=== PATIENT | male | born 1945 | race Caucasian/White ===

== ENCOUNTER → 2016-03-02 | Outpatient (CLI) | payer MEDICARE, OTHER ==
[2016-03-02 13:06] LABS: Blood Urea Nitrogen 13 mg/dL (9-20); Non-African American GFR(MDRD) >60 (>60 ml/min/1.73 sqM)
--- NOTE | 2016-03-02 15:27 | CT ---
EXAMINATION TYPE: CT abdomen pelvis w con DATE OF EXAM: 03/02/2016 2:27 PM COMPARISON: 09/08/2011 HISTORY: 71-year-old male with abnormal weight loss TECHNIQUE: Contiguous axial scanning of the abdomen and pelvis following administration of 100 ml Omn ipaque 300 IV contrast. Delayed images through the kidneys and coronal/sagittal reconstructions perf ormed. CT DLP: 295.1 mGycm Automated exposure control for dose reduction was used. FINDINGS: Heart is normal size without pericardial effusion. Strandy atelectasis dependently within the lungs w ithout pleural effusion. No focal liver lesion. Mild prominence to the biliary system likely relates to postcholecystectomy st atus. Portal venous system is patent. Adrenal glands, right kidney, spleen, and pancreas show no gross abnormality. Slight interval enlarge ment of a 2.6 cm medial left renal cyst. Symmetric uptake and excretion of contrast by both kidneys. Stable subcentimeter hypodensity lateral left kidney too small for accurate CT characterization, like ly a cyst. Paucity of intra-abdominal fat limits assessment for lymphadenopathy. There are enlarged right lower quadrant mesenteric lymph nodes measuring up to 1.2 cm. There is moderate stool burden and there appears to be short multiple segments of annular narrowing a nd mucosal hyperemia particularly near the hepatic flexure, for example, axial image 47 and some kevin tional circumferential wall thickening with mucosal hyperemia involving distal ileum, axial image 55 and 60. No dilated small bowel, free fluid, or free air. Mild apical scarring calcifications within the abdominal aorta and iliac arteries. Bladder is urine distended. Prostate gland mildly enlarged at 4.4 cm wide. No abnormal fluid collecti on in the pelvis. Bones: Mild degenerative changes at the hips and additional degenerative changes lower lumbar spine. No osseous destructive process. IMPRESSION: 1. MULTI SEGMENTAL ANNULAR NARROWING WITH MUCOSAL HYPEREMIA INVOLVING THE COLON NEAR THE HEPATIC FLEX URE AND ALSO INVOLVING THE TERMINAL ILEUM IS SUSPECTED TO BE ON AN INFECTIOUS/INFLAMMATORY BASIS RATH ER THAN A NEOPLASTIC ETIOLOGY. CORRELATE FOR POSSIBLE ENTEROCOLITIS OR CROHN'S DISEASE. 2. GIVEN THE PRESENCE OF ABNORMAL RIGHT LOWER QUADRANT MESENTERIC LYMPHADENOPATHY MEASURING UP TO 1.2 CM, DIRECT VISUALIZATION TO ASSESS THE COLON SHOULD BE CONSIDERED.
== END | disposition home or self-care (01) ==
LOC: RADCTMAIN 12:18
PROVIDERS: ATTEND Internal Medicine Gastroenterology
DX: R59.0 Localized enlarged lymph nodes (principal)
CPT/HCPCS: 82565; 84520; 74177; 36415; Q9967

== ENCOUNTER → 2016-03-07 | Outpatient (CLI) | payer MEDICARE, OTHER ==
--- NOTE | 2016-03-07 09:08 | XR ---
EXAMINATION TYPE: XR chest 2V DATE OF EXAM: 03/07/2016 8:51 AM COMPARISON: 05/20/2015 INDICATION: Weight loss TECHNIQUE: Frontal and lateral views of the chest are obtained. FINDINGS: The heart size is normal. The pulmonary vasculature is normal. The lungs are clear. There is hyperinflation flattened diaphragms and increased retrosternal airspac e. Findings are compatible COPD. A 6 mm nodular densities at the left base. Corresponding areas prese nt on the right. This may be nipple shadow. IMPRESSION: 1. No acute pulmonary process. 2. Probable nipple shadow, recommend repeat imaging with nipple markers.
== END | disposition home or self-care (01) ==
LOC: RADXRMAIN 08:31
PROVIDERS: ATTEND Nurse Practitioner Primary Care
DX: R63.4 Abnormal weight loss (principal)
CPT/HCPCS: 71020

== ENCOUNTER → 2016-03-07 | Outpatient (CLI) | payer MEDICARE, OTHER | END | disposition home or self-care (01) | LOC: LABWHC1 08:57 | PROVIDERS: ATTEND Psychiatry & Neurology Neurology | DX: G40.209 Localization-related (focal) (partial) symptomatic epilepsy and epileptic syndromes with complex partial seizures, not intractable, without status epilepticus (principal) | CPT/HCPCS: 36415; 80185 ==

== ENCOUNTER → 2016-03-23 | Outpatient (CLI) | payer MEDICARE, OTHER ==
--- NOTE | 2016-03-23 09:44 | XR ---
EXAMINATION TYPE: XR chest 2V DATE OF EXAM: 03/23/2016 8:44 AM COMPARISON: Chest x-ray March 07, 2016 HISTORY: Weight loss per order. Prior abnormal chest x-ray. TECHNIQUE: Frontal and lateral views of the chest are obtained. FINDINGS: Repeat x-ray with nipple markers shows symmetric round densities do correlate with patient' s nipples. Chronic emphysematous changes redemonstrated. There is no focal air space opacity, pleural effusion, or pneumothorax seen. The cardiac silhouette size is within normal limits. The osseous structures are intact. Cholecystectomy clips are again seen. IMPRESSION: Chronic emphysematous change without acute pulmonary process. Rounded densities correlat e with patient's nipples on repeat study.
== END | disposition home or self-care (01) ==
LOC: RADXRMAIN 08:20
PROVIDERS: ATTEND Nurse Practitioner Primary Care
DX: R91.8 Other nonspecific abnormal finding of lung field (principal); R63.4 Abnormal weight loss
CPT/HCPCS: 71020

== ENCOUNTER 2016-03-31 09:37 | Day surgery (SDC) | payer MEDICARE, OTHER ==
[2016-03-29 09:52] VITALS: BMI 16.7
[~2016-03-31 09:37] MED LIST: LACTATED RINGERS 1,000 ML IV SCH
[2016-03-31] MEDS ORDERED: LIDOCAINE 1% 20 ML VIAL (10MG/ML) FOR IV START SQ ONE (09:54)
[2016-03-31 10:06] VITALS: TEMP 97
[2016-03-31] MEDS ORDERED: MIDAZOLAM 2 MG/2 ML VIAL IV PRN (10:23)
[2016-03-31] MEDS ORDERED: LACTATED RINGERS 1,000 ML IV SCH (10:30)
[2016-03-31] MEDS ORDERED: PROPOFOL 10 MG/ML 20 ML VIAL IV ONE (10:42)
--- NOTE | 2016-03-31 11:00 | P.PCN ---
Date of Procedure: 03/31/16 Procedure(s) Performed: Brief history: Patient is a pleasant 71-year-old white male, scheduled for an elective upper endoscopy as well as colonoscopy as a part of evaluation of abdominal pain, progressive weight loss and abnormal CAT scan of the abdomen that showed questionable lesion in the hepatic flexure. The patient has been having these symptoms for the last 6 months duration had lost about 30 pounds. He is hence scheduled for an upper endoscopy as well as colonoscopy to evaluate further. Procedure performed: Esophagogastroduodenoscopy with biopsy Flexible sigmoidoscopy Preoperative diagnosis: Abdominal pain, progressive weight loss Abnormal CAT scan showing questionable lesion in the hepatic flexure. Anesthesia: MAC Procedure: After informed consent was obtained from the patient was brought into the endoscopy unit and IV conscious sedation was administered by anesthesia under continuous monitoring. Initially upper endoscopy was done. The Olympus GF 160 video endoscope was inserted inserted into the mouth and esophagus intubated without any difficulty and was gradually advanced into the stomach and duodenum and carefully examined. The bulb and second part of the duodenum appeared normal. The scope was then withdrawn into the stomach adequately insufflated with air and upon careful examination the antrum and body, had diffuse gastritis and biopsies were done from this area. The cardia and fundus appeared normal. The scope was then withdrawn into the esophagus. The GE junction was located at 40 cm to the incisors. It appeared regular with circumferential erythema consistent with LA grade A reflux esophagitis.. Rest of the esophagus appeared normal. Patient tolerated the procedure well. At this time the patient continued to remain sedation. Initial digital rectal examination was normal. Olympus CF 160 video colonoscope was then inserted into the rectum and gradually advanced to the sigmoid colon and further advancement was not possible because of extremely poor prep that was encountered in this area..There was solid stool noted and advance the scope part in the descending colon and because of family visualized because of extremely poor prep and hence the procedure was terminated and the patient tolerated the procedure well. The visualized portions of the sigmoid colon and rectum appeared normal. Impression: 1. Upper endoscopy revealed diffuse gastritis and LA grade A reflux esophagitis. 2. Flexible sigmoidoscope revealed extended poor prep in the sigmoid colon and descending colon and hence procedure had to be terminated. Recommendations: Findings of this examination were discussed with the patient as well as his family. He was advised to follow with the biopsy results. Colonoscopy will be rescheduled at this time.
[2016-03-31 11:39] VITALS: BP 111/75; PULSE 60; RESP 16
== END 2016-03-31 11:56 | disposition home or self-care (01) ==
LOC: ORWHC2ENDO 09:37
PROVIDERS: ATTEND Internal Medicine Gastroenterology
DX: K29.50 Unspecified chronic gastritis without bleeding (principal); K21.0 Gastro-esophageal reflux disease with esophagitis; R10.9 Unspecified abdominal pain; R93.2 Abnormal findings on diagnostic imaging of liver and biliary tract; R56.9 Unspecified convulsions; R63.4 Abnormal weight loss; F17.200 Nicotine dependence, unspecified, uncomplicated; Z79.899 Other long term (current) drug therapy; Z79.891 Long term (current) use of opiate analgesic; Z53.8 Procedure and treatment not carried out for other reasons
CPT/HCPCS: 88305; 88342; 43239; 45330; J2250; J2704

== ENCOUNTER 2016-04-29 07:55 | Day surgery (SDC) | payer MEDICARE, OTHER ==
[2016-04-27 09:42] VITALS: BMI 15.3
[2016-04-29 08:53] VITALS: TEMP 98
[2016-04-29] MEDS ORDERED: PROPOFOL 10 MG/ML 20 ML VIAL IV ONE (09:03)
--- NOTE | 2016-04-29 09:18 | P.PCN ---
Date of Procedure: 04/29/16 Procedure(s) Performed: BRIEF HISTORY: Patient is a 71-year-old pleasant white male, scheduled for an elective colonoscopy as a part of evaluation of abdominal pain and abnormal CAT scan of the abdomen that showed a lesion in the hepatic flexure/right colon. PROCEDURE PERFORMED: Colonoscopy. PREOPERATIVE DIAGNOSIS: Abnormal CAT scan of the abdomen. IV sedation per Anesthesia. PROCEDURE: After informed consent was obtained, the patient, was brought into the endoscopy unit. IV conscious sedation was administered by Anesthesia under continuous monitoring. Initially the Olympus CF-160 flexible video colonoscope was then inserted in the rectum, gradually advanced into the cecum without any difficulty. Careful examination was performed as the scope was gradually being withdrawn. Ileocecal valve and the appendiceal orifice were visualized and appeared normal. Prep was excellent. Mucosa of the cecum, ascending colon, transverse colon, descending colon, sigmoid colon, and rectum appeared normal. Retroflexion was performed in the rectum and no lesions were seen. Scattered sigmoid diverticulosis seen. The patient tolerated the procedure well. IMPRESSION: Normal-appearing colon from rectum to cecum with no evidence of colorectal neoplasia. Scattered sigmoid diverticulosis. RECOMMENDATIONS: Findings of this examination were discussed with the patient as well as his family. He was advised to have a repeat screening colonoscopy in 10 years.
[2016-04-29 09:29] VITALS: RESP 16
[2016-04-29 09:41] VITALS: BP 117/77; PULSE 79
== END 2016-04-29 10:06 | disposition home or self-care (01) ==
LOC: ORWHC2ENDO 07:55
PROVIDERS: ATTEND Internal Medicine Gastroenterology
DX: K57.30 Diverticulosis of large intestine without perforation or abscess without bleeding (principal); R56.9 Unspecified convulsions; F17.200 Nicotine dependence, unspecified, uncomplicated; Z79.891 Long term (current) use of opiate analgesic; Z79.899 Other long term (current) drug therapy
CPT/HCPCS: 45378; J2704

== ENCOUNTER → 2016-09-30 | Outpatient (CLI) | payer MEDICARE, OTHER | END | disposition home or self-care (01) | LOC: LABWHC1 07:45 | PROVIDERS: ATTEND Psychiatry & Neurology Neurology | DX: G40.209 Localization-related (focal) (partial) symptomatic epilepsy and epileptic syndromes with complex partial seizures, not intractable, without status epilepticus (principal) | CPT/HCPCS: 36415; 80177 ==

== ENCOUNTER → 2017-09-25 | Outpatient (CLI) | payer MEDICARE, OTHER | END | disposition home or self-care (01) | LOC: LABWHC1 08:32 | PROVIDERS: ATTEND Psychiatry & Neurology Neurology | DX: G40.209 Localization-related (focal) (partial) symptomatic epilepsy and epileptic syndromes with complex partial seizures, not intractable, without status epilepticus (principal) | CPT/HCPCS: 36415; 80177 ==

== ENCOUNTER → 2017-12-01 | Outpatient (CLI) | payer MEDICARE, OTHER ==
[2017-12-01 08:14] LABS: ALT 30 U/L (21-72); AST 29 U/L (17-59); Albumin 3.3 g/dL (3.5-5.0); Alkaline Phosphatase 170 U/L (38-126); Anion Gap 7 mmol/L; Blood Urea Nitrogen 14 mg/dL (9-20); Calcium 8.9 mg/dL (8.4-10.2); Carbon Dioxide 29 mmol/L (22-30); Chloride 103 mmol/L (98-107); Cholesterol 85 mg/dL (<200); Glucose 98 mg/dL (74-99); HDL Cholesterol 39 mg/dL (40-60); LDL Cholesterol,Calculated 29 mg/dL (0-99); Potassium 4.9 mmol/L (3.5-5.1); Sodium 139 mmol/L (137-145); Total Bilirubin 0.6 mg/dL (0.2-1.3); Total Protein 6.2 g/dL (6.3-8.2); Triglycerides 86 mg/dL (<150)
== END | disposition home or self-care (01) ==
LOC: LABWHC1 06:56
DX: E78.5 Hyperlipidemia, unspecified (principal)
CPT/HCPCS: 36415; 80053; 80061

== ENCOUNTER → 2018-10-03 | Outpatient (CLI) | payer MEDICARE, OTHER | END | disposition home or self-care (01) | LOC: LABWHC1 08:43 | PROVIDERS: ATTEND Psychiatry & Neurology Neurology | DX: G40.209 Localization-related (focal) (partial) symptomatic epilepsy and epileptic syndromes with complex partial seizures, not intractable, without status epilepticus (principal) | CPT/HCPCS: 36415; 80177 ==

== ENCOUNTER 2019-04-23 16:48 | Inpatient (IN) | payer MEDICARE, OTHER ==
[2019-04-23] MEDS ORDERED: PANTOPRAZOLE 40 MG/10 ML VIAL IVP STA (18:13)
[2019-04-23] MEDS ORDERED: SODIUM CHLORIDE 0.9% 1,000 ML IV STA ×2 (18:13)
[2019-04-23 18:40] LABS: ALT 20 U/L (4-49); AST 30 U/L (17-59); African American GFR (CKD) >90 (>60 ml/min/1.73 sqM); Albumin 3.7 g/dL (3.5-5.0); Alkaline Phosphatase 180 U/L (38-126); Amylase 40 U/L (30-110); Anion Gap 4 mmol/L; Blood Urea Nitrogen 19 mg/dL (9-20); Calcium 9.2 mg/dL (8.4-10.2); Carbon Dioxide 36 mmol/L (22-30); Chloride 94 mmol/L (98-107); Glucose 114 mg/dL (74-99); Non-African American GFR(CKD) 88 (>60 ml/min/1.73 sqM); Potassium 3.8 mmol/L (3.5-5.1); Sodium 134 mmol/L (137-145); Total Bilirubin 0.6 mg/dL (0.2-1.3); Total Protein 6.5 g/dL (6.3-8.2)
[2019-04-23 18:44] LABS: Basophils # (A) 0.1 k/uL (0-0.2); Basophils % (A) 0 %; Eosinophils # (A) 0.1 k/uL (0-0.7); Eosinophils % (A) 1 %; HCT 46.8 % (39.0-53.0); HGB 15.8 gm/dL (13.0-17.5); Lymphocytes # (A) 2.6 k/uL (1.0-4.8); Lymphocytes % (A) 21 %; MCH 31.2 pg (25.0-35.0); MCHC 33.8 g/dL (31.0-37.0); MCV 92.4 fL (80.0-100.0); Mean Platelet Volume 7.2; Monocytes # (A) 0.8 k/uL (0-1.0); Monocytes % (A) 6 %; Neutrophils # (A) 8.6 k/uL (1.3-7.7); Neutrophils % (A) 70 %; Platelet Count 466 k/uL (150-450); RBC 5.06 m/uL (4.30-5.90); RDW 12.4 % (11.5-15.5); WBC 12.3 k/uL (3.8-10.6)
--- NOTE | 2019-04-23 18:48 | ED ---
Abdominal Pain HPI - General Source: patient, RN notes reviewed, old records reviewed Mode of arrival: ambulatory Limitations: no limitations - History of Present Illness MD Complaint: abdominal pain <Dana Johansen - Last Filed: 04/23/19 20:33> <LarryDeidre Arturo - Last Filed: 04/28/19 02:32> - General Chief Complaint: Abdominal Pain Stated Complaint: bleeding ulcer Time Seen by Provider: 04/23/19 17:55 - History of Present Illness Initial Comments: Patient's 24-year-old male who presents today for evaluation with concern for watery diarrhea for the past month as well as nausea and vomiting. Patient reports he lost 10 pounds within the past month. Patient reports he is a smoker as well. He denies any specific fever. He reports he has abdominal pain is in the mid center of his abdomen. Patient states he had 14 episodes of diarrhea yesterday. Patient states that he's had such frequent diarrhea that a few weeks ago he was running to the bathroom and fell causing significant abrasions and scabs over his rate arm after falling into a glass coffee table. Patient reports that he has had a history of colonoscopies and scopes in the past. He states that his stool has not been bloody or black. (Dana Johansen) - Related Data Home Medications Medication Instructions Recorded Confirmed Bimatoprost [Lumigan .01% Ophth 1 drop BOTH EYES HS 03/29/16 04/23/19 Soln] Cyclobenzaprine [Flexeril] 10 mg PO BID 03/29/16 04/23/19 Morphine Sulfate [Ms Contin] 30 mg PO QID 03/29/16 04/23/19 Multivit-Min/FA/Lycopen/Lutein 1 tab PO DAILY 03/29/16 04/23/19 [Centrum Silver Tablet] levETIRAcetam [Keppra] 1,000 mg PO Q12HR 03/29/16 04/23/19 Fluocinonide 0.05% [Lidex 0.05% 1 applic TOPICAL BID 04/23/19 04/23/19 cream] Magnesium(Unknown Dose) 1 tab PO DAILY 04/23/19 04/23/19 Zolpidem [Ambien] 10 mg PO HS PRN 04/23/19 04/23/19 levETIRAcetam [Keppra] 250 mg PO Q12HR 04/23/19 04/23/19 Allergies Allergy/AdvReac Type Severity Reaction Status Date / Time No Known Allergies Allergy Verified 04/23/19 21:59 Review of Systems ROS Other: All systems not noted in ROS Statement are negative. <Dana Johansen - Last Filed: 04/23/19 20:33> ROS Other: All systems not noted in ROS Statement are negative. <Deidre Juarez - Last Filed: 04/28/19 02:32> ROS Statement: Those systems with pertinent positive or pertinent negative responses have been documented in the HPI. Past Medical History Past Medical History: Eye Disorder, GERD/Reflux, Osteoarthritis (OA), Seizure Disorder Additional Past Medical History / Comment(s): LAST SEIZURE 2006, GLAUCOMA, History of Any Multi-Drug Resistant Organisms: None Reported Past Surgical History: Cholecystectomy Additional Past Surgical History / Comment(s): CATARACT RIGHT EYE REMOVED Past Anesthesia/Blood Transfusion Reactions: No Reported Reaction Past Psychological History: No Psychological Hx Reported Smoking Status: Current every day smoker Past Alcohol Use History: None Reported Past Drug Use History: None Reported - Past Family History Mother Family Medical History: Cancer <Dana Johansen - Last Filed: 04/23/19 20:33> General Exam Limitations: no limitations General appearance: alert, in no apparent distress Head exam: Present: atraumatic, normocephalic, normal inspection, other (temporal wasting) Eye exam: Present: normal appearance, PERRL, EOMI. Absent: scleral icterus, conjunctival injection, periorbital swelling ENT exam: Present: normal exam, mucous membranes moist Neck exam: Present: normal inspection Respiratory exam: Present: normal lung sounds bilaterally. Absent: respiratory distress, wheezes, rales, rhonchi, stridor Cardiovascular Exam: Present: regular rate, normal rhythm, normal heart sounds. Absent: systolic murmur, diastolic murmur, rubs, gallop, clicks GI/Abdominal exam: Present: soft, tenderness (epigastric tenderness), normal bowel sounds. Absent: distended, guarding, rebound, rigid Extremities exam: Present: normal inspection, full ROM, normal capillary refill. Absent: tenderness, pedal edema, joint swelling, calf tenderness Back exam: Present: normal inspection Neurological exam: Present: alert, oriented X3, CN II-XII intact <Dana Johansen - Last Filed: 04/23/19 20:33> - General Exam Comments Initial Comments: 74-year-old male. Alert and oriented. Patient is very thin and frail. Cachexic. (Dana Johansen) Course Vital Signs 04/23/19 04/23/19 17:09 20:54 Temperature 98.1 F Pulse Rate 100 90 Respiratory 20 18 Rate Blood Pressure 110/77 115/71 O2 Sat by Pulse 100 99 Oximetry Medical Decision Making - Lab Data Result diagrams: 04/23/19 18:17 04/23/19 18:17 - Radiology Data Radiology results: report reviewed <Dana Johansen - Last Filed: 04/23/19 20:33> - Lab Data Result diagrams: 04/27/19 06:59 04/27/19 06:59 <Deidre Juarez - Last Filed: 04/28/19 02:32> - Medical Decision Making Patient is a 74-year-old male who presents the emergency department today for evaluation for 1 month of diarrhea and vomiting. 10 pound weight loss. Patient is cachectic, temporal wasting noted. Has appears very dehydrated, dry oropharynx. His of epigastric tenderness. Blood work was reviewed relatively unremarkable. Patient had CT abdomen and pelvis. There is evidence of COPD. Mild scarring at the segmental atelectasis right lung base which is improved. There is also diverticulosis in [place] wall thickening related to colitis. This is a change. Distended small bowel loops with fluid. Mildly dilated stomach with fluid. He reports that he just had a Ensure drink today. These findings are suggested of small bowel ileus or gastroparesis. No obstructing lesion is seen. Due to dehydration, CT findings and concern for cachexia, and failure to thrive, patient will be admitted at this time. (Dana Johansen) I was available for consultation in the emergency department. The history and physical exam were done by the midlevel provider. I was consulted for this patients care. I reviewed the case with the midlevel provider and based on their presentation of the patient, I agree with the assessment, medical decision making and plan of care as documented. I evaluated the patient myself and agreed to the plan of hospital admission. Case was discussed with Dr. Dailey who accepted the admission. Chart was dictated using Dragon dictation software. Attempts were made to correct any dictation errors however some typographical errors may persist. (Deidre Juarez) - Lab Data Lab Results 04/23/19 04/23/19 04/23/19 Range/Units 15:45 18:17 18:17 WBC 12.3 H (3.8-10.6) k/uL RBC 5.06 (4.30-5.90) m/uL Hgb 15.8 (13.0-17.5) gm/dL Hct 46.8 (39.0-53.0) % MCV 92.4 (80.0-100.0) fL MCH 31.2 (25.0-35.0) pg MCHC 33.8 (31.0-37.0) g/dL RDW 12.4 (11.5-15.5) % Plt Count 466 H (150-450) k/uL Neutrophils % 70 % Lymphocytes % 21 % Monocytes % 6 % Eosinophils % 1 % Basophils % 0 % Neutrophils # 8.6 H (1.3-7.7) k/uL Lymphocytes # 2.6 (1.0-4.8) k/uL Monocytes # 0.8 (0-1.0) k/uL Eosinophils # 0.1 (0-0.7) k/uL Basophils # 0.1 (0-0.2) k/uL ESR (0-15) mm/hr PT 10.0 (9.0-12.0) sec INR 1.0 (<1.2) APTT 26.4 (22.0-30.0) sec Sodium (137-145) mmol/L Potassium (3.5-5.1) mmol/L Chloride (98-107) mmol/L Carbon Dioxide (22-30) mmol/L Anion Gap mmol/L BUN (9-20) mg/dL Creatinine (0.66-1.25) mg/dL Est GFR (CKD-EPI)AfAm (>60 ml/min/1.73 sqM) Est GFR (CKD-EPI)NonAf (>60 ml/min/1.73 sqM) Glucose (74-99) mg/dL Plasma Lactic Acid Khurram (0.7-2.0) mmol/L Calcium (8.4-10.2) mg/dL Total Bilirubin (0.2-1.3) mg/dL AST (17-59) U/L ALT (4-49) U/L Alkaline Phosphatase (38-126) U/L Troponin I (0.000-0.034) ng/mL C-Reactive Protein (<10.0) mg/L Total Protein (6.3-8.2) g/dL Albumin (3.5-5.0) g/dL Amylase (30-110) U/L Lipase (23-300) U/L Urine Color Urine Appearance (Clear) Urine pH (5.0-8.0) Ur Specific Williamson (1.001-1.035) Urine Protein (Negative) Urine Glucose (UA) (Negative) Urine Ketones (Negative) Urine Blood (Negative) Urine Nitrite (Negative) Urine Bilirubin (Negative) Urine Urobilinogen (<2.0) mg/dL Ur Leukocyte Esterase (Negative) Stool Occult Blood Positive (Negative) 04/23/19 04/23/19 04/23/19 Range/Units 18:17 18:17 18:17 WBC (3.8-10.6) k/uL RBC (4.30-5.90) m/uL Hgb (13.0-17.5) gm/dL Hct (39.0-53.0) % MCV (80.0-100.0) fL MCH (25.0-35.0) pg MCHC (31.0-37.0) g/dL RDW (11.5-15.5) % Plt Count (150-450) k/uL Neutrophils % % Lymphocytes % % Monocytes % % Eosinophils % % Basophils % % Neutrophils # (1.3-7.7) k/uL Lymphocytes # (1.0-4.8) k/uL Monocytes # (0-1.0) k/uL Eosinophils # (0-0.7) k/uL Basophils # (0-0.2) k/uL ESR (0-15) mm/hr PT (9.0-12.0) sec INR (<1.2) APTT (22.0-30.0) sec Sodium 134 L (137-145) mmol/L Potassium 3.8 (3.5-5.1) mmol/L Chloride 94 L (98-107) mmol/L Carbon Dioxide 36 H (22-30) mmol/L Anion Gap 4 mmol/L BUN 19 (9-20) mg/dL Creatinine 0.81 (0.66-1.25) mg/dL Est GFR (CKD-EPI)AfAm >90 (>60 ml/min/1.73 sqM) Est GFR (CKD-EPI)NonAf 88 (>60 ml/min/1.73 sqM) Glucose 114 H (74-99) mg/dL Plasma Lactic Acid Khurram 1.0 (0.7-2.0) mmol/L Calcium 9.2 (8.4-10.2) mg/dL Total Bilirubin 0.6 (0.2-1.3) mg/dL AST 30 (17-59) U/L ALT 20 (4-49) U/L Alkaline Phosphatase 180 H (38-126) U/L Troponin I <0.012 (0.000-0.034) ng/mL C-Reactive Protein (<10.0) mg/L Total Protein 6.5 (6.3-8.2) g/dL Albumin 3.7 (3.5-5.0) g/dL Amylase 40 (30-110) U/L Lipase 37 (23-300) U/L Urine Color Urine Appearance (Clear) Urine pH (5.0-8.0) Ur Specific Williamson (1.001-1.035) Urine Protein (Negative) Urine Glucose (UA) (Negative) Urine Ketones (Negative) Urine Blood (Negative) Urine Nitrite (Negative) Urine Bilirubin (Negative) Urine Urobilinogen (<2.0) mg/dL Ur Leukocyte Esterase (Negative) Stool Occult Blood (Negative) 04/23/19 04/24/19 04/24/19 Range/Units 19:31 18:03 18:03 WBC (3.8-10.6) k/uL RBC (4.30-5.90) m/uL Hgb (13.0-17.5) gm/dL Hct (39.0-53.0) % MCV (80.0-100.0) fL MCH (25.0-35.0) pg MCHC (31.0-37.0) g/dL RDW (11.5-15.5) % Plt Count (150-450) k/uL Neutrophils % % Lymphocytes % % Monocytes % % Eosinophils % % Basophils % % Neutrophils # (1.3-7.7) k/uL Lymphocytes # (1.0-4.8) k/uL Monocytes # (0-1.0) k/uL Eosinophils # (0-0.7) k/uL Basophils # (0-0.2) k/uL ESR 8 (0-15) mm/hr PT (9.0-12.0) sec INR (<1.2) APTT (22.0-30.0) sec Sodium (137-145) mmol/L Potassium (3.5-5.1) mmol/L Chloride (98-107) mmol/L Carbon Dioxide (22-30) mmol/L Anion Gap mmol/L BUN (9-20) mg/dL Creatinine (0.66-1.25) mg/dL Est GFR (CKD-EPI)AfAm (>60 ml/min/1.73 sqM) Est GFR (CKD-EPI)NonAf (>60 ml/min/1.73 sqM) Glucose (74-99) mg/dL Plasma Lactic Acid Khurram (0.7-2.0) mmol/L Calcium (8.4-10.2) mg/dL Total Bilirubin (0.2-1.3) mg/dL AST (17-59) U/L ALT (4-49) U/L Alkaline Phosphatase (38-126) U/L Troponin I (0.000-0.034) ng/mL C-Reactive Protein 33.2 H (<10.0) mg/L Total Protein (6.3-8.2) g/dL Albumin (3.5-5.0) g/dL Amylase (30-110) U/L Lipase (23-300) U/L Urine Color Yellow Urine Appearance Clear (Clear) Urine pH 6.5 (5.0-8.0) Ur Specific Williamson 1.031 (1.001-1.035) Urine Protein Negative (Negative) Urine Glucose (UA) Negative (Negative) Urine Ketones Negative (Negative) Urine Blood Negative (Negative) Urine Nitrite Negative (Negative) Urine Bilirubin Negative (Negative) Urine Urobilinogen <2.0 (<2.0) mg/dL Ur Leukocyte Esterase Negative (Negative) Stool Occult Blood (Negative) - Radiology Data CT shows evidence of COPD mild scarring and sex segmental atelectasis in the right lung base. Minimal sigmoid diverticulosis. Sigmoid wall thickening could relate to colitis. This is a change from old exam. Distended small bowel loops with fluid. Mildly dilated stomach with fluid. Suggestive of gastroparesis and small bowel ileus. No obstructing lesion seen. Chest x-ray shows COPD. No active cardiopulmonary disease. There is mild T12 compression fracture and Increased to old exam. (Dana Johansen) Disposition Is patient prescribed a controlled substance at d/c from ED?: No Time of Disposition: 20:37 <Dana Johansen - Last Filed: 04/23/19 20:33> <Deidre Juarez - Last Filed: 04/28/19 02:32> Clinical Impression: Cachexia, Dehydration, Colitis, Vomiting Disposition: ADMITTED IP TO THIS HOSP Condition: Stable
[2019-04-23 19:03] LABS: Partial Thromboplastin Time 26.4 sec (22.0-30.0)
--- NOTE | 2019-04-23 19:19 | XR ---
EXAMINATION TYPE: XR chest 2V DATE OF EXAM: 04/23/2019 COMPARISON: 03/23/2016 HISTORY: Weight loss TECHNIQUE: FINDINGS: Heart is normal. Lungs are clear of infiltrate. There is no heart failure. There are no hil ar masses. There is flattening of the diaphragm. There is 15% wedging of T12 vertebra. IMPRESSION: COPD. No active cardiopulmonary disease. There is mild T12 compression fracture increased compared to old exam.
--- NOTE | 2019-04-23 19:38 | CT ---
EXAMINATION TYPE: CT abdomen pelvis w con DATE OF EXAM: 04/23/2019 COMPARISON: 03/02/2016 HISTORY: Weight loss, diarrhea, vomiting, abdomen pain, cachexia x3 weeks. CT DLP: 538.3 mGycm Automated exposure control for dose reduction was used. CONTRAST: Performed with IV Contrast, patient injected with 100 mL of Isovue 300. There is some pulmonary emphysema. There is minimal scarring and subsegmental atelectasis right lung base. There is no pleural effusion. Heart size is normal. There is no pericardial effusion. There are clips from cholecystectomy. Liver and spleen appear intact. There is no evidence of pancrea tic mass. The stomach is dilated with fluid. There is no adrenal mass. Kidneys show satisfactory cont rast opacification. There is no hydronephrosis. There is 3.3 cm cortical cyst medial left kidney. The re is no retroperitoneal adenopathy. Ureters are not dilated. Bladder distends smoothly. There is no inguinal hernia. There is no free fluid in the pelvis. There are a few sigmoid diverticula. There is no sign of diverticulitis. Fecal pattern is fairly normal. There is suggestion of mild wall thickenin g of the sigmoid colon. There are mildly distended loops of small bowel up to 3 cm. There is no evidence of free air. There i s no ascites. There is no mesenteric edema. IMPRESSION: There is evidence of COPD. Mild scarring and subsegmental atelectasis right lung base slightly increa sed compared to old exam. Minimal sigmoid diverticulosis. Minimal sigmoid wall thickening could relate to mild colitis. This is a change compared to old exam. Distended small bowel loops with fluid. Mildly dilated stomach with f luid. This is suggestive of gastroparesis and small bowel ileus. No obstructing lesion seen. This shakeel ears similar to old exam.
[2019-04-23 19:46] LABS: Appearance,Urine Clear (Clear); Bilirubin,Urine Negative (Negative); Blood,Urine Negative (Negative); Color,Urine Yellow; Glucose,Urine (UA) Negative (Negative); Ketones,Urine Negative (Negative); Leukocyte Esterase,Urine Negative (Negative); Nitrite,Urine Negative (Negative); PH, Urine 6.5 (5.0-8.0); Protein,Urine Negative (Negative); Specific Gravity,Urine 1.031 (1.001-1.035); Urobilinogen,Urine <2.0 mg/dL (<2.0)
[2019-04-23] MEDS ORDERED: IBUPROFEN 400 MG TAB PO PRN (20:38)
[2019-04-23] MEDS ORDERED: ACETAMINOPHEN TAB 325 MG TAB PO PRN (20:38)
[2019-04-23] MEDS ORDERED: HYDROmorphone 0.5 MG/0.5 ML SYRINGE IVP PRN (20:38)
[2019-04-23] MEDS ORDERED: NALOXONE 0.4 MG/ML 1 ML VIAL IV PRN (20:38)
[2019-04-23] MEDS ORDERED: MORPHINE SULFATE 4 MG/ML SYRINGE IV PRN (20:38)
[2019-04-23] MEDS: levETIRAcetam 500 MG TAB PO SCH (21:22)
[2019-04-23] MEDS: SODIUM CHLORIDE 0.9% 1,000 ML IV SCH (21:22)
[2019-04-23] MEDS: CYCLOBENZAPRINE 10 MG TAB PO SCH (21:28)
[2019-04-23] MEDS: MORPHINE SULFATE ER 30 MG TABLET PO SCH (21:28)
[2019-04-23] MEDS ORDERED: PHENYTOIN SODIUM EXTENDED 100 MG CAP PO SCH (22:00)
[2019-04-23] MEDS ORDERED: ZOLPIDEM 10 MG TAB PO PRN (22:21)
[2019-04-24] MEDS: LATANOPROST 0.005% OPHTH DROPS 2.5 ML BTL BOTH EYES SCH ×3 (00:21→22:04)
[2019-04-24] MEDS: BETAMETHASONE DIPROPIONATE 0.05% CREAM 15 GM TUBE TOPICAL SCH ×3 (08:58→22:04)
[2019-04-24] MEDS: MORPHINE SULFATE ER 30 MG TABLET PO SCH ×4 (09:06→22:06)
[2019-04-24] MEDS: PANTOPRAZOLE 40 MG/10 ML VIAL IV SCH (09:07)
[2019-04-24] MEDS: levETIRAcetam 250 MG TAB PO SCH ×2 (09:07→21:13)
[2019-04-24] MEDS: MULTIVITAMINS, THERA 1 EACH TAB PO SCH (09:07)
[2019-04-24] MEDS: CYCLOBENZAPRINE 10 MG TAB PO SCH ×2 (09:07→21:12)
[2019-04-24] MEDS: levETIRAcetam 500 MG TAB PO SCH ×2 (09:07→21:12)
[2019-04-24 14:21] VITALS: BMI 15.3
--- NOTE | 2019-04-24 17:07 | HP ---
HISTORY AND PHYSICAL DATE OF SERVICE: 04/24/2019 CHIEF COMPLAINT: Abdominal pain as well as diarrhea. HISTORY OF PRESENT ILLNESS: This 74-year-old gentleman with a past medical history of multiple medical problems, including history of GERD, DJD, seizure disorder, history of glaucoma, being followed by Dr. Oliveros in the outpatient setting, was complaining of diarrhea and abdominal discomfort for the last 2 months. The patient had multiple episodes of diarrhea, watery, every day. Patient lost about 8 pounds. The patient apparently had 14 episodes yesterday. The patient was running to the bathroom and the patient apparently fell and developed abrasions and some injury of the right forearm also. There is no history of any fever, rigor or chills. No history of headache, loss of consciousness, seizures. CT scan of the abdomen and pelvis was done in the ER and showed some COPD and diverticulosis, gastroparesis and small bowel ileus also PAST MEDICAL HISTORY: GERD, DJD, history of seizure disorder, history of glaucoma. MEDICATIONS: 1. Keppra 250 mg p.o. b.i.d. 2. 1000 mg p.o. b.i.d. 3. Ambien 10 mg at bedtime p.r.n. 4. Centrum multivitamins 1 p.o. daily. 5. MS Contin 30 mg p.o. q.i.d. 6. Magnesium 1 tablet p.o. daily. 7. Lidex cream 1 application b.i.d. 8. Flexeril 10 mg p.o. daily. 9. Lumigan 1 drop both eyes at bedtime. ALLERGIES: NONE. FAMILY HISTORY: History of cancer in the family. SOCIAL HISTORY: History of smoking, continued ongoing. History of alcohol. REVIEW OF SYSTEMS: ENT: Diminished hearing. Diminished vision. CARDIOVASCULAR SYSTEM: No angina, palpitations. RESPIRATORY SYSTEM: As mentioned earlier. GI: As mentioned earlier. : No dysuria or retention. NERVOUS SYSTEM: Generalized weakness. ALLERGY/IMMUNOLOGY: No asthma, hayfever. MUSCULOSKELETAL: As mentioned earlier. HEMATOLOGY/ONCOLOGY: No history of anemia. ENDOCRINE: No history of diabetes, hypothyroidism. CONSTITUTIONAL: As mentioned earlier. DERMATOLOGY: Negative. RHEUMATOLOGY: Negative. PSYCHIATRY: As mentioned earlier. PHYSICAL EXAMINATION: Patient alert and oriented x3. Pulse is 82, blood pressure 100/56, respiration 15, temperature 98 degrees, pulse ox 97% on room air. HEENT: Conjunctivae normal. NECK: No jugular venous distention. CARDIOVASCULAR SYSTEM: S1, S2 muffled. RESPIRATORY SYSTEM: Breath sounds diminished at the bases. A few scattered rhonchi and crackles. Expiratory wheezing also present. ABDOMEN: Soft, scaphoid. Mild diffuse discomfort on palpation. No guarding. No rigidity. No mass palpable. LEGS: No edema. No swelling. NERVOUS SYSTEM: Higher functions as mentioned earlier. Moves all 4 limbs. No focal motor or sensory deficit. LYMPHATICS: No lymph node palpable in neck, axillae or groin. SKIN: No ulcer, rash, bleeding. JOINTS: No active deforming arthropathy. LABS: WBC 12.3, hemoglobin 15.2, sodium 134. ASSESSMENT: 1. Subacute chronic diarrhea for evaluation; rule out infective diarrhea. 2. Increased white count. 3. Weight loss of 8 pounds for evaluation. 4. Severe protein-calorie malnutrition; body mass index of 15. 5. Hyponatremia. 6. History of gastroesophageal reflux disease. 7. History of degenerative joint disease. 8. History of seizure disorder. 9. History of glaucoma. 10.History of cataracts. 11.History of nicotine dependence, continued ongoing. 12.FULL CODE. RECOMMENDATIONS AND DISCUSSION: In this 74-year-old gentleman who presented with multiple complex medical issues, we will monitor the patient closely, continue the current medications, continue with symptomatic treatment. Will check Keppra levels. Otherwise, CT scan noted. I would also recommend a CT scan of the chest to complete the workup and stool ova, parasites and C difficile cultures and OB. Gastroenterology consultation. Guarded prognosis because of multiple complex medical issues. Further recommendations to follow. A copy of this dictation is being forwarded to Dr. Oliveros, who is the primary physician. MMODL / IJN: [id number] / MTDD
--- NOTE | 2019-04-24 20:11 | CT ---
EXAMINATION TYPE: CT chest wo con DATE OF EXAM: 04/24/2019 COMPARISON: Chest x-ray 04/23/[address] 04/23/2019 HISTORY: abnormal weight loss CT DLP: 199.6 mGycm. Automated Exposure Control for Dose Reduction was Utilized. TECHNIQUE: CT scan of the thorax is performed without IV contrast. FINDINGS: Lack of intravenous contrast could compromise sensitivity. Patient is cachectic. LUNGS: The lungs are remarkable for emphysematous changes. Possible retained secretions present withi n the trachea. Some probable dependent atelectatic changes or scarring noted. There is no pleural e ffusion or pneumothorax seen. The tracheobronchial tree is patent. MEDIASTINUM: Lack of IV contrast is noted to limit evaluation for mediastinal and especially hilar ad enopathy. There are no definitive greater than 1 cm hilar or mediastinal lymph nodes. No cardiomega ly or pericardial effusion is seen. The heart is small. OTHER: Mild superior endplate fracture present centrally at T12. Vacuum phenomenon present at T11-12. Posterior displaced right rib fracture present at the 11th rib on the right as on prior CT. Some enl arged nodes are suspected within the mesentery on prior CT abdomen, axial image 54 not as well seen o n today's noncontrast exam. Cortical cyst is associated with the left kidney. Patient is post cholecy stectomy. Distended stomach shows probable food contents. IMPRESSION: There is adenopathy within the abdomen. Postop changes and emphysema. Additional nonspeci fic findings described above. Posterior right 11th rib fracture of indeterminate age
[2019-04-24] MEDS: ONDANSETRON 4 MG/2 ML VIAL IVP PRN (21:12)
[2019-04-24] MEDS: SODIUM CHLORIDE 0.9% 1,000 ML IV SCH (21:13)
[2019-04-25] MEDS: PANTOPRAZOLE 40 MG/10 ML VIAL IV SCH (07:20)
[2019-04-25] MEDS: MORPHINE SULFATE ER 30 MG TABLET PO SCH ×4 (07:20→21:08)
[2019-04-25] MEDS: CYCLOBENZAPRINE 10 MG TAB PO SCH ×2 (07:20→20:01)
[2019-04-25] MEDS: levETIRAcetam 500 MG TAB PO SCH ×2 (07:21→20:01)
[2019-04-25] MEDS: MULTIVITAMINS, THERA 1 EACH TAB PO SCH (07:21)
[2019-04-25] MEDS: levETIRAcetam 250 MG TAB PO SCH ×2 (07:21→20:01)
[2019-04-25] MEDS: BETAMETHASONE DIPROPIONATE 0.05% CREAM 15 GM TUBE TOPICAL SCH ×2 (07:21→20:01)
[2019-04-25] MEDS: ONDANSETRON 4 MG/2 ML VIAL IVP PRN (09:28)
[2019-04-25 09:51] LABS: Basophils % (A) 0 %; Eosinophils # (A) 0.1 k/uL (0-0.7); Eosinophils % (A) 1 %; HCT 45.2 % (39.0-53.0); HGB 14.6 gm/dL (13.0-17.5); Lymphocytes # (A) 1.5 k/uL (1.0-4.8); Lymphocytes % (A) 14 %; MCH 30.2 pg (25.0-35.0); MCHC 32.4 g/dL (31.0-37.0); MCV 93.2 fL (80.0-100.0); Mean Platelet Volume 7.3; Monocytes # (A) 0.6 k/uL (0-1.0); Monocytes % (A) 6 %; Neutrophils # (A) 8.1 k/uL (1.3-7.7); Neutrophils % (A) 78 %; Platelet Count 393 k/uL (150-450); RBC 4.85 m/uL (4.30-5.90); RDW 12.4 % (11.5-15.5); WBC 10.5 k/uL (3.8-10.6)
[2019-04-25 10:02] LABS: African American GFR (CKD) >90 (>60 ml/min/1.73 sqM); Anion Gap 4 mmol/L; Blood Urea Nitrogen 14 mg/dL (9-20); Calcium 8.2 mg/dL (8.4-10.2); Carbon Dioxide 29 mmol/L (22-30); Chloride 100 mmol/L (98-107); Glucose 87 mg/dL (74-99); Non-African American GFR(CKD) >90 (>60 ml/min/1.73 sqM); Potassium 5.2 mmol/L (3.5-5.1); Sodium 133 mmol/L (137-145)
[2019-04-25] MEDS: SODIUM CHLORIDE 0.9% 1,000 ML IV SCH ×2 (13:58→21:09)
[2019-04-25] MEDS: LATANOPROST 0.005% OPHTH DROPS 2.5 ML BTL BOTH EYES SCH (20:00)
--- NOTE | 2019-04-25 22:27 | PN ---
PROGRESS NOTE DATE OF SERVICE: 04/25/2019 This 74-year-old gentleman who was admitted with subacute chronic diarrhea is being closely monitored. The patient has significant cachexia, also. A gastroenterology evaluation also has been sought. The patient had extensive evaluation, including a CT scan of the abdomen and pelvis and CT scan of the chest, which showed probably some mild colitis, gastroparesis, ileus and adenopathy. The patient is being closely monitored at this time. The patient also had significant infection and cellulitis of the right forearm. The patient apparently fell on a glass. PAST MEDICAL HISTORY: Reviewed. REVIEW OF SYSTEMS: CARDIOVASCULAR SYSTEM: No angina, palpitations. RESPIRATORY SYSTEM: As mentioned earlier. GI: As mentioned earlier. : No dysuria or retention. NERVOUS SYSTEM: No numbness. Generalized weakness. CURRENT MEDICATIONS: Current medications are reviewed and include: 1. Tylenol p.r.n. 2. Betamethasone. 3. Flexeril. 4. Dilaudid p.r.n. 5. Motrin. 6. Xalatan. 7. Keppra. 8. Morphine sulfate. 9. MS Contin. 10.Narcan. 11.Protonix. PHYSICAL EXAMINATION: On examination, patient is alert and oriented x3. Pulse is 86, blood pressure 131/52, respirations 17, temperature 98.4, pulse ox 96% on room air. HEENT: Conjunctivae normal. NECK: No jugular venous distention. CARDIOVASCULAR SYSTEM: S1, S2 muffled. RESPIRATORY SYSTEM: Breath sounds diminished at the bases. Scattered rhonchi and crackles. ABDOMEN: Soft, nontender. LEGS: No edema. No swelling. NERVOUS SYSTEM: No focal deficit. Otherwise, diffusely weak and emaciated. Right forearm excoriation present. LABS: WBC 10.5, hemoglobin 14.6, sodium 133, potassium 5.2. C-reactive protein is 33.2. ESR is 8. ASSESSMENT: 1. Subacute chronic diarrhea for evaluation; rule out infective diarrhea. 2. Increased white blood cell count. 3. Weight loss of 8 pounds for evaluation. 4. Severe protein-calorie malnutrition; body mass index of 15. 5. Hyponatremia. 6. History of gastroesophageal reflux disease. 7. History of degenerative joint disease. 8. History of seizure disorder. 9. History of glaucoma. 10.History of cataracts. 11.History of nicotine dependence, continued ongoing. 12.FULL CODE. 13.Multiple findings on the CT scan of chest and abdomen. RECOMMENDATIONS AND DISCUSSION: I recommend to continue with the current medications. Await GI evaluation. Patient might need endoscopy, either as an inpatient or outpatient. Otherwise, we will continue to monitor. Repeat labs will be ordered. CT scan noted. We will continue to monitor. Some of the stool findings are awaited because they are apparently sent out. Repeat labs are ordered. Encourage fluids and food and increase ambulation. Further recommendations to follow. MMODL / IJN: [id number] /
[2019-04-26] MEDS: ONDANSETRON 4 MG/2 ML VIAL IVP PRN ×2 (04:54→21:07)
--- NOTE | 2019-04-26 07:38 | CONS ---
CONSULTATION DATE OF SERVICE: 04/25/2019. REASON FOR CONSULTATION: Abdominal pain and diarrhea. HISTORY OF PRESENT ILLNESS: The patient is a 74-year-old white male who was admitted to the hospital complaining of diarrhea and lower abdominal discomfort for the last 2 weeks' duration. He says that he has been having bowel movements anywhere from 10 to 12 a day which are loose to watery in consistency with no blood or mucus in the stool. Yesterday, he had almost 15 episodes, almost on an hourly basis. He lost about 8 pounds since the onset of these symptoms. His girlfriend was also suffering from diarrhea but lasted only for 3 days and resolved. He denies any recent antibiotic use. Denies any recent travel history. He came into the emergency room and had a CT of the abdomen and pelvis done that shows some diverticulosis but no evidence of colitis. Since being in the hospital, he did not have any further episodes of diarrhea. PAST MEDICAL HISTORY: He did have a colonoscopy in 2017 that showed diverticulosis. Significant for seizure disorder, degenerative joint disease, gastroesophageal reflux disease, glaucoma. MEDICATIONS: At home include Keppra, Ambien, Centrum Silver, MS Contin, magnesium, Lidex cream, Flexeril and Lumigan. ALLERGIES: None. SOCIAL HISTORY: History of smoking and occasional alcohol use. FAMILY HISTORY: Father had some kind of cancer. REVIEW OF SYSTEMS: CARDIOPULMONARY: No chest pain, shortness of breath. GENITOURINARY: No dysuria or hematuria. MUSCULOSKELETAL: Unremarkable. SKIN: Unremarkable. ENDOCRINE: Unremarkable. PSYCHIATRIC: Anxiety. NEUROLOGY: Unremarkable. ENT: Vision unremarkable. CONSTITUTIONAL: No weight loss. No fever, chills, night sweats. PHYSICAL EXAMINATION: He appears comfortable, in no apparent distress. Vital signs are stable. Blood pressure is 145/86, pulse rate is 85, temperature 98.7. HEENT: Examination unremarkable. Conjunctivae are pink, sclerae nonicteric, oral cavity no lesions. NECK: No JVD or lymph node enlargement. CHEST: Clear to auscultation. HEART: Regular rate and rhythm. ABDOMEN: Soft, bowel sounds are positive. No organomegaly. EXTREMITIES: No pedal edema. SKIN: No rashes. NEUROLOGIC: Alert and oriented x3. No focal deficits. LABS: Done yesterday, WBC 12.8, hemoglobin 15.8, platelets normal. Basic metabolic panel is within normal limits. BUN is 14, creatinine 0.63, sodium 133, potassium 5.2, CRP is 33.2. Stool studies were requested but was not done as patient did not have any diarrhea since being in the hospital. Occult blood was positive. IMPRESSION: This patient presents to the hospital with diarrhea of 2 weeks' duration. She has been having problems but no blood or mucus in the stool. Most likely dealing with infectious etiology. Doubt inflammatory bowel disease. Since being in the hospital, no further episodes of diarrhea. His girlfriend also had diarrhea that lasted for 3 days and resolved. He denies any recent antibiotic use or travel history. Stool was Hemoccult positive. CAT scan did not show any evidence of colitis. RECOMMENDATIONS: 1. Obtain stool studies if he has recurrent diarrhea. 2. Acute symptomatic and supportive care. 3. Advance diet as tolerated. 4. If he has persistent diarrhea, will consider endoscopic intervention. Thank you for this consultation. Will follow with you closely during his hospital stay. MARIANNEL / HERNANN: [id number] /
[2019-04-26] MEDS: MORPHINE SULFATE ER 30 MG TABLET PO SCH ×4 (08:30→20:54)
[2019-04-26] MEDS: CYCLOBENZAPRINE 10 MG TAB PO SCH ×2 (08:31→20:55)
[2019-04-26] MEDS: PANTOPRAZOLE 40 MG/10 ML VIAL IV SCH (08:31)
[2019-04-26] MEDS: levETIRAcetam 250 MG TAB PO SCH ×2 (08:31→20:55)
[2019-04-26] MEDS: MULTIVITAMINS, THERA 1 EACH TAB PO SCH (08:31)
[2019-04-26] MEDS: levETIRAcetam 500 MG TAB PO SCH ×2 (08:31→20:55)
[2019-04-26] MEDS: BETAMETHASONE DIPROPIONATE 0.05% CREAM 15 GM TUBE TOPICAL SCH ×2 (08:33→20:56)
[2019-04-26 09:29] LABS: Basophils % (A) 0 %; Eosinophils # (A) 0.1 k/uL (0-0.7); Eosinophils % (A) 0 %; HCT 45.5 % (39.0-53.0); Lymphocytes # (A) 1.5 k/uL (1.0-4.8); Lymphocytes % (A) 13 %; MCH 30.5 pg (25.0-35.0); MCHC 32.9 g/dL (31.0-37.0); MCV 92.7 fL (80.0-100.0); Mean Platelet Volume 7.6; Monocytes # (A) 0.7 k/uL (0-1.0); Monocytes % (A) 7 %; Neutrophils # (A) 8.7 k/uL (1.3-7.7); Neutrophils % (A) 78 %; Platelet Count 376 k/uL (150-450); RBC 4.91 m/uL (4.30-5.90); RDW 12.3 % (11.5-15.5); WBC 11.1 k/uL (3.8-10.6)
[2019-04-26 09:31] LABS: African American GFR (CKD) >90 (>60 ml/min/1.73 sqM); Anion Gap 7 mmol/L; Blood Urea Nitrogen 17 mg/dL (9-20); Calcium 8.1 mg/dL (8.4-10.2); Carbon Dioxide 27 mmol/L (22-30); Chloride 99 mmol/L (98-107); Glucose 85 mg/dL (74-99); Non-African American GFR(CKD) >90 (>60 ml/min/1.73 sqM); Potassium 4.3 mmol/L (3.5-5.1); Sodium 133 mmol/L (137-145)
[2019-04-26] MEDS: SODIUM CHLORIDE 0.9% 1,000 ML IV SCH (11:05)
--- NOTE | 2019-04-26 15:05 | P.PN ---
Subjective Progress Note Date: 04/26/19 Principal diagnosis: This is a 74-year-old male who was recently admitted with subacute chronic diarrhea and is being closely monitored. GI is following. Patient continues to have liquid stools and has been unable to make it to the bathroom and has been soiling himself all day today. Nursing staff and patient attempting to collect samples to send for C. diff and further studies although patient is not making it to the bathroom in time. Patient continues to have some abdominal pain and states he has had weight loss over the last few weeks. Patient also has significant cachexia as well. Currently no reports of chest pain, shortness of breath, or palpitations. Patient is afebrile. No reports of nausea or vomiting and patient is tolerating diet. Possible colonoscopy. Will continue to monitor closely. Objective - Vital Signs Vital signs: Vital Signs Temp 98.1 F 04/26/19 07:00 Pulse 94 04/26/19 07:00 Resp 16 04/26/19 07:00 BP 108/75 04/26/19 07:00 Pulse Ox 94 L 04/26/19 07:00 Intake & Output 04/25/19 04/26/19 04/26/19 18:59 06:59 18:59 Intake Total 825 Balance 825 Intake: Intake, IV Titration 825 Amount Sodium Chloride 0.9% 1, 825 000 ml @ 75 mls/hr IV . [id number] [facility] Rx#:[id number] Other: Voiding Method Toilet Urinal # Voids 3 3 - Exam Gen: This is a 74-year-old male sitting up, awake, alert and oriented 3, cachectic, emaciated in appearance. Temp is 98.1F, pulse is 94, respirations are 16, blood pressure is 108/75, oxygen is 94% on room air. HEENT: Head is atraumatic, normocephalic. Pupils equal, round. Sclerae is anicteric. NECK: Supple. No JVD. No lymphadenopathy. No thyromegaly. LUNGS: Breath sounds diminished at the bases with a few scattered rhonchi noted. No wheezes or rhonchi. No intercostal retractions. HEART: S1, S2 are muffled ABDOMEN: Soft. Bowel sounds are present. No masses. No tenderness. EXTREMITIES: No pedal edema. No calf tenderness. Right forearm excoriation present. NEUROLOGICAL: Patient is awake, alert and oriented x3. diffusely weak noted and gait dysfunction. - Labs CBC & Chem 7: 04/26/19 08:35 04/26/19 08:35 Labs: Abnormal Lab Results - Last 24 Hours (Table) 04/26/19 04/26/19 Range/Units 08:35 08:35 WBC 11.1 H (3.8-10.6) k/uL Neutrophils # 8.7 H (1.3-7.7) k/uL Sodium 133 L (137-145) mmol/L Creatinine 0.62 L (0.66-1.25) mg/dL Calcium 8.1 L (8.4-10.2) mg/dL Microbiology - Last 24 Hours (Table) 04/23/19 18:17 Blood Culture - Preliminary Blood No Growth after 48 hours Assessment and Plan Assessment: Subacute chronic diarrhea for evaluation: Rule out infective diarrhea Increased white blood count Weight loss of 8 pounds recently Severe protein calorie malnutrition, body mass index of 15 Hyponatremia history of gastroesophageal reflux disease History of degenerative joint disease history of seizure disorder History of glaucoma history of cataracts history of nicotine dependence, continued ongoing Full code Multiple findings on the computed tomography scan of the chest and abdomen Recommend to continue current medications, management, and symptomatic treatment. GI following. Possible colonoscopy. Patient continues to have diarrhea and unsuccessful attempts at obtaining enough sample for C. diff and further studies. Nursing staff continuing to attempt collection. Will repeat a.m. labs. Will continue to monitor closely. Due to multiple complex medical issues, prognosis is guarded. Further recommendations to follow.
--- NOTE | 2019-04-26 18:33 | PN ---
PROGRESS NOTE DATE OF DICTATION: 04/26/2019 The patient is a 74-year-old pleasant white male admitted to the hospital with chronic diarrhea of two to three weeks' duration. He was having 10 to 15 bowel movements daily, and while in the hospital he is having severe fecal incontinence. He was not able to collect any stool studies because of the fecal incontinence. He continues to have diarrhea. He had about three loose bowel movements today. He lost about eight pounds. He denies any rectal bleeding. He reports no abdominal pain. PHYSICAL EXAMINATION: He appears comfortable, in no apparent distress. Vital signs are stable. Blood pressure is 112/86, pulse rate 94, temperature 98.1. HEENT: Examination unremarkable. Conjunctivae are pink, sclerae anicteric. Oral cavity has no lesions. NECK: No JVD or lymph node enlargement. CHEST: Clear to auscultation. HEART: Regular rate and rhythm. ABDOMEN: Soft. Bowel sounds are positive. No organomegaly. EXTREMITIES: No pedal edema. NEUROLOGIC: He is alert and oriented x3. No focal deficits. LABS: Labs done today show WBC 11.1, hemoglobin 15, platelets normal. Basic metabolic panel is within normal limits. CRP is 33.2. IMPRESSION: 1. Diarrhea for a few weeks' duration. Stool studies could not be done so far, as the patient is unable to collect a specimen because of fecal incontinence. He had about three to four loose bowel movements today. 2. Mild leukocytosis. 3. Elevated C-reactive protein. RECOMMENDATIONS: Will proceed with a colonoscopy on Monday. In the meantime, continue with a clear liquid diet. Try to obtain stool studies if possible. Will follow with you closely. Thank you for this consultation. MMODL / IJN: [id number] /
[2019-04-26] MEDS: LATANOPROST 0.005% OPHTH DROPS 2.5 ML BTL BOTH EYES SCH (20:56)
[2019-04-27] MEDS: SODIUM CHLORIDE 0.9% 1,000 ML IV SCH ×2 (01:25→15:10)
[2019-04-27 08:05] LABS: African American GFR (CKD) >90 (>60 ml/min/1.73 sqM); Anion Gap 5 mmol/L; Blood Urea Nitrogen 18 mg/dL (9-20); Calcium 7.7 mg/dL (8.4-10.2); Carbon Dioxide 26 mmol/L (22-30); Chloride 101 mmol/L (98-107); Glucose 75 mg/dL (74-99); Non-African American GFR(CKD) >90 (>60 ml/min/1.73 sqM); Potassium 4.1 mmol/L (3.5-5.1); Sodium 132 mmol/L (137-145)
[2019-04-27 08:25] LABS: HCT 40.7 % (39.0-53.0); HGB 13.6 gm/dL (13.0-17.5); MCH 30.5 pg (25.0-35.0); MCHC 33.5 g/dL (31.0-37.0); MCV 91.1 fL (80.0-100.0); Mean Platelet Volume 7.6; Platelet Count 378 k/uL (150-450); RBC 4.47 m/uL (4.30-5.90); RDW 12.2 % (11.5-15.5); WBC 9.8 k/uL (3.8-10.6)
[2019-04-27] MEDS: BETAMETHASONE DIPROPIONATE 0.05% CREAM 15 GM TUBE TOPICAL SCH ×2 (09:39→21:39)
[2019-04-27] MEDS: PANTOPRAZOLE 40 MG/10 ML VIAL IV SCH (09:40)
[2019-04-27] MEDS: levETIRAcetam 250 MG TAB PO SCH ×2 (09:42→21:35)
[2019-04-27] MEDS: CYCLOBENZAPRINE 10 MG TAB PO SCH ×2 (09:42→21:35)
[2019-04-27] MEDS: MORPHINE SULFATE ER 30 MG TABLET PO SCH ×4 (09:42→21:43)
[2019-04-27] MEDS: levETIRAcetam 500 MG TAB PO SCH ×2 (09:42→21:35)
[2019-04-27] MEDS: MULTIVITAMINS, THERA 1 EACH TAB PO SCH (09:42)
--- NOTE | 2019-04-27 11:06 | PN ---
PROGRESS NOTE DATE OF DICTATION: 04/27/2019 Patient is a 74-year-old white male admitted to the hospital with diarrhea for the last 2-3 weeks' duration. Since being in the hospital he has been having fecal incontinence, but no further episodes of diarrhea. He has lost weight since the onset of these symptoms and hence he is scheduled for a colonoscopy tomorrow. He denies any symptoms today. He has been on a clear liquid diet since this morning. PHYSICAL EXAMINATION: Appears comfortable. No apparent distress. Vital signs are stable. Blood pressure 170/78, pulse rate 95, temperature 97.9. HEENT examination unremarkable. Conjunctivae pink. Sclerae anicteric. Oral cavity no lesions. NECK: No JVD or lymph node enlargement. ABDOMEN: Soft. It was non-tender, non-distended. Bowel sounds are positive. EXTREMITIES: No pedal edema. NEUROLOGIC: Alert and oriented x3. No focal deficits. LABS: Labs from today are within normal limits. IMPRESSION: 1. Diarrhea for the last 2-3 weeks' duration with progressive weight loss. Stool studies could not be done, as the patient is having fecal incontinence. 2. Elevated CRP. 3. Weight loss of 10 pounds since the onset of these symptoms. RECOMMENDATIONS: He is scheduled for EGD and colonoscopy tomorrow. Patient understands risks, benefits and complications of the procedure. Thank you for this consultation. MMÓSCARL / HERNANN: [id number] /
[2019-04-27 11:52] LABS: Lymphocytes # (M) 1.57 k/uL (1.0-4.8); Monocytes # (M) 0.78 k/uL (0-1.0); Neutrophils # (M) 7.45 k/uL (1.3-7.7); Neutrophils % (M) 76 %; Nucleated Red Blood Cells 0 /100 WBC (0-0); Total Cells Counted 100
[2019-04-27] MEDS ORDERED: PEG 3350-NA SULF,BICARB,CL/KCL 4,000 ML BOTTLE PO ONE (16:00)
--- NOTE | 2019-04-27 20:03 | PN ---
PROGRESS NOTE DATE OF SERVICE: 04/27/2019 This 74-year-old gentleman who was admitted with subacute chronic diarrhea is being closely monitored at this time. Gastroenterology is planning scopes tomorrow. No chest pain. No palpitations. No fever. PHYSICAL EXAMINATION: Alert and oriented x3. Pulse 80, blood pressure 126/70, respiration 16, temperature 97.8, pulse ox 98% on room. HEENT: Conjunctivae normal. Oral mucosa moist. NECK: No jugular venous distention. No lymph node enlargement. CARDIOVASCULAR: S1, S2. RESPIRATORY: Diminished breath sounds at the bases. A few rhonchi, no crackles. ABDOMEN: Soft, nontender. LEGS: No edema, no swelling. NERVOUS SYSTEM: No focal deficits. LABS: Sodium 133. ASSESSMENT: 1. Subacute diarrhea for evaluation, rule out infective diarrhea as well as colitis. 2. Increased WBC. 3. Weight loss 8 pounds, for evaluation. 4. Severe protein calorie malnutrition, body mass index of 15. 5. Hyponatremia. 6. History of gastroesophageal reflux disease. 7. History of degenerative joint disease. 8. Seizure disorder. 9. History of glaucoma. 10.History of cataracts. 11.History of nicotine dependence, continued, ongoing. 12.Multiple findings on the CT scan of the chest and abdomen. 13.FULL CODE. RECOMMENDATIONS AND DISCUSSION: Recommend to continue current management and symptomatic treatment. Patient is keen on going home at this time, however, I would recommend Gastroenterology evaluation, endoscopes and follow up with primary physician, Dr. Houser, later. The prognosis guarded. Further recommendations to follow. MMODL / IJN: [id number] /
[2019-04-27] MEDS: LATANOPROST 0.005% OPHTH DROPS 2.5 ML BTL BOTH EYES SCH (21:36)
[2019-04-28] MEDS: SODIUM CHLORIDE 0.9% 1,000 ML IV SCH ×2 (04:48→17:19)
[2019-04-28] MEDS: MULTIVITAMINS, THERA 1 EACH TAB PO SCH (09:21)
[2019-04-28] MEDS: CYCLOBENZAPRINE 10 MG TAB PO SCH ×2 (09:21→20:41)
[2019-04-28] MEDS: levETIRAcetam 250 MG TAB PO SCH ×2 (09:21→20:42)
[2019-04-28] MEDS: PANTOPRAZOLE 40 MG/10 ML VIAL IV SCH (09:21)
[2019-04-28] MEDS: MORPHINE SULFATE ER 30 MG TABLET PO SCH ×4 (09:21→20:41)
[2019-04-28] MEDS: levETIRAcetam 500 MG TAB PO SCH ×2 (09:22→20:42)
[2019-04-28] MEDS: BETAMETHASONE DIPROPIONATE 0.05% CREAM 15 GM TUBE TOPICAL SCH ×2 (09:22→20:42)
--- NOTE | 2019-04-28 10:46 | PN ---
PROGRESS NOTE DATE OF SERVICE: 04/28/2019 The patient is a 74 -year-old pleasant white male admitted to hospital with severe diarrhea, progressive weight loss of several weeks duration. He is scheduled for an EGD and colonoscopy today. However, patient did not complete his prep and hence the procedure has been canceled. The patient denies any symptoms. Apparently, he refused to drink the prep yesterday evening. PHYSICAL EXAMINATION: He appears comfortable in no apparent distress. Vital signs stable. Blood pressure is 132/71. Pulse 88. Temperature 97.9. HEENT: Unremarkable. Conjunctivae pink. Sclerae anicteric. Oral cavity no lesions. NECK: No JVD or lymph node enlargement. CHEST: Clear to auscultation. HEART: Regular rate and rhythm. ABDOMEN: Soft, bowel sounds are positive. No organomegaly. Slightly distended. EXTREMITIES: No pedal edema. NEUROLOGICAL: He is alert and oriented times three. No focal deficits. LAB DATA: WBC 9.8, hemoglobin 13.6, platelets normal. Basic metabolic panel is within normal limits. IMPRESSION: 1. Chronic diarrhea, progressive weight loss of a few weeks duration. The patient was scheduled for an EGD and colonoscopy today but could not complete the prep and procedure has been canceled. 2. Weight loss. RECOMMENDATIONS: I had a lengthy discussion with the patient regarding importance of completing the colonoscopy prep. We will move the procedure to tomorrow. I encouraged him to continue his prep all day today and we will keep him on a clear liquid diet and we will follow with you. Thank you for this consultation. SHABNAM / HERNANN: [id number] /
--- NOTE | 2019-04-28 17:33 | PN ---
PROGRESS NOTE DATE OF SERVICE: 04/28/2019 This 74-year-old gentleman was admitted with significant diarrhea, is having persistent diarrhea still. Gastroenterology is following the patient closely. Preparation was incomplete, colonoscopy could not be done today. CRP is slightly elevated. No chest pain. No palpitations. No fever. EXAM: Alert and oriented x3. Pulse 88, blood pressure 120/70, respiration 14, temperature 97.8, pulse ox 97% on room air. HEENT: Conjunctivae normal. Oral mucosa moist. NECK: No jugular venous distention. No lymph node enlargement. CARDIOVASCULAR: S1, S2. RESPIRATORY: Diminished breath sounds at the bases. No rhonchi, no crackles. ABDOMEN: Soft, nontender. LEGS: No edema, no swelling. NERVOUS SYSTEM: No focal deficits. LABS: CBC within normal limits. Sodium 132. ASSESSMENT: 1. Subacute diarrhea for evaluation, rule out infective diarrhea as well as colitis. 2. Increased WBC. 3. Weight loss of 8 pounds, for evaluations. 4. Severe protein calorie malnutrition body, mass index of 15. 5. Hyponatremia. 6. History of gastroesophageal reflux disease. 7. History of degenerative joint disease. 8. History of seizure disorder. 9. History of glaucoma. 10.History of cataracts. 11.History of nicotine dependence, continued, ongoing. 12.Multiple findings in the CT scan of the chest and abdomen. 13.FULL CODE. RECOMMENDATIONS AND DISCUSSION: Recommend to continue current management and symptomatic treatment. Otherwise, continue with the preparation and colonoscopy by Gastroenterology and followup of the abnormal findings on the CT scan in the outpatient setting with Dr. Oliveros. Further recommendations to follow. MMODL / IJN: [id number] /
[2019-04-28] MEDS: LATANOPROST 0.005% OPHTH DROPS 2.5 ML BTL BOTH EYES SCH (20:42)
[2019-04-29] MEDS: SODIUM CHLORIDE 0.9% 1,000 ML IV SCH (08:44)
[2019-04-29] MEDS: CYCLOBENZAPRINE 10 MG TAB PO SCH (08:47)
[2019-04-29] MEDS: MORPHINE SULFATE ER 30 MG TABLET PO SCH ×2 (08:47→14:14)
[2019-04-29] MEDS: MULTIVITAMINS, THERA 1 EACH TAB PO SCH (08:47)
[2019-04-29] MEDS: PANTOPRAZOLE 40 MG/10 ML VIAL IV SCH (08:47)
[2019-04-29] MEDS: levETIRAcetam 500 MG TAB PO SCH (08:47)
[2019-04-29] MEDS: BETAMETHASONE DIPROPIONATE 0.05% CREAM 15 GM TUBE TOPICAL SCH (08:48)
[2019-04-29] MEDS: levETIRAcetam 250 MG TAB PO SCH (08:48)
[2019-04-29 10:27] LABS: Basophils % (A) 0 %; Eosinophils # (A) 0.1 k/uL (0-0.7); Eosinophils % (A) 1 %; HCT 44.4 % (39.0-53.0); HGB 14.6 gm/dL (13.0-17.5); Lymphocytes # (A) 1.3 k/uL (1.0-4.8); Lymphocytes % (A) 16 %; MCH 30.5 pg (25.0-35.0); MCHC 32.8 g/dL (31.0-37.0); MCV 92.9 fL (80.0-100.0); Mean Platelet Volume 7.8; Monocytes # (A) 0.7 k/uL (0-1.0); Monocytes % (A) 9 %; Neutrophils # (A) 6.1 k/uL (1.3-7.7); Neutrophils % (A) 73 %; Platelet Count 363 k/uL (150-450); RBC 4.77 m/uL (4.30-5.90); RDW 12.3 % (11.5-15.5); WBC 8.4 k/uL (3.8-10.6)
[2019-04-29 10:35] LABS: African American GFR (CKD) >90 (>60 ml/min/1.73 sqM); Anion Gap 3 mmol/L; Blood Urea Nitrogen 14 mg/dL (9-20); Calcium 7.8 mg/dL (8.4-10.2); Carbon Dioxide 27 mmol/L (22-30); Chloride 100 mmol/L (98-107); Glucose 89 mg/dL (74-99); Non-African American GFR(CKD) >90 (>60 ml/min/1.73 sqM); Potassium 3.6 mmol/L (3.5-5.1); Sodium 130 mmol/L (137-145)
[2019-04-29] MEDS ORDERED: PROPOFOL 10 MG/ML 20 ML VIAL IV ONE (12:25)
[2019-04-29] MEDS ORDERED: IV FLUID CONTINUATION 1,000 ML IV ONE (12:25)
[2019-04-29] MEDS ORDERED: LIDOCAINE 1% INJ 10MG/ML (20 ML MDV) ONE (12:25)
--- NOTE | 2019-04-29 13:25 | P.PCN ---
Date of Procedure: 04/29/19 Description of Procedure: Brief history: Patient is a pleasant scheduled for an elective upper endoscopy as well as colonoscopy as a part of evaluation of unintentional weight loss and chronic diarrhea of unknown etiology. Procedure performed: Esophagogastroduodenoscopy with biopsy Colonoscopy with biopsy Estimated blood loss: Minimal. Preoperative diagnosis: Chronic diarrhea, unintentional weight loss, last colonoscopy approximately 3-4 years ago per his recollection Anesthesia: MAC Procedure: After informed consent was obtained from the patient was brought into the endoscopy unit and IV sedation was administered by anesthesia under continuous monitoring. Initially upper endoscopy was done. The Olympus GF 190 video endoscope was inserted into the mouth and esophagus intubated without any difficulty and was gradually advanced into the stomach and duodenum and caref ully examined. The bulb and second part of the duodenum appeared normal, with biopsies taken to rule out celiac sprue. The scope was then withdrawn into the stomach adequately insufflated with air and upon careful examination the antrum and body, cardia and fundus appeared normal, except for some mild scattered erythema in the antrum and body suggestive of mild gastritis with biopsies taken. The scope was then withdrawn into the esophagus. The GE junction was located at 40 cm to the incisors. It appeared regular with no erythema erosions or ulcerations, except for a tiny nodule measuring a few millimeters in size which was biopsied. Rest of the esophagus appeared normal. Patient tolerated the procedure well. At this time the patient continued to remain sedation. Initial digital rectal examination was normal. Olympus CF 190 video colonoscope was then inserted into the rectum and gradually advanced to the cecum without any difficulty. Careful examination was performed as the scope was gradually being withdrawn. The prep was excellent. The cecum, ascending colon, transverse colon, descending colon, sigmoid colon and rectum appeared normal, with biopsies taken given the chronic diarrhea. Terminal ileum was also intubated and appeared normal with biopsies taken. A few scattered diverticula noted in the left colon. Retroflexion was not performed in the rectum due to a short rectal vault with slow withdrawal negative for any lesions noted. Patient tolerated the procedure well. Impression: 1. Mild gastritis antrum and body, biopsied. Diminutive 2 mm nodule at the GE junction which was removed with biopsy forceps. Duodenal biopsies to rule out celiac sprue. 2. Mild left colonic diverticulosis. Otherwise normal-appearing colon from rectum to cecum with normal-appearing terminal ileum. Biopsies taken of the right colon, left colon and terminal ileum given chronic diarrhea. Recommendations: Findings of this examination were discussed with the patient as well as the nursing staff. Okay to resume diet. Okay to resume medications. Await pathology from biopsies.
[2019-04-29 15:08] VITALS: BP 129/85; PULSE 80; RESP 17; TEMP 97.7
--- NOTE | 2019-04-30 08:36 | P.DS ---
Providers Date of admission: 04/25/19 08:38 Expected date of discharge: 04/30/19 Attending physician: Angie Dailey Consults: 04/24/19 16:28 Consult Physician Routine Consulting Provider: Nilson Elise Consult Reason/Comments: diarrhea Do you want consulting provider notified?: Yes Primary care physician: Sascha Oliveros Hospital Course: Final diagnosis Subacute chronic diarrhea for evaluation: Ruled out infective diarrhea Increased white blood count Weight loss of 8 pounds recently Severe protein calorie malnutrition, body mass index of 15 Hyponatremia history of gastroesophageal reflux disease History of degenerative joint disease history of seizure disorder History of glaucoma history of cataracts history of nicotine dependence, continued ongoing Full code Multiple findings on the computed tomography scan of the chest and abdomen Discharge disposition Patient is being discharged in a stable condition with guarded prognosis to . Patient will follow-up with Dr. Oliveros upon discharge. Patient will also be following up with Dr. Elise in the outpatient setting for test results. Total time taken is 35 minutes. History of present illness This is an 74-year-old male who was recently admitted with subacute chronic diarrhea and was being closely monitored. GI was following. Patient continued to have diarrhea and C. diff testing was negative. Patient underwent EGD and colonoscopy showing mild gastritis antrum and body with mild left colonic diverticulosis. Also a diminutive 2 mm nodule at the GE junction that was removed with biopsy forceps along with duodenal biopsies and multiple other biopsies were taken for analysis and sent. Patient will follow-up with GI in 1- 2 weeks for results. Patient was resumed on a low fiber diet and instructed to increase slowly as tolerated. Patient will be given some Imodium as needed if diarrhea continues and also Protonix daily. Patient instructed to avoid tobacco and alcohol intake. Currently no reports of chest pain, shortness of breath, or palpitations. Patient is afebrile. No reports of nausea or vomiting and patient is tolerating diet. Guarded prognosis. On exam vital signs are stable. Temp is 97.7 F, pulse is 80, respirations are 17, blood pressure is 129/85, oxygen saturation is 94 % on room air. Cardio S1, S2 are muffled. Respiratory shows diminished breath sounds at the bases with some mild expiratory wheezing noted. Abdomen is soft and nontender. Nervous system shows no focal deficits. Please refer to medication reconciliation sheet for a list of medications. Patient Condition at Discharge: Stable Plan - Discharge Summary Discharge Rx Participant: Yes New Discharge Prescriptions: New Loperamide [Imodium] 2 mg PO TID PRN #20 capsule PRN Reason: Diarrhea Pantoprazole Sodium [Protonix] 40 mg PO DAILY #30 tablet.dr [place] Multivit-Min/FA/Lycopen/Lutein [Centrum Silver Tablet] 1 tab PO DAILY Morphine Sulfate [Ms Contin] 30 mg PO QID Cyclobenzaprine [Flexeril] 10 mg PO BID levETIRAcetam [Keppra] 1,000 mg PO Q12HR Bimatoprost [Lumigan .01% Ophth Soln] 1 drop BOTH EYES HS Zolpidem [Ambien] 10 mg PO HS PRN PRN Reason: Insomnia levETIRAcetam [Keppra] 250 mg PO Q12HR Magnesium(Unknown Dose) 1 tab PO DAILY Fluocinonide 0.05% [Lidex 0.05% cream] 1 applic TOPICAL BID Discharge Medication List Bimatoprost [Lumigan .01% Ophth Soln] 1 drop BOTH EYES HS 03/29/16 [History] Cyclobenzaprine [Flexeril] 10 mg PO BID 03/29/16 [History] Morphine Sulfate [Ms Contin] 30 mg PO QID 03/29/16 [History] Multivit-Min/FA/Lycopen/Lutein [Centrum Silver Tablet] 1 tab PO DAILY 03/29/16 [History] levETIRAcetam [Keppra] 1,000 mg PO Q12HR 03/29/16 [History] Fluocinonide 0.05% [Lidex 0.05% cream] 1 applic TOPICAL BID 04/23/19 [History] Magnesium(Unknown Dose) 1 tab PO DAILY 04/23/19 [History] Zolpidem [Ambien] 10 mg PO HS PRN 04/23/19 [History] levETIRAcetam [Keppra] 250 mg PO Q12HR 04/23/19 [History] Loperamide [Imodium] 2 mg PO TID PRN #20 capsule 04/29/19 [Rx] Pantoprazole Sodium [Protonix] 40 mg PO DAILY #30 tablet. 04/29/19 [Rx] Follow up Appointment(s)/Referral(s): Sascha Oliveros MD [Primary Care Provider] - 04/30/19 9:45 am Nilson Elise MD [STAFF PHYSICIAN] - 05/14/19 3:00 pm (please bring picture ID and both insurance cards to appointment.) Ambulatory/Diagnostic Orders: Basic Metabolic Panel [LAB.AMB] Time Frame: 2 Days, Location: None Selected Patient Instructions/Handouts: Gastritis (DC), Dehydration (DC) Activity/Diet/Wound Care/Special Instructions: Activity Limited until follow-up May use Imodium if continuing to have diarrhea Start with low fiber diet for a day advance slowly as tolerated Follow-up with primary care provider upon discharge Follow-up with GI in 1-2 weeks for biopsy results Repeat labs in 2-3 days Discharge Disposition: HOME SELF-CARE
== END 2019-04-29 16:03 | disposition home or self-care (01) | DRG 391 ==
LOC: EC 16:48 → 4SSUR 19:50 → OBSVTOIN 04-25 08:38
PROVIDERS: ADMIT Hospitalist; ATTEND Hospitalist
PROC: 0DB38ZX Excision of Lower Esophagus, Via Natural or Artificial Opening Endoscopic, Diagnostic (ICD-10-PCS; 2019-04-29)
PROC: 0DBB8ZX Excision of Ileum, Via Natural or Artificial Opening Endoscopic, Diagnostic (ICD-10-PCS; 2019-04-29)
PROC: 0DBF8ZX Excision of Right Large Intestine, Via Natural or Artificial Opening Endoscopic, Diagnostic (ICD-10-PCS; 2019-04-29)
PROC: 0DBG8ZX Excision of Left Large Intestine, Via Natural or Artificial Opening Endoscopic, Diagnostic (ICD-10-PCS; 2019-04-29)
PROC: 0DB98ZX Excision of Duodenum, Via Natural or Artificial Opening Endoscopic, Diagnostic (ICD-10-PCS; principal; 2019-04-29 08:45)
PROC: 0DB78ZX Excision of Stomach, Pylorus, Via Natural or Artificial Opening Endoscopic, Diagnostic (ICD-10-PCS; 2019-04-29 08:45)
DX: K52.9 Noninfective gastroenteritis and colitis, unspecified (principal); E43 Unspecified severe protein-calorie malnutrition; R64 Cachexia; M48.54XA Collapsed vertebra, not elsewhere classified, thoracic region, initial encounter for fracture; E87.1 Hypo-osmolality and hyponatremia; J98.11 Atelectasis; Z68.1 Body mass index [BMI] 19.9 or less, adult; L03.113 Cellulitis of right upper limb; R62.7 Adult failure to thrive; F17.210 Nicotine dependence, cigarettes, uncomplicated; G40.909 Epilepsy, unspecified, not intractable, without status epilepticus; M19.90 Unspecified osteoarthritis, unspecified site; K21.9 Gastro-esophageal reflux disease without esophagitis; H40.9 Unspecified glaucoma; E86.0 Dehydration; J44.9 Chronic obstructive pulmonary disease, unspecified; K57.30 Diverticulosis of large intestine without perforation or abscess without bleeding; K31.84 Gastroparesis; R15.9 Full incontinence of feces; R79.82 Elevated C-reactive protein (CRP); G47.00 Insomnia, unspecified; K29.70 Gastritis, unspecified, without bleeding; K22.8 Other specified diseases of esophagus; S50.811A Abrasion of right forearm, initial encounter; W18.30XA Fall on same level, unspecified, initial encounter; Z79.899 Other long term (current) drug therapy; Z90.49 Acquired absence of other specified parts of digestive tract; Z98.41 Cataract extraction status, right eye; Z80.9 Family history of malignant neoplasm, unspecified
CPT/HCPCS: 36415; 43239; 45380; 71046; 71250; 74177; 80048; 80053; 81003; 82150; 82272; 83605; 83690; 83735; 84484; 85025; 85610; 85652; 85730; 86140; 87040; 87045; 87046; 87324; 88305; 93005; 96361; 96374; 99285

== ENCOUNTER 2019-06-17 22:42 | Inpatient (IN) | payer MEDICARE, OTHER ==
[2019-06-17] MEDS ORDERED: SODIUM CHLORIDE 0.9% 1,000 ML IV STA (23:16)
[2019-06-17 23:45] LABS: ALT 19 U/L (4-49); AST 42 U/L (17-59); African American GFR (CKD) >90 (>60 ml/min/1.73 sqM); Albumin 2.2 g/dL (3.5-5.0); Alkaline Phosphatase 95 U/L (38-126); Anion Gap 6 mmol/L; Blood Urea Nitrogen 34 mg/dL (9-20); Calcium 7.5 mg/dL (8.4-10.2); Carbon Dioxide 26 mmol/L (22-30); Chloride 100 mmol/L (98-107); Creatine Kinase 67 U/L (55-170); Glucose 66 mg/dL (74-99); Non-African American GFR(CKD) 87 (>60 ml/min/1.73 sqM); Phosphorus 3.6 mg/dL (2.5-4.5); Sodium 132 mmol/L (137-145); Total Bilirubin 1.1 mg/dL (0.2-1.3); Total Protein 4.6 g/dL (6.3-8.2)
[2019-06-17 23:46] LABS: HCT 46.3 % (39.0-53.0); HGB 15.1 gm/dL (13.0-17.5); MCHC 32.7 g/dL (31.0-37.0); MCV 94.8 fL (80.0-100.0); Magnesium 1.8 mg/dL (1.6-2.3); Mean Platelet Volume 7.8; Platelet Count 308 k/uL (150-450); Potassium 4.1 mmol/L (3.5-5.1); RBC 4.88 m/uL (4.30-5.90); RDW 13.5 % (11.5-15.5); WBC 2.2 k/uL (3.8-10.6)
--- NOTE | 2019-06-17 23:47 | ED ---
Fall HPI - General Chief Complaint: Fall Stated Complaint: Fall Time Seen by Provider: 06/17/19 23:15 Source: patient, EMS, RN notes reviewed, old records reviewed Mode of arrival: EMS Limitations: altered mental status - History of Present Illness Initial Comments: This is a 74-year-old male DF for evaluation of the poor strain with no distress coming in after fall patient was in the bathroom sit up passed out or fell on the ground. Does not remember the events from that time, patient's brought in by EMS EMS denying any injury patient was initially complaining of some shortness of breath that is improved here on arrival to the emergency department with oxygen therapy. Patient states she was admitted to the hospital recently for similar feelings the reasons, he continues to have severe diarrhea and weakness MD Complaint: fall -: hour(s) Fall From: standing When Fall Occurred: unsure Fall Witnessed: yes, by living facility staff Place Fall Occurred: [facility] Loss of Consciousness: yes Prolonged Down Time?: unclear Symptoms Prior to Fall: none Location: head Severity: moderate Severity scale (1-10): 3 Context: tripped/slipped Associated Symptoms: headache, chest paint - Related Data Home Medications Medication Instructions Recorded Confirmed Bimatoprost [Lumigan .01% Ophth 1 drop BOTH EYES HS 03/29/16 04/23/19 Soln] Cyclobenzaprine [Flexeril] 10 mg PO BID 03/29/16 04/23/19 Morphine Sulfate [Ms Contin] 30 mg PO QID 03/29/16 04/23/19 Multivit-Min/FA/Lycopen/Lutein 1 tab PO DAILY 03/29/16 04/23/19 [Centrum Silver Tablet] levETIRAcetam [Keppra] 1,000 mg PO Q12HR 03/29/16 04/23/19 Fluocinonide 0.05% [Lidex 0.05% 1 applic TOPICAL BID 04/23/19 04/23/19 cream] Magnesium(Unknown Dose) 1 tab PO DAILY 04/23/19 04/23/19 Zolpidem [Ambien] 10 mg PO HS PRN 04/23/19 04/23/19 levETIRAcetam [Keppra] 250 mg PO Q12HR 04/23/19 04/23/19 Previous Rx's Medication Instructions Recorded Loperamide [Imodium] 2 mg PO TID PRN #20 capsule 04/29/19 Pantoprazole Sodium [Protonix] 40 mg PO DAILY #30 tablet. 04/29/19 Allergies Allergy/AdvReac Type Severity Reaction Status Date / Time No Known Allergies Allergy Verified 04/23/19 21:59 Review of Systems ROS Statement: Those systems with pertinent positive or pertinent negative responses have been documented in the HPI. ROS Other: All systems not noted in ROS Statement are negative. Past Medical History Past Medical History: Eye Disorder, GERD/Reflux, Osteoarthritis (OA), Seizure Disorder Additional Past Medical History / Comment(s): LAST SEIZURE 2006, GLAUCOMA, History of Any Multi-Drug Resistant Organisms: None Reported Past Surgical History: Cholecystectomy Additional Past Surgical History / Comment(s): CATARACT RIGHT EYE REMOVED Past Anesthesia/Blood Transfusion Reactions: No Reported Reaction Past Psychological History: No Psychological Hx Reported Smoking Status: Current every day smoker Past Alcohol Use History: None Reported Past Drug Use History: None Reported - Past Family History Mother Family Medical History: Cancer General Exam Limitations: no limitations General appearance: alert, in no apparent distress, cachectic Head exam: Present: atraumatic, normocephalic, normal inspection Eye exam: Present: normal appearance, PERRL, EOMI. Absent: scleral icterus, conjunctival injection, periorbital swelling ENT exam: Present: normal exam, mucous membranes moist Neck exam: Present: normal inspection. Absent: tenderness, meningismus, lymphadenopathy Respiratory exam: Present: normal lung sounds bilaterally. Absent: respiratory distress, wheezes, rales, rhonchi, stridor Cardiovascular Exam: Present: regular rate, normal rhythm, normal heart sounds. Absent: systolic murmur, diastolic murmur, rubs, gallop, clicks GI/Abdominal exam: Present: soft, normal bowel sounds. Absent: distended, tenderness, guarding, rebound, rigid Extremities exam: Present: normal inspection, full ROM, normal capillary refill. Absent: tenderness, pedal edema, joint swelling, calf tenderness Back exam: Present: normal inspection Neurological exam: Present: alert, oriented X3, CN II-XII intact Psychiatric exam: Present: normal affect, normal mood Skin exam: Present: warm, dry, intact, normal color. Absent: rash Course Vital Signs 06/17/19 06/17/19 06/18/19 22:48 23:03 00:00 Temperature 96.4 F L Pulse Rate 108 H 102 H Respiratory 20 16 Rate Blood Pressure 101/73 101/66 O2 Sat by Pulse 91 L 99 Oximetry 06/18/19 06/18/19 06/18/19 00:40 01:00 01:20 Temperature 96.4 F L Pulse Rate 102 H 101 H 101 H Respiratory 16 16 16 Rate Blood Pressure 82/64 76/53 82/54 O2 Sat by Pulse 99 97 100 Oximetry 06/18/19 06/18/19 06/18/19 01:30 01:45 02:00 Temperature 96.8 F L Pulse Rate 101 H 100 98 Respiratory 16 16 16 Rate Blood Pressure 93/64 94/60 71/56 O2 Sat by Pulse 96 95 95 Oximetry 06/18/19 06/18/19 06/18/19 02:05 02:20 02:45 Temperature Pulse Rate 100 Respiratory 16 Rate Blood Pressure 81/59 89/62 O2 Sat by Pulse 100 100 Oximetry 06/18/19 06/18/19 06/18/19 03:00 03:30 04:00 Temperature 97.2 F L 97.3 F L Pulse Rate 100 105 H 100 Respiratory 16 16 16 Rate Blood Pressure 83/58 100/68 94/66 O2 Sat by Pulse 98 96 96 Oximetry 06/18/19 05:00 Temperature 97.5 F L Pulse Rate 97 Respiratory 16 Rate Blood Pressure 85/61 O2 Sat by Pulse 97 Oximetry - Reevaluation(s) Reevaluation #1: 06/18/19 05:17 Medical records reviewed Reevaluation #2: 06/18/19 05:18 Patient's temperature as well as blood pressure is improving Will hold any pressure support at this time is acute disease is a dilated from increased temperature, patient very cachectic with blood pressure normally runs low - Consultations Consultation #1: Spoke with Dr. Forbes will take medicine admit is pneumothorax is likely incidental finding Consultation #2: Spoke with Dr. Dailey who is agreeable for admission Medical Decision Making - Medical Decision Making 74 male to the ED who presented ER status post fall fall with positive loss of consciousness believes hemay have been syncopal before fall. No head injury noted here in the hospital, no PEREZ, no NV, patient denies chest pain but complains of weakness and foor pain. Patient temp is improved. Will admit for PNA, CHF treatment and hemodynamic monitoring and support - Lab Data Result diagrams: 06/17/19 23:22 06/17/19 23:22 Lab Results 06/17/19 06/17/19 06/17/19 Range/Units 23:22 23:22 23:22 WBC 2.2 L (3.8-10.6) k/uL RBC 4.88 (4.30-5.90) m/uL Hgb 15.1 (13.0-17.5) gm/dL Hct 46.3 (39.0-53.0) % MCV 94.8 (80.0-100.0) fL MCH 31.0 (25.0-35.0) pg MCHC 32.7 (31.0-37.0) g/dL RDW 13.5 (11.5-15.5) % Plt Count 308 (150-450) k/uL Neutrophils % (Manual) 24 % Band Neutrophils % 23 % Lymphocytes % (Manual) 49 % Monocytes % (Manual) 3 % Eosinophils % (Manual) 1 % Neutrophils # (Manual) 1.00 L (1.3-7.7) k/uL Lymphocytes # (Manual) 1.08 (1.0-4.8) k/uL Monocytes # (Manual) 0.07 (0-1.0) k/uL Eosinophils # (Manual) 0.02 (0-0.7) k/uL Nucleated RBCs 0 (0-0) /100 WBC Manual Slide Review Performed Reactive Lymphocytes Present Large Platelets Present PT 11.5 (9.0-12.0) sec INR 1.1 (<1.2) APTT 26.9 (22.0-30.0) sec D-Dimer 4.97 H (<0.60) mg/L FEU Sodium 132 L (137-145) mmol/L Potassium 4.1 (3.5-5.1) mmol/L Chloride 100 (98-107) mmol/L Carbon Dioxide 26 (22-30) mmol/L Anion Gap 6 mmol/L BUN 34 H (9-20) mg/dL Creatinine 0.85 (0.66-1.25) mg/dL Est GFR (CKD-EPI)AfAm >90 (>60 ml/min/1.73 sqM) Est GFR (CKD-EPI)NonAf 87 (>60 ml/min/1.73 sqM) Glucose 66 L (74-99) mg/dL Lactic Ac Sepsis Rflx Plasma Lactic Acid Khurram (0.7-2.0) mmol/L Calcium 7.5 L (8.4-10.2) mg/dL Phosphorus 3.6 (2.5-4.5) mg/dL Magnesium 1.8 (1.6-2.3) mg/dL Total Bilirubin 1.1 (0.2-1.3) mg/dL AST 42 (17-59) U/L ALT 19 (4-49) U/L Alkaline Phosphatase 95 (38-126) U/L Lactate Dehydrogenase (313-618) U/L Creatine Kinase 67 (55-170) U/L CK-MB (CK-2) (0.0-2.4) ng/mL Troponin I (0.000-0.034) ng/mL C-Reactive Protein (<10.0) mg/L NT-Pro-B Natriuret Pep pg/mL Total Protein 4.6 L (6.3-8.2) g/dL Albumin 2.2 L (3.5-5.0) g/dL Urine Color Urine Appearance (Clear) Urine pH (5.0-8.0) Ur Specific Reyno (1.001-1.035) Urine Protein (Negative) Urine Glucose (UA) (Negative) Urine Ketones (Negative) Urine Blood (Negative) Urine Nitrite (Negative) Urine Bilirubin (Negative) Urine Urobilinogen (<2.0) mg/dL Ur Leukocyte Esterase (Negative) Coronavirus (PCR) (Not Detectd) 06/17/19 06/17/19 06/17/19 Range/Units 23:22 23:22 23:22 WBC (3.8-10.6) k/uL RBC (4.30-5.90) m/uL Hgb (13.0-17.5) gm/dL Hct (39.0-53.0) % MCV (80.0-100.0) fL MCH (25.0-35.0) pg MCHC (31.0-37.0) g/dL RDW (11.5-15.5) % Plt Count (150-450) k/uL Neutrophils % (Manual) % Band Neutrophils % % Lymphocytes % (Manual) % Monocytes % (Manual) % Eosinophils % (Manual) % Neutrophils # (Manual) (1.3-7.7) k/uL Lymphocytes # (Manual) (1.0-4.8) k/uL Monocytes # (Manual) (0-1.0) k/uL Eosinophils # (Manual) (0-0.7) k/uL Nucleated RBCs (0-0) /100 WBC Manual Slide Review Reactive Lymphocytes Large Platelets PT (9.0-12.0) sec INR (<1.2) APTT (22.0-30.0) sec D-Dimer (<0.60) mg/L FEU Sodium (137-145) mmol/L Potassium (3.5-5.1) mmol/L Chloride (98-107) mmol/L Carbon Dioxide (22-30) mmol/L Anion Gap mmol/L BUN (9-20) mg/dL Creatinine (0.66-1.25) mg/dL Est GFR (CKD-EPI)AfAm (>60 ml/min/1.73 sqM) Est GFR (CKD-EPI)NonAf (>60 ml/min/1.73 sqM) Glucose (74-99) mg/dL Lactic Ac Sepsis Rflx Plasma Lactic Acid Khurram 3.7 H* (0.7-2.0) mmol/L Calcium (8.4-10.2) mg/dL Phosphorus (2.5-4.5) mg/dL Magnesium (1.6-2.3) mg/dL Total Bilirubin (0.2-1.3) mg/dL AST (17-59) U/L ALT (4-49) U/L Alkaline Phosphatase (38-126) U/L Lactate Dehydrogenase (313-618) U/L Creatine Kinase (55-170) U/L CK-MB (CK-2) 2.8 H (0.0-2.4) ng/mL Troponin I 0.026 (0.000-0.034) ng/mL C-Reactive Protein (<10.0) mg/L NT-Pro-B Natriuret Pep 917 pg/mL Total Protein (6.3-8.2) g/dL Albumin (3.5-5.0) g/dL Urine Color Urine Appearance (Clear) Urine pH (5.0-8.0) Ur Specific Reyno (1.001-1.035) Urine Protein (Negative) Urine Glucose (UA) (Negative) Urine Ketones (Negative) Urine Blood (Negative) Urine Nitrite (Negative) Urine Bilirubin (Negative) Urine Urobilinogen (<2.0) mg/dL Ur Leukocyte Esterase (Negative) Coronavirus (PCR) (Not Detectd) 06/17/19 06/18/19 06/18/19 Range/Units 23:46 00:20 00:20 WBC (3.8-10.6) k/uL RBC (4.30-5.90) m/uL Hgb (13.0-17.5) gm/dL Hct (39.0-53.0) % MCV (80.0-100.0) fL MCH (25.0-35.0) pg MCHC (31.0-37.0) g/dL RDW (11.5-15.5) % Plt Count (150-450) k/uL Neutrophils % (Manual) % Band Neutrophils % % Lymphocytes % (Manual) % Monocytes % (Manual) % Eosinophils % (Manual) % Neutrophils # (Manual) (1.3-7.7) k/uL Lymphocytes # (Manual) (1.0-4.8) k/uL Monocytes # (Manual) (0-1.0) k/uL Eosinophils # (Manual) (0-0.7) k/uL Nucleated RBCs (0-0) /100 WBC Manual Slide Review Reactive Lymphocytes Large Platelets PT (9.0-12.0) sec INR (<1.2) APTT (22.0-30.0) sec D-Dimer (<0.60) mg/L FEU Sodium (137-145) mmol/L Potassium (3.5-5.1) mmol/L Chloride (98-107) mmol/L Carbon Dioxide (22-30) mmol/L Anion Gap mmol/L BUN (9-20) mg/dL Creatinine (0.66-1.25) mg/dL Est GFR (CKD-EPI)AfAm (>60 ml/min/1.73 sqM) Est GFR (CKD-EPI)NonAf (>60 ml/min/1.73 sqM) Glucose (74-99) mg/dL Lactic Ac Sepsis Rflx Y Plasma Lactic Acid Khurram (0.7-2.0) mmol/L Calcium (8.4-10.2) mg/dL Phosphorus (2.5-4.5) mg/dL Magnesium 1.7 (1.6-2.3) mg/dL Total Bilirubin (0.2-1.3) mg/dL AST (17-59) U/L ALT (4-49) U/L Alkaline Phosphatase (38-126) U/L Lactate Dehydrogenase 755 H (313-618) U/L Creatine Kinase (55-170) U/L CK-MB (CK-2) (0.0-2.4) ng/mL Troponin I (0.000-0.034) ng/mL C-Reactive Protein 10.8 H (<10.0) mg/L NT-Pro-B Natriuret Pep pg/mL Total Protein (6.3-8.2) g/dL Albumin (3.5-5.0) g/dL Urine Color Urine Appearance (Clear) Urine pH (5.0-8.0) Ur Specific Reyno (1.001-1.035) Urine Protein (Negative) Urine Glucose (UA) (Negative) Urine Ketones (Negative) Urine Blood (Negative) Urine Nitrite (Negative) Urine Bilirubin (Negative) Urine Urobilinogen (<2.0) mg/dL Ur Leukocyte Esterase (Negative) Coronavirus (PCR) Not Detected (Not Detectd) 06/18/19 06/18/19 Range/Units 03:08 03:08 WBC (3.8-10.6) k/uL RBC (4.30-5.90) m/uL Hgb (13.0-17.5) gm/dL Hct (39.0-53.0) % MCV (80.0-100.0) fL MCH (25.0-35.0) pg MCHC (31.0-37.0) g/dL RDW (11.5-15.5) % Plt Count (150-450) k/uL Neutrophils % (Manual) % Band Neutrophils % % Lymphocytes % (Manual) % Monocytes % (Manual) % Eosinophils % (Manual) % Neutrophils # (Manual) (1.3-7.7) k/uL Lymphocytes # (Manual) (1.0-4.8) k/uL Monocytes # (Manual) (0-1.0) k/uL Eosinophils # (Manual) (0-0.7) k/uL Nucleated RBCs (0-0) /100 WBC Manual Slide Review Reactive Lymphocytes Large Platelets PT (9.0-12.0) sec INR (<1.2) APTT (22.0-30.0) sec D-Dimer (<0.60) mg/L FEU Sodium (137-145) mmol/L Potassium (3.5-5.1) mmol/L Chloride (98-107) mmol/L Carbon Dioxide (22-30) mmol/L Anion Gap mmol/L BUN (9-20) mg/dL Creatinine (0.66-1.25) mg/dL Est GFR (CKD-EPI)AfAm (>60 ml/min/1.73 sqM) Est GFR (CKD-EPI)NonAf (>60 ml/min/1.73 sqM) Glucose (74-99) mg/dL Lactic Ac Sepsis Rflx Plasma Lactic Acid Khurram 1.0 (0.7-2.0) mmol/L Calcium (8.4-10.2) mg/dL Phosphorus (2.5-4.5) mg/dL Magnesium (1.6-2.3) mg/dL Total Bilirubin (0.2-1.3) mg/dL AST (17-59) U/L ALT (4-49) U/L Alkaline Phosphatase (38-126) U/L Lactate Dehydrogenase (313-618) U/L Creatine Kinase (55-170) U/L CK-MB (CK-2) (0.0-2.4) ng/mL Troponin I (0.000-0.034) ng/mL C-Reactive Protein (<10.0) mg/L NT-Pro-B Natriuret Pep pg/mL Total Protein (6.3-8.2) g/dL Albumin (3.5-5.0) g/dL Urine Color Light Yellow Urine Appearance Clear (Clear) Urine pH 6.0 (5.0-8.0) Ur Specific Reyno 1.019 (1.001-1.035) Urine Protein Negative (Negative) Urine Glucose (UA) Negative (Negative) Urine Ketones Negative (Negative) Urine Blood Negative (Negative) Urine Nitrite Negative (Negative) Urine Bilirubin Negative (Negative) Urine Urobilinogen <2.0 (<2.0) mg/dL Ur Leukocyte Esterase Negative (Negative) Coronavirus (PCR) (Not Detectd) - EKG Data -: EKG Interpreted by Me (EKG shows sinus tachycardia 109, MA 92, QRS 70, QTc 649) - Radiology Data Radiology results: report reviewed (CT brain C-spine negative CTA chest shows small left-sided pneumothorax less than 10%), image reviewed Critical Care Time Critical Care Time: Yes Total Critical Care Time: 31 Disposition Clinical Impression: Fall, Dehydration, Colitis, CHF (congestive heart failure), Pneumothorax, left, Hypothermia, Pneumonia, Pre-syncope Narrative: r/o COVID as pt is high risk Disposition: ADMITTED IP TO THIS HOSP Condition: Serious Is patient prescribed a controlled substance at d/c from ED?: No Referrals: Sascha Oliveros MD [Primary Care Provider] - 1-2 days
--- NOTE | 2019-06-17 23:52 | XR ---
EXAMINATION TYPE: XR chest 1V DATE OF EXAM: 06/17/2019 COMPARISON: Chest CT April 24, 2019. Chest x-ray April 23, 2019. HISTORY: Weakness. TECHNIQUE: Single AP portable frontal upright view of the chest is obtained. FINDINGS: There is new areas of increased opacity bilateral mid to lower lungs. Partial silhouetting of right hemidiaphragm is present. No pleural effusion or pneumothorax noted bilaterally. The cardia c silhouette size remains within normal limits. The osseous structures remain demineralized. IMPRESSION: New bilateral acute infiltrates bilateral mid to lower lungs.
[2019-06-17 23:56] LABS: INR 1.1 (<1.2); Partial Thromboplastin Time 26.9 sec (22.0-30.0); Prothrombin Time 11.5 sec (9.0-12.0)
[2019-06-17] MEDS ORDERED: IPRATROPIUM-ALBUTEROL 3 ML NEB INHALATION STA (23:58)
[2019-06-17] MEDS ORDERED: methylPREDNISolone SOD SUCCI 125 MG/2 ML VIAL IV STA (23:58)
--- NOTE | 2019-06-17 23:58 | CT ---
EXAMINATION TYPE: CT brain carlinine wo con DATE OF EXAM: 06/17/2019 COMPARISON: NONE HISTORY: Fall injury with headache and neck pain. CT DLP: 1195.90 mGycm. Automated Exposure Control for Dose Reduction was Utilized. TECHNIQUE: CT scan of the head and cervical spine are performed without contrast. FINDINGS: There is no acute intracranial hemorrhage or midline shift identified. Diffuse ventricula r and sulcal prominence greatest over the bilateral frontal lobes corresponds to increased frontal lo be atrophy or chronic subdural hygromas bilaterally. Low attenuation in the deep and periventricular white matter is present. 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 The globes are intact an d the visualized sinuses are clear. Patchy soft tissue density bilateral extraocular canal. Reflects cerumen. The calvarium is intact. Cervical spine is visualized in its entirety from C1 through upper thoracic levels and demonstrates s atisfactory alignment without evidence of acute fracture or dislocation. Prevertebral soft tissue ap pears within normal limits. The C1-C2 articulation is within normal limits on the coronal images. V ertebral body heights are maintained. Mild to moderate disc space narrowing C5-C6 level. Moderate to advanced disc space narrowing with prominent anterior spur C6-C7 level. Posterior spur disc complex e ffaces the anterior thecal sac at C6-C7 level. Review of axial images shows multilevel uncovertebral facet degenerative changes bilaterally. Thyroid gland is felt within normal limits. There is tiny lef t apical pneumothorax anteriorly and medially. Background mild underlying emphysematous change is pre sent. IMPRESSION: 1. There is no acute fracture or dislocation evident in the cervical spine. Note is made of tiny left apical pneumothorax. 2. No acute intracranial hemorrhage or midline shift is seen. Fairly moderate generalized atrophy and chronic small vessel ischemic change. Critical results of tiny left apical pneumothorax communicated to ordering ER physician via telephone at time of dictation.
[2019-06-18] LABS: D-Dimer 4.97 mg/L FEU (<0.60)
[2019-06-18 00:06] LABS: Creatine Kinase MB 2.8 ng/mL (0.0-2.4)
[2019-06-18 00:08] LABS: Troponin I 0.026 ng/mL (0.000-0.034)
[2019-06-18 00:22] LABS: Band Neutrophils % 23 %; Eosinophils # (M) 0.02 k/uL (0-0.7); Lymphocytes # (M) 1.08 k/uL (1.0-4.8); Monocytes # (M) 0.07 k/uL (0-1.0); Neutrophils % (M) 24 %; Nucleated Red Blood Cells 0 /100 WBC (0-0); Total Cells Counted 100
[2019-06-18 00:28] LABS: Large Platelets Present; Reactive Lymphocytes Present
[2019-06-18] MEDS ORDERED: ALBUTEROL NEBULIZED 2.5 MG/3 ML INHALATION STA (00:44)
[2019-06-18 00:48] LABS: C Reactive Protein 10.8 mg/L (<10.0)
[2019-06-18 00:49] LABS: Magnesium 1.7 mg/dL (1.6-2.3)
[2019-06-18] MEDS ORDERED: ALBUTEROL HFA INHALER INHALATION STA (00:52)
[2019-06-18] MEDS: SODIUM CHLORIDE 0.9% 1,000 ML IV ONE ×2 (01:06→01:45)
[2019-06-18] MEDS ORDERED: SODIUM CHLORIDE 0.9% 1,000 ML IV STA (01:29)
[2019-06-18] MEDS ORDERED: SODIUM CHLORIDE 0.9% 1,000 ML IV ONE (02:11)
--- NOTE | 2019-06-18 02:22 | CT ---
EXAMINATION TYPE: CT angio chest DATE OF EXAM: 06/18/2019 COMPARISON: Chest CT scan 04/24/2019 HISTORY: pe CT DLP: 226.3 mGycm Automated exposure control for dose reduction was used. CONTRAST: Performed with IV Contrast, patient injected with 70 mL of Isovue 370. There is extensive airspace consolidation in the posterior lower lung house. There is pulmonary inte rstitial and alveolar edema. There is small left side pneumothorax less than 10%. There is no evidenc e of tension. There are subcarinal lymph nodes that measure up to 2 cm. Thoracic aorta measures 3.7 cm. There is no dissection. Heart size is normal. There is no pericardial effusion. There is normal contrast opacification of the pulmonary arteries. There are no filling defects. There are no hilar masses. There are bronchial lymph nodes that measure up to 1 cm. I see no focal bone de struction. There is 15% compression fracture of T12 vertebral body. IMPRESSION: No evidence of pulmonary embolism. Moderately severe pulmonary edema with small right pleural effusion. Normal heart size. This could re late to RDS or congestive heart failure. Nonspecific mediastinal and bronchial lymph nodes. Small left-sided pneumothorax. Abnormalities are essentially all new compared to last exam. T12 compression fracture unchanged. Findings were discussed with ER physician at 2:20 AM.
[2019-06-18 03:36] LABS: Appearance,Urine Clear (Clear); Bilirubin,Urine Negative (Negative); Blood,Urine Negative (Negative); Color,Urine Light Yellow; Glucose,Urine (UA) Negative (Negative); Ketones,Urine Negative (Negative); Leukocyte Esterase,Urine Negative (Negative); Nitrite,Urine Negative (Negative); Protein,Urine Negative (Negative); Specific Gravity,Urine 1.019 (1.001-1.035); Urobilinogen,Urine <2.0 mg/dL (<2.0)
--- NOTE | 2019-06-18 03:55 | XR ---
EXAMINATION TYPE: XR foot complete RT DATE OF EXAM: 06/18/2019 COMPARISON: NONE HISTORY: Toe bruising TECHNIQUE: 3 views FINDINGS: There is an Achilles calcaneal spur. Metatarsals are intact. There is deformity of the prox imal phalanx of the big toe consistent with an old healed fracture. I see no acute fracture nor dislo cation. IMPRESSION: Old fracture of the big toe. No acute fracture seen.
[2019-06-18] MEDS ORDERED: PNEUMONIA PROTOCOL UTILIZED 1 EACH MISC PO PRN (05:07)
[2019-06-18] MEDS ORDERED: NALOXONE 0.4 MG/ML 1 ML VIAL IV PRN (05:07)
[2019-06-18] MEDS ORDERED: AZITHROMYCIN 500 MG in SODIUM CHLORIDE 0.9% 250 ML IVPB STA (05:07)
[2019-06-18 06:20] LABS: Glucose,Whole Blood 54 mg/dL (75-99)
[2019-06-18 06:43] LABS: Glucose,Whole Blood 49 mg/dL (75-99)
[2019-06-18 06:43] LABS: Glucose,Whole Blood 53 mg/dL (75-99)
[2019-06-18 07:08] LABS: Glucose,Whole Blood 55 mg/dL (75-99)
[2019-06-18 07:21] LABS: Glucose,Whole Blood 83 mg/dL (75-99)
[2019-06-18] MEDS: IPRATROPIUM-ALBUTEROL 3 ML NEB INHALATION SCH ×4 (08:31→21:22)
[2019-06-18] MEDS ORDERED: ENOXAPARIN 40 MG/0.4 ML SYRINGE SQ SCH (09:00)
--- NOTE | 2019-06-18 09:49 | ECHOF ---
Referral Reason:Heart Failure MEASUREMENTS -------- HEIGHT: 167.6 cm WEIGHT: 40.8 kg BP: 93/66 RVIDd: 3.1 cm (< 3.3) IVSd: 0.9 cm (0.6 - 1.1) LVIDd: 3.5 cm (3.9 - 5.3) LVPWd: 0.9 cm (0.6 - 1.1) IVSs: 1.1 cm LVIDs: 2.2 cm LVPWs: 1.0 cm LA Diam: 2.7 cm (2.7 - 3.8) LAESV Index (A-L): 24.85 ml/m Ao Diam: 3.2 cm (2.0 - 3.7) AV Cusp: 2.3 cm (1.5 - 2.6) MV EXCURSION: 20.954 mm (> 18.000) MV EF SLOPE: 126 mm/s (70 - 150) EPSS: 3.0 cm MV E Sumeet: 0.66 m/s MV DecT: 236 ms MV A Sumeet: 0.71 m/s MV E/A Ratio: 0.92 RAP: 5.00 mmHg RVSP: 28.98 mmHg FINDINGS -------- Sinus rhythm. This was a technically adequate study. The left ventricular size is normal. Left ventricular wall thickness is normal. Overall left vent ricular systolic function is normal with, an EF between 60 - 65 %. Normal LA size by volume 22+/-6 ml/m2. The right atrium is normal in size. Interatrial and interventricular septum intact. The aortic valve is trileaflet and appears structurally normal. There is trace to mild mitral regurgitation. Mild tricuspid regurgitation present. Right ventricular systolic pressure is normal at < 35 mmHg. The pulmonic valve was not well visualized. The aortic root size is normal. IVC Not well visulized. There is no pericardial effusion. CONCLUSIONS -------- 1. Sinus rhythm. 2. This was a technically adequate study. 3. The left ventricular size is normal. 4. Left ventricular wall thickness is normal. 5. Overall left ventricular systolic function is normal with, an EF between 60 - 65 %. 6. Normal LA size by volume 22+/-6 ml/m2. 7. The right atrium is normal in size. 8. Interatrial and interventricular septum intact. 9. The aortic valve is trileaflet and appears structurally normal. 10. There is trace to mild mitral regurgitation. 11. Mild tricuspid regurgitation present. 12. Right ventricular systolic pressure is normal at < 35 mmHg. 13. The pulmonic valve was not well visualized. 14. The aortic root size is normal. 15. IVC Not well visulized. 16. There is no pericardial effusion. RESEARCH PHYSICIST: Sultana Downing RDCS
[2019-06-18] MEDS ORDERED: levETIRAcetam 500 MG TAB PO SCH (10:15)
[2019-06-18] MEDS ORDERED: levETIRAcetam 250 MG TAB PO SCH (10:15)
--- NOTE | 2019-06-18 10:38 | P.CRDCN ---
History of Present Illness History of present illness: This is Aminta Mcfarlane PA-C scribing on behalf of Dr. Crespo The patient was interviewed and examined by Dr. Crespo Emergency department notes reviewed HPI Patient is a 74-year-old male with a history of seizure disorder presented after a fall. He resides at an skilled nursing and he apparently had a fall in the bathroom. He had been having severe diarrhea and was very weak as a result. After the fall, he became very short of breath and it hurt to take in a deep breath. Upon arrival to the emergency department the patient was afebrile, pulse was 108, and blood pressure was 101/73, oxygen saturation 91% on 15 L of oxygen. Chest x-ray showed acute bilateral infiltrates in the mid to lower lungs. EKG shows sinus tachycardia with nonspecific ST segment changes inferiorly and laterally. Head CT showed no acute fracture or dislocation of the C-spine, no acute intracranial hemorrhage or midline shift but did note a small left apical pneumothorax. Labs were significant for an elevated d-dimer and initial troponin 0.026, creatinine kinase 67, CK 0.8 glucose is 66, lactic acid 3.7. Chest CT showed no evidence of PE, moderate to severe pulmonary edema with a small right pleural effusion, and small left-sided pneumothorax, T12 compression fracture. Patient was admitted for further workup and treatment. He continues to complain of pleuritic chest discomfort and is breathing shallow due to the pain. ROS: No fevers, chills or rigors, no cough, phlegm or expectoration, Positive for diarrhea no hematuria, dysuria, Positive for joint pain Positive for history of seizures no skin lesions. EXAMINATION: Patient is afebrile, pulse in the 90s, respirations 18, blood pressure in the 90s over 60s, oxygen saturation 93% on [address] Crespo examined the patient Oral mucosa is moist Patient is breathing shallow, lungs are clear Tenderness to palpation on the chest wall on exam Heart sounds are normal, normal S1-S2, no audible murmurs no JVD No lower extremity edema REVIEW OF LABS, ECG & MEDICAL DATA WBC 2.2, hemoglobin 15.1, platelets 308, potassium 4.1, BUN 34, creatinine 0.85 Troponin 0.064, 0.026 Lactate dehydrogenase 755, creatinine kinase 67, CK-MB 2.8 BMP 917 IMPRESSION / ASSESSMENT: #1 atypical chest discomfort, pleuritic in nature, tenderness to palpation on exam, in the setting of a recent fall, not consistent with acute coronary syndrome #2 borderline troponins of unclear significance in the setting of her recent fall and abnormal lactate dehydrogenase and CK-MB #[address] showing evidence of pulmonary edema, clinically euvolemic on exam, BMP 917 #4 hypoglycemia #5 history of seizure disorder PLAN: obtain 2-D echo and Doppler studies to assess cardiac structure and function avoid diuretics at this time as patient is hypotensive and having diarrhea pain management for chest discomfort per medicine Past Medical History Past Medical History: Eye Disorder, GERD/Reflux, Osteoarthritis (OA), Seizure Disorder Additional Past Medical History / Comment(s): LAST SEIZURE 2006, GLAUCOMA, History of Any Multi-Drug Resistant Organisms: None Reported Past Surgical History: Cholecystectomy Additional Past Surgical History / Comment(s): CATARACT RIGHT EYE REMOVED Past Anesthesia/Blood Transfusion Reactions: No Reported Reaction Smoking Status: Current every day smoker - Past Family History Mother Family Medical History: Cancer Medications and Allergies Home Medications Medication Instructions Recorded Confirmed Type Cyclobenzaprine [Flexeril] 10 mg PO BID 03/29/16 06/18/19 History Morphine Sulfate [Ms Contin] 30 mg PO QID 03/29/16 06/18/19 History levETIRAcetam [Keppra] 1,000 mg PO BID 03/29/16 06/18/19 History Zolpidem [Ambien] 10 mg PO HS 04/23/19 06/18/19 History levETIRAcetam [Keppra] 250 mg PO BID 04/23/19 06/18/19 History Pantoprazole Sodium [Protonix] 40 mg PO DAILY #30 tablet. 04/29/19 06/18/19 Rx Magnesium 250 mg PO DAILY 06/18/19 06/18/19 History Multivit-Min/Folic/Vit K/Lycop 1 tab PO DAILY 06/18/19 06/18/19 History [Men's Multivitamin Tablet] Allergies Allergy/AdvReac Type Severity Reaction Status Date / Time No Known Allergies Allergy Verified 06/18/19 08:55 Physical Exam Vitals: Vital Signs Temp Pulse Pulse Resp BP BP Pulse Ox 06/18/19 06:35 97.5 F L 06/18/19 06:31 93 L 06/18/19 06:24 95 18 93/66 89 L 06/18/19 05:26 97.7 F 98 16 88/60 97 06/18/19 05:00 97.5 F L 97 16 85/61 97 06/18/19 04:00 97.3 F L 100 16 94/66 96 06/18/19 03:30 97.2 F L 105 H 16 100/68 96 06/18/19 03:00 100 16 83/58 98 06/18/19 02:45 100 16 89/62 100 06/18/19 02:20 100 06/18/19 02:05 81/59 06/18/19 02:00 98 16 71/56 95 06/18/19 01:45 100 16 94/60 95 06/18/19 01:30 96.8 F L 101 H 16 93/64 96 06/18/19 01:20 101 H 16 82/54 100 06/18/19 01:00 101 H 16 76/53 97 06/18/19 00:40 96.4 F L 102 H 16 82/64 99 06/18/19 00:00 102 H 16 101/66 99 06/17/19 23:03 91 L 06/17/19 22:48 96.4 F L 108 H 20 101/73 Intake and Output 06/17/19 06/18/19 06/18/19 22:59 06:59 14:59 Intake Total 120 Balance 120 Intake: Oral 120 Other: # Voids 0 Weight 40.823 kg 40.823 kg Results 06/17/19 23:22 06/18/19 06:24 Cardiac Enzymes 06/17/19 06/17/19 06/18/19 Range/Units 23:22 23:22 00:20 AST 42 (17-59) U/L Lactate Dehydrogenase 755 H (313-618) U/L CK-MB (CK-2) 2.8 H (0.0-2.4) ng/mL Troponin I 0.026 (0.000-0.034) ng/mL 06/18/19 Range/Units 06:24 AST (17-59) U/L Lactate Dehydrogenase (313-618) U/L CK-MB (CK-2) (0.0-2.4) ng/mL Troponin I 0.064 H* (0.000-0.034) ng/mL Coagulation 06/17/19 Range/Units 23:22 PT 11.5 (9.0-12.0) sec APTT 26.9 (22.0-30.0) sec CBC 06/17/19 Range/Units 23:22 WBC 2.2 L (3.8-10.6) k/uL RBC 4.88 (4.30-5.90) m/uL Hgb 15.1 (13.0-17.5) gm/dL Hct 46.3 (39.0-53.0) % Plt Count 308 (150-450) k/uL Comprehensive Metabolic Panel 06/17/19 06/18/19 Range/Units 23:22 06:24 Sodium 132 L (137-145) mmol/L Potassium 4.1 (3.5-5.1) mmol/L Chloride 100 (98-107) mmol/L Carbon Dioxide 26 (22-30) mmol/L BUN 34 H (9-20) mg/dL Creatinine 0.85 (0.66-1.25) mg/dL Glucose 66 L 58 L (74-99) mg/dL Calcium 7.5 L (8.4-10.2) mg/dL AST 42 (17-59) U/L ALT 19 (4-49) U/L Alkaline Phosphatase 95 (38-126) U/L Total Protein 4.6 L (6.3-8.2) g/dL Albumin 2.2 L (3.5-5.0) g/dL Current Medications Generic Name Dose Route Start Last Admin Trade Name Freq PRN Reason Stop Dose Admin Albuterol/Ipratropium 3 ml 06/18/19 08:00 06/18/19 08:31 Duoneb 0.5 Mg-3 Mg/3 Ml Soln INHALATION 3 ml RT-QID SARAVANAN Administration Azithromycin 500 mg 06/19/19 05:10 Zithromax PO Q24H SARAVANAN Enoxaparin Sodium 40 mg 06/18/19 09:00 06/18/19 08:16 Lovenox SQ 40 mg DAILY SARAVANAN Administration Ceftriaxone Sodium 1 gm/ 50 mls @ 100 mls/hr 06/19/19 05:10 Sodium Chloride IVPB Q24H SARAVANAN Miscellaneous Information 1 each 06/18/19 05:07 Pneumonia Protocol Utilized PO ONCE PRN Per Protocol Naloxone HCl 0.2 mg 06/18/19 05:07 Narcan IV Q2M PRN Opioid Reversal Intake and Output 06/17/19 06/18/19 06/18/19 22:59 06:59 14:59 Intake Total 120 Balance 120 Intake: Oral 120 Other: # Voids 0 Weight 40.823 kg 40.823 kg 06/17/19 23:22 06/18/19 06:24
[2019-06-18] MEDS: levETIRAcetam 500 MG TAB PO SCH ×2 (11:33→20:17)
[2019-06-18] MEDS: SODIUM CHLORIDE 0.9% 1,000 ML IV SCH ×2 (11:34→20:18)
[2019-06-18 11:55] LABS: Ferritin 348.9 ng/mL (22.0-322.0)
[2019-06-18 11:59] LABS: Glucose,Whole Blood 64 mg/dL (75-99)
[2019-06-18] MEDS ORDERED: DIPHENOX-ATROP 2.5-0.025 MG 1 EACH TAB PO PRN (12:12)
--- NOTE | 2019-06-18 12:18 | P.HPIM ---
History of Present Illness 74-year-old the cachectic male came with a history of seizures in the past came in after patient fell in the bathroom. Patient is unsure whether he had a syncopal episode. Patient denied any seizure-like activity patient denied any aura-like symptoms , denied any loss of bowel or bladder incontinence but patient was in the bathroom as he was having diarrhea patient does have chronicchronic diarrhea. Patient denied any fever chills was having cough. Upon further evaluation ER patient is hyponatremic and dehydrated computed t omography scan was opted because of his elevated d-dimer which were showed some changes consistent with the heart failure or atypical pneumonia patient does have infiltrate in the right lower lung house significantly does have infiltrate in the left lower lung house as well. Patient doesn't have any fever. Mild leukopenia. Patient has mildly elevated troponin does have some musculoskeletal chest pain from fall. Patient was evaluated by cardiology. Patient has a BNP of 05/22/2016 clinically appears to be dehydrated hypovolemic. Patient can use to smoke patient presently on 4 L of onset doesn't use any oxygen at home patient doesn't have any significant wheezing on examarea patient does complain of some shortness of breath but no orthopnea proximal nocturnal dyspnea. Patient had an echocardiogram which did not show any heart failure or any significant valvular abnormalities. Patient is bit hyponatremic Review of Systems REVIEW OF SYSTEMS: CONSTITUTIONAL: No fever, no malaise, no fatigue. HEENT: No recent visual problems or hearing problems. Denied any sore throat. CARDIOVASCULAR: No orthopnea, PND, no palpitations, no syncope. PULMONARY: as mentioned in HPI GASTROINTESTINAL: No diarrhea, no nausea, no vomiting, no abdominal pain. NEUROLOGICAL: No headaches, no weakness, no numbness. HEMATOLOGICAL: Denies any bleeding or petechiae. GENITOURINARY: Denies any burning micturition, frequency, or urgency. MUSCULOSKELETAL/RHEUMATOLOGICAL: Denies any joint pain, swelling, or any muscle pain. ENDOCRINE: Denies any polyuria or polydipsia. The rest of the 14-point review of systems is negative. Past Medical History Past Medical History: Eye Disorder, GERD/Reflux, Osteoarthritis (OA), Seizure Disorder Additional Past Medical History / Comment(s): LAST SEIZURE 2006, GLAUCOMA, History of Any Multi-Drug Resistant Organisms: None Reported Past Surgical History: Cholecystectomy Additional Past Surgical History / Comment(s): CATARACT RIGHT EYE REMOVED Past Anesthesia/Blood Transfusion Reactions: No Reported Reaction Smoking Status: Current every day smoker - Past Family History Mother Family Medical History: Cancer Medications and Allergies Home Medications Medication Instructions Recorded Confirmed Type Cyclobenzaprine [Flexeril] 10 mg PO BID 03/29/16 06/18/19 History Morphine Sulfate [Ms Contin] 30 mg PO QID 03/29/16 06/18/19 History levETIRAcetam [Keppra] 1,000 mg PO BID 03/29/16 06/18/19 History Zolpidem [Ambien] 10 mg PO HS 04/23/19 06/18/19 History levETIRAcetam [Keppra] 250 mg PO BID 04/23/19 06/18/19 History Pantoprazole Sodium [Protonix] 40 mg PO DAILY #30 tablet. 04/29/19 06/18/19 Rx Magnesium 250 mg PO DAILY 06/18/19 06/18/19 History Multivit-Min/Folic/Vit K/Lycop 1 tab PO DAILY 06/18/19 06/18/19 History [Men's Multivitamin Tablet] Allergies Allergy/AdvReac Type Severity Reaction Status Date / Time No Known Allergies Allergy Verified 06/18/19 08:55 Physical Exam Vitals: Vital Signs Temp Pulse Pulse Resp BP BP Pulse Ox 06/18/19 11:41 95 06/18/19 08:45 92 06/18/19 08:30 90 06/18/19 07:55 97.4 F L 95 18 77/54 94 L 06/18/19 06:35 97.5 F L 06/18/19 06:31 93 L 06/18/19 06:24 95 18 93/66 89 L 06/18/19 05:26 97.7 F 98 16 88/60 97 06/18/19 05:00 97.5 F L 97 16 85/61 97 06/18/19 04:00 97.3 F L 100 16 94/66 96 06/18/19 03:30 97.2 F L 105 H 16 100/68 96 06/18/19 03:00 100 16 83/58 98 06/18/19 02:45 100 16 89/62 100 06/18/19 02:20 100 06/18/19 02:05 81/59 06/18/19 02:00 98 16 71/56 95 06/18/19 01:45 100 16 94/60 95 06/18/19 01:30 96.8 F L 101 H 16 93/64 96 06/18/19 01:20 101 H 16 82/54 100 06/18/19 01:00 101 H 16 76/53 97 06/18/19 00:40 96.4 F L 102 H 16 82/64 99 06/18/19 00:00 102 H 16 101/66 99 06/17/19 23:03 91 L 06/17/19 22:48 96.4 F L 108 H 20 101/73 Intake and Output 06/17/19 06/18/19 06/18/19 22:59 06:59 14:59 Intake Total 120 Balance 120 Intake: Oral 120 Other: # Voids 0 0 # Bowel Movements 0 Weight 40.823 kg 40.823 kg PHYSICAL EXAMINATION: GENERAL: The patient is alert and oriented x3, not in any acute distress. thin built cachectic male HEENT: Pupils are round and equally reacting to light. EOMI. No scleral icterus. No conjunctival pallor. Normocephalic, atraumatic. No pharyngeal erythema. No thyromegaly. CARDIOVASCULAR: S1 and S2 present. No murmurs, rubs, or gallops. PULMONARY:by basilar crackles bronchophony, decreased air entry into bilateral lung house ABDOMEN: Soft, nontender, nondistended, normoactive bowel sounds. No palpable organomegaly. MUSCULOSKELETAL: No joint swelling or deformity. EXTREMITIES: No cyanosis, clubbing, or pedal edema. NEUROLOGICAL: Gross neurological examination did not reveal any focal deficits. SKIN: No rashes. Results CBC & Chem 7: 06/17/19 23:22 06/18/19 06:24 Labs: Abnormal Lab Results - Last 24 Hours (Table) 06/17/19 06/17/19 06/17/19 Range/Units 23:22 23:22 23:22 WBC 2.2 L (3.8-10.6) k/uL Neutrophils # (Manual) 1.00 L (1.3-7.7) k/uL D-Dimer 4.97 H (<0.60) mg/L FEU Sodium 132 L (137-145) mmol/L BUN 34 H (9-20) mg/dL Glucose 66 L (74-99) mg/dL POC Glucose (mg/dL) (75-99) mg/dL Plasma Lactic Acid Khurram (0.7-2.0) mmol/L Calcium 7.5 L (8.4-10.2) mg/dL Ferritin (22.0-322.0) ng/mL Lactate Dehydrogenase (313-618) U/L CK-MB (CK-2) (0.0-2.4) ng/mL Troponin I (0.000-0.034) ng/mL C-Reactive Protein (<10.0) mg/L Total Protein 4.6 L (6.3-8.2) g/dL Albumin 2.2 L (3.5-5.0) g/dL Procalcitonin (0.02-0.09) ng/mL 06/17/19 06/17/19 06/18/19 Range/Units 23:22 23:22 00:20 WBC (3.8-10.6) k/uL Neutrophils # (Manual) (1.3-7.7) k/uL D-Dimer (<0.60) mg/L FEU Sodium (137-145) mmol/L BUN (9-20) mg/dL Glucose (74-99) mg/dL POC Glucose (mg/dL) (75-99) mg/dL Plasma Lactic Acid Khurram 3.7 H* (0.7-2.0) mmol/L Calcium (8.4-10.2) mg/dL Ferritin 348.9 H (22.0-322.0) ng/mL Lactate Dehydrogenase 755 H (313-618) U/L CK-MB (CK-2) 2.8 H (0.0-2.4) ng/mL Troponin I (0.000-0.034) ng/mL C-Reactive Protein 10.8 H (<10.0) mg/L Total Protein (6.3-8.2) g/dL Albumin (3.5-5.0) g/dL Procalcitonin (0.02-0.09) ng/mL 06/18/19 06/18/19 06/18/19 Range/Units 00:20 06:16 06:24 WBC (3.8-10.6) k/uL Neutrophils # (Manual) (1.3-7.7) k/uL D-Dimer (<0.60) mg/L FEU Sodium (137-145) mmol/L BUN (9-20) mg/dL Glucose (74-99) mg/dL POC Glucose (mg/dL) 54 L (75-99) mg/dL Plasma Lactic Acid Khurram (0.7-2.0) mmol/L Calcium (8.4-10.2) mg/dL Ferritin (22.0-322.0) ng/mL Lactate Dehydrogenase (313-618) U/L CK-MB (CK-2) (0.0-2.4) ng/mL Troponin I 0.064 H* (0.000-0.034) ng/mL C-Reactive Protein (<10.0) mg/L Total Protein (6.3-8.2) g/dL Albumin (3.5-5.0) g/dL Procalcitonin 3.49 H (0.02-0.09) ng/mL 06/18/19 06/18/19 06/18/19 Range/Units 06:24 06:38 06:39 WBC (3.8-10.6) k/uL Neutrophils # (Manual) (1.3-7.7) k/uL D-Dimer (<0.60) mg/L FEU Sodium (137-145) mmol/L BUN (9-20) mg/dL Glucose 58 L (74-99) mg/dL POC Glucose (mg/dL) 49 L 53 L (75-99) mg/dL Plasma Lactic Acid Khurram (0.7-2.0) mmol/L Calcium (8.4-10.2) mg/dL Ferritin (22.0-322.0) ng/mL Lactate Dehydrogenase (313-618) U/L CK-MB (CK-2) (0.0-2.4) ng/mL Troponin I (0.000-0.034) ng/mL C-Reactive Protein (<10.0) mg/L Total Protein (6.3-8.2) g/dL Albumin (3.5-5.0) g/dL Procalcitonin (0.02-0.09) ng/mL 05/05/20 05/05/20 Range/Units 06:58 11:39 WBC (3.8-10.6) k/uL Neutrophils # (Manual) (1.3-7.7) k/uL D-Dimer (<0.60) mg/L FEU Sodium (137-145) mmol/L BUN (9-20) mg/dL Glucose (74-99) mg/dL POC Glucose (mg/dL) 55 L 64 L (75-99) mg/dL Plasma Lactic Acid Khurram (0.7-2.0) mmol/L Calcium (8.4-10.2) mg/dL Ferritin (22.0-322.0) ng/mL Lactate Dehydrogenase (313-618) U/L CK-MB (CK-2) (0.0-2.4) ng/mL Troponin I (0.000-0.034) ng/mL C-Reactive Protein (<10.0) mg/L Total Protein (6.3-8.2) g/dL Albumin (3.5-5.0) g/dL Procalcitonin (0.02-0.09) ng/mL Assessment and Plan Plan: -acute hypoxic respiratory failure probably secondary to bilateral pneumonia continue with Rocephin and azithromycin awaiting sputum cultures and blood cultures.be a competent of mild COPD exacerbationHEENT there is no clinical evidence of congestive heart failure patient will be started on IV fluids. -1 COPD with acute exacerbation and stent- 4 hypovolemic hyponatremia: IV fluids at 100 mL per hour -Acute renal failure: Secondary to dehydration and intravascular depletion IV fluids as mentioned above -Mildly elevated troponin secondary to hypoxemia and renal failure. -Chest and musculoskeletal in nature secondary to fall -Rule out syncope and seizure -Seizure disorder we'll obtain EEG and Keppra levels patient will be resumed on his home dose of Keppra for now seizure precautions -Chronic diarrhea symptomatically treatment follow with gastroneurology as an outpatient -chronic pain -Cachexia which is chronic patient scan of the chest did not show any nodules but the patient need regular cancer screening as an outpatient. -Ruled out covid 19 -DVT prophylaxis with subcutaneous heparin
[2019-06-18 12:25] LABS: Glucose,Whole Blood 71 mg/dL (75-99)
--- NOTE | 2019-06-18 12:49 | CDI ---
Documentation Clarification Form Date: 06/18/2019 12:41:54 PM From: Maria C Solorzano RN, CCDS Admit Date: 06/18/2019 05:08:00 AM Patient Name: Satish Pearl Visit Number: [id number] ATTENTION: The Clinical Documentation Specialists (CDI) and [facility] Coding Staff appreciate your assistance in clarifying documentation. Please respond to the clarification below the line at the bottom and electronically sign. The CDI & [facility] Coding staff will review the response and follow-up if needed. Please note: Queries are made part of the Legal Health Record. If you have any questions, please contact the author of this message via ITS. Dr. Lin History/Risk Factors: Gerd, Seizure disorder Clinical Indicators: 06/17 H&P: "The patient is alert and oriented x3, not in any acute distress. thin built cachectic male." 06/16 Labs: total Protein 4.6, Albumin 2.2 Current BMI: 14.5 Insufficient energy intake: Pneumonia with COPD Treatment: Dietary Consult: not ordered Supplements: none ordered Lab monitoring am daily In your professional opinion, can you please clarify if these findings signify one of the following conditions? Moderate Protein-Calorie Malnutrition Severe Protein-Calorie Malnutrition Other condition, please specify (Last Revision: August 2018) Moderate Protein-Calorie Malnutrition MTDD
[2019-06-18] MEDS: MORPHINE SULFATE IR 15 MG TABLET PO PRN ×2 (13:15→20:16)
[2019-06-18] MEDS: levETIRAcetam 250 MG TAB PO SCH ×2 (13:15→20:17)
[2019-06-18 16:25] LABS: Glucose,Whole Blood 101 mg/dL (75-99)
--- NOTE | 2019-06-18 16:44 | EEG ---
ELECTROENCEPHALOGRAM REPORT DATE OF SERVICE: 06/18/2019 PREAMBLE: This is a 74-year-old male who was brought to the hospital after he fell at home in the bathroom. Patient does not remember the events. Patient does have shortness of breath, diarrhea, and weakness. Patient chart states that he has history of seizures and has not had seizure in about 10 years. Patient is on Keppra 1250 mg b.i.d. Follows up with Dr. Schroeder. Patient also has back pain and is currently on morphine 30 mg. EEG FINDINGS: This is a 21 channel routine EEG recording in a patient utilizing 10-20 international system with bipolar and referential montages. The recording starts and continues with presence of moderate voltage, poorly organized mixed frequencies of 6-7 Hz theta with 2- 4 Hz due to mixed delta and theta activity seen in bihemispheric region. A lot of myogenic activity seen in bitemporal frontal regions. Different stages of sleep were not seen. Photic driving response was not clearly seen. No focal or generalized epileptiform activity was seen. IMPRESSION: This is an abnormal EEG due to background slowing of moderate degree. This is suggestive of generalized cerebral dysfunction, as can be seen with toxic metabolic encephalopathies or due to diffuse structural brain abnormality. No epileptiform activity was seen. MMODL / IJN: [id number] /
[2019-06-18 20:11] LABS: Glucose,Whole Blood 84 mg/dL (75-99)
[2019-06-18] MEDS: ZOLPIDEM 10 MG TAB PO PRN (20:17)
[2019-06-18] MEDS: BUDESONIDE 0.5 MG/2 ML NEBU INHALATION SCH (21:22)
[2019-06-19] MEDS: AZITHROMYCIN 500 MG TAB PO SCH (06:06)
[2019-06-19] MEDS: MORPHINE SULFATE IR 15 MG TABLET PO PRN ×3 (06:06→21:00)
[2019-06-19] MEDS: PANTOPRAZOLE 40 MG TABLET PO SCH (06:06)
[2019-06-19] MEDS: SODIUM CHLORIDE 0.9% 1,000 ML IV SCH ×2 (06:13→12:30)
[2019-06-19 06:27] LABS: Glucose,Whole Blood 84 mg/dL (75-99)
[2019-06-19 06:45] LABS: HCT 37.2 % (39.0-53.0); HGB 12.2 gm/dL (13.0-17.5); MCH 30.8 pg (25.0-35.0); MCHC 32.8 g/dL (31.0-37.0); MCV 93.7 fL (80.0-100.0); Mean Platelet Volume 7.8; Platelet Count 225 k/uL (150-450); RBC 3.97 m/uL (4.30-5.90); RDW 13.8 % (11.5-15.5); WBC 14.3 k/uL (3.8-10.6)
--- NOTE | 2019-06-19 06:46 | XR ---
EXAMINATION TYPE: XR chest 2V DATE OF EXAM: 06/19/2019 COMPARISON: Chest x-ray 2 days ago. CTA chest from yesterday. HISTORY: Pneumonia progress study. TECHNIQUE: Frontal and lateral views of the chest are obtained. FINDINGS: Small to tiny left apical lateral and lateral mid to basilar pneumothorax seen better on c urrent x-ray versus prior with horizontal air-fluid level in the lung bases suggesting hydropneumotho rax. Suspected stable small to tiny right pleural effusion. No new mediastinal shift. Background diabetes trainer julia emphysematous change with bibasilar and left midlung opacities redemonstrated. Cardiac silhouette size stable and within normal limits. Osseous structures remain demineralized. Few air-fluid levels in slightly prominent small bowel loops in the visualized upper abdomen on curre nt study. IMPRESSION: Better visualization of small to tiny left pneumothorax suggests possible slight increas e in size from one day earlier. Small to tiny bilateral pleural effusions remain present felt stable. Background chronic emphysematous change with bibasilar and left midlung acute infiltrate and/or atel ectasis is also thought fairly stable from one day earlier.
[2019-06-19 06:49] LABS: ALT 19 U/L (4-49); AST 31 U/L (17-59); African American GFR (CKD) >90 (>60 ml/min/1.73 sqM); Albumin 1.6 g/dL (3.5-5.0); Alkaline Phosphatase 100 U/L (38-126); Anion Gap 1 mmol/L; Blood Urea Nitrogen 22 mg/dL (9-20); Calcium 7.3 mg/dL (8.4-10.2); Carbon Dioxide 25 mmol/L (22-30); Chloride 106 mmol/L (98-107); Glucose 81 mg/dL (74-99); Magnesium 1.5 mg/dL (1.6-2.3); Non-African American GFR(CKD) >90 (>60 ml/min/1.73 sqM); Phosphorus 2.1 mg/dL (2.5-4.5); Potassium 3.3 mmol/L (3.5-5.1); Sodium 132 mmol/L (137-145); Total Bilirubin 0.3 mg/dL (0.2-1.3); Total Protein 3.5 g/dL (6.3-8.2)
[2019-06-19 07:18] LABS: Band Neutrophils % 43 %; Lymphocytes # (M) 0.57 k/uL (1.0-4.8); Neutrophils % (M) 53 %; Nucleated Red Blood Cells 0 /100 WBC (0-0); Total Cells Counted 100
[2019-06-19] MEDS ORDERED: Potassium Replacement Protocol 1 EACH MISC MISCELLANE PRN (08:00)
[2019-06-19] MEDS: HEPARIN SODIUM,PORCINE 5,000 UNIT/ML 1 ML VIAL SQ SCH ×2 (08:40→20:59)
[2019-06-19] MEDS: MAGNESIUM SULFATE-D5W PMX 1 GM in DEXTROSE/WATER 1 100ML.BAG IVPB SCH ×2 (08:41→10:01)
[2019-06-19] MEDS: levETIRAcetam 500 MG TAB PO SCH ×2 (08:41→21:00)
[2019-06-19] MEDS: MAGNESIUM OXIDE 400 MG TAB PO SCH (08:42)
[2019-06-19] MEDS: levETIRAcetam 250 MG TAB PO SCH ×2 (08:42→21:00)
[2019-06-19] MEDS: POTASSIUM CHLORIDE ER 20 MEQ TAB.ER PO SCH ×2 (08:42→10:01)
[2019-06-19] MEDS: BUDESONIDE 0.5 MG/2 ML NEBU INHALATION SCH ×2 (09:21→20:25)
[2019-06-19] MEDS: IPRATROPIUM-ALBUTEROL 3 ML NEB INHALATION SCH ×4 (09:21→20:25)
[2019-06-19 11:09] LABS: Glucose,Whole Blood 146 mg/dL (75-99)
--- NOTE | 2019-06-19 12:00 | P.PN ---
Subjective Patient is admitted after a fall found to have pneumonia patient is on treatment for pneumonia. We'll cut down the IV fluids and 5 mL per hour patient is quite a bit dehydrated on admission. Repeat chest x-rays showed small pneumothorax probably from fall. Patient has atypical chest pain from fall. Unsure whether patient has syncope patient also has a seizure disorder EEG was obtained which did not show any epileptiform focus but did show severe encephalopathy. Keppra levels are low and patient is being can urine For will obtain levels again today if they're still low will consult neurology will increase the Keppra dose. Patient's clinical exam remains the same. Cardiology evaluated the patient for chest pain no further dictation from that perspective. Patient remains hyponatremic. Constitutional: Patient is still weak Cardio vascular: denied any chest pain, palpitations Gastrointestinal denied any nausea vomiting Pulmonary: Denied any shortness of breath cough Neurologic denied any new focal deficits All inpatient medications were reviewed and appropriate changes in these medications as dictated in the interval history and assessment and plan. Objective - Vital Signs Vital signs: Vital Signs Temp 97.7 F 06/19/19 07:50 Pulse 94 06/19/19 09:34 Resp 20 06/19/19 07:50 BP 104/73 06/19/19 07:50 Pulse Ox 96 06/19/19 07:50 Intake & Output 06/18/19 06/19/19 06/19/19 18:59 06:59 18:59 Intake Total 1830 480 Balance 1830 480 Weight 40.823 kg 40.5 kg Intake: Intake, IV Titration 650 Amount Azithromycin 500 mg In 250 Sodium Chloride 0.9% 250 ml @ 250 mls/hr IVPB ONCE STA Rx#:[id number] Sodium Chloride 0.9% 1, 400 000 ml @ 100 mls/hr IV . Q[facility]H [facility] Rx#:[id number] Oral 1180 480 Other: # Voids 1 1 # Bowel Movements 0 1 - Exam PHYSICAL EXAMINATION: GENERAL: The patient is alert and oriented x3, not in any acute distress. thin built cachectic male HEENT: Pupils are round and equally reacting to light. EOMI. No scleral icterus. No conjunctival pallor. Normocephalic, atraumatic. No pharyngeal erythema. No thyromegaly. CARDIOVASCULAR: S1 and S2 present. No murmurs, rubs, or gallops. PULMONARY:by basilar crackles bronchophony, decreased air entry into bilateral lung house ABDOMEN: Soft, nontender, nondistended, normoactive bowel sounds. No palpable organomegaly. MUSCULOSKELETAL: No joint swelling or deformity. EXTREMITIES: No cyanosis, clubbing, or pedal edema. NEUROLOGICAL: Gross neurological examination did not reveal any focal deficits. SKIN: No rashes. - Labs CBC & Chem 7: 06/19/19 05:31 06/19/19 05:31 Labs: Abnormal Lab Results - Last 24 Hours (Table) 06/18/19 06/18/19 06/18/19 Range/Units 10:52 11:39 12:11 WBC (3.8-10.6) k/uL RBC (4.30-5.90) m/uL Hgb (13.0-17.5) gm/dL Hct (39.0-53.0) % Neutrophils # (Manual) (1.3-7.7) k/uL Lymphocytes # (Manual) (1.0-4.8) k/uL Sodium (137-145) mmol/L Potassium (3.5-5.1) mmol/L BUN (9-20) mg/dL Creatinine (0.66-1.25) mg/dL POC Glucose (mg/dL) 64 L 71 L (75-99) mg/dL Calcium (8.4-10.2) mg/dL Phosphorus (2.5-4.5) mg/dL Magnesium (1.6-2.3) mg/dL Total Protein (6.3-8.2) g/dL Albumin (3.5-5.0) g/dL Levetiracetam 1.5 L (3.0-60.0) ug/mL 06/18/19 06/19/19 06/19/19 Range/Units 16:22 05:31 05:31 WBC 14.3 H (3.8-10.6) k/uL RBC 3.97 L (4.30-5.90) m/uL Hgb 12.2 L (13.0-17.5) gm/dL Hct 37.2 L (39.0-53.0) % Neutrophils # (Manual) 13.70 H (1.3-7.7) k/uL Lymphocytes # (Manual) 0.57 L (1.0-4.8) k/uL Sodium 132 L (137-145) mmol/L Potassium 3.3 L (3.5-5.1) mmol/L BUN 22 H (9-20) mg/dL Creatinine 0.63 L (0.66-1.25) mg/dL POC Glucose (mg/dL) 101 H (75-99) mg/dL Calcium 7.3 L (8.4-10.2) mg/dL Phosphorus 2.1 L (2.5-4.5) mg/dL Magnesium 1.5 L (1.6-2.3) mg/dL Total Protein 3.5 L (6.3-8.2) g/dL Albumin 1.6 L (3.5-5.0) g/dL Levetiracetam (3.0-60.0) ug/mL 06/19/19 Range/Units 11:07 WBC (3.8-10.6) k/uL RBC (4.30-5.90) m/uL Hgb (13.0-17.5) gm/dL Hct (39.0-53.0) % Neutrophils # (Manual) (1.3-7.7) k/uL Lymphocytes # (Manual) (1.0-4.8) k/uL Sodium (137-145) mmol/L Potassium (3.5-5.1) mmol/L BUN (9-20) mg/dL Creatinine (0.66-1.25) mg/dL POC Glucose (mg/dL) 146 H (75-99) mg/dL Calcium (8.4-10.2) mg/dL Phosphorus (2.5-4.5) mg/dL Magnesium (1.6-2.3) mg/dL Total Protein (6.3-8.2) g/dL Albumin (3.5-5.0) g/dL Levetiracetam (3.0-60.0) ug/mL Microbiology - Last 24 Hours (Table) 06/18/19 06:24 Blood Culture - Preliminary Blood No Growth after 24 hours 06/18/19 00:20 Blood Culture - Preliminary Blood No Growth after 24 hours Assessment and Plan Plan: -acute hypoxic respiratory failure probably secondary to bilateral pneumonia c ontinue with Rocephin and azithromycin awaiting sputum cultures and blood cultures.be a competent of mild COPD exacerbationHEENT there is no clinical evidence of congestive heart failure patient will be started on IV fluids. Patient has tiny mother I suggested x-ray of and monitor clinically repeat chest x-ray tomorrow -1 COPD with acute exacerbation patient may have mild exacerbation 4 hypovolemic hyponatremia: IV fluids at 75 mL per hour -Acute renal failure: Secondary to dehydration and intravascular depletion IV fluids as mentioned above -Mildly elevated troponin secondary to hypoxemia and renal failure. -Chest and musculoskeletal in nature secondary to fall -Rule out syncope and seizure Kristie Keppra levels are low lipid Keppra levels tomorrow EEG as mentioned above -Seizure disorder continue with Keppra -Chronic diarrhea symptomatically treatment follow with aspirin neurology as an outpatient -chronic pain -Cachexia which is chronic patient scan of the chest did not show any nodules but the patient need regular cancer screening as an outpatient. -Ruled out covid 19 -DVT prophylaxis with subcutaneous heparin
--- NOTE | 2019-06-19 13:31 | P.PN ---
Subjective This is Aminta Mcfarlane PA-C scribing on behalf of Dr. Crespo Chart review and observation only by Dr. Crespo HPI/interval history Patient is a 74-year-old male with a history of seizure disorder that presented him his long-term after a fall and was admitted for further evaluation and workup. He is being treated with IV fluids and antibiotics for pneumonia. Patient is currently resting comfortably, does not appear to be in any acute distress. EXAMINATION She is afebrile, pulse in the 90s, respirations 18, blood pressure 113/66, ox ygen saturation 94% on 3 L nasal cannula Chart review and observation only, no physical exam REVIEW OF LABS, ECG WBC 14.3, hemoglobin 12.2, platelets 225, potassium 3.3, BUN 22, creatinine 0.63 Echocardiogram shows EF 60-65% IMPRESSION / ASSESSMENT: #1 atypical chest discomfort, pleuritic in nature, tenderness to palpation on exam, in the setting of a recent fall, not consistent with acute coronary syndrome #2 borderline troponins of unclear significance in the setting of her recent fall and abnormal lactate dehydrogenase and CK-MB #3 echocardiogram shows normal LV size and function #4 hypoglycemia #5 history of seizure disorder #6 acute on chronic COPD PLAN: From a cardiac standpoint, echocardiogram results reviewed No further workup at this time from a cardiology standpoint, continue current medication regimen and management per primary care team and consultants, we'll sign off now and see the patient on an as-needed basis Objective - Vital Signs Vital signs: Vital Signs Temp 97.7 F 06/19/19 11:40 Pulse 101 H 06/19/19 11:40 Resp 18 06/19/19 11:40 BP 113/66 06/19/19 11:40 Pulse Ox 94 L 06/19/19 11:40 Intake & Output 06/18/19 06/19/19 06/19/19 18:59 06:59 18:59 Intake Total 1830 480 Balance 1830 480 Weight 40.823 kg 40.5 kg Intake: Intake, IV Titration 650 Amount Azithromycin 500 mg In 250 Sodium Chloride 0.9% 250 ml @ 250 mls/hr IVPB ONCE STA Rx#:[id number] Sodium Chloride 0.9% 1, 400 000 ml @ 100 mls/hr IV . Q10H [facility] Rx#:[id number] Oral 1180 480 Other: # Voids 1 1 # Bowel Movements 0 1 - Labs CBC & Chem 7: 06/19/19 05:31 06/19/19 05:31 Labs: Abnormal Lab Results - Last 24 Hours (Table) 06/18/19 06/18/19 06/19/19 Range/Units 10:52 16:22 05:31 WBC 14.3 H (3.8-10.6) k/uL RBC 3.97 L (4.30-5.90) m/uL Hgb 12.2 L (13.0-17.5) gm/dL Hct 37.2 L (39.0-53.0) % Neutrophils # (Manual) 13.70 H (1.3-7.7) k/uL Lymphocytes # (Manual) 0.57 L (1.0-4.8) k/uL Sodium (137-145) mmol/L Potassium (3.5-5.1) mmol/L BUN (9-20) mg/dL Creatinine (0.66-1.25) mg/dL POC Glucose (mg/dL) 101 H (75-99) mg/dL Calcium (8.4-10.2) mg/dL Phosphorus (2.5-4.5) mg/dL Magnesium (1.6-2.3) mg/dL Total Protein (6.3-8.2) g/dL Albumin (3.5-5.0) g/dL Levetiracetam 1.5 L (3.0-60.0) ug/mL 06/19/19 06/19/19 Range/Units 05:31 11:07 WBC (3.8-10.6) k/uL RBC (4.30-5.90) m/uL Hgb (13.0-17.5) gm/dL Hct (39.0-53.0) % Neutrophils # (Manual) (1.3-7.7) k/uL Lymphocytes # (Manual) (1.0-4.8) k/uL Sodium 132 L (137-145) mmol/L Potassium 3.3 L (3.5-5.1) mmol/L BUN 22 H (9-20) mg/dL Creatinine 0.63 L (0.66-1.25) mg/dL POC Glucose (mg/dL) 146 H (75-99) mg/dL Calcium 7.3 L (8.4-10.2) mg/dL Phosphorus 2.1 L (2.5-4.5) mg/dL Magnesium 1.5 L (1.6-2.3) mg/dL Total Protein 3.5 L (6.3-8.2) g/dL Albumin 1.6 L (3.5-5.0) g/dL Levetiracetam (3.0-60.0) ug/mL Microbiology - Last 24 Hours (Table) 06/18/19 06:24 Blood Culture - Preliminary Blood No Growth after 24 hours 06/18/19 00:20 Blood Culture - Preliminary Blood No Growth after 24 hours
--- NOTE | 2019-06-19 13:39 | P.CNPUL ---
History of Present Illness Consult date: 06/19/19 Requesting physician: Sylvia Lin Reason for consult: dyspnea, pneumothorax Chief complaint: Small right-sided pneumothorax, fall History of present illness: 74-year-old white male patient of Dr. olmstead with past medical history seizure disorder, osteoarthritis, GERD/reflux, nicotine dependence who is a resident of a local [facility], came into the emergency department on 06/17/2019 after sustaining a fall at the assisted. Patient was in the bathroom and passed out and fell on the ground he does not remember the events leading up to his injury. EMS brought the patient to the hospital. He had recent hospitalization for severe diarrhea and weakness discharged on 04/23/2019, to ruling out infective diarrhea. Patient was also having progressive weight loss and severe protein calorie malnutrition, was evaluated by gastroenterology. Admission chest x-ray showed bilateral acute infiltrates to mid to lower lungs. Head and cervical CT showed no acute fracture or dislocation of the cervical spine tiny left apical pneumothorax was noted, no acute intracranial hemorrhage or midline shift was seen, fairly moderate generalized atrophy and small vessel ischemic changes. CT angios of the chest showed no evidence of pulmonary embolism, and moderately severe pulmonary edema with small right pleural effusion, and nonspecific mediastinal and bronchial of nodes. Small left-sided pneumothorax was noted. Echocardiogram was completed showing preserved left ventricular systolic funct ion with EF of 60-65%, mild mitral regurgitation, mild tricuspid regurgitation, no evidence of pulmonary hypertension right-sided pressures were less than 35 mmHg. Admission labs showed a leukopenia with white blood cell, 2.2, hemoglobin of 15.1, d-dimer was 4.97 with CTA chest negative for pulmonary embolism, sodium was 132, and [place] of choice were within normal limits, B1 is 34 creatinine i s 0.85. Cordarone a virus PCR was negative, urinalysis was negative, proBNP was 917, troponin 0.026, and 0.064, CRP was 10.8, LDH was 755, ferritin level is 348.9. Temperature on admission was 96.4F, sats was 91% on room air, patient did have periods of hypotension with a blood pressure as low as 71/56, KG showed sinus tachycardia evidence of anterior infarct of undetermined age T-wave abnormality consideration for lateral ischemia. Patient was placed on empiric antibiotics in the form of azithromycin and Rocephin for possibility of underlying pneumonia, he was fluid resuscitated on admission with improvement in his blood pressure. Level Came Back at 3.49 Suggesting Presence of Bacterial Infection. Follow-up chest x-ray today shows small to tiny left pneumothorax, possible slightly increased in size from one day earlier, and small to tiny bilateral pleural effusions felt to be stable, there is background of chronic emphysematous changes with bibasilar and left midlung acute infiltrate and/or atelectasis. Patient has been afebrile, she is fairly comfortable at rest, it appears to be in no acute distress. He seen on selective care unit, awake and alert, and altered mentation, responding appropriately, he remains on 3 L of oxygen with pulse ox of 94%, his been afebrile. Remains on empiric antibiotics with azithromycin and Rocephin Review of Systems All systems: negative Constitutional: Reports weakness, Reports weight loss, Denies chills, Denies fever Eyes: denies blurred vision, denies pain Ears, nose, mouth and throat: Denies headache, Denies sore throat Cardiovascular: Denies chest pain, Denies shortness of breath Respiratory: Reports dyspnea, Denies cough Gastrointestinal: Denies abdominal pain, Denies diarrhea, Denies nausea, Denies vomiting Musculoskeletal: Reports frequent falls, Denies myalgias Integumentary: Denies pruritus, Denies rash Neurological: Denies numbness, Denies weakness Psychiatric: Denies anxiety, Denies depression Endocrine: Denies fatigue, Denies weight change Past Medical History Past Medical History: Eye Disorder, GERD/Reflux, Osteoarthritis (OA), Seizure Disorder Additional Past Medical History / Comment(s): LAST SEIZURE 2006, GLAUCOMA, History of Any Multi-Drug Resistant Organisms: None Reported Past Surgical History: Cholecystectomy Additional Past Surgical History / Comment(s): CATARACT RIGHT EYE REMOVED Past Anesthesia/Blood Transfusion Reactions: No Reported Reaction Smoking Status: Current every day smoker - Past Family History Mother Family Medical History: Cancer Medications and Allergies Home Medications Medication Instructions Recorded Confirmed Type Cyclobenzaprine [Flexeril] 10 mg PO BID 03/29/16 06/18/19 History Morphine Sulfate [Ms Contin] 30 mg PO QID 03/29/16 06/18/19 History levETIRAcetam [Keppra] 1,000 mg PO BID 03/29/16 06/18/19 History Zolpidem [Ambien] 10 mg PO HS 03/10/20 05/05/20 History levETIRAcetam [Keppra] 250 mg PO BID 04/23/19 06/18/19 History Pantoprazole Sodium [Protonix] 40 mg PO DAILY #30 tablet. 04/29/19 06/18/19 Rx Magnesium 250 mg PO DAILY 06/18/19 06/18/19 History Multivit-Min/Folic/Vit K/Lycop 1 tab PO DAILY 06/18/19 06/18/19 History [Men's Multivitamin Tablet] Allergies Allergy/AdvReac Type Severity Reaction Status Date / Time No Known Allergies Allergy Verified 06/18/19 08:55 Physical Exam Vitals: Vital Signs Temp Pulse Pulse Resp BP Pulse Ox 06/19/19 09:34 94 06/19/19 09:21 92 06/19/19 07:50 97.7 F 105 H 20 104/73 96 06/19/19 04:13 97.9 F 92 18 101/60 98 06/18/19 23:56 97.6 F 97 19 88/53 96 06/18/19 21:40 94 06/18/19 21:25 94 06/18/19 20:00 97.8 F 96 19 92/56 98 06/18/19 16:30 97.7 F 93 18 92/61 100 06/18/19 16:09 94 06/18/19 16:06 98 06/18/19 15:58 90 Intake and Output 06/18/19 06/19/19 06/19/19 22:59 06:59 14:59 Intake Total 340 480 Balance 340 480 Intake: Oral 340 480 Other: # Voids 1 1 # Bowel Movements 1 Weight 40.5 kg GENERAL EXAM: Alert, cachectic 74-year-old white male, on 3 L of oxygen with pulse ox of 94%, resting comfortably in bed, does not appear to be in any acute distress, patient IS showing signs of severe calorie malnutrition and muscle wasting comfortable in no apparent distress. HEAD: Normocephalic/atraumatic. EYES: Normal reaction of pupils, equal size. Conjunctiva pink, sclera white. NOSE: Clear with pink turbinates. THROAT: No erythema or exudates. NECK: No masses, no JVD, no thyroid enlargement, no adenopathy. CHEST: No chest wall deformity. Symmetrical expansion. LUNGS: Equal air entry with no crackles, wheeze, rhonchi or dullness. CVS: Regular rate and rhythm, normal S1 and S2, no gallops, no murmurs, no rubs ABDOMEN: Soft, nontender. No hepatosplenomegaly, normal bowel sounds, no guarding or rigidity. EXTREMITIES: No clubbing, no edema, no cyanosis, 2+ pulses and upper and lower extremities. MUSCULOSKELETAL: Muscle strength and tone normal. SPINE: No scoliosis or deformity SKIN: No rashes CENTRAL NERVOUS SYSTEM: Alert and oriented -3. No focal deficits, tone is normal in all 4 extremities. PSYCHIATRIC: Alert and oriented -3. Appropriate affect. Intact judgment and insight. Results - Laboratory Findings CBC and BMP: 06/19/19 05:31 06/19/19 05:31 PT/INR, D-dimer PT 11.5 sec (9.0-12.0) 06/17/19 23:22 INR 1.1 (<1.2) 06/17/19 23:22 D-Dimer 4.97 mg/L FEU (<0.60) H 06/17/19 23:22 Abnormal lab findings: Abnormal Labs 06/17/19 06/17/19 06/17/19 23:22 23:22 23:22 WBC 2.2 L RBC Hgb Hct Neutrophils # (Manual) 1.00 L Lymphocytes # (Manual) D-Dimer 4.97 H Sodium 132 L Potassium BUN 34 H Creatinine Glucose 66 L POC Glucose (mg/dL) Plasma Lactic Acid Khurram Calcium 7.5 L Phosphorus Magnesium Ferritin Lactate Dehydrogenase CK-MB (CK-2) Troponin I C-Reactive Protein Total Protein 4.6 L Albumin 2.2 L Procalcitonin Levetiracetam 06/17/19 06/17/19 06/18/19 23:22 23:22 00:20 WBC RBC Hgb Hct Neutrophils # (Manual) Lymphocytes # (Manual) D-Dimer Sodium Potassium BUN Creatinine Glucose POC Glucose (mg/dL) Plasma Lactic Acid Khurram 3.7 H* Calcium Phosphorus Magnesium Ferritin 348.9 H Lactate Dehydrogenase 755 H CK-MB (CK-2) 2.8 H Troponin I C-Reactive Protein 10.8 H Total Protein Albumin Procalcitonin Levetiracetam 06/18/19 06/18/19 06/18/19 00:20 06:16 06:24 WBC RBC Hgb Hct Neutrophils # (Manual) Lymphocytes # (Manual) D-Dimer Sodium Potassium BUN Creatinine Glucose POC Glucose (mg/dL) 54 L Plasma Lactic Acid Khurram Calcium Phosphorus Magnesium Ferritin Lactate Dehydrogenase CK-MB (CK-2) Troponin I 0.064 H* C-Reactive Protein Total Protein Albumin Procalcitonin 3.49 H Levetiracetam 06/18/19 06/18/19 06/18/19 06:24 06:38 06:39 WBC RBC Hgb Hct Neutrophils # (Manual) Lymphocytes # (Manual) D-Dimer Sodium Potassium BUN Creatinine Glucose 58 L POC Glucose (mg/dL) 49 L 53 L Plasma Lactic Acid Khurram Calcium Phosphorus Magnesium Ferritin Lactate Dehydrogenase CK-MB (CK-2) Troponin I C-Reactive Protein Total Protein Albumin Procalcitonin Levetiracetam 06/18/19 06/18/19 06/18/19 06:58 10:52 11:39 WBC RBC Hgb Hct Neutrophils # (Manual) Lymphocytes # (Manual) D-Dimer Sodium Potassium BUN Creatinine Glucose POC Glucose (mg/dL) 55 L 64 L Plasma Lactic Acid Khurram Calcium Phosphorus Magnesium Ferritin Lactate Dehydrogenase CK-MB (CK-2) Troponin I C-Reactive Protein Total Protein Albumin Procalcitonin Levetiracetam 1.5 L 06/18/19 06/18/19 06/19/19 12:11 16:22 05:31 WBC 14.3 H RBC 3.97 L Hgb 12.2 L Hct 37.2 L Neutrophils # (Manual) 13.70 H Lymphocytes # (Manual) 0.57 L D-Dimer Sodium Potassium BUN Creatinine Glucose POC Glucose (mg/dL) 71 L 101 H Plasma Lactic Acid Khurram Calcium Phosphorus Magnesium Ferritin Lactate Dehydrogenase CK-MB (CK-2) Troponin I C-Reactive Protein Total Protein Albumin Procalcitonin Levetiracetam 06/19/19 06/19/19 05:31 11:07 WBC RBC Hgb Hct Neutrophils # (Manual) Lymphocytes # (Manual) D-Dimer Sodium 132 L Potassium 3.3 L BUN 22 H Creatinine 0.63 L Glucose POC Glucose (mg/dL) 146 H Plasma Lactic Acid Khurram Calcium 7.3 L Phosphorus 2.1 L Magnesium 1.5 L Ferritin Lactate Dehydrogenase CK-MB (CK-2) Troponin I C-Reactive Protein Total Protein 3.5 L Albumin 1.6 L Procalcitonin Levetiracetam - Diagnostic Findings Chest x-ray: report reviewed, image reviewed CT scan - chest: report reviewed, image reviewed Additional studies: CT of the brain and cervical spine, foot x-ray, EKG and echocardiogram results have been reviewed Assessment and Plan Plan: Assessment: #1. Acute hypoxic respiratory failure, multifactorial related to possibility of community acquired pneumonia, small pleural effusions, and tiny left pneumothorax #2. Weakness, general medical debility, gait dysfunction #3. A fall, and small left pneumothorax at the local [facility] where patient was rehab and after his most recent hospitalization #4. History of seizures #5. Possible exacerbation of CHF with preserved systolic function #6. Hypotension multifactorial, related to dehydration, hypovolemia, and possibility of sepsis is not excluded. Recovered with IV hydration #7. Osteoarthritis #8. Glaucoma #9. Nicotine dependence #10. History of COPD, CTA chest shows for some at this changes #11. Possibility of interstitial lung disease in addition to acute pneumonia and mild exacerbation of CHF was not excluded #12. Recent hospitalization in April for her diarrhea, weight loss please refer to the medical records #13. Mild hyponatremia present on admission likely related to hypovolemia #14. Acute kidney injury related to intravascular volume depletion #15. Chronic diarrhea follows with gastroenterology #16. Chronic cachexia, protein calorie malnutrition and continued weight loss Plan: Chest x-rays and CTA chest has been reviewed with Dr. Stone, patient has been seen and evaluated with Dr. Stone. Left-sided pneumothorax is tiny and at this point does not require any intervention, we'll do follow daily chest x-rays, hemodynamically patient is stable, he denies any acute shortness of breath, with continue with antibiotics, supplemental oxygen. Maintain seizure precautions, maintain safety precautions, maintain aspiration precautions. We'll continue to closely follow with you I performed a history & physical examination of the patient and discussed their management with my nurse practitioner, Liudmila Mcconnell. I reviewed the nurse practitioner's note and agree with the documented findings and plan of care. Lung sounds are positive for diminished breath sounds. The findings and the impression was discussed with the patient. I attest to the documentation by the nurse practitioner. Time with Patient: Greater than 30
[2019-06-19 16:24] LABS: Glucose,Whole Blood 288 mg/dL (75-99)
[2019-06-19 20:07] LABS: Glucose,Whole Blood 197 mg/dL (75-99)
[2019-06-19] MEDS: ZOLPIDEM 10 MG TAB PO PRN (21:00)
[2019-06-20 06:09] LABS: Glucose,Whole Blood 164 mg/dL (75-99)
[2019-06-20] MEDS: AZITHROMYCIN 500 MG TAB PO SCH (06:24)
[2019-06-20] MEDS: PANTOPRAZOLE 40 MG TABLET PO SCH (06:24)
[2019-06-20] MEDS: MORPHINE SULFATE IR 15 MG TABLET PO PRN ×2 (06:25→11:48)
[2019-06-20 06:50] LABS: HCT 42.7 % (39.0-53.0); HGB 14.4 gm/dL (13.0-17.5); MCH 31.5 pg (25.0-35.0); MCHC 33.7 g/dL (31.0-37.0); MCV 93.6 fL (80.0-100.0); Platelet Count 256 k/uL (150-450); RBC 4.56 m/uL (4.30-5.90); RDW 13.7 % (11.5-15.5); WBC 21.8 k/uL (3.8-10.6)
[2019-06-20 07:14] LABS: African American GFR (CKD) >90 (>60 ml/min/1.73 sqM); Anion Gap 3 mmol/L; Blood Urea Nitrogen 23 mg/dL (9-20); Calcium 7.7 mg/dL (8.4-10.2); Carbon Dioxide 24 mmol/L (22-30); Chloride 104 mmol/L (98-107); Glucose 102 mg/dL (74-99); Non-African American GFR(CKD) >90 (>60 ml/min/1.73 sqM); Potassium 4.1 mmol/L (3.5-5.1); Sodium 131 mmol/L (137-145)
--- NOTE | 2019-06-20 07:21 | XR ---
EXAMINATION TYPE: XR chest 2V DATE OF EXAM: 06/20/2019 COMPARISON: 06/19/2019 HISTORY: Shortness of breath TECHNIQUE: Frontal and lateral views of the chest are obtained. FINDINGS: Scattered senescent parenchymal changes noted. Hyperinflation compatible with COPD. Left-sided pneumothorax is redemonstrated estimated at 10-15% with left basilar hydropneumothorax com ponent. Scattered interstitial and airspace infiltrates throughout both lung house greatest at the lung base s with mild progression suggested. Heart size is stable. Mediastinal structures are stable and grossly unremarkable. No evidence for hilar prominence. Degenerative changes dorsal spine. IMPRESSION: 1. Left-sided pneumothorax is redemonstrated estimated at 10-15% with left basilar hydropneumothorax component. 2. Scattered interstitial and airspace infiltrates throughout both lung house greatest at the lung b ases with mild progression suggested.
[2019-06-20] MEDS: SODIUM CHLORIDE 0.9% 1,000 ML IV SCH (08:49)
[2019-06-20] MEDS: HEPARIN SODIUM,PORCINE 5,000 UNIT/ML 1 ML VIAL SQ SCH ×2 (08:49→20:58)
[2019-06-20] MEDS: MAGNESIUM OXIDE 400 MG TAB PO SCH (08:49)
[2019-06-20] MEDS: levETIRAcetam 500 MG TAB PO SCH ×2 (08:49→20:57)
[2019-06-20] MEDS: levETIRAcetam 250 MG TAB PO SCH ×2 (08:49→20:57)
[2019-06-20] MEDS: BUDESONIDE 0.5 MG/2 ML NEBU INHALATION SCH ×2 (09:08→20:07)
[2019-06-20] MEDS: IPRATROPIUM-ALBUTEROL 3 ML NEB INHALATION SCH ×4 (09:08→20:07)
--- NOTE | 2019-06-20 11:03 | P.PN ---
Subjective Progress Note Date: 06/20/19 Principal diagnosis: Small left-sided pneumothorax 74-year-old white male patient of Dr. Oliveros with past medical history seizure disorder, osteoarthritis, GERD/reflux, nicotine dependence came into the emergency department on 06/17/2019 after sustaining a fall. Patient was in the bathroom and passed out and fell on the ground he does not remember the events leading up to his injury. EMS brought the patient to the hospital. He had recent hospitalization for severe diarrhea and weakness discharged on 04/23/2019, to rule out infective diarrhea. Patient was also having progressive weight loss and severe protein calorie malnutrition, was evaluated by gastroenterology. Admission chest x-ray showed bilateral acute infiltrates to mid to lower lungs. Head and cervical CT showed no acute fracture or dislocation of the cervical spine tiny left apical pneumothorax was noted, no acute intracranial hemorrhage or midline shift was seen, fairly moderate generalized atrophy and small vessel ischemic changes. CT angios of the chest showed no evidence of pulmonary embolism, and moderately severe pulmonary edema with small right pleural effusion, and nonspecific mediastinal and bronchial of nodes. Small left-sided pneumothorax was noted. Echocardiogram was completed s howing preserved left ventricular systolic function with EF of 60-65%, mild mitral regurgitation, mild tricuspid regurgitation, no evidence of pulmonary hypertension right-sided pressures were less than 35 mmHg. Admission labs showed a leukopenia with white blood cell, 2.2, hemoglobin of 15.1, d-dimer was 4.97 with CTA chest negative for pulmonary embolism, sodium was 132, and the rest of the electrolytes were within normal limits, BUN is 34 creatinine is 0.85. Coronavirus PCR was negative, urinalysis was negative, proBNP was 917, troponin 0.026, and 0.064, CRP was 10.8, LDH was 755, ferritin level is 348.9. Temperature on admission was 96.4F, sats was 91% on room air, patient did have periods of hypotension with a blood pressure as low as 71/56, EKG showed sinus tachycardia evidence of anterior infarct of undetermined age T-wave abnormality with consideration for lateral ischemia. Patient was placed on empiric antibiotics in the form of azithromycin and Rocephin for possibility of underlying pneumonia, he was fluid resuscitated on admission with improvement in his blood pressure. Procalcitonin level came back at 3.49 suggesting presence of bacterial infection. Follow-up chest x-ray today shows small to tiny left pneumothorax, possible slightly increased in size from one day earlier, and small to tiny bilateral pleural effusions felt to be stable, there is background of chronic emphysematous changes with bibasilar and left midlung acute infiltrate and/or atelectasis. Patient has been afebrile, she is fairly comfortable at rest, it appears to be in no acute distress. He seen on selective care unit, awake and alert, and altered mentation, responding appropriately, he remains on 3 L of oxygen with pulse ox of 94%, his been afebrile. Remains on empiric antibiotics with azithromycin and Rocephin On 06/20/2019 patient seen in follow-up on selective care unit, no worsening dyspnea, he is 97% on 3 L of oxygen, he is afebrile, hemodynamically patient is stable. He is short of breath with any exertion. Denies any chest pain. Chest x-ray showed left-sided pneumothorax of 10-15% with left basilar hydropneumothorax component, and scattered interstitial and airspace infiltrates throughout both lung house greatest at the lung bases with mild progression. There was increase in the white count on today's labs, up to 21.8, hemoglobin is 14.4, serum sodium is 131, the rest of her electrolytes were within normal limits, BUN of 23 creatinine 0.52. Blood culture remains negative, patient remains on azithromycin and Rocephin, patient continues to have diarrhea. He is on IV fluids of 0.9 normal saline at a rate 75 ML per hour, no nausea or vomiting. Objective - Vital Signs Vital signs: Vital Signs Temp 97.5 F L 06/20/19 08:46 Pulse 100 06/20/19 09:22 Resp 18 06/20/19 08:46 BP 128/88 06/20/19 08:46 Pulse Ox 97 06/20/19 08:46 Intake & Output 06/19/19 06/20/19 06/20/19 18:59 06:59 18:59 Intake Total 1280 480 Balance 1280 480 Weight 36.5 kg Intake: Intake, IV Titration 200 Amount Magnesium Sulfate-D5w Pmx 200 1 gm In Dextrose/Water 1 100ml.bag @ 100 mls/hr IVPB Q1H SARAVANAN Rx#: [id number] Oral 1080 480 Other: # Voids 1 # Bowel Movements 1 - Exam GENERAL EXAM: Alert, cachectic 74-year-old white male, on 3 L of oxygen with pulse ox of 97%, resting comfortably in bed, does not appear to be in any acute distress, patient IS showing signs of severe calorie malnutrition and muscle wasting comfortable in no apparent distress. HEAD: Normocephalic/atraumatic. EYES: Normal reaction of pupils, equal size. Conjunctiva pink, sclera white. NOSE: Clear with pink turbinates. THROAT: No erythema or exudates. NECK: No masses, no JVD, no thyroid enlargement, no adenopathy. CHEST: No chest wall deformity. Symmetrical expansion. LUNGS: Equal air entry with no crackles, wheeze, rhonchi or dullness. CVS: Regular rate and rhythm, normal S1 and S2, no gallops, no murmurs, no rubs ABDOMEN: Soft, nontender. No hepatosplenomegaly, normal bowel sounds, no guarding or rigidity. EXTREMITIES: No clubbing, no edema, no cyanosis, 2+ pulses and upper and lower extremities. MUSCULOSKELETAL: Muscle strength and tone normal. SPINE: No scoliosis or deformity SKIN: No rashes CENTRAL NERVOUS SYSTEM: Alert and oriented -3. No focal deficits, tone is normal in all 4 extremities. PSYCHIATRIC: Alert and oriented -3. Appropriate affect. Intact judgment and insight. - Labs CBC & Chem 7: 06/20/19 06:30 06/20/19 06:30 Labs: Abnormal Lab Results - Last 24 Hours (Table) 06/19/19 06/19/19 06/19/19 Range/Units 11:07 16:22 20:05 WBC (3.8-10.6) k/uL Sodium (137-145) mmol/L BUN (9-20) mg/dL Creatinine (0.66-1.25) mg/dL Glucose (74-99) mg/dL POC Glucose (mg/dL) 146 H 288 H 197 H (75-99) mg/dL Calcium (8.4-10.2) mg/dL 06/20/19 06/20/19 06/20/19 Range/Units 06:07 06:30 06:30 WBC 21.8 H (3.8-10.6) k/uL Sodium 131 L (137-145) mmol/L BUN 23 H (9-20) mg/dL Creatinine 0.52 L (0.66-1.25) mg/dL Glucose 102 H (74-99) mg/dL POC Glucose (mg/dL) 164 H (75-99) mg/dL Calcium 7.7 L (8.4-10.2) mg/dL Microbiology - Last 24 Hours (Table) 06/18/19 06:24 Blood Culture - Preliminary Blood No Growth after 48 hours 06/18/19 00:20 Blood Culture - Preliminary Blood No Growth after 48 hours Assessment and Plan Plan: Assessment: #1. Acute hypoxic respiratory failure, multifactorial related to possibility of community acquired pneumonia, small pleural effusions, and tiny left pneumothora x of 10-15% with left basilar hydropneumothorax component #2. Weakness, general medical debility, gait dysfunction #3. A fall, and small left pneumothorax #4. History of seizures #5. Possible exacerbation of CHF with preserved systolic function #6. Hypotension multifactorial, related to dehydration, hypovolemia, and possibility of sepsis is not excluded. Recovered with IV hydration #7. Osteoarthritis #8. Glaucoma #9. Nicotine dependence #10. History of COPD, CTA chest shows for some at this changes #11. Possibility of interstitial lung disease in addition to acute pneumonia and mild exacerbation of CHF was not excluded #12. Recent hospitalization in April for her diarrhea, weight loss please refer to the medical records #13. Mild hyponatremia present on admission likely related to hypovolemia #14. Acute kidney injury related to intravascular volume depletion #15. Chronic diarrhea follows with gastroenterology #16. Chronic cachexia, protein calorie malnutrition and continued weight loss Plan: Consult CT surgery for any recommendations in regards to persistent left pneumothorax with a component of hydropneumothorax. Continue daily chest x- rays, no worsening dyspnea, continue current antibiotics, continue IV fluids. No fever or chills. Follow-up chest x-ray in the morning. Overall patient appears extremely weak, and generally debilitated. Overall prognosis is guarded. We'll continue to follow I performed a history & physical examination of the patient and discussed their management with my nurse practitioner, Liudmila Mcconnell. I reviewed the nurse practitioner's note and agree with the documented findings and plan of care. Lung sounds are positive for diminished breath sounds. The findings and the impression was discussed with the patient. I attest to the documentation by the nurse practitioner. Time with Patient: Less than 30
[2019-06-20 11:23] LABS: Glucose,Whole Blood 203 mg/dL (75-99)
--- NOTE | 2019-06-20 12:04 | P.GSCN ---
History of Present Illness Consult date: 06/20/19 Reason for Consult: Left pneumothorax, status post fall from standing Requesting physician: Satish Stone History of present illness: This is a 74-year-old cachectic gentleman who is followed by Dr. Sascha Oliveros on an outpatient basis. He is a past medical history significant for seizure disorder, chronic ongoing tobacco abuse, GERD, osteoarthritis and recent admission for acute diarrhea, severe protein calorie malnutrition with a BMI of 13.0 kg/m and recent weight loss of 25 pounds in the last month. He presented to the emergency department here at [facility] after he fell in the bathroom at home. He reports he does not remember the fall but does remember feeling dizzy prior to falling. He reports he got up on his own accord and called a friend for help. Subsequently, the friend called EMS on the patient's behalf. He denies any recent fever, chills, nausea, vomiting, palpitations, or shortness of breath. In the emergency department a chest x-ray was completed which showed bilateral acute infiltrates bilateral mid to lower lungs. For further evaluation a chest CTA was completed which demonstrated no evidence of pulmonary embolism, moderately severe pulmonary edema with small right pleural effusion, nonspecific mediastinal and bronchial lymph nodes that measure up to 1 cm, a small left-sided pneumothorax and a T12 compression fracture. He also underwent a computed tomography scan of his brain and C-spine which demonstrated no acute fracture or dislocation to his cervical spine, no acute intracranial hemorrhage or midline shift and fairly moderate generalized atrophy and chronic small vessel ischemic changes. A 12-lead EKG was completed which showed sinus tachycardia with occasional premature ventricular complexes with a heart rate of 109 BPM. For further evaluation a 2-D echocardiogram was completed which demonstrated him to have an overall left ventricular systolic function to be normal with an ejection fraction between 60 and 65%, trace to mild mitral valve regurgitation, mild tricuspid valve regurgitation and no pericardial effusion. Due to the patient's fall from standing he was admitted for further evaluation and workup. His initial laboratory results showed a WBC count of 2.2, Band neutrophils 23, hemoglobin 15.1, hematocrit 46.3, platelets 308, INR of 1.1, PT 11.5, elevated d-dimer of 4.97, sodium 132, potassium 4.1, BUN 34, creatinine 0.85, plasma lactic acid 3.7, BNP 917, procalcitonin level 3.49 and a troponin of 0.026. At this time the patient is complaining of some left-sided chest discomfort and tenderness to his left chest with palpitation. Oxygen saturation are 97% on 3 L nasal cannula and he is in no acute distress. Repeat chest x-ray was completed this morning on 06/20/2019 which demonstrated a left-sided pneumothorax estimated to be 10-15% with a left basilar hydropneumothorax component it also demonstrated scattered interstitial and airspace infiltrates throughout both lung house greatest at the lung bases with mild progression suggested according to the report. Due to the findings of left pneumothorax a consult was placed to Dr. Socrates Winchester from cardiothoracic surgery for further evaluation and treatment recommendations. Review of Systems A 14 point review of systems was completed and was negative except as mentioned in the HPI. Past Medical History Past Medical History: Eye Disorder, GERD/Reflux, Osteoarthritis (OA), Seizure Disorder Additional Past Medical History / Comment(s): LAST SEIZURE 2006, GLAUCOMA. History of Any Multi-Drug Resistant Organisms: None Reported Past Surgical History: Cholecystectomy Additional Past Surgical History / Comment(s): CATARACT RIGHT EYE REMOVED, history of EGD and colonoscopy. Past Anesthesia/Blood Transfusion Reactions: No Reported Reaction Past Psychological History: No Psychological Hx Reported Smoking Status: Current every day smoker Past Alcohol Use History: None Reported Past Drug Use History: None Reported - Past Family History Mother Family Medical History: Cancer Medications and Allergies Home Medications Medication Instructions Recorded Confirmed Type Cyclobenzaprine [Flexeril] 10 mg PO BID 03/29/16 06/18/19 History Morphine Sulfate [Ms Contin] 30 mg PO QID 03/29/16 06/18/19 History levETIRAcetam [Keppra] 1,000 mg PO BID 03/29/16 06/18/19 History Zolpidem [Ambien] 10 mg PO HS 04/23/19 06/18/19 History levETIRAcetam [Keppra] 250 mg PO BID 04/23/19 06/18/19 History Pantoprazole Sodium [Protonix] 40 mg PO DAILY #30 tablet. 04/29/19 06/18/19 Rx Magnesium 250 mg PO DAILY 06/18/19 06/18/19 History Multivit-Min/Folic/Vit K/Lycop 1 tab PO DAILY 06/18/19 06/18/19 History [Men's Multivitamin Tablet] Allergies Allergy/AdvReac Type Severity Reaction Status Date / Time No Known Allergies Allergy Verified 06/18/19 08:55 Surgical - Exam Vital Signs Temp Pulse Resp BP 96.4 F L 108 H 20 101/73 06/17/19 22:48 06/17/19 22:48 06/17/19 22:48 06/17/19 22:48 This is a 74-year-old cachectic gentleman who was seen at his bedside on the cardiac stepdown unit. He is in no acute distress and is hemodynamically stable. Oxygen saturations are 97% on 3 L nasal cannula. - General Cachectic, mild pain to his left chest with palpation chronically ill - Eyes PERRL, normal ocular movement, no icteric - ENT normal pinna, normal nares, normal mucosa, no hearing loss, no congestion, poor snf - Neck Neck is supple. no masses, no bruits, trachea midline, no venous distension - Respiratory Essentially clear throughout, diminished to his bilateral bases. No wheezes, rhonchi or crackles. Respirations are symmetrical and nonlabored. Oxygen saturation 97% on 3 L nasal cannula. - Cardiovascular Regular rhythm and rate. S1 and S2 present, negative for S3, gallop or murmur. 1-2+ pitting edema to his bilateral ankles. - Abdomen Abdomen is soft, nontender and nondistended. Active bowel sounds present in all 4 abdominal quadrants. No guarding or rigidity. No organomegaly appreciated. - Genitourinary Deferred - Rectum Deferred - Integumentary Dressing is clean, dry and in place to his right elbow. Scattered small ecchymotic areas to his bilateral upper and lower extremities. no rash - Neurologic Alert and oriented 3. No focal deficits. - Musculoskeletal Moves all 4 extremities appropriately. Generalized weakness. - Psychiatric oriented to time, oriented to person, oriented to place, speech is normal, memory intact Results - Labs 06/20/19 06:30 06/20/19 06:30 Abnormal Lab Results - Last 24 Hours (Table) 06/19/19 06/19/19 06/19/19 Range/Units 11:07 16:22 20:05 WBC (3.8-10.6) k/uL Sodium (137-145) mmol/L BUN (9-20) mg/dL Creatinine (0.66-1.25) mg/dL Glucose (74-99) mg/dL POC Glucose (mg/dL) 146 H 288 H 197 H (75-99) mg/dL Calcium (8.4-10.2) mg/dL 06/20/19 06/20/19 06/20/19 Range/Units 06:07 06:30 06:30 WBC 21.8 H (3.8-10.6) k/uL Sodium 131 L (137-145) mmol/L BUN 23 H (9-20) mg/dL Creatinine 0.52 L (0.66-1.25) mg/dL Glucose 102 H (74-99) mg/dL POC Glucose (mg/dL) 164 H (75-99) mg/dL Calcium 7.7 L (8.4-10.2) mg/dL Microbiology - Last 24 Hours (Table) 06/18/19 06:24 Blood Culture - Preliminary Blood No Growth after 48 hours 06/18/19 00:20 Blood Culture - Preliminary Blood No Growth after 48 hours Diabetes panel 06/20/19 Range/Units 06:30 Sodium 131 L (137-145) mmol/L Potassium 4.1 (3.5-5.1) mmol/L Chloride 104 (98-107) mmol/L Carbon Dioxide 24 (22-30) mmol/L BUN 23 H (9-20) mg/dL Creatinine 0.52 L (0.66-1.25) mg/dL Glucose 102 H (74-99) mg/dL Calcium 7.7 L (8.4-10.2) mg/dL Calcium panel 06/20/19 Range/Units 06:30 Calcium 7.7 L (8.4-10.2) mg/dL Pituitary panel 06/20/19 Range/Units 06:30 Sodium 131 L (137-145) mmol/L Potassium 4.1 (3.5-5.1) mmol/L Chloride 104 (98-107) mmol/L Carbon Dioxide 24 (22-30) mmol/L BUN 23 H (9-20) mg/dL Creatinine 0.52 L (0.66-1.25) mg/dL Glucose 102 H (74-99) mg/dL Calcium 7.7 L (8.4-10.2) mg/dL Adrenal panel 06/20/19 Range/Units 06:30 Sodium 131 L (137-145) mmol/L Potassium 4.1 (3.5-5.1) mmol/L Chloride 104 (98-107) mmol/L Carbon Dioxide 24 (22-30) mmol/L BUN 23 H (9-20) mg/dL Creatinine 0.52 L (0.66-1.25) mg/dL Glucose 102 H (74-99) mg/dL Calcium 7.7 L (8.4-10.2) mg/dL - Imaging Chest x-ray: report reviewed, image reviewed CT scan - chest: report reviewed, image reviewed Assessment and Plan Assessment: 1. Status post fall from standing 2. Left pneumothorax secondary 10-15% to above 3. Weakness, Gen. medical debility with gait dysfunction 4. History of seizure disorder 5. Malnutrition with chronic cachexia, an admission BMI of 13.0 kg/m, recent weight loss of 25 pounds in the last month 6. Possible exacerbation of CHF with preserved systolic function, admission BNP 917 7. Osteoarthritis 8. Chronic ongoing nicotine dependence 9. Glaucoma 10. History of chronic obstructive pulmonary disease 11. Possibility of interstitial lung disease, acute pneumonia and mild exacerbation of CHF Plan: The patient is seen and examined at his bedside in the cardiac stepdown unit with Dr. Socrates Winchester. The patient is laying in bed and is in no acute distress. His chart and diagnostics were reviewed. Dr. Winchester discussed with Dr. Stone from pulmonary medicine in regards to chest tube placement. At this time they feel that medical management is appropriate. If the patient's respiratory status was to deteriorate or if the pneumothorax increases in size a chest tube placement would be considered. Continue antibiotics and continue to optimize medically. Bronchodilators and oxygen management per pulmonary medicine. We will order an incentive spirometry and encourage use 10 times an hour while awake. Discussions with the patient were had on smoking cessation. Continue to monitor daily chest x-rays. Thank you for this consult and we will look forward to working with you in the care of this patient. Time with Patient: Greater than 30
[2019-06-20 12:12] LABS: Basophils # (A) 0.1 k/uL (0-0.2); Basophils % (A) 0 %; Eosinophils % (A) 0 %; HCT 47.2 % (39.0-53.0); HGB 14.6 gm/dL (13.0-17.5); Lymphocytes # (A) 1.1 k/uL (1.0-4.8); Lymphocytes % (A) 5 %; MCHC 30.9 g/dL (31.0-37.0); MCV 97.2 fL (80.0-100.0); Mean Platelet Volume 8.5; Monocytes # (A) 0.3 k/uL (0-1.0); Monocytes % (A) 1 %; Neutrophils # (A) 20.5 k/uL (1.3-7.7); Neutrophils % (A) 93 %; Platelet Count 206 k/uL (150-450); RBC 4.86 m/uL (4.30-5.90)
--- NOTE | 2019-06-20 14:24 | P.PN ---
Subjective Patient is admitted after a fall found to have pneumonia patient is on treatment for pneumonia. We'll cut down the IV fluids and 5 mL per hour patient is quite a bit dehydrated on admission. Repeat chest x-rays showed small pneumothorax probably from fall. Patient has atypical chest pain from fall. Unsure whether patient has syncope patient also has a seizure disorder EEG was obtained which did not show any epileptiform focus but did show severe encephalopathy. Keppra levels are low and patient is being can urine For will obtain levels again today if they're still low will consult neurology will increase the Keppra dose. Patient's clinical exam remains the same. Cardiology evaluated the patient for chest pain no further dictation from that perspective. Patient remains hyponatremic. 06/20/2019 Patient white blood cell count went up to 25,000 patient doesn't have any diarrhea patient also clinically looks better patient has 10-15% pneumothorax pulmonary recommended consultation with parathoracic surgery were consulted. Constitutional: Patient is still weak and looks much better today Cardio vascular: denied any chest pain, palpitations Gastrointestinal denied any nausea vomiting Pulmonary: Denied any shortness of breath cough Neurologic denied any new focal deficits All inpatient medications were reviewed and appropriate changes in these medications as dictated in the interval history and assessment and plan. Objective - Vital Signs Vital signs: Vital Signs Temp 97.5 F L 06/20/19 08:46 Pulse 102 H 06/20/19 13:16 Resp 18 06/20/19 11:47 BP 116/82 06/20/19 11:47 Pulse Ox 96 06/20/19 11:47 Intake & Output 06/19/19 06/20/19 06/20/19 18:59 06:59 18:59 Intake Total 1280 1220 Output Total 100 Balance 1280 1120 Weight 36.5 kg 36.5 kg Intake: Intake, IV Titration 200 500 Amount Magnesium Sulfate-D5w Pmx 200 1 gm In Dextrose/Water 1 100ml.bag @ 100 mls/hr IVPB Q1H SARAVANAN Rx#: [id number] Sodium Chloride 0.9% 1, 500 000 ml @ 75 mls/hr IV . [id number] SARAVANAN Rx#:[id number] Oral 1080 720 Output: Urine 100 Other: # Voids 1 2 # Bowel Movements 1 - Exam PHYSICAL EXAMINATION: GENERAL: The patient is alert and oriented x3, not in any acute distress. thin built cachectic male HEENT: Pupils are round and equally reacting to light. EOMI. No scleral icterus. No conjunctival pallor. Normocephalic, atraumatic. No pharyngeal erythema. No thyromegaly. CARDIOVASCULAR: S1 and S2 present. No murmurs, rubs, or gallops. PULMONARY:by basilar crackles bronchophony, decreased air entry into bilateral lung house ABDOMEN: Soft, nontender, nondistended, normoactive bowel sounds. No palpable organomegaly. MUSCULOSKELETAL: No joint swelling or deformity. EXTREMITIES: No cyanosis, clubbing, or pedal edema. NEUROLOGICAL: Gross neurological examination did not reveal any focal deficits. SKIN: No rashes. - Labs CBC & Chem 7: 06/20/19 11:24 06/20/19 06:30 Labs: Abnormal Lab Results - Last 24 Hours (Table) 06/19/19 06/19/19 06/20/19 Range/Units 16:22 20:05 06:07 WBC (3.8-10.6) k/uL MCHC (31.0-37.0) g/dL Neutrophils # (1.3-7.7) k/uL Sodium (137-145) mmol/L BUN (9-20) mg/dL Creatinine (0.66-1.25) mg/dL Glucose (74-99) mg/dL POC Glucose (mg/dL) 288 H 197 H 164 H (75-99) mg/dL Calcium (8.4-10.2) mg/dL 06/20/19 06/20/19 06/20/19 Range/Units 06:30 06:30 11:15 WBC 21.8 H (3.8-10.6) k/uL MCHC (31.0-37.0) g/dL Neutrophils # (1.3-7.7) k/uL Sodium 131 L (137-145) mmol/L BUN 23 H (9-20) mg/dL Creatinine 0.52 L (0.66-1.25) mg/dL Glucose 102 H (74-99) mg/dL POC Glucose (mg/dL) 203 H (75-99) mg/dL Calcium 7.7 L (8.4-10.2) mg/dL 06/20/19 Range/Units 11:24 WBC 22.0 H (3.8-10.6) k/uL MCHC 30.9 L (31.0-37.0) g/dL Neutrophils # 20.5 H (1.3-7.7) k/uL Sodium (137-145) mmol/L BUN (9-20) mg/dL Creatinine (0.66-1.25) mg/dL Glucose (74-99) mg/dL POC Glucose (mg/dL) (75-99) mg/dL Calcium (8.4-10.2) mg/dL Microbiology - Last 24 Hours (Table) 06/18/19 06:24 Blood Culture - Preliminary Blood No Growth after 48 hours 06/18/19 00:20 Blood Culture - Preliminary Blood No Growth after 48 hours Assessment and Plan Plan: -acute hypoxic respiratory failure probably secondary to bilateral pneumonia continue with Rocephin and azithromycin awaiting sputum cultures and blood cultures.be a competent of mild COPD exacerbationHEENT there is no clinical evidence of congestive heart failure patient is on IV fluids. -Small pneumothorax on the x-ray possibly from his fall: Cardiac thoracic surgery and pulmonary valid the patient no further intervention at this time repeat chest x-ray tomorrow -Leukocytosis: Secondary to sepsis with the his white blood cell count continued to get worse awaiting sputum cultures blood cultures are so far negative. Patient doesn't have any diarrhea continue to monitor white blood cell count hoping white blood cell count will come down tomorrow -1 COPD with acute exacerbation patient may have mild exacerbation 4 hypovolemic hyponatremia: IV fluids at 75 mL per hour -Acute renal failure: Secondary to dehydration and intravascular depletion IV fluids as mentioned above -Mildly elevated troponin secondary to hypoxemia and renal failure. -Chest and musculoskeletal in nature secondary to fall -Rule out syncope and seizure , Keppra levels are low lipid Keppra levels tomorrow EEG as mentioned above. Patient has therapeutic Keppra levels today -Seizure disorder continue with Keppra -Chronic diarrhea symptomatically treatment follow with aspirin neurology as an outpatient -chronic pain -Cachexia which is chronic patient scan of the chest did not show any nodules but the patient need regular cancer screening as an outpatient. -Ruled out covid 19 -DVT prophylaxis with subcutaneous heparin
[2019-06-20 16:10] LABS: Glucose,Whole Blood 233 mg/dL (75-99)
[2019-06-20] MEDS: INSULIN ASPART (NovoLOG) 100 UNIT/ML VIAL SQ SCH ×2 (17:37→20:45)
[2019-06-20 20:41] LABS: Glucose,Whole Blood 91 mg/dL (75-99)
[2019-06-20] MEDS: ZOLPIDEM 10 MG TAB PO PRN (20:58)
[2019-06-20] MEDS: CYCLOBENZAPRINE 10 MG TAB PO PRN (20:58)
[2019-06-21 06:20] LABS: Glucose,Whole Blood 87 mg/dL (75-99)
[2019-06-21] MEDS: INSULIN ASPART (NovoLOG) 100 UNIT/ML VIAL SQ SCH ×4 (06:23→20:15)
[2019-06-21] MEDS: AZITHROMYCIN 500 MG TAB PO SCH (06:28)
[2019-06-21] MEDS: PANTOPRAZOLE 40 MG TABLET PO SCH (06:28)
[2019-06-21] MEDS: SODIUM CHLORIDE 0.9% 1,000 ML IV SCH ×2 (06:28→23:02)
[2019-06-21] MEDS: IPRATROPIUM-ALBUTEROL 3 ML NEB INHALATION SCH ×5 (07:29→21:12)
[2019-06-21] MEDS: BUDESONIDE 0.5 MG/2 ML NEBU INHALATION SCH ×2 (07:29→21:12)
--- NOTE | 2019-06-21 08:12 | XR ---
EXAMINATION TYPE: XR chest 1V portable DATE OF EXAM: 06/21/2019 COMPARISON: 06/21/2019 HISTORY: Left-sided pneumothorax TECHNIQUE: Single frontal view of the chest is obtained. FINDINGS: Left-sided pneumothorax is redemonstrated. Overall this appears similar in volume to the p rior of 06/20/2019 with maximal pleural separation in the mid thorax of 9 mm and lower thorax of 1.6 cm . Mediastinum is very slightly shifted to the right however there is patient rotation and finding is overall similar to the prior. There is increasing consolidation with a reticular opacity in the right upper lobe elevating the righ t minor fissure. Diffuse interstitial opacities remain with relative sparing of the costophrenic angl es and lung apices. No right-sided pneumothorax seen or pleural effusion. Cholecystectomy clips are n oted. IMPRESSION: 1. Redemonstration of approximately 15% left-sided pneumothorax. Although the mediastinum is slightly shifted toward the right this is an unchanged finding from the prior and is at least partially due t o patient rotation. 2. Increasing right upper lobe reticular opacity and unchanged diffuse interstitial opacities sparing the lung apices and costophrenic angles.
[2019-06-21 08:23] LABS: African American GFR (CKD) >90 (>60 ml/min/1.73 sqM); Anion Gap 2 mmol/L; Blood Urea Nitrogen 21 mg/dL (9-20); Calcium 7.5 mg/dL (8.4-10.2); Carbon Dioxide 26 mmol/L (22-30); Chloride 103 mmol/L (98-107); Glucose 83 mg/dL (74-99); Non-African American GFR(CKD) >90 (>60 ml/min/1.73 sqM); Sodium 131 mmol/L (137-145)
[2019-06-21 08:34] LABS: Potassium 4.6 mmol/L (3.5-5.1)
[2019-06-21] MEDS: MAGNESIUM OXIDE 400 MG TAB PO SCH (09:15)
[2019-06-21] MEDS: levETIRAcetam 250 MG TAB PO SCH ×2 (09:15→23:01)
[2019-06-21] MEDS: levETIRAcetam 500 MG TAB PO SCH ×2 (09:15→21:01)
[2019-06-21] MEDS: HEPARIN SODIUM,PORCINE 5,000 UNIT/ML 1 ML VIAL SQ SCH ×2 (09:15→21:01)
--- NOTE | 2019-06-21 12:00 | P.PN ---
Subjective Progress Note Date: 06/21/19 Principal diagnosis: Small left-sided pneumothorax 74-year-old white male patient of Dr. Oliveros with past medical history seizure disorder, osteoarthritis, GERD/reflux, nicotine dependence came into the emergency department on 06/17/2019 after sustaining a fall. Patient was in the bathroom and passed out and fell on the ground he does not remember the events leading up to his injury. EMS brought the patient to the hospital. He had recent hospitalization for severe diarrhea and weakness discharged on 04/23/2019, to rule out infective diarrhea. Patient was also having progressive weight loss and severe protein calorie malnutrition, was evaluated by gastroenterology. Admission chest x-ray showed bilateral acute infiltrates to mid to lower lungs. Head and cervical CT showed no acute fracture or dislocation of the cervical spine tiny left apical pneumothorax was noted, no acute intracranial hemorrhage or midline shift was seen, fairly moderate generalized atrophy and small vessel ischemic changes. CT angios of the chest showed no evidence of pulmonary embolism, and moderately severe pulmonary edema with small right pleural effusion, and nonspecific mediastinal and bronchial of nodes. Small left-sided pneumothorax was noted. Echocardiogram was completed s howing preserved left ventricular systolic function with EF of 60-65%, mild mitral regurgitation, mild tricuspid regurgitation, no evidence of pulmonary hypertension right-sided pressures were less than 35 mmHg. Admission labs showed a leukopenia with white blood cell, 2.2, hemoglobin of 15.1, d-dimer was 4.97 with CTA chest negative for pulmonary embolism, sodium was 132, and the rest of the electrolytes were within normal limits, BUN is 34 creatinine is 0.85. Coronavirus PCR was negative, urinalysis was negative, proBNP was 917, troponin 0.026, and 0.064, CRP was 10.8, LDH was 755, ferritin level is 348.9. Temperature on admission was 96.4F, sats was 91% on room air, patient did have periods of hypotension with a blood pressure as low as 71/56, EKG showed sinus tachycardia evidence of anterior infarct of undetermined age T-wave abnormality with consideration for lateral ischemia. Patient was placed on empiric antibiotics in the form of azithromycin and Rocephin for possibility of underlying pneumonia, he was fluid resuscitated on admission with improvement in his blood pressure. Procalcitonin level came back at 3.49 suggesting presence of bacterial infection. Follow-up chest x-ray today shows small to tiny left pneumothorax, possible slightly increased in size from one day earlier, and small to tiny bilateral pleural effusions felt to be stable, there is background of chronic emphysematous changes with bibasilar and left midlung acute infiltrate and/or atelectasis. Patient has been afebrile, she is fairly comfortable at rest, it appears to be in no acute distress. He seen on selective care unit, awake and alert, and altered mentation, responding appropriately, he remains on 3 L of oxygen with pulse ox of 94%, his been afebrile. Remains on empiric antibiotics with azithromycin and Rocephin On 06/20/2019 patient seen in follow-up on selective care unit, no worsening dyspnea, he is 97% on 3 L of oxygen, he is afebrile, hemodynamically patient is stable. He is short of breath with any exertion. Denies any chest pain. Chest x-ray showed left-sided pneumothorax of 10-15% with left basilar hydropneumothorax component, and scattered interstitial and airspace infiltrates throughout both lung house greatest at the lung bases with mild progression. There was increase in the white count on today's labs, up to 21.8, hemoglobin is 14.4, serum sodium is 131, the rest of her electrolytes were within normal limits, BUN of 23 creatinine 0.52. Blood culture remains negative, patient remains on azithromycin and Rocephin, patient continues to have diarrhea. He is on IV fluids of 0.9 normal saline at a rate 75 ML per hour, no nausea or vomiting. On 06/21/2019 patient seen in follow-up on selective care unit, patient is on 2 L of oxygen and the pulse ox of 95%, hemodynamically stable, does get short of breath especially with exertion, but no worsening dyspnea, he is afebrile, he remains on antibiotics for possibility of pneumonia, but no signs have been stable, no significant events overnight, today's chest x-ray shows redemonstration of 15% left-sided pneumothorax, and increasing right upper lobe reticular opacity and unchanged diffuse interstitial opacities. No altered mentation, no acute distress, patient is on minimal amount of supplemental oxygen, tolerating oral intake, he is extremely cachectic. He states his diarrhea has improved. No abdominal pain Objective - Vital Signs Vital signs: Vital Signs Temp 97.4 F L 06/21/19 08:00 Pulse 100 06/21/19 08:06 Resp 18 06/21/19 08:00 BP 112/70 06/21/19 08:00 Pulse Ox 95 06/21/19 08:00 Intake & Output 06/20/19 06/21/19 06/21/19 18:59 06:59 18:59 Intake Total 1220 240 Output Total 100 100 Balance 1120 -100 240 Weight 36.5 kg 40.5 kg Intake: Intake, IV Titration 500 Amount Sodium Chloride 0.9% 1, 500 000 ml @ 75 mls/hr IV . [id number] [facility] Rx#:[id number] Oral 720 240 Output: Urine 100 100 Other: Voiding Method Urinal Diaper # Voids 2 1 2 # Bowel Movements 1 - Exam GENERAL EXAM: Alert, cachectic 74-year-old white male, on 3 L of oxygen with pulse ox of 97%, resting comfortably in bed, does not appear to be in any acute distress, patient IS showing signs of severe calorie malnutrition and muscle wasting comfortable in no apparent distress. HEAD: Normocephalic/atraumatic. EYES: Normal reaction of pupils, equal size. Conjunctiva pink, sclera white. NOSE: Clear with pink turbinates. THROAT: No erythema or exudates. NECK: No masses, no JVD, no thyroid enlargement, no adenopathy. CHEST: No chest wall deformity. Symmetrical expansion. LUNGS: Equal air entry with no crackles, wheeze, rhonchi or dullness. CVS: Regular rate and rhythm, normal S1 and S2, no gallops, no murmurs, no rubs ABDOMEN: Soft, nontender. No hepatosplenomegaly, normal bowel sounds, no guarding or rigidity. EXTREMITIES: No clubbing, no edema, no cyanosis, 2+ pulses and upper and lower extremities. MUSCULOSKELETAL: Muscle strength and tone normal. SPINE: No scoliosis or deformity SKIN: No rashes CENTRAL NERVOUS SYSTEM: Alert and oriented -3. No focal deficits, tone is normal in all 4 extremities. PSYCHIATRIC: Alert and oriented -3. Appropriate affect. Intact judgment and insight. - Labs CBC & Chem 7: 06/20/19 11:24 06/21/19 07:33 Labs: Abnormal Lab Results - Last 24 Hours (Table) 05/07/20 05/07/20 05/07/20 Range/Units 06:30 11:24 16:07 WBC 22.0 H (3.8-10.6) k/uL MCHC 30.9 L (31.0-37.0) g/dL Neutrophils # 20.5 H (1.3-7.7) k/uL Sodium (137-145) mmol/L BUN (9-20) mg/dL Creatinine (0.66-1.25) mg/dL POC Glucose (mg/dL) 233 H (75-99) mg/dL Calcium (8.4-10.2) mg/dL Procalcitonin 1.47 H (0.02-0.09) ng/mL 06/21/19 Range/Units 07:33 WBC (3.8-10.6) k/uL MCHC (31.0-37.0) g/dL Neutrophils # (1.3-7.7) k/uL Sodium 131 L (137-145) mmol/L BUN 21 H (9-20) mg/dL Creatinine 0.50 L (0.66-1.25) mg/dL POC Glucose (mg/dL) (75-99) mg/dL Calcium 7.5 L (8.4-10.2) mg/dL Procalcitonin (0.02-0.09) ng/mL Microbiology - Last 24 Hours (Table) 06/18/19 06:24 Blood Culture - Preliminary Blood No Growth after 72 hours 06/18/19 00:20 Blood Culture - Preliminary Blood No Growth after 72 hours Assessment and Plan Plan: Assessment: #1. Acute hypoxic respiratory failure, multifactorial related to possibility of community acquired pneumonia, small pleural effusions, and tiny left pneumothorax of 10-15% with left basilar hydropneumothorax component #2. Weakness, general medical debility, gait dysfunction #3. A fall, and small left pneumothorax #4. History of seizures #5. Possible exacerbation of CHF with preserved systolic function #6. Hypotension multifactorial, related to dehydration, hypovolemia, and possibility of sepsis is not excluded. Recovered with IV hydration #7. Osteoarthritis #8. Glaucoma #9. Nicotine dependence #10. History of COPD, CTA chest shows for some at this changes #11. Possibility of interstitial lung disease in addition to acute pneumonia and mild exacerbation of CHF was not excluded #12. Recent hospitalization in April for her diarrhea, weight loss please refer to the medical records #13. Mild hyponatremia present on admission likely related to hypovolemia #14. Acute kidney injury related to intravascular volume depletion #15. Chronic diarrhea follows with gastroenterology #16. Chronic cachexia, protein calorie malnutrition and continued weight loss Plan: Continue current antibiotics, while signs are stable, no worsening dyspnea, today's chest x-ray shows 15% left pneumothorax, CT surgery is following, conservative treatment right now. Continue current treatment, follow-up chest x-ray in the morning. I performed a history & physical examination of the patient and discussed their management with my nurse practitioner, Liudmila Mcconnell. I reviewed the nurse practitioner's note and agree with the documented findings and plan of care. Lung sounds are positive for diminished breath sounds. The findings and the impression was discussed with the patient. I attest to the documentation by the nurse practitioner. Time with Patient: Less than 30
[2019-06-21 12:07] LABS: Glucose,Whole Blood 94 mg/dL (75-99)
--- NOTE | 2019-06-21 12:19 | P.PN ---
Subjective Patient is admitted after a fall found to have pneumonia patient is on treatment for pneumonia. We'll cut down the IV fluids and 5 mL per hour patient is quite a bit dehydrated on admission. Repeat chest x-rays showed small pneumothorax probably from fall. Patient has atypical chest pain from fall. Unsure whether patient has syncope patient also has a seizure disorder EEG was obtained which did not show any epileptiform focus but did show severe encephalopathy. Keppra levels are low and patient is being can urine For will obtain levels again today if they're still low will consult neurology will increase the Keppra dose. Patient's clinical exam remains the same. Cardiology evaluated the patient for chest pain no further dictation from that perspective. Patient remains hyponatremic. 06/20/2019 Patient white blood cell count went up to 25,000 patient doesn't have any diarrhea patient also clinically looks better patient has 10-15% pneumothorax pulmonary recommended consultation with parathoracic surgery were consulted. 06/21/2019 Patient white blood cell count remains at the same level around 22,000 pneumothorax remains the same overall patient looks better but will need disposition to subacute rehabilitation may be able to be discharged tomorrow or Monday. Constitutional: Patient is still weak and looks much better today Cardio vascular: denied any chest pain, palpitations Gastrointestinal denied any nausea vomiting Pulmonary: Denied any shortness of breath cough Neurologic denied any new focal deficits All inpatient medications were reviewed and appropriate changes in these medications as dictated in the interval history and assessment and plan. Objective - Vital Signs Vital signs: Vital Signs Temp 97.4 F L 06/21/19 08:00 Pulse 100 06/21/19 08:06 Resp 18 06/21/19 08:00 BP 112/70 06/21/19 08:00 Pulse Ox 95 06/21/19 08:00 Intake & Output 06/20/19 06/21/19 06/21/19 18:59 06:59 18:59 Intake Total 1220 240 Output Total 100 100 Balance 1120 -100 240 Weight 36.5 kg 40.5 kg Intake: Intake, IV Titration 500 Amount Sodium Chloride 0.9% 1, 500 000 ml @ 75 mls/hr IV . [id number] [facility] Rx#:[id number] Oral 720 240 Output: Urine 100 100 Other: Voiding Method Urinal Diaper # Voids 2 1 2 # Bowel Movements 1 - Exam PHYSICAL EXAMINATION: GENERAL: The patient is alert and oriented x3, not in any acute distress. thin built cachectic male HEENT: Pupils are round and equally reacting to light. EOMI. No scleral icterus. No conjunctival pallor. Normocephalic, atraumatic. No pharyngeal erythema. No thyromegaly. CARDIOVASCULAR: S1 and S2 present. No murmurs, rubs, or gallops. PULMONARY:by basilar crackles bronchophony, decreased air entry into bilateral lung house ABDOMEN: Soft, nontender, nondistended, normoactive bowel sounds. No palpable organomegaly. MUSCULOSKELETAL: No joint swelling or deformity. EXTREMITIES: No cyanosis, clubbing, or pedal edema. NEUROLOGICAL: Gross neurological examination did not reveal any focal deficits. SKIN: No rashes. - Labs CBC & Chem 7: 06/20/19 11:24 06/21/19 07:33 Labs: Abnormal Lab Results - Last 24 Hours (Table) 06/20/19 06/20/19 06/21/19 Range/Units 06:30 16:07 07:33 Sodium 131 L (137-145) mmol/L BUN 21 H (9-20) mg/dL Creatinine 0.50 L (0.66-1.25) mg/dL POC Glucose (mg/dL) 233 H (75-99) mg/dL Calcium 7.5 L (8.4-10.2) mg/dL Procalcitonin 1.47 H (0.02-0.09) ng/mL Microbiology - Last 24 Hours (Table) 06/18/19 06:24 Blood Culture - Preliminary Blood No Growth after 72 hours 06/18/19 00:20 Blood Culture - Preliminary Blood No Growth after 72 hours Assessment and Plan Plan: -acute hypoxic respiratory failure probably secondary to bilateral pneumonia continue with Rocephin and azithromycin awaiting sputum cultures and blood cultures.be a competent of mild COPD exacerbationHEENT there is no clinical evidence of congestive heart failure patient is on IV fluids. -Small pneumothorax on the x-ray possibly from his fall: Cardiac thoracic surgery and pulmonary valid the patient no further intervention at this time repeat chest x-ray tomorrow to pneumothorax is 10-15% and stable -Leukocytosis: Secondary to sepsis with the his white blood cell all the cultures are so far negative. -1 COPD with acute exacerbation patient may have mild exacerbation 4 hypovolemic hyponatremia: IV fluids at 75 mL per hour no improvement with IV fluids and consulting nephrology I believe patient has hypovolemic hyponatremia -Acute renal failure: Secondary to dehydration and intravascular depletion IV fluids as mentioned above -Mildly elevated troponin secondary to hypoxemia and renal failure. Renal failure improved -Chest and musculoskeletal in nature secondary to fall -Rule out syncope and seizure , Keppra levels are low lipid Keppra levels tomorrow EEG as mentioned above. Patient has therapeutic Keppra levels today -Seizure disorder continue with Keppra -Chronic diarrhea symptomatically treatment follow with aspirin neurology as an outpatient -chronic pain -Cachexia which is chronic patient scan of the chest did not show any nodules but the patient need regular cancer screening as an outpatient. -Ruled out covid 19 -DVT prophylaxis with subcutaneous heparin If patient's white blood cell count starts coming down probably can be discharged tomorrow Monday to subacute rehab
--- NOTE | 2019-06-21 14:49 | P.PN ---
Subjective Progress Note Date: 06/21/19 Principal diagnosis: Left pneumothorax, status post fall from standing This is a 74-year-old cachectic gentleman who is followed by Dr. Sascha Oliveros on an outpatient basis. He is a past medical history significant for seizure disorder, chronic ongoing tobacco abuse, GERD, osteoarthritis and recent admission for acute diarrhea, severe protein calorie malnutrition with a BMI of 13.0 kg/m and recent weight loss of 25 pounds in the last month. He presented to the emergency department here at [facility] after he fell in the bathroom at home. He reports he does not remember the fall but does remember feeling dizzy prior to falling. He reports he got up on his own accord and called a friend for help. Subsequently, the friend called EMS on the patient's behalf. He denies any recent fever, chills, nausea, vomiting, palpitations, or shortness of breath. In the emergency department a chest x-ray was completed which showed bilateral acute infiltrates bilateral mid to lower lungs. For further evaluation a chest CTA was completed which demonstrated no evidence of pulmonary embolism, moderately severe pulmonary edema with small right pleural effusion, nonspecific mediastinal and bronchial lymph nodes that measure up to 1 cm, a small left-sided pneumothorax and a T12 compression fracture. He also underwent a computed tomography scan of his brain and C-spine which demonstrated no acute fracture or dislocation to his cervical spine, no acute intracranial hemorrhage or midline shift and fairly moderate generalized atrophy and chronic small vessel ischemic changes. A 12-lead EKG was completed which showed sinus tachycardia with occasional premature ventricular complexes with a heart rate of 109 BPM. For further evaluation a 2-D echocardiogram was completed which demonstrated him to have an overall left ventricular systolic function to be normal with an ejection fraction between 60 and 65%, trace to mild mitral valve regurgitation, mild tricuspid valve regurgitation and no pericardial effusion. Due to the patient's fall from standing he was admitted for further evaluation and workup. His initial laboratory results showed a WBC count of 2.2, Band neutrophils 23, hemoglobin 15.1, hematocrit 46.3, platelets 308, INR of 1.1, PT 11.5, elevated d-dimer of 4.97, sodium 132, potassium 4.1, BUN 34, creatinine 0.85, plasma lactic acid 3.7, BNP 917, procalcitonin level 3.49 and a troponin of 0.026. At this time the patient is complaining of some left-sided chest discomfort and tenderness to his left chest with palpitation. Oxygen saturation are 97% on 3 L nasal cannula and he is in no acute distress. Repeat chest x-ray was completed this morning on 06/20/2019 which demonstrated a left-sided pneumothorax estimated to be 10-15% with a left basilar hydropneumothorax component it also demonstrated scattered interstitial and airs pace infiltrates throughout both lung house greatest at the lung bases with mild progression suggested according to the report. Due to the findings of left pneumothorax a consult was placed to Dr. Socrates Winchester from cardiothoracic surgery for further evaluation and treatment recommendations. On 06/21/2019 the patient was seen in follow-up at his bedside in the cardiac stepdown unit. He is awake, alert and oriented [address] He is in no acute distress and is currently hemodynamically stable. Oxygen saturations are 96% on 2 L nasal cannula. Denies any complaints of shortness of breath, although he is complaining of some discomfort to his left lower quadrant of his abdomen and left flank area. Denies any complaints of nausea, vomiting, constipation or diarrhea. A chest x-ray was completed today which redemonstrated an approximately 15% left-sided pneumothorax and an increasing right upper lobe reticular opacity. He remains on antibiotics and azithromycin and Rocephin and has been afebrile the last 24 hours. Objective - Vital Signs Vital signs: Vital Signs Temp 97.8 F 06/21/19 12:00 Pulse 96 06/21/19 13:51 Resp 18 06/21/19 12:00 BP 125/69 06/21/19 12:00 Pulse Ox 96 06/21/19 12:00 Intake & Output 06/20/19 06/21/19 06/21/19 18:59 06:59 18:59 Intake Total 1220 720 Output Total 100 100 Balance 1120 -100 720 Weight 36.5 kg 40.5 kg Intake: Intake, IV Titration 500 Amount Sodium Chloride 0.9% 1, 500 000 ml @ 75 mls/hr IV . [id number] [facility] Rx#:[id number] Oral 720 720 Output: Urine 100 100 Other: Voiding Method Urinal Diaper # Voids 2 1 2 # Bowel Movements 1 - Exam This is a 74-year-old gentleman who is laying in bed in the cardiac stepdown unit. He is alert and oriented [address] He is in no acute distress and is hemodynamically stable. - Constitutional Constitutional Comment(s): Cachectic, chronically ill appearing General appearance: Present: cooperative, no acute distress - EENT Eyes: Present: PERRLA, normal appearance. Absent: scleral icterus ENT: Present: hearing grossly normal, other (Poor dentition) - Neck Details: Neck is supple, no lymphadenopathy, no JVD. - Respiratory Details: Lung sounds are essentially clear throughout, diminished to his bilateral bases. No wheezes, rhonchi or crackles. Respirations are symmetrical and nonlabored. - Cardiovascular Details: Regular rhythm and rate. S1 and S2 present, negative for S3, gallop or murmur. - Gastrointestinal Gastrointestinal Comment(s): Abdomen is soft, nontender and slightly distended. Hypoactive bowel sounds present all 4 abdominal quadrants. No guarding or rigidity. - Integumentary Integumentary Comment(s): Skin is warm and dry. No clubbing or cyanosis is present. - Neurologic Neurologic: Present: CNII-XII intact - Musculoskeletal Musculoskeletal: Present: generalized weakness, strength equal bilaterally - Psychiatric Psychiatric Comment(s): Alert and oriented [address] Psychiatric: Present: appropriate affect, intact judgment & insight - Allied health notes Allied health notes reviewed: nursing - Labs CBC & Chem 7: 06/20/19 11:24 06/21/19 07:33 Labs: Abnormal Lab Results - Last 24 Hours (Table) 06/20/19 06/20/19 06/21/19 Range/Units 06:30 16:07 07:33 Sodium 131 L (137-145) mmol/L BUN 21 H (9-20) mg/dL Creatinine 0.50 L (0.66-1.25) mg/dL POC Glucose (mg/dL) 233 H (75-99) mg/dL Calcium 7.5 L (8.4-10.2) mg/dL Procalcitonin 1.47 H (0.02-0.09) ng/mL Microbiology - Last 24 Hours (Table) 06/18/19 06:24 Blood Culture - Preliminary Blood No Growth after 72 hours 06/18/19 00:20 Blood Culture - Preliminary Blood No Growth after 72 hours - Imaging and Cardiology Chest x-ray: report reviewed, image reviewed Assessment and Plan Assessment: 1. Status post fall from standing 2. Left pneumothorax secondary 10-15% to above 3. Weakness, Gen. medical debility with gait dysfunction 4. History of seizure disorder 5. Malnutrition with chronic cachexia, an admission BMI of 13.0 kg/m, recent weight loss of 25 pounds in the last month 6. Possible exacerbation of CHF with preserved systolic function, admission BNP 917 7. Osteoarthritis 8. Chronic ongoing nicotine dependence 9. Glaucoma 10. History of chronic obstructive pulmonary disease 11. Possibility of interstitial lung disease, acute pneumonia and mild exacerbation of CHF Plan: 1. The patient was seen and examined at his bedside with Dr. Manuel Hernández. 2. Chest x-ray read demonstrates a 15% pneumothorax. The patient is in no acute respiratory distress and is currently on 2 L nasal cannula with oxygen saturations 96%. We will continue to monitor the pneumothorax resolution. Continue to monitor daily chest x-rays. 3. Encourage use of his incentive spirometry 10 times every hour while awake. 4. Bronchodilators and oxygen management per pulmonary medicine recommendations. 5. More recommendations to follow based on patient's clinical course. Time with Patient: Less than 30
[2019-06-21 16:52] LABS: Glucose,Whole Blood 101 mg/dL (75-99)
[2019-06-21 20:11] LABS: Glucose,Whole Blood 107 mg/dL (75-99)
[2019-06-21] MEDS: MORPHINE SULFATE IR 15 MG TABLET PO PRN (21:01)
[2019-06-21] MEDS: ZOLPIDEM 10 MG TAB PO PRN (21:01)
[2019-06-22 05:56] LABS: Glucose,Whole Blood 112 mg/dL (75-99)
[2019-06-22] MEDS: PANTOPRAZOLE 40 MG TABLET PO SCH (05:58)
[2019-06-22] MEDS: AZITHROMYCIN 500 MG TAB PO SCH (05:58)
[2019-06-22] MEDS: INSULIN ASPART (NovoLOG) 100 UNIT/ML VIAL SQ SCH ×4 (05:59→21:01)
--- NOTE | 2019-06-22 06:56 | XR ---
EXAMINATION TYPE: XR chest 1V portable DATE OF EXAM: 06/22/2019 HISTORY: follow up left pneumothorax. REFERENCE: Previous study dated 06/21/2019. FINDINGS: There continues to be a small, loculated pneumothorax on the left. This has not significant ly changed from previous. Overall lung volumes are prominent. The heart is not enlarged. There is perihilar airspace disease. T his is improved. There is a small left-sided pleural effusion. IMPRESSION: 1. CONTINUING, SMALL, LEFT PNEUMOTHORAX. 2. IMPROVED AERATION, RIGHT LUNG.
[2019-06-22 07:40] LABS: HCT 39.4 % (39.0-53.0); HGB 13.2 gm/dL (13.0-17.5); MCH 31.1 pg (25.0-35.0); MCHC 33.6 g/dL (31.0-37.0); MCV 92.7 fL (80.0-100.0); Mean Platelet Volume 8.5; Platelet Count 220 k/uL (150-450); RBC 4.24 m/uL (4.30-5.90)
[2019-06-22 07:48] LABS: African American GFR (CKD) >90 (>60 ml/min/1.73 sqM); Anion Gap 2 mmol/L; Blood Urea Nitrogen 20 mg/dL (9-20); Calcium 7.5 mg/dL (8.4-10.2); Carbon Dioxide 26 mmol/L (22-30); Chloride 105 mmol/L (98-107); Glucose 81 mg/dL (74-99); Non-African American GFR(CKD) >90 (>60 ml/min/1.73 sqM); Potassium 4.2 mmol/L (3.5-5.1); Sodium 133 mmol/L (137-145)
[2019-06-22] MEDS: BUDESONIDE 0.5 MG/2 ML NEBU INHALATION SCH ×2 (08:20→21:00)
[2019-06-22] MEDS: IPRATROPIUM-ALBUTEROL 3 ML NEB INHALATION SCH ×4 (08:20→21:00)
[2019-06-22] MEDS: levETIRAcetam 250 MG TAB PO SCH ×2 (09:59→21:00)
[2019-06-22] MEDS: levETIRAcetam 500 MG TAB PO SCH ×2 (09:59→21:00)
[2019-06-22] MEDS: HEPARIN SODIUM,PORCINE 5,000 UNIT/ML 1 ML VIAL SQ SCH ×2 (09:59→20:59)
[2019-06-22] MEDS: MAGNESIUM OXIDE 400 MG TAB PO SCH (09:59)
[2019-06-22] MEDS: MORPHINE SULFATE IR 15 MG TABLET PO PRN ×3 (10:13→20:59)
--- NOTE | 2019-06-22 10:13 | P.NPCON ---
History of Present Illness - Reason for Consult hyponatremia - History of Present Illness Reason for consultation: Hyponatremia History of present illness: Patient is a 74-year-old male seen in renal consultation for hyponatremia. Patient presented to the hospital on 06/17/2019 after sustaining a fall in the bathroom. Patient states he may have lost consciousness at that time. Patient's sodium level has been a little on the lower side. It has been in the range of 131-133 this admission. In April 2019 his sodium was also in the range of 130-134 patient denies history of malignancy. He denies taking any thiazide diuretics. Oral intake is fair. Patient is maintained on Keppra 1250 mg twice daily. He is currently being treated for pneumonia. He denies any fever or chills. Blood pressure is well controlled. No vomiting or diarrhea. He does admit to a cough without significant sputum production. No abdominal pain. No edema. Good urine output. No hematuria or dysuria. Denies family history of renal disease. Vital signs are stable. General: The patient appeared well nourished and normally developed. HEENT: Head exam is unremarkable. Neck is without jugular venous distension. LUNGS: Breath sounds decreased. HEART: Rate and Rhythm are regular. First and second heart sounds normal. No murmurs, rubs or gallops. ABDOMEN: Soft, nontender. EXTREMITITES: No edema. Past Medical History Past Medical History: Eye Disorder, GERD/Reflux, Osteoarthritis (OA), Seizure Disorder Additional Past Medical History / Comment(s): LAST SEIZURE 2006, GLAUCOMA. History of Any Multi-Drug Resistant Organisms: None Reported Past Surgical History: Cholecystectomy Additional Past Surgical History / Comment(s): CATARACT RIGHT EYE REMOVED, history of EGD and colonoscopy. Past Anesthesia/Blood Transfusion Reactions: No Reported Reaction Past Psychological History: No Psychological Hx Reported Smoking Status: Current every day smoker Past Alcohol Use History: None Reported Past Drug Use History: None Reported - Past Family History Mother Family Medical History: Cancer Medications and Allergies Home Medications Medication Instructions Recorded Confirmed Type Cyclobenzaprine [Flexeril] 10 mg PO BID 03/29/16 06/18/19 History Morphine Sulfate [Ms Contin] 30 mg PO QID 03/29/16 06/18/19 History levETIRAcetam [Keppra] 1,000 mg PO BID 03/29/16 06/18/19 History Zolpidem [Ambien] 10 mg PO HS 04/23/19 06/18/19 History levETIRAcetam [Keppra] 250 mg PO BID 04/23/19 06/18/19 History Pantoprazole Sodium [Protonix] 40 mg PO DAILY #30 tablet. 04/29/19 06/18/19 Rx Magnesium 250 mg PO DAILY 06/18/19 06/18/19 History Multivit-Min/Folic/Vit K/Lycop 1 tab PO DAILY 06/18/19 06/18/19 History [Men's Multivitamin Tablet] Allergies Allergy/AdvReac Type Severity Reaction Status Date / Time No Known Allergies Allergy Verified 06/18/19 08:55 Physical Exam Vitals: Vital Signs Temp Pulse Pulse Resp BP BP Pulse Ox 06/22/19 08:33 94 06/22/19 08:20 92 92 L 06/22/19 03:52 97 18 118/68 95 06/22/19 00:00 100 18 124/82 94 L 06/21/19 19:54 97.8 F 100 18 112/64 94 L 06/21/19 16:53 100 06/21/19 16:38 100 06/21/19 15:41 97.5 F L 111 H 18 114/76 95 06/21/19 13:51 96 06/21/19 12:00 97.8 F 94 18 125/69 96 Intake and Output 06/21/19 06/22/19 06/22/19 22:59 06:59 14:59 Intake Total 1080 1080 Output Total 100 100 Balance 980 980 Intake: Intake, IV Titration 600 600 Amount Sodium Chloride 0.9% 1, 600 600 000 ml @ 75 mls/hr IV . [id number] [facility] Rx#:[id number] Oral 480 480 Output: Urine 100 100 Other: Voiding Method Urinal Urinal Diaper Diaper # Voids 2 2 Weight 42.6 kg Results - Lab Results Most recent lab results Calcium 7.5 mg/dL (8.4-10.2) L 06/22/19 06:50 Phosphorus 2.1 mg/dL (2.5-4.5) L 06/19/19 05:31 Magnesium 1.8 mg/dL (1.6-2.3) 06/20/19 06:30 06/22/19 06:50 06/22/19 06:50 Assessment and Plan Plan: Assessment: 1. Euvolemic hyponatremia. Sodium level 133 today. Currently maintained on normal saline at 75 mL an hour. Patient is also on Keppra which can induce SIADH. Additionally respiratory infection can also induce SIADH. 2. Pneumonia maintained on antibiotics. 3. Status post fall with left pneumothorax. 4. Chronic diastolic CHF. Currently compensated. Plan: I will decrease rate of normal saline to 50 mL an hour. Encourage oral intake, especially protein. Add ensure 3 times daily. 1500 mL fluid restriction. Check TSH. Check serum and urine osmolality and urine sodium level. Repeat electrolytes in the morning. Thank you for the consultation. I will continue to follow patient with you during his hospital stay.
--- NOTE | 2019-06-22 10:28 | P.PN ---
Subjective Progress Note Date: 06/22/19 Principal diagnosis: Left pneumothorax, status post fall from standing This is a 74-year-old cachectic gentleman who is followed by Dr. Sascha Oliveros on an outpatient basis. He is a past medical history significant for seizure disorder, chronic ongoing tobacco abuse, GERD, osteoarthritis and recent admission for acute diarrhea, severe protein calorie malnutrition with a BMI of 13.0 kg/m and recent weight loss of 25 pounds in the last month. He presented to the emergency department here at [facility] after he fell in the bathroom at home. He reports he does not remember the fall but does remember feeling dizzy prior to falling. He reports he got up on his own accord and called a friend for help. Subsequently, the friend called EMS on the patient's behalf. He denies any recent fever, chills, nausea, vomiting, palpitations, or shortness of breath. In the emergency department a chest x-ray was completed which showed bilateral acute infiltrates bilateral mid to lower lungs. For further evaluation a chest CTA was completed which demonstrated no evidence of pulmonary embolism, moderately severe pulmonary edema with small right pleural effusion, nonspecific mediastinal and bronchial lymph nodes that measure up to 1 cm, a small left-sided pneumothorax and a T12 compression fracture. He also underwent a computed tomography scan of his brain and C-spine which demonstrated no acute fracture or dislocation to his cervical spine, no acute intracranial hemorrhage or midline shift and fairly moderate generalized atrophy and chronic small vessel ischemic changes. A 12-lead EKG was completed which showed sinus tachycardia with occasional premature ventricular complexes with a heart rate of 109 BPM. For further evaluation a 2-D echocardiogram was completed which demonstrated him to have an overall left ventricular systolic function to be normal with an ejection fraction between 60 and 65%, trace to mild mitral valve regurgitation, mild tricuspid valve regurgitation and no pericardial effusion. Due to the patient's fall from standing he was admitted for further evaluation and workup. His initial laboratory results showed a WBC count of 2.2, Band neutrophils 23, hemoglobin 15.1, hematocrit 46.3, platelets 308, INR of 1.1, PT 11.5, elevated d-dimer of 4.97, sodium 132, potassium 4.1, BUN 34, creatinine 0.85, plasma lactic acid 3.7, BNP 917, procalcitonin level 3.49 and a troponin of 0.026. At this time the patient is complaining of some left-sided chest discomfort and tenderness to his left chest with palpitation. Oxygen saturation are 97% on 3 L nasal cannula and he is in no acute distress. Repeat chest x-ray was completed this morning on 06/20/2019 which demonstrated a left-sided pneumothorax estimated to be 10-15% with a left basilar hydropneumothorax component it also demonstrated scattered interstitial and airs pace infiltrates throughout both lung house greatest at the lung bases with mild progression suggested according to the report. Due to the findings of left pneumothorax a consult was placed to Dr. Socrates Winchester from cardiothoracic surgery for further evaluation and treatment recommendations. On 06/22/2019 the patient was seen in follow-up at his bedside in the cardiac stepdown unit. He is awake, alert and oriented 3. He is in no acute distress and is currently hemodynamically stable. Oxygen saturations are 92% on room air. Denies any complaints of pain and states his abdominal pain is gone today. He is complaining of some episodes of shortness of breath. Achieving 750 mL on his incentive spirometry. A chest x-ray was completed today which redemonstrated an approximately 15% left-sided pneumothorax. He remains on antibiotics and azithromycin and Rocephin and has been afebrile the last 24 hours. Lab results today show a WBC count 11.0, hemoglobin 13.2, hematocrit 39.4, platelets 220, sodium 133, potassium 4.2, BUN 20 and creatinine 0.50. Objective - Vital Signs Vital signs: Vital Signs Temp 97.8 F 06/21/19 19:54 Pulse 94 06/22/19 08:33 Resp 18 06/22/19 03:52 BP 118/68 06/22/19 03:52 Pulse Ox 92 L 06/22/19 08:20 Intake & Output 06/21/19 06/22/19 06/22/19 18:59 06:59 18:59 Intake Total 1800 1080 Output Total 200 Balance 1800 880 Weight 42.6 kg Intake: Intake, IV Titration 600 600 Amount Sodium Chloride 0.9% 1, 600 600 000 ml @ 75 mls/hr IV . [id number] [facility] Rx#:[id number] Oral 1200 480 Output: Urine 200 Other: Voiding Method Urinal Urinal Diaper Diaper # Voids 2 2 - Exam This is a 74-year-old cachectic gentleman who is laying in bed in the cardiac s tepdown unit. He is alert and oriented 3. He is in no acute distress and is hemodynamically stable. Oxygen saturation are 92% on room air. - Constitutional Constitutional Comment(s): Cachectic/anorexic General appearance: Present: cooperative, no acute distress - EENT Eyes: Present: poor dentition ENT: Present: hearing grossly normal. Absent: thrush - Neck Details: Neck is supple, no JVD. Neck: Absent: lymphadenopathy, thyromegaly - Respiratory Details: Lungs sounds essentially clear throughout, diminished to his bilateral bases left greater than right. Respirations are symmetrical and nonlabored. Oxygen saturation is 92% on room air. Achieving 750 mL with encouragement on his incentive spirometry. - Cardiovascular Details: Regular rhythm and tachycardic rate. S1 and S2 present, negative for S3, gallop or murmur. Remote telemetry showing sinus tachycardia heart rate 106. +1-2 pitting edema to his bilateral ankles. - Gastrointestinal Gastrointestinal Comment(s): Abdomen soft, slightly distended and nontender. Normal bowel sounds. No guarding or rigidity. No organomegaly appreciated. - Integumentary Integumentary Comment(s): Skin is warm and dry. No clubbing or cyanosis is present. - Neurologic Neurologic: Present: CNII-XII intact - Musculoskeletal Musculoskeletal: Present: generalized weakness, strength equal bilaterally - Psychiatric Psychiatric: Present: A&O x's 3, appropriate affect, intact judgment & insight - Allied health notes Allied health notes reviewed: nursing - Labs CBC & Chem 7: 06/22/19 06:50 06/22/19 06:50 Labs: Abnormal Lab Results - Last 24 Hours (Table) 06/21/19 06/21/19 06/21/19 Range/Units 07:33 16:51 20:09 WBC (3.8-10.6) k/uL RBC (4.30-5.90) m/uL Sodium (137-145) mmol/L Creatinine (0.66-1.25) mg/dL POC Glucose (mg/dL) 101 H 107 H (75-99) mg/dL Calcium (8.4-10.2) mg/dL Procalcitonin 0.63 H (0.02-0.09) ng/mL 06/22/19 06/22/19 06/22/19 Range/Units 05:54 06:50 06:50 WBC 11.0 H (3.8-10.6) k/uL RBC 4.24 L (4.30-5.90) m/uL Sodium 133 L (137-145) mmol/L Creatinine 0.50 L (0.66-1.25) mg/dL POC Glucose (mg/dL) 112 H (75-99) mg/dL Calcium 7.5 L (8.4-10.2) mg/dL Procalcitonin (0.02-0.09) ng/mL Microbiology - Last 24 Hours (Table) 06/18/19 06:24 Blood Culture - Preliminary Blood No Growth after 96 hours 06/18/19 00:20 Blood Culture - Preliminary Blood No Growth after 96 hours - Imaging and Cardiology Chest x-ray: report reviewed, image reviewed Assessment and Plan Assessment: 1. Status post fall from standing 2. Left pneumothorax secondary 10-15% to above 3. Weakness, Gen. medical debility with gait dysfunction 4. History of seizure disorder 5. Malnutrition with chronic cachexia, an admission BMI of 13.0 kg/m, recent weight loss of 25 pounds in the last month 6. Possible exacerbation of CHF with preserved systolic function, admission BNP 917 7. Osteoarthritis 8. Chronic ongoing nicotine dependence 9. Glaucoma 10. History of chronic obstructive pulmonary disease 11. Possibility of interstitial lung disease, acute pneumonia and mild exacerbation of CHF Plan: 1. Chest x-ray read demonstrates a 15% pneumothorax. The patient is in no acute respiratory distress and his oxygen saturations are 92% on room air. We will continue to monitor the pneumothorax resolution. 2. Continue to monitor daily chest x-rays. 3. Encourage use of his incentive spirometry 10 times every hour while awake. 4. Bronchodilators and oxygen management per pulmonary medicine recommendations. 5. More recommendations to follow based on patient's clinical course. Time with Patient: Less than 30
[2019-06-22 10:44] LABS: Magnesium 1.7 mg/dL (1.6-2.3)
[2019-06-22 11:45] LABS: Glucose,Whole Blood 108 mg/dL (75-99)
--- NOTE | 2019-06-22 13:41 | PN ---
PROGRESS NOTE PULMONARY/CRITICAL CARE PROGRESS NOTE: 06/22/2019 This is a 74-year-old gentleman who is again seen on the medical floor. The patient is doing reasonably well. He was not wearing his oxygen therapy and I did ask him to do so. He apparently had a fall and injured his left chest area and left shoulder area. He sustained a small left-sided pneumothorax, which has been stable. He has been seen by Cardiothoracic surgery. The plan is to do nothing at this point. His clinical status is stable. His respiratory status is stable. I did encourage him to wear his oxygen 24/7 and I passed that on to the nurse as well. PHYSICAL EXAMINATION: Current vital signs are reviewed. His temperature is 97.8, heart rate 90, respiratory rate 16 and not labored. Blood pressure is 123/68 with mean of 86, 2 L saturation 97%. Appears in no acute distress. HEENT: Examination is grossly unremarkable. Mucous membranes are moist. No oral lesions. NECK: Supple. Full range of motion. No adenopathy. Neck veins are flat. CARDIOVASCULAR: Examination reveals regular rhythm rate. Heart rate about 90 beats per minute. S1, S2 normal. LUNGS: Reveal clear breath sounds. No wheezes, rhonchi, or crackles. ABDOMEN: Soft. EXTREMITIES are intact. No cyanosis, clubbing, or edema. SKIN: Without rash. NEUROLOGIC: Examination is brief but nonfocal. LABS: Reviewed. White count 11, hemoglobin 13.2, hematocrit 39.4, platelet count 320,000. Sodium 133, potassium 4.2, chloride 105, CO2 26, anion gap is 2. BUN and creatinine were 20 and 0.5. His most recent chest x-ray dated today shows a persistent small left pneumothorax. There is improving aeration within the right lung. Microbiology is all negative. Medications are reviewed. ASSESSMENT: 1. Hypoxemic respiratory failure secondary to community-acquired pneumonia, small pleural effusion, and small persistent non changing left pneumothorax at 10-15%. 2. General medical debility and weakness, rule out occult malignancy. 3. Status post fall. 4. History of seizures. 5. Congestive heart failure. 6. Hypotension, resolved. 7. Osteoarthritis. 8. Glaucoma. 9. Chronic nicotine dependence. 10.History of chronic obstructive pulmonary disease. 11.Interstitial lung disease. 12.Recent hospitalization in April for diarrhea. 13.Mild hyponatremia. 14.Acute kidney injury secondary to dehydration. 15.Chronic anorexia/cachexia syndrome. PLAN: From the pulmonary standpoint, he is stable. We do encourage him to use the oxygen 24/7, which may help the pneumothorax to resolve. He will have daily chest x-rays. He has been seen by Cardiothoracic surgery. No intervention at this time. We will continue to follow. SHABNAM / HERNANN: [id number] /
[2019-06-22 16:36] LABS: Glucose,Whole Blood 101 mg/dL (75-99)
[2019-06-22 20:13] LABS: Glucose,Whole Blood 118 mg/dL (75-99)
[2019-06-22] MEDS: ZOLPIDEM 10 MG TAB PO PRN (20:59)
[2019-06-22] MEDS: SODIUM CHLORIDE 0.9% 1,000 ML IV SCH (20:59)
[2019-06-23 05:56] LABS: Glucose,Whole Blood 98 mg/dL (75-99)
[2019-06-23] MEDS: INSULIN ASPART (NovoLOG) 100 UNIT/ML VIAL SQ SCH ×4 (06:14→20:25)
[2019-06-23] MEDS: PANTOPRAZOLE 40 MG TABLET PO SCH (06:14)
[2019-06-23] MEDS: AZITHROMYCIN 500 MG TAB PO SCH (06:14)
[2019-06-23 06:18] LABS: African American GFR (CKD) >90 (>60 ml/min/1.73 sqM); Anion Gap 1 mmol/L; Blood Urea Nitrogen 20 mg/dL (9-20); Calcium 7.8 mg/dL (8.4-10.2); Carbon Dioxide 29 mmol/L (22-30); Chloride 102 mmol/L (98-107); Glucose 90 mg/dL (74-99); Non-African American GFR(CKD) >90 (>60 ml/min/1.73 sqM); Sodium 132 mmol/L (137-145)
--- NOTE | 2019-06-23 06:45 | XR ---
EXAMINATION TYPE: XR chest 1V portable DATE OF EXAM: 06/23/2019 HISTORY: follow up left pneumothorax. REFERENCE: Previous study dated 06/22/2019. FINDINGS: There continues to be a loculated pneumothorax on the left. There are bilateral infiltrates . These have worsened. The heart is not enlarged. I suspect there is underlying COPD. IMPRESSION: 1. CONTINUING SMALL, LOCULATED LEFT-SIDED PNEUMOTHORAX. 2. WORSENING BILATERAL PNEUMONIAS.
[2019-06-23] MEDS: BUDESONIDE 0.5 MG/2 ML NEBU INHALATION SCH ×2 (08:05→19:11)
[2019-06-23] MEDS: IPRATROPIUM-ALBUTEROL 3 ML NEB INHALATION SCH ×4 (08:05→19:11)
[2019-06-23] MEDS: MAGNESIUM OXIDE 400 MG TAB PO SCH (09:11)
[2019-06-23] MEDS: levETIRAcetam 250 MG TAB PO SCH ×2 (09:11→20:25)
[2019-06-23] MEDS: levETIRAcetam 500 MG TAB PO SCH ×2 (09:11→20:25)
[2019-06-23] MEDS: HEPARIN SODIUM,PORCINE 5,000 UNIT/ML 1 ML VIAL SQ SCH ×2 (09:12→20:25)
[2019-06-23] MEDS: MORPHINE SULFATE IR 15 MG TABLET PO PRN ×3 (09:19→21:02)
[2019-06-23] MEDS ORDERED: FUROSEMIDE 10 MG/ML 2 ML VIAL IV STA (09:48)
--- NOTE | 2019-06-23 09:49 | P.PN ---
Subjective Patient is seen in follow-up for hyponatremia. Sodium level is stable at 132 today. He was noted to have urinary retention last night and a Garcia catheter was placed. Oral intake is fair. No vomiting or diarrhea. Vital signs are stable. General: The patient appeared well nourished and normally developed. HEENT: Head exam is unremarkable. Neck is without jugular venous distension. LUNGS: Lungs are clear to auscultation and percussion. Breath sounds decreased. HEART: Rate and Rhythm are regular. ABDOMEN: Mild distention noted. Nontender. EXTREMITITES: No clubbing, cyanosis, or edema. Objective - Vital Signs Vital signs: Vital Signs Temp 97.7 F 06/22/19 15:14 Pulse 96 06/23/19 04:00 Resp 18 06/23/19 04:00 BP 124/81 06/23/19 04:00 Pulse Ox 100 06/23/19 04:00 Intake & Output 06/22/19 06/23/19 06/23/19 18:59 06:59 18:59 Intake Total 500 840 Output Total 900 Balance 500 -60 Intake: Intake, IV Titration 500 400 Amount Sodium Chloride 0.9% 1, 500 400 000 ml @ 50 mls/hr IV . Q20H [facility] Rx#:[id number] Oral 440 Output: Urine 900 Coude 100 Other: Voiding Method Urinal Urinal Diaper Diaper # Voids 1 - Labs CBC & Chem 7: 06/22/19 06:50 06/23/19 05:45 Labs: Abnormal Lab Results - Last 24 Hours (Table) 06/22/19 06/22/19 06/22/19 Range/Units 11:43 16:34 20:12 Sodium (137-145) mmol/L Creatinine (0.66-1.25) mg/dL POC Glucose (mg/dL) 108 H 101 H 118 H (75-99) mg/dL Calcium (8.4-10.2) mg/dL 06/23/19 Range/Units 05:45 Sodium 132 L (137-145) mmol/L Creatinine 0.47 L (0.66-1.25) mg/dL POC Glucose (mg/dL) (75-99) mg/dL Calcium 7.8 L (8.4-10.2) mg/dL Microbiology - Last 24 Hours (Table) 06/18/19 06:24 Blood Culture - Preliminary Blood No Growth after 120 hours 06/18/19 00:20 Blood Culture - Preliminary Blood No Growth after 120 hours Assessment and Plan Plan: Assessment: 1. Euvolemic hyponatremia. Sodium level 132 today. Currently maintained on normal saline at 50 mL an hour. Patient is also on Keppra which can induce SIADH. Additionally respiratory infection can also induce SIADH. TSH normal. Urine osmolality high at 934. 2. Pneumonia maintained on antibiotics. 3. Status post fall with left pneumothorax. 4. Chronic diastolic CHF. Currently compensated. 5. Urinary retention status post Garcia catheter placement. Urology consulted. Plan: Encourage oral intake, especially protein. Maintain ensure 3 times daily. 1500 mL fluid restriction. Lasix 20 mg IV once today. Repeat electrolytes in the morning.
--- NOTE | 2019-06-23 10:46 | P.GSCN ---
History of Present Illness Consult date: 06/23/19 Reason for Consult: Urinary retention History of present illness: The patient is a 74-year-old male who fell in his bathroom at home on 06/17. It is unclear whether this was related to a syncopal episode as the patient could not recall all the details. When seen in the emergency room a CXR and CT scan of the chest was obtained which showed some evidence of pulmonary edema and possibly pneumonia. There is also a small left pneumothorax which has been treated conservatively so far. Yesterday afternoon the patient was noted to have some abdominal distention. He reportedly had a bladder scan that showed 4000 or 500 cc in the bladder. He was catheterized several times but no urine drained. A Coude catheter was eventually placed and drained 400 or 500 cc overnight. I was asked to see the patient due to concern in regard to urinary r etention. The patient has no previous history of urinary retention. He says he usually voids every 3-4 hours during the day and usually twice at night. He has had some hesitancy at says that his urine flow is moderate and he feels he voids completely. He has no history of gross hematuria or urinary tract infection. Review of Systems - Constitutional Reports fatigue, Denies chills, Denies fever - Respiratory Reports pain on inspiration - Gastrointestinal Denies constipation, Denies vomiting - Genitourinary Reports as per HPI Past Medical History Past Medical History: Eye Disorder, GERD/Reflux, Osteoarthritis (OA), Seizure Disorder Additional Past Medical History / Comment(s): LAST SEIZURE 2006, GLAUCOMA. History of Any Multi-Drug Resistant Organisms: None Reported Past Surgical History: Cholecystectomy Additional Past Surgical History / Comment(s): CATARACT RIGHT EYE REMOVED, history of EGD and colonoscopy. Past Anesthesia/Blood Transfusion Reactions: No Reported Reaction Past Psychological History: No Psychological Hx Reported Smoking Status: Current every day smoker Past Alcohol Use History: None Reported Past Drug Use History: None Reported - Past Family History Mother Family Medical History: Cancer Medications and Allergies Home Medications Medication Instructions Recorded Confirmed Type Cyclobenzaprine [Flexeril] 10 mg PO BID 03/29/16 06/18/19 History Morphine Sulfate [Ms Contin] 30 mg PO QID 03/29/16 06/18/19 History levETIRAcetam [Keppra] 1,000 mg PO BID 03/29/16 06/18/19 History Zolpidem [Ambien] 10 mg PO HS 04/23/19 06/18/19 History levETIRAcetam [Keppra] 250 mg PO BID 04/23/19 06/18/19 History Pantoprazole Sodium [Protonix] 40 mg PO DAILY #30 tablet. 04/29/19 06/18/19 Rx Magnesium 250 mg PO DAILY 06/18/19 06/18/19 History Multivit-Min/Folic/Vit K/Lycop 1 tab PO DAILY 06/18/19 06/18/19 History [Men's Multivitamin Tablet] Allergies Allergy/AdvReac Type Severity Reaction Status Date / Time No Known Allergies Allergy Verified 06/18/19 08:55 Surgical - Exam Vital Signs Temp Pulse Resp BP 96.4 F L 108 H 20 101/73 06/17/19 22:48 06/17/19 22:48 06/17/19 22:48 06/17/19 22:48 - General well nourished, no distress, cachectic, other (looks much older than stated age) - ENT no hearing loss - Neck no masses, no lymphadectomy - Respiratory normal respiratory effort - Abdomen Abdomen: tender (diffuse-somewhat distended with gas), no organomegaly - Genitourinary normal penis with no external lesions, testicles non-tender, other (moderate scrotal edema. Garcia catheter draining clear urine.) - Rectum Rectum: normal sphincter tone, no hemorrhoids, other (prostate 1-2+ enlarged. No fecal impaction.) Results - Labs 06/22/19 06:50 06/23/19 05:45 Abnormal Lab Results - Last 24 Hours (Table) 06/22/19 06/22/19 06/22/19 Range/Units 11:43 16:34 20:12 Sodium (137-145) mmol/L Creatinine (0.66-1.25) mg/dL POC Glucose (mg/dL) 108 H 101 H 118 H (75-99) mg/dL Calcium (8.4-10.2) mg/dL 06/23/19 Range/Units 05:45 Sodium 132 L (137-145) mmol/L Creatinine 0.47 L (0.66-1.25) mg/dL POC Glucose (mg/dL) (75-99) mg/dL Calcium 7.8 L (8.4-10.2) mg/dL Microbiology - Last 24 Hours (Table) 06/18/19 06:24 Blood Culture - Preliminary Blood No Growth after 120 hours 06/18/19 00:20 Blood Culture - Preliminary Blood No Growth after 120 hours Diabetes panel 06/23/19 Range/Units 05:45 Sodium 132 L (137-145) mmol/L Potassium 4.0 (3.5-5.1) mmol/L Chloride 102 (98-107) mmol/L Carbon Dioxide 29 (22-30) mmol/L BUN 20 (9-20) mg/dL Creatinine 0.47 L (0.66-1.25) mg/dL Glucose 90 (74-99) mg/dL Calcium 7.8 L (8.4-10.2) mg/dL Thyroid panel 06/23/19 Range/Units 05:45 TSH 2.280 (0.465-4.680) mIU/L Calcium panel 06/23/19 Range/Units 05:45 Calcium 7.8 L (8.4-10.2) mg/dL Pituitary panel 06/23/19 Range/Units 05:45 Sodium 132 L (137-145) mmol/L Potassium 4.0 (3.5-5.1) mmol/L Chloride 102 (98-107) mmol/L Carbon Dioxide 29 (22-30) mmol/L BUN 20 (9-20) mg/dL Creatinine 0.47 L (0.66-1.25) mg/dL Glucose 90 (74-99) mg/dL Calcium 7.8 L (8.4-10.2) mg/dL TSH 2.280 (0.465-4.680) mIU/L Adrenal panel 06/23/19 Range/Units 05:45 Sodium 132 L (137-145) mmol/L Potassium 4.0 (3.5-5.1) mmol/L Chloride 102 (98-107) mmol/L Carbon Dioxide 29 (22-30) mmol/L BUN 20 (9-20) mg/dL Creatinine 0.47 L (0.66-1.25) mg/dL Glucose 90 (74-99) mg/dL Calcium 7.8 L (8.4-10.2) mg/dL Assessment and Plan (1) Incomplete bladder emptying Narrative/Plan: It is unclear to me whether the patient had urinary retention or some element of incomplete bladder emptying last night. It would be unusual for a bladder scan to show 500 cc and yet virtually no urine drained from the bladder when a catheter was placed. The patient has some scrotal edema and it is possible that he might have some intra-abdominal fluid or ascites which could have been interpreted as urine by the bladder scan unit. Albumin was 1.6 and total protein was 3.5 on 06/18. The patient had only mild to moderate symptoms of bladder outflow obstruction prior to coming to the hospital. His catheter should remain in place today and it would be reasonable to give him a voiding trial tomorrow unless there is another reason for close monitoring of his urine output. Current Visit: Yes Status: Acute Code(s): R33.9 - RETENTION OF URINE, UNSPECIFIED SNOMED Code(s): 085540464
--- NOTE | 2019-06-23 11:32 | P.PN ---
Subjective Progress Note Date: 06/23/19 Principal diagnosis: Left pneumothorax, status post fall from standing This is a 74-year-old cachectic gentleman who is followed by Dr. Sascha Oliveros on an outpatient basis. He is a past medical history significant for seizure disorder, chronic ongoing tobacco abuse, GERD, osteoarthritis and recent admission for acute diarrhea, severe protein calorie malnutrition with a BMI of 13.0 kg/m and recent weight loss of 25 pounds in the last month. He presented to the emergency department here at [facility] after he fell in the bathroom at home. He reports he does not remember the fall but does remember feeling dizzy prior to falling. He reports he got up on his own accord and called a friend for help. Subsequently, the friend called EMS on the patient's behalf. He denies any recent fever, chills, nausea, vomiting, palpitations, or shortness of breath. In the emergency department a chest x-ray was completed which showed bilateral acute infiltrates bilateral mid to lower lungs. For further evaluation a chest CTA was completed which demonstrated no evidence of pulmonary embolism, moderately severe pulmonary edema with small right pleural effusion, nonspecific mediastinal and bronchial lymph nodes that measure up to 1 cm, a small left-sided pneumothorax and a T12 compression fracture. He also underwent a computed tomography scan of his brain and C-spine which demonstrated no acute fracture or dislocation to his cervical spine, no acute intracranial hemorrhage or midline shift and fairly moderate generalized atrophy and chronic small vessel ischemic changes. A 12-lead EKG was completed which showed sinus tachycardia with occasional premature ventricular complexes with a heart rate of 109 BPM. For further evaluation a 2-D echocardiogram was completed which demonstrated him to have an overall left ventricular systolic function to be normal with an ejection fraction between 60 and 65%, trace to mild mitral valve regurgitation, mild tricuspid valve regurgitation and no pericardial effusion. Due to the patient's fall from standing he was admitted for further evaluation and workup. His initial laboratory results showed a WBC count of 2.2, Band neutrophils 23, hemoglobin 15.1, hematocrit 46.3, platelets 308, INR of 1.1, PT 11.5, elevated d-dimer of 4.97, sodium 132, potassium 4.1, BUN 34, creatinine 0.85, plasma lactic acid 3.7, BNP 917, procalcitonin level 3.49 and a troponin of 0.026. At this time the patient is complaining of some left-sided chest discomfort and tenderness to his left chest with palpitation. Oxygen saturation are 97% on 3 L nasal cannula and he is in no acute distress. Repeat chest x-ray was completed this morning on 06/20/2019 which demonstrated a left-sided pneumothorax estimated to be 10-15% with a left basilar hydropneumothorax component it also demonstrated scattered interstitial and airs pace infiltrates throughout both lung house greatest at the lung bases with mild progression suggested according to the report. Due to the findings of left pneumothorax a consult was placed to Dr. Socrates Winchester from cardiothoracic surgery for further evaluation and treatment recommendations. On 06/23/2019 the patient was seen in follow-up at his bedside in the cardiac stepdown unit. He is awake, alert and oriented 3. He is in no acute distress and is currently hemodynamically stable. This morning the patient is complaining of some left flank pain. He denies any complaints of shortness of breath and his oxygen saturations are 100% on 2 L nasal cannula. He is achieving 500 mL with encouragement on his incentive spirometry. He does have some increased pitting edema to his bilateral lower extremities and to his bilateral flank areas. He reports that he did have some urinary retention yesterday requiring placement of Garcia catheter and urology has been consulted. A chest x-ray was completed this morning which demonstrates a continuing stable small left-sided pneumothorax. Objective - Vital Signs Vital signs: Vital Signs Temp 98.0 F 06/23/19 08:00 Pulse 100 06/23/19 08:00 Resp 16 06/23/19 08:00 BP 124/84 06/23/19 08:00 Pulse Ox 100 06/23/19 08:00 Intake & Output 06/22/19 06/23/19 06/23/19 18:59 06:59 18:59 Intake Total 500 840 Output Total 900 Balance 500 -60 Intake: Intake, IV Titration 500 400 Amount Sodium Chloride 0.9% 1, 500 400 000 ml @ 50 mls/hr IV . Q20H [facility] Rx#:[id number] Oral 440 Output: Urine 900 Coude 100 Other: Voiding Method Urinal Urinal Urinal Diaper Diaper Diaper # Voids 1 - Exam This is a 74-year-old cachectic gentleman who is laying in bed in the cardiac stepdown unit. He is alert and oriented 3. He is in no acute distress and is hemodynamically stable. Oxygen saturation are 100% on 2 L nasal cannula. - Constitutional Constitutional Comment(s): Cachectic/anorexic General appearance: Present: cooperative, no acute distress - EENT Eyes: Present: poor dentition. Absent: scleral icterus ENT: Present: hearing grossly normal, normal oropharynx. Absent: thrush - Neck Details: Neck is supple, no JVD. Neck: Absent: lymphadenopathy, thyromegaly - Respiratory Details: Lungs sounds essentially clear throughout, diminished to his bilateral bases. Respirations are symmetrical and nonlabored. Oxygen saturation is 100% on 2 L nasal cannula. - Cardiovascular Details: Regular rhythm and rate. S1 and S2 present, negative for S3, gallop or murmur. - Gastrointestinal Gastrointestinal Comment(s): Abdomen is soft, nontender and slightly distended. Normal bowel sounds. No organomegaly appreciated. Tolerating oral intake. - Genitourinary Genitourinary Comment(s): Garcia catheter in place for urinary retention. Draining clear zac urine. - Integumentary Integumentary Comment(s): Skin is warm and dry. No clubbing or cyanosis is present. Positive +1 to +2 edema to his bilateral feet, ankles and lower extremities and to his bilateral flank area. - Neurologic Neurologic: Present: CNII-XII intact - Musculoskeletal Musculoskeletal: Present: generalized weakness, strength equal bilaterally - Psychiatric Psychiatric: Present: A&O x's 3, appropriate affect, intact judgment & insight - Allied health notes Allied health notes reviewed: nursing - Labs CBC & Chem 7: 06/22/19 06:50 06/23/19 05:45 Labs: Abnormal Lab Results - Last 24 Hours (Table) 06/22/19 06/22/19 06/22/19 Range/Units 11:43 16:34 20:12 Sodium (137-145) mmol/L Creatinine (0.66-1.25) mg/dL POC Glucose (mg/dL) 108 H 101 H 118 H (75-99) mg/dL Calcium (8.4-10.2) mg/dL 06/23/19 Range/Units 05:45 Sodium 132 L (137-145) mmol/L Creatinine 0.47 L (0.66-1.25) mg/dL POC Glucose (mg/dL) (75-99) mg/dL Calcium 7.8 L (8.4-10.2) mg/dL Microbiology - Last 24 Hours (Table) 06/22/19 21:05 Sputum Culture - Preliminary Sputum 06/18/19 06:24 Blood Culture - Preliminary Blood No Growth after 120 hours 06/18/19 00:20 Blood Culture - Preliminary Blood No Growth after 120 hours - Imaging and Cardiology Chest x-ray: report reviewed, image reviewed Assessment and Plan Assessment: 1. Status post fall from standing 2. Left pneumothorax secondary 10-15% to above 3. Weakness, Gen. medical debility with gait dysfunction 4. History of seizure disorder 5. Malnutrition with chronic cachexia, an admission BMI of 13.0 kg/m, recent weight loss of 25 pounds in the last month 6. Possible exacerbation of CHF with preserved systolic function, admission BNP 917 7. Osteoarthritis 8. Chronic ongoing nicotine dependence 9. Glaucoma 10. History of chronic obstructive pulmonary disease 11. Possibility of interstitial lung disease, acute pneumonia and mild exacerbation of CHF Plan: 1. Chest x-ray shows a continued stable left pneumothorax. The patient is in no acute respiratory distress and his oxygen saturations are 100% on 2 L nasal cannula. We will continue to monitor the pneumothorax resolution. 2. Continue to monitor daily chest x-rays. 3. Encourage use of his incentive spirometry 10 times every hour while awake. 4. Bronchodilators and oxygen management per pulmonary medicine recommen dations. 5. More recommendations to follow based on patient's clinical course. Time with Patient: Less than 30
--- NOTE | 2019-06-23 11:57 | PN ---
PROGRESS NOTE PULMONARY/CRITICAL CARE PROGRESS NOTE: DATE OF SERVICE: June 23, 2019 A 74-year-old gentleman who is again seen on the general medical floor. He is resting comfortably. He is on 2 L nasal cannula. He is only getting 500 mL on his incentive spirometer. The patient did have a fall and injured his left chest and left shoulder area. He may have sustained a left-sided pneumothorax during that fall. Anyway, up until today, the left-sided pneumothorax has been stable, but in my opinion, the chest x-ray today shows that the pneumothorax is a bit larger. I did ask cardiothoracic team to re-evaluate the patient. Clinically, the patient is stable. Denies any shortness of breath. Does have pain on taking a deep breath, particularly in the left shoulder and left chest area. PHYSICAL EXAMINATION: VITAL SIGNS: Current vital signs are reviewed. Temperature is 98, heart rate 100, respiratory rate 16, blood pressure 124/84 mean 97 on 2 L saturations 100%. GENERAL: Appears in no acute distress. HEENT: Examination is grossly unremarkable. Mucous membranes are moist. No oral lesions. Teeth are in poor repair. NECK: Supple. Full range of motion. No adenopathy. Neck veins are flat. CARDIOVASCULAR: Examination reveals regular rhythm and rate. Heart rate about 90 beats per minute. S1, S2 normal. It is regular. LUNGS: Reveal mostly clear breath sounds. A few scattered mild rhonchi. No wheezes or crackles. ABDOMEN: Soft. EXTREMITIES are intact. No edema. No cyanosis or clubbing. SKIN: Without rash. NEUROLOGIC: Examination is brief but nonfocal. LABS: Reviewed. Sodium 132, potassium 4, chloride 102, CO2 29, anion gap is 1. BUN and creatinine were 20 and 0.47. His chest x-ray from June 22 in my opinion shows slightly worsening left-sided pneumothorax, which is somewhat loculated. Microbiology is negative. Medications are reviewed. ASSESSMENT: 1. Hypoxemic respiratory failure secondary to community-acquired pneumonia, small pleural effusion and small persistent unchanged left-sided pneumothorax. 2. General medical debility and weakness, rule out occult malignancy. 3. Status post fall. 4. History of seizures. 5. History of congestive heart failure. 6. Hypotension, resolved. 7. Osteoarthritis. 8. Glaucoma. 9. Chronic nicotine dependence. 10.History of chronic obstructive pulmonary disease. 11.Shortness. 12.Recent hospitalization in April for diarrhea. 13.Mild hyponatremia. 14.Acute kidney injury secondary to dehydration. 15.Chronic anorexia/cachexia syndrome. 16.Urinary retention. PLAN: I have asked the cardiothoracic team to re-evaluate the need for chest tube drainage. Additional recommendations and suggestions are forthcoming. The pneumothorax has not changed over the course of a number of days now. In my opinion, maybe a bit worse. The patient is mostly asymptomatic, although he does have pain in the left chest and left shoulder area when he takes a deep breath. Saturations are excellent. We will continue to follow. Rest of the medications are reviewed. MMODL / IJN: [id number] /
[2019-06-23 12:12] LABS: Glucose,Whole Blood 95 mg/dL (75-99)
[2019-06-23 16:59] LABS: Glucose,Whole Blood 125 mg/dL (75-99)
[2019-06-23 20:07] LABS: Glucose,Whole Blood 139 mg/dL (75-99)
[2019-06-23] MEDS: SODIUM CHLORIDE 0.9% 1,000 ML IV SCH (20:26)
[2019-06-23] MEDS: ZOLPIDEM 10 MG TAB PO PRN (21:02)
--- NOTE | 2019-06-23 21:03 | P.PN ---
Subjective Progress Note Date: 06/22/19 Principal diagnosis: Pneumothorax Patient is admitted after a fall found to have pneumonia patient is on treatment for pneumonia. We'll cut down the IV fluids and 5 mL per hour patient is quite a bit dehydrated on admission. Repeat chest x-rays showed small pneumothorax probably from fall. Patient has atypical chest pain from fall. Unsure whether patient has syncope patient also has a seizure disorder EEG was obtained which did not show any epileptiform focus but did show severe encephalopathy. Keppra levels are low and patient is being can urine For will obtain levels again today if they're still low will consult neurology will increase the Keppra dose. Patient's clinical exam remains the same. Cardiology evaluated the patient for chest pain no further dictation from that perspective. Patient remains hyponatremic. 06/20/2019 Patient white blood cell count went up to 25,000 patient doesn't have any diarrhea patient also clinically looks better patient has 10-15% pneumothorax pulmonary recommended consultation with parathoracic surgery were consulted. 06/21/2019 Patient white blood cell count remains at the same level around 22,000 pneumothorax remains the same overall patient looks better but will need disposition to subacute rehabilitation may be able to be discharged tomorrow or Monday. 06/22/2019 Patient is currently awake alert and oriented 3. Lying in the bed comfortably. Currently saturating well on room air. Denied any complaints of chest pain are worsening shortness of breath. Chest x-ray showed 15% left-sided pneumothorax. Patient is being followed by CT surgery. Also antibodies the form of ceftriaxone and azithromycin. Patient has been afebrile. WBC trending down to 1.0. Renal function is stable. Constitutional: Patient is still weak and looks much better today Cardio vascular: denied any chest pain, palpitations Gastrointestinal denied any nausea vomiting Pulmonary: Denied any shortness of breath cough Neurologic denied any new focal deficits All inpatient medications were reviewed and appropriate changes in these medications as dictated in the interval history and assessment and plan. Objective - Vital Signs Vital signs: Vital Signs Temp 97.8 F 06/22/19 08:00 Pulse 94 06/22/19 08:33 Resp 16 06/22/19 08:00 BP 123/68 06/22/19 08:00 Pulse Ox 92 L 06/22/19 08:20 Intake & Output 06/21/19 06/22/19 06/22/19 18:59 06:59 18:59 Intake Total 1800 1080 Output Total 200 Balance 1800 880 Weight 42.6 kg Intake: Intake, IV Titration 600 600 Amount Sodium Chloride 0.9% 1, 600 600 000 ml @ 75 mls/hr IV . [id number] [facility] Rx#:[id number] Oral 1200 480 Output: Urine 200 Other: Voiding Method Urinal Urinal Urinal Diaper Diaper Diaper # Voids 2 2 - Exam PHYSICAL EXAMINATION: GENERAL: The patient is alert and oriented x3, not in any acute distress. thin built cachectic male HEENT: Pupils are round and equally reacting to light. EOMI. No scleral icterus. No conjunctival pallor. Normocephalic, atraumatic. No pharyngeal erythema. No thyromegaly. CARDIOVASCULAR: S1 and S2 present. No murmurs, rubs, or gallops. PULMONARY:by basilar crackles bronchophony, decreased air entry into bilateral lung house ABDOMEN: Soft, nontender, nondistended, normoactive bowel sounds. No palpable organomegaly. MUSCULOSKELETAL: No joint swelling or deformity. EXTREMITIES: No cyanosis, clubbing, or pedal edema. NEUROLOGICAL: Gross neurological examination did not reveal any focal deficits. SKIN: No rashes. - Labs CBC & Chem 7: 06/22/19 06:50 06/23/19 05:45 Labs: Abnormal Lab Results - Last 24 Hours (Table) 06/21/19 06/21/19 06/21/19 Range/Units 07:33 16:51 20:09 WBC (3.8-10.6) k/uL RBC (4.30-5.90) m/uL Sodium (137-145) mmol/L Creatinine (0.66-1.25) mg/dL POC Glucose (mg/dL) 101 H 107 H (75-99) mg/dL Calcium (8.4-10.2) mg/dL Procalcitonin 0.63 H (0.02-0.09) ng/mL 06/22/19 06/22/19 06/22/19 Range/Units 05:54 06:50 06:50 WBC 11.0 H (3.8-10.6) k/uL RBC 4.24 L (4.30-5.90) m/uL Sodium 133 L (137-145) mmol/L Creatinine 0.50 L (0.66-1.25) mg/dL POC Glucose (mg/dL) 112 H (75-99) mg/dL Calcium 7.5 L (8.4-10.2) mg/dL Procalcitonin (0.02-0.09) ng/mL Microbiology - Last 24 Hours (Table) 06/18/19 06:24 Blood Culture - Preliminary Blood No Growth after 96 hours 06/18/19 00:20 Blood Culture - Preliminary Blood No Growth after 96 hours Assessment and Plan Assessment: -acute hypoxic respiratory failure probably secondary to bilateral pneumonia continue with Rocephin and azithromycin awaiting sputum cultures and blood cultures.be a competent of mild COPD exacerbation. there is no clinical evidence of congestive heart failure patient is on IV fluids. -Small pneumothorax on the x-ray possibly from his fall: Cardiac thoracic surg andrew and pulmonary valid the patient no further intervention at this time repeat chest x-ray showed left pneumothorax 15%. -Leukocytosis: Secondary to sepsis with the his white blood cell all the cultu res are so far negative. -COPD with acute exacerbation patient may have mild exacerbation -Euovolemic hyponatremia: Possible SIADH. Continue with IV fluids at 75 mL per hour and free water restriction. Nephrology is following. -Acute renal failure: Secondary to dehydration and intravascular depletion IV fluids as mentioned above. Improved -Mildly elevated troponin secondary to hypoxemia and renal failure. Renal failure improved -Chest pain. musculoskeletal in nature secondary to fall -Rule out syncope and seizure , Keppra levels are low lipid Keppra levels .EEG as mentioned above. Patient has therapeutic Keppra levels. -Seizure disorder continue with Keppra -Chronic diarrhea symptomatically treatment follow with gastroenterology as an outpatient -chronic pain -Cachexia which is chronic patient scan of the chest did not show any nodules but the patient need regular cancer screening as an outpatient. -Ruled out covid 19 -DVT prophylaxis with subcutaneous heparin Time with Patient: Greater than 30
--- NOTE | 2019-06-23 21:18 | P.PN ---
Subjective Progress Note Date: 06/23/19 Principal diagnosis: Pneumothorax Patient is admitted after a fall found to have pneumonia patient is on treatment for pneumonia. We'll cut down the IV fluids and 5 mL per hour patient is quite a bit dehydrated on admission. Repeat chest x-rays showed small pneumothorax probably from fall. Patient has atypical chest pain from fall. Unsure whether patient has syncope patient also has a seizure disorder EEG was obtained which did not show any epileptiform focus but did show severe encephalopathy. Keppra levels are low and patient is being can urine For will obtain levels again today if they're still low will consult neurology will increase the Keppra dose. Patient's clinical exam remains the same. Cardiology evaluated the patient for chest pain no further dictation from that perspective. Patient remains hyponatremic. 06/20/2019 Patient white blood cell count went up to 25,000 patient doesn't have any diarrhea patient also clinically looks better patient has 10-15% pneumothorax pulmonary recommended consultation with parathoracic surgery were consulted. 06/21/2019 Patient white blood cell count remains at the same level around 22,000 pneumothorax remains the same overall patient looks better but will need disposition to subacute rehabilitation may be able to be discharged tomorrow or Monday. 06/22/2019 Patient is currently awake alert and oriented 3. Lying in the bed comfortably. Currently saturating well on room air. Denied any complaints of chest pain are worsening shortness of breath. Chest x-ray showed 15% left-sided pneumothorax. Patient is being followed by CT surgery. Also antibodies the form of ceftriaxone and azithromycin. Patient has been afebrile. WBC trending down to 1.0. Renal function is stable. 06/23/2019 Patient is currently lying in the bed comfortably. Awake alert and oriented. Denied any complaints of chest pain or worsening shortness of breath. Currently on oxygen with another cannula at 2 L. Chest x-ray today showed continued left- sided pneumothorax about 15% which is stable. Patient has been afebrile. Patient developed urinary retention yesterday requiring placement of Garcia catheter. Urology was consulted. CT surgery and nephrology is following. Sodium level is 132 today. Currently on normal saline at 50 mL per hour. Patient was given a dose of IV Lasix today. Constitutional: Patient is still weak and looks much better today Cardio vascular: denied any chest pain, palpitations Gastrointestinal denied any nausea vomiting Pulmonary: Denied any shortness of breath cough Neurologic denied any new focal deficits All inpatient medications were reviewed and appropriate changes in these m edications as dictated in the interval history and assessment and plan. Current medications reviewed. Objective - Vital Signs Vital signs: Vital Signs Temp 98.0 F 06/23/19 15:16 Pulse 106 H 06/23/19 15:18 Resp 16 06/23/19 15:18 BP 116/72 06/23/19 15:16 Pulse Ox 99 06/23/19 15:16 Intake & Output 06/23/19 06/23/19 06/24/19 06:59 18:59 06:59 Intake Total 840 350 Output Total 900 1375 Balance -60 -1025 Intake: Intake, IV Titration 400 350 Amount Sodium Chloride 0.9% 1, 400 350 000 ml @ 50 mls/hr IV . Q20H [facility] Rx#:[id number] Oral 440 Output: Urine 900 1375 Coude 100 Other: Voiding Method Urinal Indwelling Catheter Diaper - Labs CBC & Chem 7: 06/22/19 06:50 06/23/19 05:45 Labs: Abnormal Lab Results - Last 24 Hours (Table) 06/23/19 06/23/19 06/23/19 Range/Units 05:45 16:58 20:06 Sodium 132 L (137-145) mmol/L Creatinine 0.47 L (0.66-1.25) mg/dL POC Glucose (mg/dL) 125 H 139 H (75-99) mg/dL Calcium 7.8 L (8.4-10.2) mg/dL Microbiology - Last 24 Hours (Table) 06/22/19 21:05 Gram Stain - Preliminary Sputum Sputum Culture - Preliminary 06/18/19 06:24 Blood Culture - Preliminary Blood No Growth after 120 hours 06/18/19 00:20 Blood Culture - Preliminary Blood No Growth after 120 hours Assessment and Plan Assessment: -acute hypoxic respiratory failure probably secondary to bilateral pneumonia continue with Rocephin and azithromycin awaiting sputum cultures and blood cultures.be a competent of mild COPD exacerbation. there is no clinical evidence of congestive heart failure patient is on IV fluids. -Small pneumothorax on the x-ray possibly from his fall: Cardiac thoracic surgery and pulmonary valid the patient no further intervention at this time repeat chest x-ray showed left pneumothorax 15%. -Leukocytosis: Secondary to sepsis with the his white blood cell all the cultures are so far negative. -COPD with acute exacerbation patient may have mild exacerbation -Euovolemic hyponatremia: Possible SIADH. Continue with IV fluids at 75 mL per hour and free water restriction. Nephrology is following. -Acute renal failure: Secondary to dehydration and intravascular depletion IV fluids as mentioned above. Improved -Mildly elevated troponin secondary to hypoxemia and renal failure. Renal failure improved -Chest pain. musculoskeletal in nature secondary to fall -Rule out syncope and seizure , Keppra levels are low lipid Keppra levels .EEG as mentioned above. Patient has therapeutic Keppra levels. -Seizure disorder continue with Keppra -Chronic diarrhea symptomatically treatment follow with gastroenterology as an outpatient -chronic pain -Cachexia which is chronic patient scan of the chest did not show any nodules but the patient need regular cancer screening as an outpatient. -Ruled out covid 19 -DVT prophylaxis with subcutaneous heparin Time with Patient: Greater than 30
[2019-06-24] MEDS: PANTOPRAZOLE 40 MG TABLET PO SCH (05:05)
[2019-06-24] MEDS: AZITHROMYCIN 500 MG TAB PO SCH (05:05)
[2019-06-24 06:13] LABS: Glucose,Whole Blood 98 mg/dL (75-99)
[2019-06-24] MEDS: INSULIN ASPART (NovoLOG) 100 UNIT/ML VIAL SQ SCH ×4 (06:14→22:09)
[2019-06-24 06:52] LABS: Basophils % (A) 0 %; Eosinophils # (A) 0.2 k/uL (0-0.7); Eosinophils % (A) 2 %; HCT 37.9 % (39.0-53.0); HGB 12.6 gm/dL (13.0-17.5); Lymphocytes # (A) 1.3 k/uL (1.0-4.8); Lymphocytes % (A) 17 %; MCH 31.4 pg (25.0-35.0); MCHC 33.3 g/dL (31.0-37.0); MCV 94.2 fL (80.0-100.0); Monocytes # (A) 0.4 k/uL (0-1.0); Monocytes % (A) 5 %; Neutrophils # (A) 5.9 k/uL (1.3-7.7); Neutrophils % (A) 74 %; Platelet Count 245 k/uL (150-450); RBC 4.03 m/uL (4.30-5.90); RDW 14.1 % (11.5-15.5)
[2019-06-24 07:05] LABS: African American GFR (CKD) >90 (>60 ml/min/1.73 sqM); Anion Gap 3 mmol/L; Blood Urea Nitrogen 24 mg/dL (9-20); Calcium 7.6 mg/dL (8.4-10.2); Carbon Dioxide 27 mmol/L (22-30); Chloride 103 mmol/L (98-107); Glucose 86 mg/dL (74-99); Magnesium 1.6 mg/dL (1.6-2.3); Non-African American GFR(CKD) >90 (>60 ml/min/1.73 sqM); Sodium 133 mmol/L (137-145)
--- NOTE | 2019-06-24 07:40 | XR ---
EXAMINATION TYPE: XR chest 1V portable DATE OF EXAM: 06/24/2019 HISTORY: Shortness of breath. COMPARISON: 06/23/2019 TECHNIQUE: Single view of the chest is submitted. FINDINGS: Left-sided pneumothorax persists although is slightly smaller in size and estimated at 10%. Persisten t patchy infiltrates right upper lobe, perihilar and basilar regions. The heart is stable. Hilar and mediastinal structures are within normal limits. Degenerative changes are seen of the dorsal spine. IMPRESSION: 1. Left-sided pneumothorax persists although is slightly smaller in size and estimated at 10%. Persi stent patchy infiltrates right upper lobe, perihilar and basilar regions.
[2019-06-24] MEDS: BUDESONIDE 0.5 MG/2 ML NEBU INHALATION SCH ×2 (08:23→20:33)
[2019-06-24] MEDS: IPRATROPIUM-ALBUTEROL 3 ML NEB INHALATION SCH ×4 (08:23→20:33)
[2019-06-24] MEDS: levETIRAcetam 500 MG TAB PO SCH ×2 (08:41→22:17)
[2019-06-24] MEDS: levETIRAcetam 250 MG TAB PO SCH ×2 (08:41→22:18)
[2019-06-24] MEDS: CYCLOBENZAPRINE 10 MG TAB PO PRN (08:42)
[2019-06-24] MEDS: MORPHINE SULFATE IR 15 MG TABLET PO PRN ×3 (08:42→22:18)
[2019-06-24] MEDS: HEPARIN SODIUM,PORCINE 5,000 UNIT/ML 1 ML VIAL SQ SCH ×2 (08:46→22:17)
--- NOTE | 2019-06-24 09:24 | P.PN ---
Subjective Patient is seen in follow-up for hyponatremia. Sodium level is stable at 133 today. Currently has Garcia catheter for urinary retention. No changes overnight. More edema in his lower extremities today. Denies abdominal pain. Vital signs are stable. General: The patient appeared well nourished and normally developed. HEENT: Head exam is unremarkable. Neck is without jugular venous distension. LUNGS: Lungs are clear to auscultation and percussion. Breath sounds decreased. HEART: Rate and Rhythm are regular. ABDOMEN: Mild distention noted. Nontender. EXTREMITITES: 1+ edema. Objective - Vital Signs Vital signs: Vital Signs Temp 97.2 F L 06/24/19 07:55 Pulse 100 06/24/19 08:39 Resp 16 06/24/19 07:55 BP 113/72 06/24/19 07:55 Pulse Ox 100 06/24/19 07:55 Intake & Output 06/23/19 06/24/19 06/24/19 18:59 06:59 18:59 Intake Total 350 240 597 Output Total 1375 600 Balance -1025 -360 597 Intake: Intake, IV Titration 350 Amount Sodium Chloride 0.9% 1, 350 000 ml @ 50 mls/hr IV . Q20H [facility] Rx#:[id number] Oral 240 597 Output: Urine 1375 300 Stool 300 Other: Voiding Method Indwelling Catheter Indwelling Catheter # Bowel Movements 1 - Labs CBC & Chem 7: 06/24/19 06:04 06/24/19 06:04 Labs: Abnormal Lab Results - Last 24 Hours (Table) 06/23/19 06/23/19 06/24/19 Range/Units 16:58 20:06 06:04 RBC (4.30-5.90) m/uL Hgb (13.0-17.5) gm/dL Hct (39.0-53.0) % Sodium 133 L (137-145) mmol/L BUN 24 H (9-20) mg/dL Creatinine 0.49 L (0.66-1.25) mg/dL POC Glucose (mg/dL) 125 H 139 H (75-99) mg/dL Calcium 7.6 L (8.4-10.2) mg/dL 06/24/19 Range/Units 06:04 RBC 4.03 L (4.30-5.90) m/uL Hgb 12.6 L (13.0-17.5) gm/dL Hct 37.9 L (39.0-53.0) % Sodium (137-145) mmol/L BUN (9-20) mg/dL Creatinine (0.66-1.25) mg/dL POC Glucose (mg/dL) (75-99) mg/dL Calcium (8.4-10.2) mg/dL Microbiology - Last 24 Hours (Table) 06/18/19 06:24 Blood Culture - Final Blood No Growth after 144 hours 06/18/19 00:20 Blood Culture - Final Blood No Growth after 144 hours 06/22/19 21:05 Gram Stain - Preliminary Sputum Sputum Culture - Preliminary Assessment and Plan Plan: Assessment: 1. Hypervolemic hyponatremia. Patient is also on Keppra which can induce SIADH. Additionally respiratory infection can also induce SIADH. TSH normal. Urine osmolality high at 934. 2. Pneumonia maintained on antibiotics. 3. Status post fall with left pneumothorax. 4. Chronic diastolic CHF. Currently compensated. 5. Urinary retention status post Garcia catheter placement. Urology following. 6. Lower extremity edema. 7. Hypomagnesemia due to poor oral intake. Plan: Encourage oral intake, especially protein. Maintain ensure 3 times daily. 1500 mL fluid restriction. Start IV Lasix 20 mg twice daily. Replace magnesium. 2 g IV today. Repeat electrolytes in the morning.
[2019-06-24] MEDS: IOPAMIDOL CONTRAST (ORAL USE) VIAL PO PRN ×2 (09:29→10:19)
[2019-06-24] MEDS: MAGNESIUM OXIDE 400 MG TAB PO SCH (10:19)
--- NOTE | 2019-06-24 11:39 | CT ---
EXAMINATION TYPE: CT abdomen pelvis w con DATE OF EXAM: 06/24/2019 COMPARISON: 04/23/2019 CT abdomen pelvis and 06/18/2019 CT chest HISTORY: Wt loss CT DLP: 814.6 mGycm CONTRAST: CT scan of the abdomen and pelvis is performed with Oral Contrast and with IV Contrast, patient injec mya with 100 mL of Isovue 300. FINDINGS: LUNG BASES-: Left basilar pneumothorax identified. Moderate bilateral pleural effusions with compress nabil atelectasis and/or infiltrates. LIVER/GB: Cholecystectomy clips are in place. No space occupying hepatic lesion. Biliary tree is o f normal caliber. PANCREAS: No inflammation. No distinct mass. SPLEEN: No splenic enlargement. No lesion seen. ADRENALS: No nodule. No thickening. KIDNEYS/BLADDER: No hydronephrosis. No nephrolithiasis. No distinct renal mass. Garcia catheter is within the urinary bladder. BOWEL: NG tube at the GE junction and should be advanced. There is evidence of ascites throughout the abdomen and pelvis as well as anasarca changes. Dilated small bowel measuring up to 3.7 cm. Contrast however is noted within the colon and the findings may reflect ileus versus partial obstruction . I do not see definite transition zone. GENITAL ORGANS: No gross abnormality. LYMPH NODES: No greater than 1cm abdominal or pelvic lymph nodes are appreciated. AORTA: No significant abnormality. OSSEOUS STRUCTURES: No significant abnormality is seen. OTHER: No significant additional abnormality is seen. IMPRESSION: 1. Dilated small bowel without definite transition zone. Contrast is seen within the colon and the fi ndings may reflect ileus versus partial obstruction. 2. Interval development of ascites and anasarca. Bilateral pleural effusions with compressive atelect asis and/or infiltrates. 3. Left sided pneumothorax
--- NOTE | 2019-06-24 11:40 | P.PN ---
Subjective Progress Note Date: 06/24/19 Principal diagnosis: Left pneumothorax, status post fall from standing This is a 74-year-old cachectic gentleman who is followed by Dr. Sascha Oliveros on an outpatient basis. He is a past medical history significant for seizure disorder, chronic ongoing tobacco abuse, GERD, osteoarthritis and recent admission for acute diarrhea, severe protein calorie malnutrition with a BMI of 13.0 kg/m and recent weight loss of 25 pounds in the last month. He presented to the emergency department here at [facility] after he fell in the bathroom at home. He reports he does not remember the fall but does remember feeling dizzy prior to falling. He reports he got up on his own accord and called a friend for help. Subsequently, the friend called EMS on the patient's behalf. He denies any recent fever, chills, nausea, vomiting, palpitations, or shortness of breath. In the emergency department a chest x-ray was completed which showed bilateral acute infiltrates bilateral mid to lower lungs. For further evaluation a chest CTA was completed which demonstrated no evidence of pulmonary embolism, moderately severe pulmonary edema with small right pleural effusion, nonspecific mediastinal and bronchial lymph nodes that measure up to 1 cm, a small left-sided pneumothorax and a T12 compression fracture. He also underwent a computed tomography scan of his brain and C-spine which demonstrated no acute fracture or dislocation to his cervical spine, no acute intracranial hemorrhage or midline shift and fairly moderate generalized atrophy and chronic small vessel ischemic changes. A 12-lead EKG was completed which showed sinus tachycardia with occasional premature ventricular complexes with a heart rate of 109 BPM. For further evaluation a 2-D echocardiogram was completed which demonstrated him to have an overall left ventricular systolic function to be normal with an ejection fraction between 60 and 65%, trace to mild mitral valve regurgitation, mild tricuspid valve regurgitation and no pericardial effusion. Due to the patient's fall from standing he was admitted for further evaluation and workup. His initial laboratory results showed a WBC count of 2.2, Band neutrophils 23, hemoglobin 15.1, hematocrit 46.3, platelets 308, INR of 1.1, PT 11.5, elevated d-dimer of 4.97, sodium 132, potassium 4.1, BUN 34, creatinine 0.85, plasma lactic acid 3.7, BNP 917, procalcitonin level 3.49 and a troponin of 0.026. At this time the patient is complaining of some left-sided chest discomfort and tenderness to his left chest with palpitation. Oxygen saturation are 97% on 3 L nasal cannula and he is in no acute distress. Repeat chest x-ray was completed this morning on 06/20/2019 which demonstrated a left-sided pneumothorax estimated to be 10-15% with a left basilar hydropneumothorax component it also demonstrated scattered interstitial and airs pace infiltrates throughout both lung house greatest at the lung bases with mild progression suggested according to the report. Due to the findings of left pneumothorax a consult was placed to Dr. Socrates Winchester from cardiothoracic surgery for further evaluation and treatment recommendations. On 06/24/2019 the patient was seen in follow-up at his bedside in the cardiac stepdown unit. He is awake, alert and oriented 3. He is in no acute distress and is currently hemodynamically stable. The patient denies any complaints of shortness of breath at this time although remains complaining of some left flank pain. Denies any complaints of nausea, vomiting or diarrhea. He reports he hasn't had a bowel movement in several days. A chest x-ray was completed this morning which shows a persistent small left sided pneumothorax of around 10% and persistent patchy infiltrates right upper lobe. He remains afebrile the last 24 hours and is on azithromycin and Rocephin for antibiotic coverage. Oxygen saturations are 100% on 2 L nasal cannula and he is achieving 500 mL on his incentive spirometry with encouragement. Objective - Vital Signs Vital signs: Vital Signs Temp 97.2 F L 06/24/19 07:55 Pulse 100 06/24/19 08:39 Resp 16 06/24/19 08:00 BP 113/72 06/24/19 07:55 Pulse Ox 100 06/24/19 07:55 Intake & Output 06/23/19 06/24/19 06/24/19 18:59 06:59 18:59 Intake Total 350 240 597 Output Total 1375 600 Balance -1025 -360 597 Intake: Intake, IV Titration 350 Amount Sodium Chloride 0.9% 1, 350 000 ml @ 50 mls/hr IV . Q20H [facility] Rx#:[id number] Oral 240 597 Output: Urine 1375 300 Stool 300 Other: Voiding Method Indwelling Catheter Indwelling Catheter Indwelling Catheter # Bowel Movements 1 - Exam This is a 74-year-old cachectic gentleman who is laying in bed in the cardiac [facility] unit. He is alert and oriented 3. He is in no acute distress and is hemodynamically stable. Oxygen saturation are 100% on 2 L nasal cannula. - Constitutional Constitutional Comment(s): Cachectic and anorexic General appearance: Present: cooperative, no acute distress - EENT Eyes: Present: poor dentition, normal appearance ENT: Present: hearing grossly normal, normal oropharynx - Neck Details: Neck is supple, no JVD. Neck: Absent: lymphadenopathy, thyromegaly - Respiratory Details: Lung sounds essentially clear throughout, diminished to his bilateral bases. Respirations are symmetrical and nonlabored. Oxygen saturation 100% on 2 L nasal cannula. Achieving 500 mL on his incentive spirometry. - Cardiovascular Details: Regular rhythm and tachycardic rate. S1 and S2 present, negative for S3, gallop or murmur. 1-2+ edema to his bilateral lower extremities and to his bilateral flank and abdomen. - Gastrointestinal Gastrointestinal Comment(s): Abdomen his soft, nontender and distended. Hypoactive bowel sounds present in all 4 abdominal quadrants. No guarding or rigidity. No organomegaly appreciated. - Genitourinary Genitourinary Comment(s): Garcia catheter for urinary retention and accurate I&O. - Integumentary Integumentary Comment(s): Skin is warm and dry. No clubbing or cyanosis is present. No rash. - Neurologic Neurologic: Present: CNII-XII intact - Musculoskeletal Musculoskeletal: Present: generalized weakness, strength equal bilaterally - Psychiatric Psychiatric: Present: A&O x's 3, appropriate affect, intact judgment & insight - Allied health notes Allied health notes reviewed: nursing - Labs CBC & Chem 7: 06/24/19 06:04 06/24/19 06:04 Labs: Abnormal Lab Results - Last 24 Hours (Table) 06/23/19 06/23/19 06/24/19 Range/Units 16:58 20:06 06:04 RBC (4.30-5.90) m/uL Hgb (13.0-17.5) gm/dL Hct (39.0-53.0) % Sodium 133 L (137-145) mmol/L BUN 24 H (9-20) mg/dL Creatinine 0.49 L (0.66-1.25) mg/dL POC Glucose (mg/dL) 125 H 139 H (75-99) mg/dL Calcium 7.6 L (8.4-10.2) mg/dL 06/24/19 Range/Units 06:04 RBC 4.03 L (4.30-5.90) m/uL Hgb 12.6 L (13.0-17.5) gm/dL Hct 37.9 L (39.0-53.0) % Sodium (137-145) mmol/L BUN (9-20) mg/dL Creatinine (0.66-1.25) mg/dL POC Glucose (mg/dL) (75-99) mg/dL Calcium (8.4-10.2) mg/dL Microbiology - Last 24 Hours (Table) 06/18/19 06:24 Blood Culture - Final Blood No Growth after 144 hours 06/18/19 00:20 Blood Culture - Final Blood No Growth after 144 hours 06/22/19 21:05 Gram Stain - Preliminary Sputum Sputum Culture - Preliminary - Imaging and Cardiology Chest x-ray: report reviewed, image reviewed Assessment and Plan Assessment: 1. Status post fall from standing 2. Left pneumothorax secondary 10-15% to above 3. Weakness, Gen. medical debility with gait dysfunction 4. History of seizure disorder 5. Malnutrition with chronic cachexia, an admission BMI of 13.0 kg/m, recent weight loss of 25 pounds in the last month 6. Possible exacerbation of CHF with preserved systolic function, admission BNP 917 7. Osteoarthritis 8. Chronic ongoing nicotine dependence 9. Glaucoma 10. History of chronic obstructive pulmonary disease 11. Possibility of interstitial lung disease, acute pneumonia and mild exacerbation of CHF Plan: 1. Chest x-ray shows a continued stable left pneumothorax of around 10%. The patient is in no acute respiratory distress and his oxygen saturations are 100% on 2 L nasal cannula. 2. Encourage use of his incentive spirometry 10 times every hour while awake. 3. Medical management and other comorbidities per primary care service. 4. Bronchodilators and oxygen management per pulmonary medicine recommendations. 5. We will continue to follow this patient on an as-needed basis. Please feel free to call her to cardiothoracic surgery service for any further questions regarding his pneumothorax. Time with Patient: Less than 30
[2019-06-24 11:47] LABS: Glucose,Whole Blood 91 mg/dL (75-99)
--- NOTE | 2019-06-24 12:00 | P.PN ---
Subjective Progress Note Date: 06/24/19 This is a 74-year-old cachectic gentleman who is followed by Dr. Sascha Oliveros on an outpatient basis. He is a past medical history significant for seizure disorder, chronic ongoing tobacco abuse, GERD, osteoarthritis and recent admission for acute diarrhea, severe protein calorie malnutrition with a BMI of 13.0 kg/m and recent weight loss of 25 pounds in the last month. He presented to the emergency department here at [facility] after he fell in the bathroom at home. He reports he does not remember the fall but does remember feeling dizzy prior to falling. He reports he got up on his own accord and called a friend for help. Subsequently, the friend called EMS on the patien t's behalf. He denies any recent fever, chills, nausea, vomiting, palpitations, or shortness of breath. In the emergency department a chest x-ray was completed which showed bilateral acute infiltrates bilateral mid to lower lungs. For further evaluation a chest CTA was completed which demonstrated no evidence of pulmonary embolism, moderately severe pulmonary edema with small right pleural effusion, nonspecific mediastinal and bronchial lymph nodes that measure up to 1 cm, a small left-sided pneumothorax and a T12 compression fracture. He also underwent a computed tomography scan of his brain and C-spine which demonstrated no acute fracture or dislocation to his cervical spine, no acute intracranial hemorrhage or midline shift and fairly moderate generalized atrophy and chronic small vessel ischemic changes. A 12-lead EKG was completed which showed sinus tachycardia with occasional premature ventricular complexes with a heart rate of 109 BPM. For further evaluation a 2-D echocardiogram was completed which demonstrated him to have an overall left ventricular systolic function to be normal with an ejection fraction between 60 and 65%, trace to mild mitral valve regurgitation, mild tricuspid valve regurgitation and no pericardial effusion. Due to the patient's fall from standing he was admitted for further evaluation and workup. His initial laboratory results showed a WBC count of 2.2, Band neutrophils 23, hemoglobin 15.1, hematocrit 46.3, platelets 308, INR of 1.1, PT 11.5, elevated d-dimer of 4.97, sodium 132, potassium 4.1, BUN 34, creatinine 0.85, plasma lactic acid 3.7, BNP 917, procalcitonin level 3.49 and a troponin of 0.026. At this time the patient is complaining of some left-sided chest discomfort and tenderness to his left chest with palpitation. Oxygen saturation are 97% on 3 L nasal cannula and he is in no acute distress. Repeat chest x-ray was completed this morning on 06/20/2019 which demonstrated a left-sided pneumothorax estimated to be 10-15% with a left basilar hydropneumothorax component it also demonstrated scattered interstitial and airspace infiltrates throughout both lung house greatest at the lung bases . Since admission, the pa tient was covered with IV Rocephin and Zithromax regarding the possibility of lower lobe pneumonia. Also cardiothoracic surgeons were involved in the case regarding the left-sided pneumothorax which looked slightly worse on yesterday's chest x-ray. Nevertheless the patient continued to be on 2 L of oxygen by nasal cannula with a pulse oximetry 99%. Still using incentive spirometer. He Is Sitting Edema Lower Extremities Bilaterally. There Was Decided to Monitor the Left-Sided Chest Tube for Now. On today's evaluation him a the patient remains quite cachectic and weak. He is a repeat chest x-ray was done and the patient has still a left-sided pneumothorax which is slightly smaller and this was estimated to be around 10%. There is persistent patchy infiltrates in the lung bases bilaterally and in the perihilar area, probably somewhat improved. I'm very much concerned about his underlying malnutrition and cachexia and I think it's important to obtain a CAT scan of the abdomen and pelvis to rule out the possibility of an underlying malignancy. Objective - Vital Signs Vital signs: Vital Signs Temp 97.2 F L 06/24/19 07:55 Pulse 100 06/24/19 08:39 Resp 16 06/24/19 08:00 BP 113/72 06/24/19 07:55 Pulse Ox 100 06/24/19 07:55 Intake & Output 06/23/19 06/24/19 06/24/19 18:59 06:59 18:59 Intake Total 350 240 597 Output Total 1375 600 Balance -1025 -360 597 Intake: Intake, IV Titration 350 Amount Sodium Chloride 0.9% 1, 350 000 ml @ 50 mls/hr IV . Q20H [facility] Rx#:[id number] Oral 240 597 Output: Urine 1375 300 Stool 300 Other: Voiding Method Indwelling Catheter Indwelling Catheter Indwelling Catheter # Bowel Movements 1 - Exam This is a 74-year-old cachectic gentleman who is laying in bed in the cardiac stepdown unit. He is alert and oriented 3. He is in no acute distress and is hemodynamically stable. Oxygen saturation are 100% on 2 L nasal cannula. The patient is emaciated cachectic and weak and obviously malnourished - Constitutional Constitutional Comment(s): Cachectic/anorexic General appearance: Present: cooperative, no acute distress - EENT Eyes: Present: poor dentition. Absent: scleral icterus ENT: Present: hearing grossly normal, normal oropharynx. Absent: thrush - Neck Details: Neck is supple, no JVD. Neck: Absent: lymphadenopathy, thyromegaly - Respiratory Details: Lungs sounds essentially clear throughout, diminished to his bilateral bases. Respirations are symmetrical and nonlabored. Oxygen saturation is 100% on 2 L nasal cannula. - Cardiovascular Details: Regular rhythm and rate. S1 and S2 present, negative for S3, gallop or murmur. - Gastrointestinal Gastrointestinal Comment(s): Abdomen is soft, nontender and slightly distended. Normal bowel sounds. No organomegaly appreciated. Tolerating oral intake. - Genitourinary Genitourinary Comment(s): Garcia catheter in place for urinary retention. Draining clear zac urine. - Integumentary Integumentary Comment(s): Skin is warm and dry. No clubbing or cyanosis is present. Positive +1 to +2 edema to his bilateral feet, ankles and lower extremities and to his bilateral flank area. - Neurologic Neurologic: Present: CNII-XII intact - Musculoskeletal Musculoskeletal: Present: generalized weakness, strength equal bilaterally - Labs CBC & Chem 7: 06/24/19 06:04 06/24/19 06:04 Labs: Abnormal Lab Results - Last 24 Hours (Table) 06/23/19 06/23/19 06/24/19 Range/Units 16:58 20:06 06:04 RBC (4.30-5.90) m/uL Hgb (13.0-17.5) gm/dL Hct (39.0-53.0) % Sodium 133 L (137-145) mmol/L BUN 24 H (9-20) mg/dL Creatinine 0.49 L (0.66-1.25) mg/dL POC Glucose (mg/dL) 125 H 139 H (75-99) mg/dL Calcium 7.6 L (8.4-10.2) mg/dL 06/24/19 Range/Units 06:04 RBC 4.03 L (4.30-5.90) m/uL Hgb 12.6 L (13.0-17.5) gm/dL Hct 37.9 L (39.0-53.0) % Sodium (137-145) mmol/L BUN (9-20) mg/dL Creatinine (0.66-1.25) mg/dL POC Glucose (mg/dL) (75-99) mg/dL Calcium (8.4-10.2) mg/dL Microbiology - Last 24 Hours (Table) 06/18/19 06:24 Blood Culture - Final Blood No Growth after 144 hours 06/18/19 00:20 Blood Culture - Final Blood No Growth after 144 hours 06/22/19 21:05 Gram Stain - Preliminary Sputum Sputum Culture - Preliminary Assessment and Plan Plan: 1. Status post fall 2. Left pneumothorax secondary 10-15% to above, stable currently on 2 L of oxygen by nasal cannula with a pulse is 99%. The patient also has bilateral lower lobe consolidation, consider pulmonary contusion versus bilateral lower lobe pneumonia.the patient is still on a combination of antibiotics including Rocephin and Zithromax.The echocardiogram was not time of admission showed an ejection fraction of 60-65%. No other significant valvular abnormalities have been noted. The proBNP level was nonelevated. The patient continues to have a tiny left-sided pneumothorax and and on today's evaluation of 06/24/2019 this is estimated to be around 10% PEEP no worsening shortness of breath. There is still bilateral infiltration of the lung bases. 3. Weakness, Gen. medical debility with gait dysfunction 4. History of seizure disorder 5. Malnutrition with chronic cachexia, an admission BMI of 13.0 kg/m, recent weight loss of 25 pounds in the last month 6. Possible exacerbation of CHF with preserved systolic function, admission BNP 917 7. Osteoarthritis 8. Chronic ongoing nicotine dependence 9. Glaucoma 10. History of chronic obstructive pulmonary disease 11. Possibility of interstitial lung disease, acute pneumonia and mild exacerbation of CHF Plan Proceed with a CAT scan of the abdomen and pelvis for malignancy screening Monitor left-sided pneumothorax Continue same antibiotic coverage Obtain a pro-calcitonin level the patient has hypoalbuminemia and there is some ascites and anasarca development on examination We'll continue to follow. Dietary consult be obtained also.
[2019-06-24] MEDS: FUROSEMIDE 10 MG/ML 2 ML VIAL IV SCH ×2 (12:13→22:17)
[2019-06-24] MEDS: MAGNESIUM SULFATE-D5W PMX 1 GM in DEXTROSE/WATER 1 100ML.BAG IVPB SCH ×2 (12:13→13:32)
--- NOTE | 2019-06-24 15:05 | P.PN ---
Subjective Progress Note Date: 06/24/19 Principal diagnosis: Pneumothorax Patient is admitted after a fall found to have pneumonia patient is on treatment for pneumonia. We'll cut down the IV fluids and 5 mL per hour patient is quite a bit dehydrated on admission. Repeat chest x-rays showed small pneumothorax probably from fall. Patient has atypical chest pain from fall. Unsure whether patient has syncope patient also has a seizure disorder EEG was obtained which did not show any epileptiform focus but did show severe encephalopathy. Keppra levels are low and patient is being can urine For will obtain levels again today if they're still low will consult neurology will increase the Keppra dose. Patient's clinical exam remains the same. Cardiology evaluated the patient for chest pain no further dictation from that perspective. Patient remains hyponatremic. 06/20/2019 Patient white blood cell count went up to 25,000 patient doesn't have any diarrhea patient also clinically looks better patient has 10-15% pneumothorax pulmonary recommended consultation with parathoracic surgery were consulted. 06/21/2019 Patient white blood cell count remains at the same level around 22,000 pneumothorax remains the same overall patient looks better but will need disposition to subacute rehabilitation may be able to be discharged tomorrow or Monday. 06/22/2019 Patient is currently awake alert and oriented 3. Lying in the bed comfortably. Currently saturating well on room air. Denied any complaints of chest pain are worsening shortness of breath. Chest x-ray showed 15% left-sided pneumothorax. Patient is being followed by CT surgery. Also antibodies the form of ceftriaxone and azithromycin. Patient has been afebrile. WBC trending down to 1.0. Renal function is stable. 06/23/2019 Patient is currently lying in the bed comfortably. Awake alert and oriented. Denied any complaints of chest pain or worsening shortness of breath. Currently on oxygen with another cannula at 2 L. Chest x-ray today showed continued left- sided pneumothorax about 15% which is stable. Patient has been afebrile. Patient developed urinary retention yesterday requiring placement of Garcia catheter. Urology was consulted. CT surgery and nephrology is following. Sodium level is 132 today. Currently on normal saline at 50 mL per hour. Patient was given a dose of IV Lasix today. Constitutional: Patient is still weak and looks much better today Cardio vascular: denied any chest pain, palpitations Gastrointestinal denied any nausea vomiting Pulmonary: Denied any shortness of breath cough Neurologic denied any new focal deficits All inpatient medications were reviewed and appropriate changes in these m edications as dictated in the interval history and assessment and plan. Current medications reviewed. 06/24/2019 Patient is seen and evaluated in follow-up currently sitting in the chair drinking contrast for CT abdomen that was ordered. Multiple medical consultations following. Patient remains on 2 L of oxygen via nasal cannula and reports no worsening of shortness of breath although continues to be short of breath with exertion. Discussed with the patient at length about continuing to use the incentive spirometer at least 10 times every hour while awake. Patient states he is attempting for 1000 although only been reaching 500 on the incentive spirometer. Patient continues to be quite weak and cachectic. Patient CT abdomen shows some dilated small bowel without definite transition zone with contrast seen within the colon with findings that may reflect ileus versus partial bowel obstruction, interval development of ascites and anasarca with bilateral pleural effusions with comprehensive atelectasis and/or infiltrates, and left-sided pneumothorax. Patient's chest x-ray today continues to show the left-sided pneumothorax approximately 10% and stable. Cardiothoracic surgery following an recommending no chest tube at this time. Surgery consulted for findings on the CT although patient and nursing staff states he had a large bowel movement today. Will await report. Patient continues with an indwelling Garcia catheter as he was retaining. Case management and social work following for possible rehab placement once stabilized and discharged. Currently no reports of chest pain or palpitations. Patient is afebrile. No reports of nausea or vomiting and patient has been tolerating diet. Objective - Vital Signs Vital signs: Vital Signs Temp 97.2 F L 06/24/19 07:55 Pulse 100 06/24/19 08:39 Resp 16 06/24/19 08:00 BP 113/72 06/24/19 07:55 Pulse Ox 100 06/24/19 07:55 Intake & Output 06/23/19 06/24/19 06/24/19 18:59 06:59 18:59 Intake Total 350 240 597 Output Total 1375 600 Balance -1025 -360 597 Intake: Intake, IV Titration 350 Amount Sodium Chloride 0.9% 1, 350 000 ml @ 50 mls/hr IV . Q20H [facility] Rx#:[id number] Oral 240 597 Output: Urine 1375 300 Stool 300 Other: Voiding Method Indwelling Catheter Indwelling Catheter Indwelling Catheter # Bowel Movements 1 - Exam GENERAL: The patient is alert and oriented x3, not in any acute distress. thin built cachectic male HEENT: Pupils are round and equally reacting to light. EOMI. No scleral icterus. No conjunctival pallor. Normocephalic, atraumatic. No pharyngeal erythema. No thyromegaly. CARDIOVASCULAR: S1 and S2 present. No murmurs, rubs, or gallops. PULMONARY:by basilar crackles bronchophony, decreased air entry into bilateral lung house ABDOMEN: Soft, nontender, nondistended, normoactive bowel sounds. No palpable organomegaly. MUSCULOSKELETAL: No joint swelling or deformity. EXTREMITIES: No cyanosis, clubbing, or pedal edema. NEUROLOGICAL: Gross neurological examination did not reveal any focal deficits. SKIN: No rashes. - Labs CBC & Chem 7: 06/24/19 06:04 06/24/19 06:04 Labs: Abnormal Lab Results - Last 24 Hours (Table) 06/23/19 06/23/19 06/24/19 Range/Units 16:58 20:06 06:04 RBC (4.30-5.90) m/uL Hgb (13.0-17.5) gm/dL Hct (39.0-53.0) % Sodium 133 L (137-145) mmol/L BUN 24 H (9-20) mg/dL Creatinine 0.49 L (0.66-1.25) mg/dL POC Glucose (mg/dL) 125 H 139 H (75-99) mg/dL Calcium 7.6 L (8.4-10.2) mg/dL 06/24/19 Range/Units 06:04 RBC 4.03 L (4.30-5.90) m/uL Hgb 12.6 L (13.0-17.5) gm/dL Hct 37.9 L (39.0-53.0) % Sodium (137-145) mmol/L BUN (9-20) mg/dL Creatinine (0.66-1.25) mg/dL POC Glucose (mg/dL) (75-99) mg/dL Calcium (8.4-10.2) mg/dL Microbiology - Last 24 Hours (Table) 06/18/19 06:24 Blood Culture - Final Blood No Growth after 144 hours 06/18/19 00:20 Blood Culture - Final Blood No Growth after 144 hours 06/22/19 21:05 Gram Stain - Preliminary Sputum Sputum Culture - Preliminary Assessment and Plan Assessment: -acute hypoxic respiratory failure probably secondary to bilateral pneumonia continue with Rocephin and azithromycin awaiting sputum cultures and blood cultures.be a competent of mild COPD exacerbation. there is no clinical evidence of congestive heart failure patient is on IV fluids. -Small pneumothorax on the x-ray possibly from his fall: Cardiac thoracic surgery and pulmonary evaluated the patient no further intervention at this time repeat chest x-ray showed left pneumothorax 10% today. -Leukocytosis: Secondary to sepsis with the his white blood cell all the cu ltures are so far negative. Blood and sputum cultures thus far remain negative. White blood count is 8.0 today. -COPD with acute exacerbation patient may have mild exacerbation -Euovolemic hyponatremia: Possible SIADH. Continue with IV fluids at 75 mL per hour and free water restriction. Nephrology is following. -Acute renal failure: Secondary to dehydration and intravascular depletion IV fluids as mentioned above. Improved -Mildly elevated troponin secondary to hypoxemia and renal failure. Renal failure improved -Chest pain. musculoskeletal in nature secondary to fall -Rule out syncope and seizure , Keppra levels are low lipid Keppra levels .EEG as mentioned above. Patient has therapeutic Keppra levels. -Seizure disorder continue with Keppra -Chronic diarrhea symptomatic treatment follow with gastroenterology as an outpatient -chronic pain -Cachexia which is chronic patient scan of the chest did not show any nodules but the patient need regular cancer screening as an outpatient. -Ruled out covid 19 -DVT prophylaxis with subcutaneous heparin
--- NOTE | 2019-06-24 15:21 | P.GSCN ---
<Mariel Meadows - Last Filed: 06/24/19 15:20> History of Present Illness Consult date: 06/24/19 Reason for Consult: ileus versus obstruction Requesting physician: Elizabeth Ventura History of present illness: CHIEF COMPLAINT: Ileus versus obstruction HISTORY OF PRESENT ILLNESS: 74-year-old male who was admitted to the hospital secondary to fall, pneumonia, pneumothorax. Patient underwent CT scan today to evaluate for possible malignancy which revealed possible ileus versus obstruction. General surgery was consulted for further evaluation. Patient examined at the bedside. He denies nausea or vomiting. He is hungry and asking for something to eat. He denies abdominal pain. Nursing reports patient had a large bowel movement after his CT scan. PAST MEDICAL HISTORY: See list. PAST SURGICAL HISTORY: See list. SOCIAL HISTORY: No illicit drug use. REVIEW OF SYSTEMS: CONSTITUTIONAL: Denies fever or chills. HEENT: Denies blurred vision, vision changes, or eye pain. Denies hemoptysis CARDIOVASCULAR: Denies chest pain or pressure. RESPIRATORY: No shortness of breath. GASTROINTESTINAL: Refer to HPI for pertinent findings HEMATOLOGIC: Denies bleeding disorders. GENITOURINARY: Denies any blood in urine. SKIN: Denies pruitis. Denies rash. PHYSICAL EXAM: VITAL SIGNS: Reviewed. GENERAL: Well-developed in no acute distress. Thin. Cachectic. HEENT: No sclera icterus. Extraocular movements grossly intact. Moist buccal mucosa. Head is atraumatic, normocephalic. ABDOMEN: Soft. Mildly distended, however patient reports this is his baseline. No pain with palpation. NEUROLOGIC: Alert and oriented. Cranial nerves II through XII grossly intact. LABORATORY DATA: WBC 8.0. Hemoglobin 12.6. Platelet count 245. Most recent albumin 1.6. IMAGING: CT abdomen and pelvis: Small bowel dilated to 3.7 cm. No definite transition point seen. Contrast visualized in the colon. Ileus versus small bowel obstruction. Ascites. ASSESSMENT: 1. Ileus 2. Severe protein calorie malnutrition, albumin 1.6, BMI 15 3. Ascites, likely secondary to hypoalbuminemia PLAN: Patient without clinical s/s of small bowel obstruction. Suspect some degree of ileus based on CT results. However, patient asymptomatic and asking to eat. Will begin full liquid diet today. Repeat abdominal x-rays in AM. Nurse practitioner note has been reviewed by physician. Signing provider agrees with the documented findings, assessment, and plan of care. Past Medical History Past Medical History: Eye Disorder, GERD/Reflux, Osteoarthritis (OA), Seizure Disorder Additional Past Medical History / Comment(s): LAST SEIZURE 2006, GLAUCOMA. History of Any Multi-Drug Resistant Organisms: None Reported Past Surgical History: Cholecystectomy Additional Past Surgical History / Comment(s): CATARACT RIGHT EYE REMOVED, history of EGD and colonoscopy. Past Anesthesia/Blood Transfusion Reactions: No Reported Reaction Past Psychological History: No Psychological Hx Reported Smoking Status: Current every day smoker Past Alcohol Use History: None Reported Past Drug Use History: None Reported - Past Family History Mother Family Medical History: Cancer Medications and Allergies Home Medications Medication Instructions Recorded Confirmed Type Cyclobenzaprine [Flexeril] 10 mg PO BID 03/29/16 06/18/19 History Morphine Sulfate [Ms Contin] 30 mg PO QID 03/29/16 06/18/19 History levETIRAcetam [Keppra] 1,000 mg PO BID 03/29/16 06/18/19 History Zolpidem [Ambien] 10 mg PO HS 04/23/19 06/18/19 History levETIRAcetam [Keppra] 250 mg PO BID 04/23/19 06/18/19 History Pantoprazole Sodium [Protonix] 40 mg PO DAILY #30 tablet. 04/29/19 06/18/19 Rx Magnesium 250 mg PO DAILY 06/18/19 06/18/19 History Multivit-Min/Folic/Vit K/Lycop 1 tab PO DAILY 06/18/19 06/18/19 History [Men's Multivitamin Tablet] Allergies Allergy/AdvReac Type Severity Reaction Status Date / Time No Known Allergies Allergy Verified 06/18/19 08:55 Surgical - Exam Vital Signs Temp Pulse Resp BP 96.4 F L 108 H 20 101/73 06/17/19 22:48 06/17/19 22:48 06/17/19 22:48 06/17/19 22:48 Results - Labs 06/24/19 06:04 06/24/19 06:04 Abnormal Lab Results - Last 24 Hours (Table) 06/23/19 06/23/19 06/24/19 Range/Units 16:58 20:06 06:04 RBC (4.30-5.90) m/uL Hgb (13.0-17.5) gm/dL Hct (39.0-53.0) % Sodium 133 L (137-145) mmol/L BUN 24 H (9-20) mg/dL Creatinine 0.49 L (0.66-1.25) mg/dL POC Glucose (mg/dL) 125 H 139 H (75-99) mg/dL Calcium 7.6 L (8.4-10.2) mg/dL 06/24/19 Range/Units 06:04 RBC 4.03 L (4.30-5.90) m/uL Hgb 12.6 L (13.0-17.5) gm/dL Hct 37.9 L (39.0-53.0) % Sodium (137-145) mmol/L BUN (9-20) mg/dL Creatinine (0.66-1.25) mg/dL POC Glucose (mg/dL) (75-99) mg/dL Calcium (8.4-10.2) mg/dL Microbiology - Last 24 Hours (Table) 06/18/19 06:24 Blood Culture - Final Blood No Growth after 144 hours 06/18/19 00:20 Blood Culture - Final Blood No Growth after 144 hours 06/22/19 21:05 Gram Stain - Preliminary Sputum Sputum Culture - Preliminary Diabetes panel 06/24/19 Range/Units 06:04 Sodium 133 L (137-145) mmol/L Potassium 4.0 (3.5-5.1) mmol/L Chloride 103 (98-107) mmol/L Carbon Dioxide 27 (22-30) mmol/L BUN 24 H (9-20) mg/dL Creatinine 0.49 L (0.66-1.25) mg/dL Glucose 86 (74-99) mg/dL Calcium 7.6 L (8.4-10.2) mg/dL Calcium panel 06/24/19 Range/Units 06:04 Calcium 7.6 L (8.4-10.2) mg/dL Pituitary panel 06/24/19 Range/Units 06:04 Sodium 133 L (137-145) mmol/L Potassium 4.0 (3.5-5.1) mmol/L Chloride 103 (98-107) mmol/L Carbon Dioxide 27 (22-30) mmol/L BUN 24 H (9-20) mg/dL Creatinine 0.49 L (0.66-1.25) mg/dL Glucose 86 (74-99) mg/dL Calcium 7.6 L (8.4-10.2) mg/dL Adrenal panel 06/24/19 Range/Units 06:04 Sodium 133 L (137-145) mmol/L Potassium 4.0 (3.5-5.1) mmol/L Chloride 103 (98-107) mmol/L Carbon Dioxide 27 (22-30) mmol/L BUN 24 H (9-20) mg/dL Creatinine 0.49 L (0.66-1.25) mg/dL Glucose 86 (74-99) mg/dL Calcium 7.6 L (8.4-10.2) mg/dL <Quinn Hemphill - Last Filed: 06/25/19 10:13> Surgical - Exam Vital Signs Temp Pulse Resp BP 96.4 F L 108 H 20 101/73 06/17/19 22:48 06/17/19 22:48 06/17/19 22:48 06/17/19 22:48 Results - Labs 06/24/19 06:04 06/25/19 05:24 Abnormal Lab Results - Last 24 Hours (Table) 06/24/19 06/24/19 06/24/19 Range/Units 06:04 16:54 20:14 Sodium (137-145) mmol/L Chloride (98-107) mmol/L Carbon Dioxide (22-30) mmol/L BUN (9-20) mg/dL Creatinine (0.66-1.25) mg/dL POC Glucose (mg/dL) 169 H 102 H (75-99) mg/dL Calcium (8.4-10.2) mg/dL Procalcitonin 0.18 H (0.02-0.09) ng/mL 06/25/19 Range/Units 05:24 Sodium 133 L (137-145) mmol/L Chloride 97 L (98-107) mmol/L Carbon Dioxide 33 H (22-30) mmol/L BUN 22 H (9-20) mg/dL Creatinine 0.56 L (0.66-1.25) mg/dL POC Glucose (mg/dL) (75-99) mg/dL Calcium 7.6 L (8.4-10.2) mg/dL Procalcitonin (0.02-0.09) ng/mL Microbiology - Last 24 Hours (Table) 06/22/19 21:05 Gram Stain - Final Sputum Sputum Culture - Final Myesha albicans 06/18/19 06:24 Blood Culture - Final Blood No Growth after 144 hours Diabetes panel 06/25/19 Range/Units 05:24 Sodium 133 L (137-145) mmol/L Potassium 3.8 (3.5-5.1) mmol/L Chloride 97 L (98-107) mmol/L Carbon Dioxide 33 H (22-30) mmol/L BUN 22 H (9-20) mg/dL Creatinine 0.56 L (0.66-1.25) mg/dL Glucose 82 (74-99) mg/dL Calcium 7.6 L (8.4-10.2) mg/dL Calcium panel 06/25/19 Range/Units 05:24 Calcium 7.6 L (8.4-10.2) mg/dL Pituitary panel 06/25/19 Range/Units 05:24 Sodium 133 L (137-145) mmol/L Potassium 3.8 (3.5-5.1) mmol/L Chloride 97 L (98-107) mmol/L Carbon Dioxide 33 H (22-30) mmol/L BUN 22 H (9-20) mg/dL Creatinine 0.56 L (0.66-1.25) mg/dL Glucose 82 (74-99) mg/dL Calcium 7.6 L (8.4-10.2) mg/dL Adrenal panel 06/25/19 Range/Units 05:24 Sodium 133 L (137-145) mmol/L Potassium 3.8 (3.5-5.1) mmol/L Chloride 97 L (98-107) mmol/L Carbon Dioxide 33 H (22-30) mmol/L BUN 22 H (9-20) mg/dL Creatinine 0.56 L (0.66-1.25) mg/dL Glucose 82 (74-99) mg/dL Calcium 7.6 L (8.4-10.2) mg/dL
[2019-06-24 16:56] LABS: Glucose,Whole Blood 169 mg/dL (75-99)
[2019-06-24] MEDS: SODIUM CHLORIDE 0.9% 1,000 ML IV SCH (19:50)
[2019-06-24 20:15] LABS: Glucose,Whole Blood 102 mg/dL (75-99)
[2019-06-24] MEDS: ZOLPIDEM 10 MG TAB PO PRN (22:18)
[2019-06-25] MEDS: MORPHINE SULFATE IR 15 MG TABLET PO PRN ×4 (05:35→22:13)
[2019-06-25] MEDS: PANTOPRAZOLE 40 MG TABLET PO SCH (05:35)
[2019-06-25] MEDS: AZITHROMYCIN 500 MG TAB PO SCH (05:35)
[2019-06-25] MEDS: CYCLOBENZAPRINE 10 MG TAB PO PRN (05:35)
[2019-06-25 06:21] LABS: Glucose,Whole Blood 96 mg/dL (75-99)
[2019-06-25 06:57] LABS: African American GFR (CKD) >90 (>60 ml/min/1.73 sqM); Anion Gap 3 mmol/L; Blood Urea Nitrogen 22 mg/dL (9-20); Calcium 7.6 mg/dL (8.4-10.2); Carbon Dioxide 33 mmol/L (22-30); Chloride 97 mmol/L (98-107); Glucose 82 mg/dL (74-99); Non-African American GFR(CKD) >90 (>60 ml/min/1.73 sqM); Potassium 3.8 mmol/L (3.5-5.1); Sodium 133 mmol/L (137-145)
[2019-06-25] MEDS: IPRATROPIUM-ALBUTEROL 3 ML NEB INHALATION SCH ×4 (07:37→20:40)
[2019-06-25] MEDS: BUDESONIDE 0.5 MG/2 ML NEBU INHALATION SCH ×2 (07:37→20:40)
--- NOTE | 2019-06-25 08:40 | XR ---
EXAMINATION TYPE: XR abdomen 2V DATE OF EXAM: 06/25/2019 COMPARISON: None INDICATION: Ileus TECHNIQUE: Single view abdomen upright view. Supine view was also obtained. FINDINGS: There is nonspecific bowel gas present. Air and some debris is present within the colon. There are sc attered air-fluid levels within the midabdomen can be related to ileus. Mild partial small bowel obst ruction is not entirely excluded. Follow-up is recommended. Psoas margins are normal. No organomegaly is present. IMPRESSION: 1. Nonspecific findings within the abdomen. Findings can be compatible with previous suspected ileus. Continued follow-up is recommended.
[2019-06-25] MEDS: levETIRAcetam 250 MG TAB PO SCH ×2 (08:50→22:13)
[2019-06-25] MEDS: INSULIN ASPART (NovoLOG) 100 UNIT/ML VIAL SQ SCH ×4 (08:50→21:32)
[2019-06-25] MEDS: FUROSEMIDE 10 MG/ML 2 ML VIAL IV SCH (08:51)
[2019-06-25] MEDS: MAGNESIUM OXIDE 400 MG TAB PO SCH (08:51)
[2019-06-25] MEDS: HEPARIN SODIUM,PORCINE 5,000 UNIT/ML 1 ML VIAL SQ SCH ×2 (08:51→21:53)
[2019-06-25] MEDS: levETIRAcetam 500 MG TAB PO SCH ×2 (08:51→22:13)
[2019-06-25] MEDS ORDERED: FUROSEMIDE 10 MG/ML 2 ML VIAL IV ONE (09:23)
--- NOTE | 2019-06-25 09:45 | P.PN ---
Subjective Patient is seen in follow-up for hyponatremia. Sodium level is stable at 133 today. Currently has Garcia catheter for urinary retention. No changes overnight. Remains edematous. Denies abdominal pain. Vital signs are stable. General: The patient appeared well nourished and normally developed. HEENT: Head exam is unremarkable. Neck is without jugular venous distension. LUNGS: Lungs are clear to auscultation and percussion. Breath sounds decreased. HEART: Rate and Rhythm are regular. ABDOMEN: Mild distention noted. Nontender. EXTREMITITES: 1+ edema. Objective - Vital Signs Vital signs: Vital Signs Temp 98.1 F 06/25/19 08:00 Pulse 110 H 06/25/19 08:00 Resp 16 06/25/19 08:00 BP 118/59 06/25/19 08:00 Pulse Ox 100 06/25/19 08:00 Intake & Output 06/24/19 06/25/19 06/25/19 18:59 06:59 18:59 Intake Total 1993 237 Output Total 903 1330 Balance 1091 -1330 237 Weight 43.1 kg Intake: Oral 1993 237 Output: Urine 900 1330 Stool 3 Other: Voiding Method Indwelling Catheter Indwelling Catheter # Voids 1 1 - Labs CBC & Chem 7: 06/24/19 06:04 06/25/19 05:24 Labs: Abnormal Lab Results - Last 24 Hours (Table) 06/24/19 06/24/19 06/24/19 Range/Units 06:04 16:54 20:14 Sodium (137-145) mmol/L Chloride (98-107) mmol/L Carbon Dioxide (22-30) mmol/L BUN (9-20) mg/dL Creatinine (0.66-1.25) mg/dL POC Glucose (mg/dL) 169 H 102 H (75-99) mg/dL Calcium (8.4-10.2) mg/dL Procalcitonin 0.18 H (0.02-0.09) ng/mL 06/25/19 Range/Units 05:24 Sodium 133 L (137-145) mmol/L Chloride 97 L (98-107) mmol/L Carbon Dioxide 33 H (22-30) mmol/L BUN 22 H (9-20) mg/dL Creatinine 0.56 L (0.66-1.25) mg/dL POC Glucose (mg/dL) (75-99) mg/dL Calcium 7.6 L (8.4-10.2) mg/dL Procalcitonin (0.02-0.09) ng/mL Microbiology - Last 24 Hours (Table) 06/22/19 21:05 Gram Stain - Final Sputum Sputum Culture - Final Myesha albicans 06/18/19 06:24 Blood Culture - Final Blood No Growth after 144 hours Assessment and Plan Plan: Assessment: 1. Hypervolemic hyponatremia. Patient is also on Keppra which can induce SIADH. Additionally respiratory infection can also induce SIADH. TSH normal. Urine osmolality high at 934. Urine sodium 164. 2. Pneumonia maintained on antibiotics. 3. Status post fall with left pneumothorax. 4. Acute on chronic diastolic CHF. 5. Urinary retention status post Garcia catheter placement. Urology following. 6. Volume overload. 7. Hypomagnesemia due to poor oral intake. Better. Plan: Encourage oral intake, especially protein. Maintain ensure 3 times daily. 1500 mL fluid restriction. Increase Lasix to 40 mg twice daily. 25 g IV albumin x 2 doses today. Repeat electrolytes in the morning.
[2019-06-25] MEDS: ALBUMIN HUMAN 25% 50 ML in EMPTY BAG 1 BAG IVPB SCH ×4 (11:14→22:15)
--- NOTE | 2019-06-25 11:38 | P.PN ---
Subjective Progress Note Date: 06/25/19 Principal diagnosis: Abdominal swelling The patient denies abdominal pain. He thinks he may be a little more bloated. No appetite. Denies nausea or vomiting. Objective - Vital Signs Vital signs: Vital Signs Temp 98.1 F 06/25/19 11:30 Pulse 102 H 06/25/19 11:30 Resp 16 06/25/19 11:30 BP 106/68 06/25/19 11:30 Pulse Ox 100 06/25/19 11:30 Intake & Output 06/24/19 06/25/19 06/25/19 18:59 06:59 18:59 Intake Total 1993 237 Output Total 903 1330 1200 Balance 1091 -133 -963 Weight 43.1 kg 43.1 kg Intake: Oral 1993 Output: Urine 900 1330 1200 Stool 3 Other: Voiding Method Indwelling Catheter Indwelling Catheter Indwelling Catheter # Voids 1 1 - Exam Abdomen: Soft, mild distention, nontender - Labs CBC & Chem 7: 06/24/19 06:04 06/25/19 05:24 Labs: Abnormal Lab Results - Last 24 Hours (Table) 06/24/19 06/24/19 06/24/19 Range/Units 06:04 16:54 20:14 Sodium (137-145) mmol/L Chloride (98-107) mmol/L Carbon Dioxide (22-30) mmol/L BUN (9-20) mg/dL Creatinine (0.66-1.25) mg/dL POC Glucose (mg/dL) 169 H 102 H (75-99) mg/dL Calcium (8.4-10.2) mg/dL Procalcitonin 0.18 H (0.02-0.09) ng/mL 06/25/19 Range/Units 05:24 Sodium 133 L (137-145) mmol/L Chloride 97 L (98-107) mmol/L Carbon Dioxide 33 H (22-30) mmol/L BUN 22 H (9-20) mg/dL Creatinine 0.56 L (0.66-1.25) mg/dL POC Glucose (mg/dL) (75-99) mg/dL Calcium 7.6 L (8.4-10.2) mg/dL Procalcitonin (0.02-0.09) ng/mL Microbiology - Last 24 Hours (Table) 06/22/19 21:05 Gram Stain - Final Sputum Sputum Culture - Final Myesha albicans 06/18/19 06:24 Blood Culture - Final Blood No Growth after 144 hours Assessment and Plan Assessment: 74-year-old male with significant weight loss, anorexia, and new onset ascites. Question some thickening of the omentum on recent CAT scan. Will plan to consult interventional radiology for diagnostic paracentesis. Underlying marshall gnancy highly suspected. Continue full liquids for now. Will follow.
[2019-06-25 11:48] LABS: Glucose,Whole Blood 117 mg/dL (75-99)
--- NOTE | 2019-06-25 12:02 | US ---
EXAMINATION TYPE: US abdomen limited DATE OF EXAM: 06/25/2019 COMPARISON: NONE CLINICAL HISTORY: assess for fluid pocket please. Assess for ascites Ascites noted with largest pocket visualized LLQ IMPRESSION: Left upper quadrant and left lower quadrant ascites.
[2019-06-25] MEDS: FLUCONAZOLE 100 MG TAB PO SCH (12:43)
[2019-06-25 13:25] LABS: ALT 33 U/L (4-49); AST 45 U/L (17-59); African American GFR (CKD) >90 (>60 ml/min/1.73 sqM); Albumin 2.2 g/dL (3.5-5.0); Alkaline Phosphatase 72 U/L (38-126); Anion Gap 2 mmol/L; Blood Urea Nitrogen 24 mg/dL (9-20); Calcium 7.4 mg/dL (8.4-10.2); Carbon Dioxide 34 mmol/L (22-30); Chloride 95 mmol/L (98-107); Glucose 86 mg/dL (74-99); Non-African American GFR(CKD) >90 (>60 ml/min/1.73 sqM); Sodium 131 mmol/L (137-145); Total Bilirubin 0.4 mg/dL (0.2-1.3); Total Protein 4.6 g/dL (6.3-8.2)
--- NOTE | 2019-06-25 14:05 | P.PN ---
Subjective Progress Note Date: 06/25/19 Principal diagnosis: Pneumothorax Patient is admitted after a fall found to have pneumonia patient is on treatment for pneumonia. We'll cut down the IV fluids and 5 mL per hour patient is quite a bit dehydrated on admission. Repeat chest x-rays showed small pneumothorax probably from fall. Patient has atypical chest pain from fall. Unsure whether patient has syncope patient also has a seizure disorder EEG was obtained which did not show any epileptiform focus but did show severe encephalopathy. Keppra levels are low and patient is being can urine For will obtain levels again today if they're still low will consult neurology will increase the Keppra dose. Patient's clinical exam remains the same. Cardiology evaluated the patient for chest pain no further dictation from that perspective. Patient remains hyponatremic. 06/20/2019 Patient white blood cell count went up to 25,000 patient doesn't have any diarrhea patient also clinically looks better patient has 10-15% pneumothorax pulmonary recommended consultation with parathoracic surgery were consulted. 06/21/2019 Patient white blood cell count remains at the same level around 22,000 pneumothorax remains the same overall patient looks better but will need disposition to subacute rehabilitation may be able to be discharged tomorrow or Monday. 06/22/2019 Patient is currently awake alert and oriented 3. Lying in the bed comfortably. Currently saturating well on room air. Denied any complaints of chest pain are worsening shortness of breath. Chest x-ray showed 15% left-sided pneumothorax. Patient is being followed by CT surgery. Also antibodies the form of ceftriaxone and azithromycin. Patient has been afebrile. WBC trending down to 1.0. Renal function is stable. 06/23/2019 Patient is currently lying in the bed comfortably. Awake alert and oriented. Denied any complaints of chest pain or worsening shortness of breath. Currently on oxygen with another cannula at 2 L. Chest x-ray today showed continued left- sided pneumothorax about 15% which is stable. Patient has been afebrile. Patient developed urinary retention yesterday requiring placement of Garcia catheter. Urology was consulted. CT surgery and nephrology is following. Sodium level is 132 today. Currently on normal saline at 50 mL per hour. Patient was given a dose of IV Lasix today. Constitutional: Patient is still weak and looks much better today Cardio vascular: denied any chest pain, palpitations Gastrointestinal denied any nausea vomiting Pulmonary: Denied any shortness of breath cough Neurologic denied any new focal deficits All inpatient medications were reviewed and appropriate changes in these m edications as dictated in the interval history and assessment and plan. Current medications reviewed. 06/24/2019 Patient is seen and evaluated in follow-up currently sitting in the chair drinking contrast for CT abdomen that was ordered. Multiple medical consultations following. Patient remains on 2 L of oxygen via nasal cannula and reports no worsening of shortness of breath although continues to be short of breath with exertion. Discussed with the patient at length about continuing to use the incentive spirometer at least 10 times every hour while awake. Patient states he is attempting for 1000 although only been reaching 500 on the incentive spirometer. Patient continues to be quite weak and cachectic. Patient CT abdomen shows some dilated small bowel without definite transition zone with contrast seen within the colon with findings that may reflect ileus versus partial bowel obstruction, interval development of ascites and anasarca with bilateral pleural effusions with comprehensive atelectasis and/or infiltrates, and left-sided pneumothorax. Patient's chest x-ray today continues to show the left-sided pneumothorax approximately 10% and stable. Cardiothoracic surgery following an recommending no chest tube at this time. Surgery consulted for findings on the CT although patient and nursing staff states he had a large bowel movement today. Will await report. Patient continues with an indwelling Garcia catheter as he was retaining. Case management and social work following for possible rehab placement once stabilized and discharged. Currently no reports of chest pain or palpitations. Patient is afebrile. No reports of nausea or vomiting and patient has been tolerating diet. 06/25/2019 Patient is seen in follow-up today sitting up in the bed continues to have some abdominal distention and feelings of fullness and states he will be undergoing a paracentesis with interventional radiology. Will await report. Patient was seen and evaluated by surgery for possible ileus. Patient states he had a large bowel movement yesterday although has not had any bowel movements today. Patient has not been eating yet today although states he is hungry. Patient will be continued on full liquids and will monitor closely. Sodium is 131 today and albumin is low at 2.2. Patient will be receiving albumin prior and post paracentesis. Nephrology is following closely along with other multiple medical consultations. Patient will also be initiated on IV Lasix today. Patient remains on IV ceftriaxone along with oral Zithromax and will continue at this time. Sputum cultures showing Myesha albicans and will be initiated on Diflucan. Currently no reports of chest pain, worsening shortness of breath, or palpitations. Patient is afebrile. No reports of nausea or vomiting and patient is tolerating diet. Patient states his breathing has improved and cur rently remains on 2 L of oxygen via nasal cannula 100%. Objective - Vital Signs Vital signs: Vital Signs Temp 98.1 F 06/25/19 08:00 Pulse 104 H 06/25/19 11:06 Resp 16 06/25/19 08:00 BP 118/59 06/25/19 08:00 Pulse Ox 100 06/25/19 08:00 Intake & Output 06/24/19 06/25/19 06/25/19 18:59 06:59 18:59 Intake Total 1993 237 Output Total 903 1330 Balance 1091 -1330 237 Weight 43.1 kg 43.1 kg Intake: Oral 1993 Output: Urine 900 1330 Stool 3 Other: Voiding Method Indwelling Catheter Indwelling Catheter Indwelling Catheter # Voids 1 1 - Exam GENERAL: The patient is alert and oriented x3, not in any acute distress. thin built cachectic male HEENT: Pupils are round and equally reacting to light. EOMI. No scleral icterus. No conjunctival pallor. Normocephalic, atraumatic. No pharyngeal erythema. No thyromegaly. CARDIOVASCULAR: S1 and S2 present. No murmurs, rubs, or gallops. PULMONARY:bibasilar crackles bronchophony, decreased air entry into bilateral lung house ABDOMEN: taut, nontender, mildly distended, normoactive bowel sounds. No palpable organomegaly. MUSCULOSKELETAL: No joint swelling or deformity. EXTREMITIES: No cyanosis, clubbing, or pedal edema. NEUROLOGICAL: Gross neurological examination did not reveal any focal deficits. SKIN: No rashes. - Labs CBC & Chem 7: 06/24/19 06:04 06/25/19 12:37 Labs: Abnormal Lab Results - Last 24 Hours (Table) 06/24/19 06/24/19 06/24/19 Range/Units 06:04 16:54 20:14 Sodium (137-145) mmol/L Chloride (98-107) mmol/L Carbon Dioxide (22-30) mmol/L BUN (9-20) mg/dL Creatinine (0.66-1.25) mg/dL POC Glucose (mg/dL) 169 H 102 H (75-99) mg/dL Calcium (8.4-10.2) mg/dL Procalcitonin 0.18 H (0.02-0.09) ng/mL 06/25/19 Range/Units 05:24 Sodium 133 L (137-145) mmol/L Chloride 97 L (98-107) mmol/L Carbon Dioxide 33 H (22-30) mmol/L BUN 22 H (9-20) mg/dL Creatinine 0.56 L (0.66-1.25) mg/dL POC Glucose (mg/dL) (75-99) mg/dL Calcium 7.6 L (8.4-10.2) mg/dL Procalcitonin (0.02-0.09) ng/mL Microbiology - Last 24 Hours (Table) 06/22/19 21:05 Gram Stain - Final Sputum Sputum Culture - Final Myesha albicans 06/18/19 06:24 Blood Culture - Final Blood No Growth after 144 hours Assessment and Plan Assessment: -acute hypoxic respiratory failure probably secondary to bilateral pneumonia continue with Rocephin and azithromycin awaiting sputum cultures and blood cultures.be a competent of mild COPD exacerbation. there is no clinical evidence of congestive heart failure patient is on IV fluids. -Abdominal Ascites as noted on ultrasound. Patient to undergo paracentesis with interventional radiology today. Fluid analysis will be sent. -Small pneumothorax on the x-ray possibly from his fall: Cardiac thoracic surgery and pulmonary evaluated the patient no further intervention at this t abraham, stable -Leukocytosis: Secondary to sepsis with the his white blood cell all the cultures are so far negative. Blood and sputum cultures thus far remain negative. -COPD with acute exacerbation patient may have mild exacerbation -Euovolemic hyponatremia: Possible SIADH. Continue with IV fluids at 20 mL per hour and free water restriction. Nephrology is following. -Acute renal failure: Secondary to dehydration and intravascular depletion IV fluids as mentioned above. Improved -Mildly elevated troponin secondary to hypoxemia and renal failure. Renal failure improved -Chest pain. musculoskeletal in nature secondary to fall -Rule out syncope and seizure , Keppra levels are low lipid Keppra levels .EEG as mentioned above. Patient has therapeutic Keppra levels. -Seizure disorder continue with Keppra -Chronic diarrhea symptomatic treatment follow with gastroenterology as an outpatient -chronic pain -Cachexia which is chronic patient scan of the chest did not show any nodules but the patient need regular cancer screening as an outpatient. -Ruled out covid 19 -DVT prophylaxis with subcutaneous heparin
--- NOTE | 2019-06-25 14:10 | P.PN ---
Subjective Progress Note Date: 06/25/19 Principal diagnosis: Small left-sided pneumothorax 74-year-old white male patient of Dr. Oliveros with past medical history seizure disorder, osteoarthritis, GERD/reflux, nicotine dependence came into the emergency department on 06/17/2019 after sustaining a fall. Patient was in the bathroom and passed out and fell on the ground he does not remember the events leading up to his injury. EMS brought the patient to the hospital. He had recent hospitalization for severe diarrhea and weakness discharged on 04/23/2019, to rule out infective diarrhea. Patient was also having progressive weight loss and severe protein calorie malnutrition, was evaluated by gastroenterology. Admission chest x-ray showed bilateral acute infiltrates to mid to lower lungs. Head and cervical CT showed no acute fracture or dislocation of the cervical spine tiny left apical pneumothorax was noted, no acute intracranial hemorrhage or midline shift was seen, fairly moderate generalized atrophy and small vessel ischemic changes. CT angios of the chest showed no evidence of pulmonary embolism, and moderately severe pulmonary edema with small right pleural effusion, and nonspecific mediastinal and bronchial of nodes. Small left-sided pneumothorax was noted. Echocardiogram was completed s howing preserved left ventricular systolic function with EF of 60-65%, mild mitral regurgitation, mild tricuspid regurgitation, no evidence of pulmonary hypertension right-sided pressures were less than 35 mmHg. Admission labs showed a leukopenia with white blood cell, 2.2, hemoglobin of 15.1, d-dimer was 4.97 with CTA chest negative for pulmonary embolism, sodium was 132, and the rest of the electrolytes were within normal limits, BUN is 34 creatinine is 0.85. Coronavirus PCR was negative, urinalysis was negative, proBNP was 917, troponin 0.026, and 0.064, CRP was 10.8, LDH was 755, ferritin level is 348.9. Temperature on admission was 96.4F, sats was 91% on room air, patient did have periods of hypotension with a blood pressure as low as 71/56, EKG showed sinus tachycardia evidence of anterior infarct of undetermined age T-wave abnormality with consideration for lateral ischemia. Patient was placed on empiric antibiotics in the form of azithromycin and Rocephin for possibility of underlying pneumonia, he was fluid resuscitated on admission with improvement in his blood pressure. Procalcitonin level came back at 3.49 suggesting presence of bacterial infection. Follow-up chest x-ray today shows small to tiny left pneumothorax, possible slightly increased in size from one day earlier, and small to tiny bilateral pleural effusions felt to be stable, there is background of chronic emphysematous changes with bibasilar and left midlung acute infiltrate and/or atelectasis. Patient has been afebrile, she is fairly comfortable at rest, it appears to be in no acute distress. He seen on selective care unit, awake and alert, and altered mentation, responding appropriately, he remains on 3 L of oxygen with pulse ox of 94%, his been afebrile. Remains on empiric antibiotics with azithromycin and Rocephin On 06/20/2019 patient seen in follow-up on selective care unit, no worsening dyspnea, he is 97% on 3 L of oxygen, he is afebrile, hemodynamically patient is stable. He is short of breath with any exertion. Denies any chest pain. Chest x-ray showed left-sided pneumothorax of 10-15% with left basilar hydropneumothorax component, and scattered interstitial and airspace infiltrates throughout both lung house greatest at the lung bases with mild progression. There was increase in the white count on today's labs, up to 21.8, hemoglobin is 14.4, serum sodium is 131, the rest of her electrolytes were within normal limits, BUN of 23 creatinine 0.52. Blood culture remains negative, patient remains on azithromycin and Rocephin, patient continues to have diarrhea. He is on IV fluids of 0.9 normal saline at a rate 75 ML per hour, no nausea or vomiting. On 06/21/2019 patient seen in follow-up on selective care unit, patient is on 2 L of oxygen and the pulse ox of 95%, hemodynamically stable, does get short of breath especially with exertion, but no worsening dyspnea, he is afebrile, he remains on antibiotics for possibility of pneumonia, but no signs have been stable, no significant events overnight, today's chest x-ray shows redemonstration of 15% left-sided pneumothorax, and increasing right upper lobe reticular opacity and unchanged diffuse interstitial opacities. No altered mentation, no acute distress, patient is on minimal amount of supplemental oxygen, tolerating oral intake, he is extremely cachectic. He states his diarrhea has improved. No abdominal pain On 06/25/2019 patient seen in follow-up on selective care unit, he is up in the chair, appears to be in no acute distress. He is on 2 L of oxygen his pulse ox at home percent, vitals are stable, he is afebrile. He remains on a combination of azithromycin and Rocephin for possibility bibasilar pneumonia, probably calcitonin is trending down, patient has been afebrile, no increased cough or congestion, patient had the ultrasound of the abdomen which showed nonspecific bowel gas present, air and some debris in the colon, scattered air-fluid levels could be related to ileus, mild partial small bowel obstruction. CT of the abdomen showed dilated small bowel without definite transition zone reflect ileus versus partial obstruction, and interval development of ascites and anasarca, abdomen is more distended on today's exam. Patient's albumin is extremely low related to his overall poor nutritional status, he was given a dose of Lasix and albumin. He is in negative fluid balance, no worsening hypoxia. He is scheduled for ultrasound-guided paracentesis today for [facility]ce gnostic services. Objective - Vital Signs Vital signs: Vital Signs Temp 98.1 F 06/25/19 11:30 Pulse 92 06/25/19 13:56 Resp 16 06/25/19 13:56 BP 131/76 06/25/19 13:56 Pulse Ox 100 06/25/19 13:56 Intake & Output 06/24/19 06/25/19 06/25/19 18:59 06:59 18:59 Intake Total 1993 237 Output Total 903 1330 1200 Balance 1091 -1330 -963 Weight 43.1 kg 43.1 kg Intake: Oral 1993 237 Output: Urine 900 1330 1200 Stool 3 Other: Voiding Method Indwelling Catheter Indwelling Catheter Indwelling Catheter # Voids 1 1 # Bowel Movements 1 - Exam GENERAL EXAM: Alert, cachectic 74-year-old white male, on 2 L of oxygen with pulse ox of 100%, resting comfortably in bed, does not appear to be in any acute distress, patient IS showing signs of severe calorie malnutrition and muscle wasting comfortable in no apparent distress. HEAD: Normocephalic/atraumatic. EYES: Normal reaction of pupils, equal size. Conjunctiva pink, sclera white. NOSE: Clear with pink turbinates. THROAT: No erythema or exudates. NECK: No masses, no JVD, no thyroid enlargement, no adenopathy. CHEST: No chest wall deformity. Symmetrical expansion. LUNGS: Equal air entry with no crackles, wheeze, rhonchi or dullness. CVS: Regular rate and rhythm, normal S1 and S2, no gallops, no murmurs, no rubs ABDOMEN: Soft, nontender. No hepatosplenomegaly, normal bowel sounds, no guarding or rigidity. EXTREMITIES: No clubbing, no edema, no cyanosis, 2+ pulses and upper and lower extremities. MUSCULOSKELETAL: Muscle strength and tone normal. SPINE: No scoliosis or deformity SKIN: No rashes CENTRAL NERVOUS SYSTEM: Alert and oriented -3. No focal deficits, tone is normal in all 4 extremities. PSYCHIATRIC: Alert and oriented -3. Appropriate affect. Intact judgment and insight. - Labs CBC & Chem 7: 06/24/19 06:04 06/25/19 12:37 Labs: Abnormal Lab Results - Last 24 Hours (Table) 06/24/19 06/24/19 06/24/19 Range/Units 06:04 16:54 20:14 Sodium (137-145) mmol/L Chloride (98-107) mmol/L Carbon Dioxide (22-30) mmol/L BUN (9-20) mg/dL Creatinine (0.66-1.25) mg/dL POC Glucose (mg/dL) 169 H 102 H (75-99) mg/dL Calcium (8.4-10.2) mg/dL Total Protein (6.3-8.2) g/dL Albumin (3.5-5.0) g/dL Procalcitonin 0.18 H (0.02-0.09) ng/mL 06/25/19 06/25/19 06/25/19 Range/Units 05:24 11:36 12:37 Sodium 133 L 131 L (137-145) mmol/L Chloride 97 L 95 L (98-107) mmol/L Carbon Dioxide 33 H 34 H (22-30) mmol/L BUN 22 H 24 H (9-20) mg/dL Creatinine 0.56 L 0.52 L (0.66-1.25) mg/dL POC Glucose (mg/dL) 117 H (75-99) mg/dL Calcium 7.6 L 7.4 L (8.4-10.2) mg/dL Total Protein 4.6 L (6.3-8.2) g/dL Albumin 2.2 L (3.5-5.0) g/dL Procalcitonin (0.02-0.09) ng/mL Microbiology - Last 24 Hours (Table) 06/22/19 21:05 Gram Stain - Final Sputum Sputum Culture - Final Myesha albicans Assessment and Plan Plan: Assessment: #1. Acute hypoxic respiratory failure, multifactorial related to possibility of community acquired pneumonia, small pleural effusions, and tiny left pneumothorax of 10-15% with left basilar hydropneumothorax component #2. Weakness, general medical debility, gait dysfunction #3. A fall, and small left pneumothorax #4. History of seizures #5. Possible exacerbation of CHF with preserved systolic function #6. Hypotension multifactorial, related to dehydration, hypovolemia, and possibility of sepsis is not excluded. Recovered with IV hydration #7. Osteoarthritis #8. Glaucoma #9. Nicotine dependence #10. History of COPD, CTA chest shows for some at this changes #11. Possibility of interstitial lung disease in addition to acute pneumonia and mild exacerbation of CHF was not excluded #12. Recent hospitalization in April for her diarrhea, weight loss please refer to the medical records #13. Mild hyponatremia present on admission likely related to hypovolemia #14. Acute kidney injury related to intravascular volume depletion #15. Chronic diarrhea follows with gastroenterology #16. Chronic cachexia, protein calorie malnutrition and continued weight loss Plan: We will order a CEA level, no worsening hypoxemia, patient is scheduled for diagnostic ultrasound-guided paracentesis today, underlying malignancy is suspected, and a diagnosis not obtained through ascitic fluid cytology, we may proceed with left thoracentesis for diagnostic purposes. For now continue current medical treatment, pro-calcitonin is improving, and continue current antibiotics I performed a history & physical examination of the patient and discussed their management with my nurse practitioner, Liudmila Mcconnell. I reviewed the nurse practitioner's note and agree with the documented findings and plan of care. Lung sounds are positive for diminished breath sounds. The findings and the impression was discussed with the patient. I attest to the documentation by the nurse practitioner. Time with Patient: Less than 30
--- NOTE | 2019-06-25 14:37 | US ---
EXAMINATION TYPE: US paracentesis abd w/image DATE OF EXAM: 06/25/2019 COMPARISON: NONE HISTORY: Ascites. PROCEDURE: Maximal barrier technique was utilized. The skin overlying a suitable pocket of fluid was localized with ultrasound and the overlying skin was prepped and draped. Ultrasound was utilized with sterile technique. Lidocaine was used for local anesthesia and a skin gila made with a scalpel. Catheter was advanced under direct ultrasound guidance into a suitable pocket of fluid and approximately 0.1 liter s of serous fluid were removed. Catheter was withdrawn and hemostasis achieved. There is no immedia te complication; the patient is discharged in stable condition. IMPRESSION: STATUS POST ULTRASOUND GUIDED PARACENTESIS FOR PALLIATION OF ASCITES. THIS PROCEDURE WA S PERFORMED BY THE UNDERSIGNED.
[2019-06-25 15:59] LABS: Appearance,BF Clear; Color,BF Colorless
[2019-06-25 16:00] LABS: Nucleated Cells, Body Fluid 32 /uL; RBC, Body Fluid 37 /uL
[2019-06-25 16:02] LABS: Mononuclear WBC,Body Fluid 45 %; Polynuclear WBC,Body Fluid 55 %; Total Cells Counted,Body Fluid 100
[2019-06-25 16:42] LABS: Glucose,Whole Blood 164 mg/dL (75-99)
[2019-06-25 20:27] LABS: Glucose,Whole Blood 112 mg/dL (75-99)
[2019-06-25] MEDS: SODIUM CHLORIDE 0.9% 1,000 ML IV SCH (21:32)
[2019-06-25] MEDS: ZOLPIDEM 10 MG TAB PO PRN (22:14)
[2019-06-25] MEDS: FUROSEMIDE 10 MG/ML 4 ML VIAL IV SCH (22:14)
[2019-06-26] MEDS: MORPHINE SULFATE IR 15 MG TABLET PO PRN ×4 (03:29→22:28)
[2019-06-26] MEDS: AZITHROMYCIN 500 MG TAB PO SCH (03:30)
[2019-06-26 05:56] LABS: Glucose,Whole Blood 121 mg/dL (75-99)
[2019-06-26] MEDS: INSULIN ASPART (NovoLOG) 100 UNIT/ML VIAL SQ SCH ×4 (06:02→20:55)
[2019-06-26] MEDS: PANTOPRAZOLE 40 MG TABLET PO SCH (06:20)
[2019-06-26 06:36] LABS: ALT 29 U/L (4-49); AST 32 U/L (17-59); African American GFR (CKD) >90 (>60 ml/min/1.73 sqM); Albumin 2.5 g/dL (3.5-5.0); Alkaline Phosphatase 69 U/L (38-126); Anion Gap 6 mmol/L; Blood Urea Nitrogen 23 mg/dL (9-20); Calcium 7.9 mg/dL (8.4-10.2); Carbon Dioxide 31 mmol/L (22-30); Chloride 95 mmol/L (98-107); Glucose 79 mg/dL (74-99); Non-African American GFR(CKD) >90 (>60 ml/min/1.73 sqM); Potassium 4.3 mmol/L (3.5-5.1); Sodium 132 mmol/L (137-145); Total Bilirubin 0.4 mg/dL (0.2-1.3); Total Protein 4.6 g/dL (6.3-8.2)
[2019-06-26] MEDS: IPRATROPIUM-ALBUTEROL 3 ML NEB INHALATION SCH ×4 (07:50→19:50)
[2019-06-26] MEDS: BUDESONIDE 0.5 MG/2 ML NEBU INHALATION SCH ×2 (07:50→19:50)
[2019-06-26] MEDS: MAGNESIUM OXIDE 400 MG TAB PO SCH (08:27)
[2019-06-26] MEDS: levETIRAcetam 500 MG TAB PO SCH ×2 (08:27→21:00)
[2019-06-26] MEDS: HEPARIN SODIUM,PORCINE 5,000 UNIT/ML 1 ML VIAL SQ SCH ×2 (08:27→21:00)
[2019-06-26] MEDS: FLUCONAZOLE 100 MG TAB PO SCH (08:27)
[2019-06-26] MEDS: levETIRAcetam 250 MG TAB PO SCH ×2 (08:27→21:00)
[2019-06-26] MEDS: FUROSEMIDE 10 MG/ML 4 ML VIAL IV SCH (08:28)
[2019-06-26] MEDS: CYCLOBENZAPRINE 10 MG TAB PO PRN ×2 (08:37→17:44)
--- NOTE | 2019-06-26 08:49 | P.PN ---
Progress Note - Text Progress Note Date: 06/26/19 Garcia catheter remains in place, and is draining clear yellow urine. Computed tomography scan shows evidence of ascites and anasarca. Given the patient's lack of voiding symptoms, it is very likely that the bladder scan reading was erroneously high, as a result of the ascites. I would suggest that the Garcia catheter be removed were no longer needed. Please notify me if the patient experiences voiding difficulties upon catheter removal, or if I can be of any further assistance.
--- NOTE | 2019-06-26 09:37 | P.PN ---
<Mariel Meadows Arturo - Last Filed: 06/26/19 09:30> Subjective Progress Note Date: 06/26/19 CHIEF COMPLAINT: Ileus versus obstruction HISTORY OF PRESENT ILLNESS: Patient examined this morning at the bedside. He is s/p paracentesis. He denies abdominal pain. Tolerating regular diet. No nausea or vomiting. Passing flatus. No BM today but patient states he feels the urge to have a bowel movement soon. PHYSICAL EXAM: VITAL SIGNS: Reviewed. GENERAL: Well-developed in no acute distress. Thin. Cachectic. HEENT: No sclera icterus. Extraocular movements grossly intact. Moist buccal mucosa. Head is atraumatic, normocephalic. ABDOMEN: Soft. Mildly distended. No pain with palpation. NEUROLOGIC: Alert and oriented. Cranial nerves II through XII grossly intact. ASSESSMENT: 1. Possible ileus, resolved 2. Severe protein calorie malnutrition, albumin 1.6, BMI 15 3. Ascites PLAN: Continue diet as tolerated Await cytology from ascites fluid Nurse practitioner note has been reviewed by physician. Signing provider agrees with the documented findings, assessment, and plan of care. Objective - Vital Signs Vital signs: Vital Signs Temp 97.7 F 06/26/19 08:00 Pulse 100 06/26/19 08:09 Resp 18 06/26/19 08:00 BP 105/61 06/26/19 08:00 Pulse Ox 100 06/26/19 08:00 Intake & Output 06/25/19 06/26/19 06/26/19 18:59 06:59 18:59 Intake Total 237 240 Output Total 1701 1650 1 Balance -1464 -1650 239 Weight 43.1 kg 43 kg Intake: Oral 237 240 Output: Urine 1700 1650 Stool 1 1 Other: Voiding Method Indwelling Catheter Indwelling Catheter Indwelling Catheter # Bowel Movements 1 1 - Labs CBC & Chem 7: 06/24/19 06:04 06/26/19 05:04 Labs: Abnormal Lab Results - Last 24 Hours (Table) 06/25/19 06/25/19 06/25/19 Range/Units 11:36 12:37 16:30 Sodium 131 L (137-145) mmol/L Chloride 95 L (98-107) mmol/L Carbon Dioxide 34 H (22-30) mmol/L BUN 24 H (9-20) mg/dL Creatinine 0.52 L (0.66-1.25) mg/dL POC Glucose (mg/dL) 117 H 164 H (75-99) mg/dL Calcium 7.4 L (8.4-10.2) mg/dL Total Protein 4.6 L (6.3-8.2) g/dL Albumin 2.2 L (3.5-5.0) g/dL 06/25/19 06/26/19 06/26/19 Range/Units 20:26 05:04 05:54 Sodium 132 L (137-145) mmol/L Chloride 95 L (98-107) mmol/L Carbon Dioxide 31 H (22-30) mmol/L BUN 23 H (9-20) mg/dL Creatinine 0.54 L (0.66-1.25) mg/dL POC Glucose (mg/dL) 112 H 121 H (75-99) mg/dL Calcium 7.9 L (8.4-10.2) mg/dL Total Protein 4.6 L (6.3-8.2) g/dL Albumin 2.5 L (3.5-5.0) g/dL Microbiology - Last 24 Hours (Table) 06/25/19 10:09 Gram Stain - Preliminary Peritoneal Fluid Body Fluid Culture - Preliminary 06/25/19 10:10 Fungal Culture - Preliminary Peritoneal Fluid 06/22/19 21:05 Gram Stain - Final Sputum Sputum Culture - Final Myesha albicans <Quinn Hemphill - Last Filed: 06/26/19 10:25> Subjective As above. Patient denies pain. Tolerating diet. No diarrhea. No nausea or vomiting. Paracentesis performed yesterday. Results pending. Await cytology. Objective - Vital Signs Vital signs: Vital Signs Temp 97.7 F 06/26/19 08:00 Pulse 100 06/26/19 08:09 Resp 18 06/26/19 08:00 BP 105/61 06/26/19 08:00 Pulse Ox 100 06/26/19 08:00 Intake & Output 06/25/19 06/26/19 06/26/19 18:59 06:59 18:59 Intake Total 237 240 Output Total 1701 1650 1 Balance -1464 -1650 239 Weight 43.1 kg 43 kg Intake: Oral 237 240 Output: Urine 1700 1650 Stool 1 1 Other: Voiding Method Indwelling Catheter Indwelling Catheter Indwelling Catheter # Bowel Movements 1 1 - Labs CBC & Chem 7: 06/24/19 06:04 06/26/19 05:04 Labs: Abnormal Lab Results - Last 24 Hours (Table) 06/25/19 06/25/19 06/25/19 Range/Units 11:36 12:37 16:30 Sodium 131 L (137-145) mmol/L Chloride 95 L (98-107) mmol/L Carbon Dioxide 34 H (22-30) mmol/L BUN 24 H (9-20) mg/dL Creatinine 0.52 L (0.66-1.25) mg/dL POC Glucose (mg/dL) 117 H 164 H (75-99) mg/dL Calcium 7.4 L (8.4-10.2) mg/dL Total Protein 4.6 L (6.3-8.2) g/dL Albumin 2.2 L (3.5-5.0) g/dL 06/25/19 06/26/19 06/26/19 Range/Units 20:26 05:04 05:54 Sodium 132 L (137-145) mmol/L Chloride 95 L (98-107) mmol/L Carbon Dioxide 31 H (22-30) mmol/L BUN 23 H (9-20) mg/dL Creatinine 0.54 L (0.66-1.25) mg/dL POC Glucose (mg/dL) 112 H 121 H (75-99) mg/dL Calcium 7.9 L (8.4-10.2) mg/dL Total Protein 4.6 L (6.3-8.2) g/dL Albumin 2.5 L (3.5-5.0) g/dL Microbiology - Last 24 Hours (Table) 06/25/19 10:09 Gram Stain - Preliminary Peritoneal Fluid Body Fluid Culture - Preliminary 06/25/19 10:10 Fungal Culture - Preliminary Peritoneal Fluid 06/22/19 21:05 Gram Stain - Final Sputum Sputum Culture - Final Myesha albicans
--- NOTE | 2019-06-26 11:14 | XR ---
EXAMINATION TYPE: XR chest 1V portable DATE OF EXAM: 06/26/2019 HISTORY: Shortness of breath. COMPARISON: None. TECHNIQUE: Single view of the chest is submitted. FINDINGS: Demonstrated are scattered senescent parenchymal change. Stable all left-sided pneumothorax. Persistent but improved right upper lobe infiltrate. Stable basil ar patchy infiltrates. The heart is stable. Hilar and mediastinal structures are within normal limits. Degenerative changes are seen of the dorsal spine. IMPRESSION: 1. Stable all left-sided pneumothorax. Persistent but improved right upper lobe infiltrate. Stable b asilar patchy infiltrates.
--- NOTE | 2019-06-26 11:20 | P.PN ---
Subjective Progress Note Date: 06/26/19 Principal diagnosis: Pneumothorax Patient is admitted after a fall found to have pneumonia patient is on treatment for pneumonia. We'll cut down the IV fluids and 5 mL per hour patient is quite a bit dehydrated on admission. Repeat chest x-rays showed small pneumothorax probably from fall. Patient has atypical chest pain from fall. Unsure whether patient has syncope patient also has a seizure disorder EEG was obtained which did not show any epileptiform focus but did show severe encephalopathy. Keppra levels are low and patient is being can urine For will obtain levels again today if they're still low will consult neurology will increase the Keppra dose. Patient's clinical exam remains the same. Cardiology evaluated the patient for chest pain no further dictation from that perspective. Patient remains hyponatremic. 06/20/2019 Patient white blood cell count went up to 25,000 patient doesn't have any diarrhea patient also clinically looks better patient has 10-15% pneumothorax pulmonary recommended consultation with parathoracic surgery were consulted. 06/21/2019 Patient white blood cell count remains at the same level around 22,000 pneumothorax remains the same overall patient looks better but will need disposition to subacute rehabilitation may be able to be discharged tomorrow or Monday. 06/22/2019 Patient is currently awake alert and oriented 3. Lying in the bed comfortably. Currently saturating well on room air. Denied any complaints of chest pain are worsening shortness of breath. Chest x-ray showed 15% left-sided pneumothorax. Patient is being followed by CT surgery. Also antibodies the form of ceftriaxone and azithromycin. Patient has been afebrile. WBC trending down to 1.0. Renal function is stable. 06/23/2019 Patient is currently lying in the bed comfortably. Awake alert and oriented. Denied any complaints of chest pain or worsening shortness of breath. Currently on oxygen with another cannula at 2 L. Chest x-ray today showed continued left- sided pneumothorax about 15% which is stable. Patient has been afebrile. Patient developed urinary retention yesterday requiring placement of Garcia catheter. Urology was consulted. CT surgery and nephrology is following. Sodium level is 132 today. Currently on normal saline at 50 mL per hour. Patient was given a dose of IV Lasix today. Constitutional: Patient is still weak and looks much better today Cardio vascular: denied any chest pain, palpitations Gastrointestinal denied any nausea vomiting Pulmonary: Denied any shortness of breath cough Neurologic denied any new focal deficits All inpatient medications were reviewed and appropriate changes in these m edications as dictated in the interval history and assessment and plan. Current medications reviewed. 06/24/2019 Patient is seen and evaluated in follow-up currently sitting in the chair drinking contrast for CT abdomen that was ordered. Multiple medical consultations following. Patient remains on 2 L of oxygen via nasal cannula and reports no worsening of shortness of breath although continues to be short of breath with exertion. Discussed with the patient at length about continuing to use the incentive spirometer at least 10 times every hour while awake. Patient states he is attempting for 1000 although only been reaching 500 on the incentive spirometer. Patient continues to be quite weak and cachectic. Patient CT abdomen shows some dilated small bowel without definite transition zone with contrast seen within the colon with findings that may reflect ileus versus partial bowel obstruction, interval development of ascites and anasarca with bilateral pleural effusions with comprehensive atelectasis and/or infiltrates, and left-sided pneumothorax. Patient's chest x-ray today continues to show the left-sided pneumothorax approximately 10% and stable. Cardiothoracic surgery following an recommending no chest tube at this time. Surgery consulted for findings on the CT although patient and nursing staff states he had a large bowel movement today. Will await report. Patient continues with an indwelling Garcia catheter as he was retaining. Case management and social work following for possible rehab placement once stabilized and discharged. Currently no reports of chest pain or palpitations. Patient is afebrile. No reports of nausea or vomiting and patient has been tolerating diet. 06/25/2019 Patient is seen in follow-up today sitting up in the bed continues to have some abdominal distention and feelings of fullness and states he will be undergoing a paracentesis with interventional radiology. Will await report. Patient was seen and evaluated by surgery for possible ileus. Patient states he had a large bowel movement yesterday although has not had any bowel movements today. Patient has not been eating yet today although states he is hungry. Patient will be continued on full liquids and will monitor closely. Sodium is 131 today and albumin is low at 2.2. Patient will be receiving albumin prior and post paracentesis. Nephrology is following closely along with other multiple medical consultations. Patient will also be initiated on IV Lasix today. Patient remains on IV ceftriaxone along with oral Zithromax and will continue at this time. Sputum cultures showing Myesha albicans and will be initiated on Diflucan. Currently no reports of chest pain, worsening shortness of breath, or palpitations. Patient is afebrile. No reports of nausea or vomiting and patient is tolerating diet. Patient states his breathing has improved and cur rently remains on 2 L of oxygen via nasal cannula 100%. 06/26/2019 Patient is seen in follow-up today sitting up in the bed with no acute overnight issues. Underwent abdominal paracentesis for fluid collection analysis and tolerated well. Multiple medical consultations following. Patient denies any abdominal pain or discomfort and has been tolerating diet. Patient states he is passing gas and having bowel movements with no difficulties. Repeat chest x-ray today shows stable left-sided pneumothorax with persistent but improved right upper lobe infiltrate and stable basilar patchy infiltrates. Pulmonary is following. Patient continues to use incentive spirometer and states his breathing has improved. Patient currently remains on 2 L oxygen via nasal cannula and saturating 100%. Patient continues to have an indwelling Garcia catheter and was seen and evaluated by urology and recommends discontinuation of the Garcia catheter to assess for voiding difficulties and or retention. Garcia catheter may be removed today. Currently no reports of chest pain, shortness of breath, or palpitations. Patient is afebrile. No reports of nausea or vomiting and patient is tolerating diet. Awaiting fluid analysis report at this time. Objective - Vital Signs Vital signs: Vital Signs Temp 97.4 F L 06/26/19 04:00 Pulse 100 06/26/19 08:09 Resp 17 06/26/19 04:00 BP 112/69 06/26/19 04:00 Pulse Ox 99 06/26/19 04:00 Intake & Output 06/25/19 06/26/19 06/26/19 18:59 06:59 18:59 Intake Total 237 240 Output Total 1701 1650 Balance -1464 -1650 240 Weight 43.1 kg 43 kg Intake: Oral 237 240 Output: Urine 1700 1650 Stool 1 Other: Voiding Method Indwelling Catheter Indwelling Catheter # Bowel Movements 1 1 - Exam GENERAL: The patient is alert and oriented x3, not in any acute distress. thin built cachectic male HEENT: Pupils are round and equally reacting to light. EOMI. No scleral icterus. No conjunctival pallor. Normocephalic, atraumatic. No pharyngeal erythema. No thyromegaly. CARDIOVASCULAR: S1 and S2 present. No murmurs, rubs, or gallops. PULMONARY:bibasilar crackles bronchophony, decreased air entry into bilateral lung house ABDOMEN: Soft, nontender, mildly distended, normoactive bowel sounds. No palpable organomegaly. MUSCULOSKELETAL: No joint swelling or deformity. EXTREMITIES: No cyanosis, clubbing, or pedal edema. NEUROLOGICAL: Gross neurological examination did not reveal any focal deficits. SKIN: No rashes. - Labs CBC & Chem 7: 06/24/19 06:04 06/26/19 05:04 Labs: Abnormal Lab Results - Last 24 Hours (Table) 06/25/19 06/25/19 06/25/19 Range/Units 11:36 12:37 16:30 Sodium 131 L (137-145) mmol/L Chloride 95 L (98-107) mmol/L Carbon Dioxide 34 H (22-30) mmol/L BUN 24 H (9-20) mg/dL Creatinine 0.52 L (0.66-1.25) mg/dL POC Glucose (mg/dL) 117 H 164 H (75-99) mg/dL Calcium 7.4 L (8.4-10.2) mg/dL Total Protein 4.6 L (6.3-8.2) g/dL Albumin 2.2 L (3.5-5.0) g/dL 06/25/19 06/26/19 06/26/19 Range/Units 20:26 05:04 05:54 Sodium 132 L (137-145) mmol/L Chloride 95 L (98-107) mmol/L Carbon Dioxide 31 H (22-30) mmol/L BUN 23 H (9-20) mg/dL Creatinine 0.54 L (0.66-1.25) mg/dL POC Glucose (mg/dL) 112 H 121 H (75-99) mg/dL Calcium 7.9 L (8.4-10.2) mg/dL Total Protein 4.6 L (6.3-8.2) g/dL Albumin 2.5 L (3.5-5.0) g/dL Microbiology - Last 24 Hours (Table) 06/25/19 10:09 Gram Stain - Preliminary Peritoneal Fluid Body Fluid Culture - Preliminary 06/25/19 10:10 Fungal Culture - Preliminary Peritoneal Fluid 06/22/19 21:05 Gram Stain - Final Sputum Sputum Culture - Final Myesha albicans Assessment and Plan Assessment: -acute hypoxic respiratory failure probably secondary to bilateral pneumonia continue with Rocephin and azithromycin awaiting sputum cultures and blood cultures.be a component of mild COPD exacerbation. there is no clinical evidence of congestive heart failure patient is on IV fluids. -Abdominal Ascites as noted on ultrasound. Patient underwent paracentesis with interventional radiology today. Fluid analysis will be sent and report pending. -Small pneumothorax on the x-ray possibly from his fall: Cardiac thoracic surgery and pulmonary evaluated the patient no further intervention at this time, stable -Leukocytosis: Secondary to sepsis with the his white blood cell all the cultures are so far negative. Blood and sputum cultures thus far remain negative. -COPD with acute exacerbation patient may have mild exacerbation -Euovolemic hyponatremia: Possible SIADH. Continue with IV fluids at 20 mL per hour and free water restriction. Nephrology is following. -Acute renal failure: Secondary to dehydration and intravascular depletion IV fluids as mentioned above. Improved -Mildly elevated troponin secondary to hypoxemia and renal failure. Renal failure improved -Chest pain. musculoskeletal in nature secondary to fall -Rule out syncope and seizure , Keppra levels are low lipid Keppra levels .EEG as mentioned above. Patient has therapeutic Keppra levels. -Seizure disorder continue with Keppra -Chronic diarrhea symptomatic treatment follow with gastroenterology as an outpatient -chronic pain -Cachexia which is chronic patient scan of the chest did not show any nodules but the patient need regular cancer screening as an outpatient. -Ruled out covid 19 -DVT prophylaxis with subcutaneous heparin
[2019-06-26 11:26] LABS: Glucose,Whole Blood 157 mg/dL (75-99)
--- NOTE | 2019-06-26 11:48 | P.PN ---
Subjective Patient is seen in follow-up for hyponatremia. Sodium level is stable at 132 today. Currently has Garcia catheter for urinary retention. Urine output documented is 1.6 L in the last 24 hours. Still quite edematous. No changes overnight. Vital signs are stable. General: The patient appeared well nourished and normally developed. HEENT: Head exam is unremarkable. Neck is without jugular venous distension. LUNGS: Lungs are clear to auscultation and percussion. Breath sounds decreased. HEART: Rate and Rhythm are regular. ABDOMEN: Mild distention noted. Nontender. EXTREMITITES: 2+ edema. Objective - Vital Signs Vital signs: Vital Signs Temp 97.7 F 06/26/19 08:00 Pulse 92 06/26/19 11:39 Resp 18 06/26/19 08:00 BP 105/61 06/26/19 08:00 Pulse Ox 100 06/26/19 08:00 Intake & Output 06/25/19 06/26/19 06/26/19 18:59 06:59 18:59 Intake Total 237 240 Output Total 1701 1650 1 Balance -1464 -1650 239 Weight 43.1 kg 43 kg Intake: Oral 237 240 Output: Urine 1700 1650 Stool 1 1 Other: Voiding Method Indwelling Catheter Indwelling Catheter Indwelling Catheter # Bowel Movements 1 1 - Labs CBC & Chem 7: 06/24/19 06:04 06/26/19 05:04 Labs: Abnormal Lab Results - Last 24 Hours (Table) 06/25/19 06/25/19 06/25/19 Range/Units 11:36 12:37 16:30 Sodium 131 L (137-145) mmol/L Chloride 95 L (98-107) mmol/L Carbon Dioxide 34 H (22-30) mmol/L BUN 24 H (9-20) mg/dL Creatinine 0.52 L (0.66-1.25) mg/dL POC Glucose (mg/dL) 117 H 164 H (75-99) mg/dL Calcium 7.4 L (8.4-10.2) mg/dL Total Protein 4.6 L (6.3-8.2) g/dL Albumin 2.2 L (3.5-5.0) g/dL 06/25/19 06/26/19 06/26/19 Range/Units 20:26 05:04 05:54 Sodium 132 L (137-145) mmol/L Chloride 95 L (98-107) mmol/L Carbon Dioxide 31 H (22-30) mmol/L BUN 23 H (9-20) mg/dL Creatinine 0.54 L (0.66-1.25) mg/dL POC Glucose (mg/dL) 112 H 121 H (75-99) mg/dL Calcium 7.9 L (8.4-10.2) mg/dL Total Protein 4.6 L (6.3-8.2) g/dL Albumin 2.5 L (3.5-5.0) g/dL 06/26/19 Range/Units 11:11 Sodium (137-145) mmol/L Chloride (98-107) mmol/L Carbon Dioxide (22-30) mmol/L BUN (9-20) mg/dL Creatinine (0.66-1.25) mg/dL POC Glucose (mg/dL) 157 H (75-99) mg/dL Calcium (8.4-10.2) mg/dL Total Protein (6.3-8.2) g/dL Albumin (3.5-5.0) g/dL Microbiology - Last 24 Hours (Table) 06/25/19 10:09 Gram Stain - Preliminary Peritoneal Fluid Body Fluid Culture - Preliminary 06/25/19 10:10 Fungal Culture - Preliminary Peritoneal Fluid 06/22/19 21:05 Gram Stain - Final Sputum Sputum Culture - Final Myesha albicans Assessment and Plan Plan: Assessment: 1. Hypervolemic hyponatremia. Stable. Patient is also on Keppra which can induce SIADH. Additionally respiratory infection can also induce SIADH. TSH normal. Urine osmolality high at 934. Urine sodium 164. 2. Pneumonia maintained on antibiotics. 3. Status post fall with left pneumothorax. 4. Acute on chronic diastolic CHF. 5. Urinary retention status post Garcia catheter placement. Urology following. 6. Volume overload. 7. Hypomagnesemia due to poor oral intake. Better. Plan: Encourage oral intake, especially protein. Maintain ensure 3 times daily. 1500 mL fluid restriction. Discontinue IV push Lasix. Start Lasix drip at 10 mL an hour. Status post IV albumin on June 24. Repeat electrolytes in the morning.
--- NOTE | 2019-06-26 11:53 | P.PN ---
Subjective Progress Note Date: 06/26/19 Principal diagnosis: Small left-sided pneumothorax 74-year-old white male patient of Dr. Oliveros with past medical history seizure disorder, osteoarthritis, GERD/reflux, nicotine dependence came into the emergency department on 06/17/2019 after sustaining a fall. Patient was in the bathroom and passed out and fell on the ground he does not remember the events leading up to his injury. EMS brought the patient to the hospital. He had recent hospitalization for severe diarrhea and weakness discharged on 04/23/2019, to rule out infective diarrhea. Patient was also having progressive weight loss and severe protein calorie malnutrition, was evaluated by gastroenterology. Admission chest x-ray showed bilateral acute infiltrates to mid to lower lungs. Head and cervical CT showed no acute fracture or dislocation of the cervical spine tiny left apical pneumothorax was noted, no acute intracranial hemorrhage or midline shift was seen, fairly moderate generalized atrophy and small vessel ischemic changes. CT angios of the chest showed no evidence of pulmonary embolism, and moderately severe pulmonary edema with small right pleural effusion, and nonspecific mediastinal and bronchial of nodes. Small left-sided pneumothorax was noted. Echocardiogram was completed s howing preserved left ventricular systolic function with EF of 60-65%, mild mitral regurgitation, mild tricuspid regurgitation, no evidence of pulmonary hypertension right-sided pressures were less than 35 mmHg. Admission labs showed a leukopenia with white blood cell, 2.2, hemoglobin of 15.1, d-dimer was 4.97 with CTA chest negative for pulmonary embolism, sodium was 132, and the rest of the electrolytes were within normal limits, BUN is 34 creatinine is 0.85. Coronavirus PCR was negative, urinalysis was negative, proBNP was 917, troponin 0.026, and 0.064, CRP was 10.8, LDH was 755, ferritin level is 348.9. Temperature on admission was 96.4F, sats was 91% on room air, patient did have periods of hypotension with a blood pressure as low as 71/56, EKG showed sinus tachycardia evidence of anterior infarct of undetermined age T-wave abnormality with consideration for lateral ischemia. Patient was placed on empiric antibiotics in the form of azithromycin and Rocephin for possibility of underlying pneumonia, he was fluid resuscitated on admission with improvement in his blood pressure. Procalcitonin level came back at 3.49 suggesting presence of bacterial infection. Follow-up chest x-ray today shows small to tiny left pneumothorax, possible slightly increased in size from one day earlier, and small to tiny bilateral pleural effusions felt to be stable, there is background of chronic emphysematous changes with bibasilar and left midlung acute infiltrate and/or atelectasis. Patient has been afebrile, she is fairly comfortable at rest, it appears to be in no acute distress. He seen on selective care unit, awake and alert, and altered mentation, responding appropriately, he remains on 3 L of oxygen with pulse ox of 94%, his been afebrile. Remains on empiric antibiotics with azithromycin and Rocephin On 06/20/2019 patient seen in follow-up on selective care unit, no worsening dyspnea, he is 97% on 3 L of oxygen, he is afebrile, hemodynamically patient is stable. He is short of breath with any exertion. Denies any chest pain. Chest x-ray showed left-sided pneumothorax of 10-15% with left basilar hydropneumothorax component, and scattered interstitial and airspace infiltrates throughout both lung house greatest at the lung bases with mild progression. There was increase in the white count on today's labs, up to 21.8, hemoglobin is 14.4, serum sodium is 131, the rest of her electrolytes were within normal limits, BUN of 23 creatinine 0.52. Blood culture remains negative, patient remains on azithromycin and Rocephin, patient continues to have diarrhea. He is on IV fluids of 0.9 normal saline at a rate 75 ML per hour, no nausea or vomiting. On 06/21/2019 patient seen in follow-up on selective care unit, patient is on 2 L of oxygen and the pulse ox of 95%, hemodynamically stable, does get short of breath especially with exertion, but no worsening dyspnea, he is afebrile, he remains on antibiotics for possibility of pneumonia, but no signs have been stable, no significant events overnight, today's chest x-ray shows redemonstration of 15% left-sided pneumothorax, and increasing right upper lobe reticular opacity and unchanged diffuse interstitial opacities. No altered mentation, no acute distress, patient is on minimal amount of supplemental oxygen, tolerating oral intake, he is extremely cachectic. He states his diarrhea has improved. No abdominal pain On 06/25/2019 patient seen in follow-up on selective care unit, he is up in the chair, appears to be in no acute distress. He is on 2 L of oxygen his pulse ox at home percent, vitals are stable, he is afebrile. He remains on a combination of azithromycin and Rocephin for possibility bibasilar pneumonia, probably calcitonin is trending down, patient has been afebrile, no increased cough or congestion, patient had the ultrasound of the abdomen which showed nonspecific bowel gas present, air and some debris in the colon, scattered air-fluid levels could be related to ileus, mild partial small bowel obstruction. CT of the abdomen showed dilated small bowel without definite transition zone reflect ileus versus partial obstruction, and interval development of ascites and anasarca, abdomen is more distended on today's exam. Patient's albumin is extremely low related to his overall poor nutritional status, he was given a dose of Lasix and albumin. He is in negative fluid balance, no worsening hypoxia. He is scheduled for ultrasound-guided paracentesis today for alyce gnostic services. On 06/26/2019 patient seen in follow-up, he is resting in bed, denies any acute distress, he is on 2 L of oxygen with pulse ox 100%, he status post diagnostic paracentesis would removal of 100 mL of ascitic fluid which was sent for analysis and cytology. Awaiting results the cytology, patient has been afebrile, patient has completed his course of Rocephin and azithromycin, no f ever or chills, his latest pro-calcitonin level from 06/24/2019 has come down nicely, 20.18 from 3.49 on admission. No cough or congestion, no complaints of abdominal pain, he states his appetite is fair. He continues on IV Lasix. Patient is in -3114 mL fluid balance, today's chest x-ray was reviewed, showing stable left sided pneumothorax, stable basilar patchy infiltrates, persistent but improved right upper lobe infiltrate. Objective - Vital Signs Vital signs: Vital Signs Temp 97.7 F 06/26/19 08:00 Pulse 92 06/26/19 11:39 Resp 18 06/26/19 08:00 BP 105/61 06/26/19 08:00 Pulse Ox 100 06/26/19 08:00 Intake & Output 06/25/19 06/26/19 06/26/19 18:59 06:59 18:59 Intake Total 237 240 Output Total 1701 1650 1 Balance -1464 -1650 239 Weight 43.1 kg 43 kg Intake: Oral 237 240 Output: Urine 1700 1650 Stool 1 1 Other: Voiding Method Indwelling Catheter Indwelling Catheter Indwelling Catheter # Bowel Movements 1 1 - Exam GENERAL EXAM: Alert, cachectic 74-year-old white male, on 2 L of oxygen with pulse ox of 100%, resting comfortably in bed, does not appear to be in any acute distress, patient IS showing signs of severe calorie malnutrition and muscle wasting comfortable in no apparent distress. HEAD: Normocephalic/atraumatic. EYES: Normal reaction of pupils, equal size. Conjunctiva pink, sclera white. NOSE: Clear with pink turbinates. THROAT: No erythema or exudates. NECK: No masses, no JVD, no thyroid enlargement, no adenopathy. CHEST: No chest wall deformity. Symmetrical expansion. LUNGS: Equal air entry with no crackles, wheeze, rhonchi or dullness. CVS: Regular rate and rhythm, normal S1 and S2, no gallops, no murmurs, no rubs ABDOMEN: Soft, nontender. No hepatosplenomegaly, normal bowel sounds, no guarding or rigidity. EXTREMITIES: No clubbing, no edema, no cyanosis, 2+ pulses and upper and lower extremities. MUSCULOSKELETAL: Muscle strength and tone normal. SPINE: No scoliosis or deformity SKIN: No rashes CENTRAL NERVOUS SYSTEM: Alert and oriented -3. No focal deficits, tone is normal in all 4 extremities. PSYCHIATRIC: Alert and oriented -3. Appropriate affect. Intact judgment and insight. - Labs CBC & Chem 7: 06/24/19 06:04 06/26/19 05:04 Labs: Abnormal Lab Results - Last 24 Hours (Table) 06/25/19 06/25/19 06/25/19 Range/Units 11:36 12:37 16:30 Sodium 131 L (137-145) mmol/L Chloride 95 L (98-107) mmol/L Carbon Dioxide 34 H (22-30) mmol/L BUN 24 H (9-20) mg/dL Creatinine 0.52 L (0.66-1.25) mg/dL POC Glucose (mg/dL) 117 H 164 H (75-99) mg/dL Calcium 7.4 L (8.4-10.2) mg/dL Total Protein 4.6 L (6.3-8.2) g/dL Albumin 2.2 L (3.5-5.0) g/dL 06/25/19 06/26/19 06/26/19 Range/Units 20:26 05:04 05:54 Sodium 132 L (137-145) mmol/L Chloride 95 L (98-107) mmol/L Carbon Dioxide 31 H (22-30) mmol/L BUN 23 H (9-20) mg/dL Creatinine 0.54 L (0.66-1.25) mg/dL POC Glucose (mg/dL) 112 H 121 H (75-99) mg/dL Calcium 7.9 L (8.4-10.2) mg/dL Total Protein 4.6 L (6.3-8.2) g/dL Albumin 2.5 L (3.5-5.0) g/dL 06/26/19 Range/Units 11:11 Sodium (137-145) mmol/L Chloride (98-107) mmol/L Carbon Dioxide (22-30) mmol/L BUN (9-20) mg/dL Creatinine (0.66-1.25) mg/dL POC Glucose (mg/dL) 157 H (75-99) mg/dL Calcium (8.4-10.2) mg/dL Total Protein (6.3-8.2) g/dL Albumin (3.5-5.0) g/dL Microbiology - Last 24 Hours (Table) 06/25/19 10:09 Gram Stain - Preliminary Peritoneal Fluid Body Fluid Culture - Preliminary 06/25/19 10:10 Fungal Culture - Preliminary Peritoneal Fluid 06/22/19 21:05 Gram Stain - Final Sputum Sputum Culture - Final Myesha albicans Assessment and Plan Plan: Assessment: #1. Acute hypoxic respiratory failure, multifactorial related to possibility of community acquired pneumonia, small pleural effusions, and tiny left pneumothorax of 10-15% with left basilar hydropneumothorax component #2. Weakness, general medical debility, gait dysfunction #3. A fall, and small left pneumothorax #4. History of seizures #5. Possible exacerbation of CHF with preserved systolic function #6. Hypotension multifactorial, related to dehydration, hypovolemia, and possibility of sepsis is not excluded. Recovered with IV hydration #7. Osteoarthritis #8. Glaucoma #9. Nicotine dependence #10. History of COPD, CTA chest shows for some at this changes #11. Possibility of interstitial lung disease in addition to acute pneumonia and mild exacerbation of CHF was not excluded #12. Recent hospitalization in April for her diarrhea, weight loss please refer to the medical records #13. Mild hyponatremia present on admission likely related to hypovolemia #14. Acute kidney injury related to intravascular volume depletion #15. Chronic diarrhea follows with gastroenterology #16. Chronic cachexia, protein calorie malnutrition and continued weight loss Plan: CEA level was normal, and was within normal limits, awaiting results of the ascites fluid cytology, today's chest x-ray has been reviewed showing persistent but improved right upper lobe infiltrate, and stable left-sided pneumothorax. Continue current medical treatment I performed a history & physical examination of the patient and discussed their management with my nurse practitioner, Liudmila Mcconnell. I reviewed the nurse pra ctitioner's note and agree with the documented findings and plan of care. Lung sounds are positive for diminished breath sounds. The findings and the impression was discussed with the patient. I attest to the documentation by the nurse practitioner. Time with Patient: Less than 30
[2019-06-26] MEDS: SODIUM CHLORIDE 0.9% 1,000 ML IV SCH (12:29)
[2019-06-26] MEDS: FUROSEMIDE 100 MG in SODIUM CHLORIDE 0.9% 90 ML IV SCH ×2 (12:51→22:29)
[2019-06-26 16:12] LABS: Glucose,Whole Blood 198 mg/dL (75-99)
[2019-06-26 20:33] LABS: Glucose,Whole Blood 139 mg/dL (75-99)
[2019-06-26] MEDS: ZOLPIDEM 10 MG TAB PO PRN (21:00)
[2019-06-27 06:09] LABS: Glucose,Whole Blood 119 mg/dL (75-99)
[2019-06-27] MEDS: INSULIN ASPART (NovoLOG) 100 UNIT/ML VIAL SQ SCH ×4 (06:11→21:08)
[2019-06-27 06:19] LABS: African American GFR (CKD) >90 (>60 ml/min/1.73 sqM); Blood Urea Nitrogen 22 mg/dL (9-20); Calcium 8.1 mg/dL (8.4-10.2); Chloride 85 mmol/L (98-107); Glucose 97 mg/dL (74-99); Magnesium 1.8 mg/dL (1.6-2.3); Non-African American GFR(CKD) >90 (>60 ml/min/1.73 sqM); Sodium 128 mmol/L (137-145)
[2019-06-27] MEDS: PANTOPRAZOLE 40 MG TABLET PO SCH (06:24)
[2019-06-27] MEDS: MORPHINE SULFATE IR 15 MG TABLET PO PRN ×3 (06:24→21:14)
[2019-06-27 06:28] LABS: Anion Gap 5 mmol/L
[2019-06-27 06:33] LABS: Carbon Dioxide 38 mmol/L (22-30)
[2019-06-27] MEDS: IPRATROPIUM-ALBUTEROL 3 ML NEB INHALATION SCH ×4 (07:46→19:50)
[2019-06-27] MEDS: BUDESONIDE 0.5 MG/2 ML NEBU INHALATION SCH ×2 (07:46→19:50)
[2019-06-27] MEDS: HEPARIN SODIUM,PORCINE 5,000 UNIT/ML 1 ML VIAL SQ SCH ×2 (08:31→21:13)
[2019-06-27] MEDS: FLUCONAZOLE 100 MG TAB PO SCH (08:31)
[2019-06-27] MEDS: MAGNESIUM OXIDE 400 MG TAB PO SCH (08:31)
[2019-06-27] MEDS: FUROSEMIDE 100 MG in SODIUM CHLORIDE 0.9% 90 ML IV SCH ×2 (08:31→15:57)
[2019-06-27] MEDS: levETIRAcetam 500 MG TAB PO SCH ×2 (08:31→21:13)
[2019-06-27] MEDS: levETIRAcetam 250 MG TAB PO SCH ×2 (08:31→21:13)
--- NOTE | 2019-06-27 08:43 | P.PN ---
<Mariel Meadows - Last Filed: 06/27/19 08:43> Subjective Progress Note Date: 06/27/19 CHIEF COMPLAINT: Ileus versus obstruction HISTORY OF PRESENT ILLNESS: Patient examined this morning at the bedside. He is s/p paracentesis. He denies abdominal pain. Complains of back pain this morning. Tolerating regular diet. No nausea or vomiting. Passing flatus. Reports bowel movement yesterday. Slightly hypotensive this morning blood pressure 86/56. Patient mildly tachycardic with heart rate of 104. PHYSICAL EXAM: VITAL SIGNS: Reviewed. GENERAL: Well-developed in no acute distress. Thin. Cachectic. HEENT: No sclera icterus. Extraocular movements grossly intact. Moist buccal mucosa. Head is atraumatic, normocephalic. ABDOMEN: Soft. Mildly distended. No pain with palpation. NEUROLOGIC: Alert and oriented. Cranial nerves II through XII grossly intact. ASSESSMENT: 1. Possible ileus, resolved 2. Severe protein calorie malnutrition, albumin 1.6, BMI 15 3. Ascites PLAN: Continue diet as tolerated Await cytology from ascites fluid Nurse practitioner note has been reviewed by physician. Signing provider agrees with the documented findings, assessment, and plan of care. Objective - Vital Signs Vital signs: Vital Signs Temp 98.1 F 06/27/19 08:00 Pulse 96 06/27/19 08:03 Resp 18 06/27/19 08:00 BP 86/56 06/27/19 08:00 Pulse Ox 98 06/27/19 08:00 Intake & Output 06/26/19 06/27/19 06/27/19 18:59 06:59 18:59 Intake Total 720 96.333 120 Output Total 4003 3601 1 Balance -3283 -3504.667 119 Weight 41.5 kg Intake: Intake, IV Titration 96.333 100 Amount Furosemide 100 mg In 96.333 100 Sodium Chloride 0.9% 90 ml @ 10 MG/HR 10 mls/hr IV .Q10H [facility] Rx#: [id number] Oral 720 20 Output: Urine 4000 3600 Stool 3 1 1 Other: Voiding Method Indwelling Catheter Indwelling Catheter Indwelling Catheter # Bowel Movements 1 - Labs CBC & Chem 7: 06/24/19 06:04 06/27/19 05:29 Labs: Abnormal Lab Results - Last 24 Hours (Table) 06/26/19 06/26/19 06/26/19 Range/Units 11:11 16:09 20:32 Sodium (137-145) mmol/L Chloride (98-107) mmol/L Carbon Dioxide (22-30) mmol/L BUN (9-20) mg/dL Creatinine (0.66-1.25) mg/dL POC Glucose (mg/dL) 157 H 198 H 139 H (75-99) mg/dL Calcium (8.4-10.2) mg/dL 06/27/19 06/27/19 Range/Units 05:29 06:08 Sodium 128 L (137-145) mmol/L Chloride 85 L (98-107) mmol/L Carbon Dioxide 38 H (22-30) mmol/L BUN 22 H (9-20) mg/dL Creatinine 0.56 L (0.66-1.25) mg/dL POC Glucose (mg/dL) 119 H (75-99) mg/dL Calcium 8.1 L (8.4-10.2) mg/dL Microbiology - Last 24 Hours (Table) 06/25/19 10:09 Gram Stain - Preliminary Peritoneal Fluid Body Fluid Culture - Preliminary <Quinn Hemphill - Last Filed: 06/27/19 13:21> Subjective as above. Patient complaining of some back pain. Spoke with pathology. Special stains are being ordered. Hopefully we'll have more information regarding the final pathology results tomorrow. Consider oncologic evaluation. Objective - Vital Signs Vital signs: Vital Signs Temp 98.4 F 06/27/19 12:00 Pulse 104 H 06/27/19 12:00 Resp 18 06/27/19 12:00 BP 89/59 06/27/19 12:00 Pulse Ox 99 06/27/19 12:00 Intake & Output 06/26/19 06/27/19 06/27/19 18:59 06:59 18:59 Intake Total 720 96.333 120 Output Total 4003 3601 852 Balance -2765 -4174.425 -578 Weight 41.5 kg Intake: Intake, IV Titration 96.333 100 Amount Furosemide 100 mg In 96.333 100 Sodium Chloride 0.9% 90 ml @ 10 MG/HR 10 mls/hr IV .Q10H [facility] Rx#: [id number] Oral 720 20 Output: Urine 4000 3600 850 Stool 3 1 2 Other: Voiding Method Indwelling Catheter Indwelling Catheter Indwelling Catheter # Bowel Movements 1 - Labs CBC & Chem 7: 06/24/19 06:04 06/27/19 05:29 Labs: Abnormal Lab Results - Last 24 Hours (Table) 06/26/19 06/26/19 06/27/19 Range/Units 16:09 20:32 05:29 Sodium 128 L (137-145) mmol/L Chloride 85 L (98-107) mmol/L Carbon Dioxide 38 H (22-30) mmol/L BUN 22 H (9-20) mg/dL Creatinine 0.56 L (0.66-1.25) mg/dL POC Glucose (mg/dL) 198 H 139 H (75-99) mg/dL Calcium 8.1 L (8.4-10.2) mg/dL 06/27/19 06/27/19 Range/Units 06:08 11:20 Sodium (137-145) mmol/L Chloride (98-107) mmol/L Carbon Dioxide (22-30) mmol/L BUN (9-20) mg/dL Creatinine (0.66-1.25) mg/dL POC Glucose (mg/dL) 119 H 116 H (75-99) mg/dL Calcium (8.4-10.2) mg/dL Microbiology - Last 24 Hours (Table) 06/25/19 10:09 Gram Stain - Preliminary Peritoneal Fluid Body Fluid Culture - Preliminary
--- NOTE | 2019-06-27 11:10 | P.PN ---
Subjective Progress Note Date: 06/27/19 Principal diagnosis: Small left-sided pneumothorax 74-year-old white male patient of Dr. Oliveros with past medical history seizure disorder, osteoarthritis, GERD/reflux, nicotine dependence came into the emergency department on 06/17/2019 after sustaining a fall. Patient was in the bathroom and passed out and fell on the ground he does not remember the events leading up to his injury. EMS brought the patient to the hospital. He had recent hospitalization for severe diarrhea and weakness discharged on 04/23/2019, to rule out infective diarrhea. Patient was also having progressive weight loss and severe protein calorie malnutrition, was evaluated by gastroenterology. Admission chest x-ray showed bilateral acute infiltrates to mid to lower lungs. Head and cervical CT showed no acute fracture or dislocation of the cervical spine tiny left apical pneumothorax was noted, no acute intracranial hemorrhage or midline shift was seen, fairly moderate generalized atrophy and small vessel ischemic changes. CT angios of the chest showed no evidence of pulmonary embolism, and moderately severe pulmonary edema with small right pleural effusion, and nonspecific mediastinal and bronchial of nodes. Small left-sided pneumothorax was noted. Echocardiogram was completed s howing preserved left ventricular systolic function with EF of 60-65%, mild mitral regurgitation, mild tricuspid regurgitation, no evidence of pulmonary hypertension right-sided pressures were less than 35 mmHg. Admission labs showed a leukopenia with white blood cell, 2.2, hemoglobin of 15.1, d-dimer was 4.97 with CTA chest negative for pulmonary embolism, sodium was 132, and the rest of the electrolytes were within normal limits, BUN is 34 creatinine is 0.85. Coronavirus PCR was negative, urinalysis was negative, proBNP was 917, troponin 0.026, and 0.064, CRP was 10.8, LDH was 755, ferritin level is 348.9. Temperature on admission was 96.4F, sats was 91% on room air, patient did have periods of hypotension with a blood pressure as low as 71/56, EKG showed sinus tachycardia evidence of anterior infarct of undetermined age T-wave abnormality with consideration for lateral ischemia. Patient was placed on empiric antibiotics in the form of azithromycin and Rocephin for possibility of underlying pneumonia, he was fluid resuscitated on admission with improvement in his blood pressure. Procalcitonin level came back at 3.49 suggesting presence of bacterial infection. Follow-up chest x-ray today shows small to tiny left pneumothorax, possible slightly increased in size from one day earlier, and small to tiny bilateral pleural effusions felt to be stable, there is background of chronic emphysematous changes with bibasilar and left midlung acute infiltrate and/or atelectasis. Patient has been afebrile, she is fairly comfortable at rest, it appears to be in no acute distress. He seen on selective care unit, awake and alert, and altered mentation, responding appropriately, he remains on 3 L of oxygen with pulse ox of 94%, his been afebrile. Remains on empiric antibiotics with azithromycin and Rocephin On 06/20/2019 patient seen in follow-up on selective care unit, no worsening dyspnea, he is 97% on 3 L of oxygen, he is afebrile, hemodynamically patient is stable. He is short of breath with any exertion. Denies any chest pain. Chest x-ray showed left-sided pneumothorax of 10-15% with left basilar hydropneumothorax component, and scattered interstitial and airspace infiltrates throughout both lung house greatest at the lung bases with mild progression. There was increase in the white count on today's labs, up to 21.8, hemoglobin is 14.4, serum sodium is 131, the rest of her electrolytes were within normal limits, BUN of 23 creatinine 0.52. Blood culture remains negative, patient remains on azithromycin and Rocephin, patient continues to have diarrhea. He is on IV fluids of 0.9 normal saline at a rate 75 ML per hour, no nausea or vomiting. On 06/21/2019 patient seen in follow-up on selective care unit, patient is on 2 L of oxygen and the pulse ox of 95%, hemodynamically stable, does get short of breath especially with exertion, but no worsening dyspnea, he is afebrile, he remains on antibiotics for possibility of pneumonia, but no signs have been stable, no significant events overnight, today's chest x-ray shows redemonstration of 15% left-sided pneumothorax, and increasing right upper lobe reticular opacity and unchanged diffuse interstitial opacities. No altered mentation, no acute distress, patient is on minimal amount of supplemental oxygen, tolerating oral intake, he is extremely cachectic. He states his diarrhea has improved. No abdominal pain On 06/25/2019 patient seen in follow-up on selective care unit, he is up in the chair, appears to be in no acute distress. He is on 2 L of oxygen his pulse ox at home percent, vitals are stable, he is afebrile. He remains on a combination of azithromycin and Rocephin for possibility bibasilar pneumonia, probably calcitonin is trending down, patient has been afebrile, no increased cough or congestion, patient had the ultrasound of the abdomen which showed nonspecific bowel gas present, air and some debris in the colon, scattered air-fluid levels could be related to ileus, mild partial small bowel obstruction. CT of the abdomen showed dilated small bowel without definite transition zone reflect ileus versus partial obstruction, and interval development of ascites and anasarca, abdomen is more distended on today's exam. Patient's albumin is extremely low related to his overall poor nutritional status, he was given a dose of Lasix and albumin. He is in negative fluid balance, no worsening hypoxia. He is scheduled for ultrasound-guided paracentesis today for alyce gnostic services. On 06/26/2019 patient seen in follow-up, he is resting in bed, denies any acute distress, he is on 2 L of oxygen with pulse ox 100%, he status post diagnostic paracentesis would removal of 100 mL of ascitic fluid which was sent for analysis and cytology. Awaiting results the cytology, patient has been afebrile, patient has completed his course of Rocephin and azithromycin, no f ever or chills, his latest pro-calcitonin level from 06/24/2019 has come down nicely, 20.18 from 3.49 on admission. No cough or congestion, no complaints of abdominal pain, he states his appetite is fair. He continues on IV Lasix. Patient is in -3114 mL fluid balance, today's chest x-ray was reviewed, showing stable left sided pneumothorax, stable basilar patchy infiltrates, persistent but improved right upper lobe infiltrate. On 06/27/2019 patient seen in follow-up on selective care unit, he is calm and comfortable, he is in 2 L of oxygen, with pulse ox of 98%, which took him off the oxygen, and his pulse ox was 97%, no worsening dyspnea, he is afebrile, he was started on Lasix drip per nephrology today however his blood pressures are marginal, and running lower at 86/56. We reviewed his chest x-ray yesterday showing stable left-sided pneumothorax, stable basilar patchy infiltrates and right upper lobe infiltrate, no evidence of any sizable pleural effusion for drainage, or still awaiting results of the pathology of the ascites fluid. Patient has completed his antibiotics, his been afebrile. His ascites fluid cultures, blood and sputum were all negative. No nausea or vomiting, surgery is following patient is tolerating regular diet, passing flatus. Objective - Vital Signs Vital signs: Vital Signs Temp 98.1 F 06/27/19 08:00 Pulse 96 06/27/19 08:03 Resp 18 06/27/19 08:00 BP 86/56 06/27/19 08:00 Pulse Ox 98 06/27/19 08:00 Intake & Output 06/26/19 06/27/19 06/27/19 18:59 06:59 18:59 Intake Total 720 96.333 120 Output Total 4003 3601 851 Balance -3283 -3504.667 -731 Weight 41.5 kg Intake: Intake, IV Titration 96.333 100 Amount Furosemide 100 mg In 96.333 100 Sodium Chloride 0.9% 90 ml @ 10 MG/HR 10 mls/hr IV .Q10H [facility] Rx#: [id number] Oral 720 20 Output: Urine 4000 3600 850 Stool 3 1 1 Other: Voiding Method Indwelling Catheter Indwelling Catheter Indwelling Catheter # Bowel Movements 1 - Exam GENERAL EXAM: Alert, cachectic 74-year-old white male, on 2 L of oxygen with pulse ox of 98%, resting comfortably in bed, does not appear to be in any acute distress, patient IS showing signs of severe calorie malnutrition and muscle wasting comfortable in no apparent distress. HEAD: Normocephalic/atraumatic. EYES: Normal reaction of pupils, equal size. Conjunctiva pink, sclera white. NOSE: Clear with pink turbinates. THROAT: No erythema or exudates. NECK: No masses, no JVD, no thyroid enlargement, no adenopathy. CHEST: No chest wall deformity. Symmetrical expansion. LUNGS: Equal air entry with no crackles, wheeze, rhonchi or dullness. CVS: Regular rate and rhythm, normal S1 and S2, no gallops, no murmurs, no rubs ABDOMEN: Soft, nontender. No hepatosplenomegaly, normal bowel sounds, no guarding or rigidity. EXTREMITIES: No clubbing, no edema, no cyanosis, 2+ pulses and upper and lower extremities. MUSCULOSKELETAL: Muscle strength and tone normal. SPINE: No scoliosis or deformity SKIN: No rashes CENTRAL NERVOUS SYSTEM: Alert and oriented -3. No focal deficits, tone is normal in all 4 extremities. PSYCHIATRIC: Alert and oriented -3. Appropriate affect. Intact judgment and insight. - Labs CBC & Chem 7: 06/24/19 06:04 06/27/19 05:29 Labs: Abnormal Lab Results - Last 24 Hours (Table) 06/26/19 06/26/19 06/26/19 Range/Units 11:11 16:09 20:32 Sodium (137-145) mmol/L Chloride (98-107) mmol/L Carbon Dioxide (22-30) mmol/L BUN (9-20) mg/dL Creatinine (0.66-1.25) mg/dL POC Glucose (mg/dL) 157 H 198 H 139 H (75-99) mg/dL Calcium (8.4-10.2) mg/dL 06/27/19 06/27/19 Range/Units 05:29 06:08 Sodium 128 L (137-145) mmol/L Chloride 85 L (98-107) mmol/L Carbon Dioxide 38 H (22-30) mmol/L BUN 22 H (9-20) mg/dL Creatinine 0.56 L (0.66-1.25) mg/dL POC Glucose (mg/dL) 119 H (75-99) mg/dL Calcium 8.1 L (8.4-10.2) mg/dL Microbiology - Last 24 Hours (Table) 06/25/19 10:09 Gram Stain - Preliminary Peritoneal Fluid Body Fluid Culture - Preliminary Assessment and Plan Plan: Assessment: #1. Acute hypoxic respiratory failure, multifactorial related to possibility of community acquired pneumonia, small pleural effusions, and tiny left pneumothorax of 10-15% with left basilar hydropneumothorax component #2. Weakness, general medical debility, gait dysfunction #3. A fall, and small left pneumothorax #4. History of seizures #5. Possible exacerbation of CHF with preserved systolic function #6. Hypotension multifactorial, related to dehydration, hypovolemia, and possibility of sepsis is not excluded. Recovered with IV hydration #7. Osteoarthritis #8. Glaucoma #9. Nicotine dependence #10. History of COPD, CTA chest shows for some at this changes #11. Possibility of interstitial lung disease in addition to acute pneumonia and mild exacerbation of CHF was not excluded #12. Recent hospitalization in April for her diarrhea, weight loss please refer to the medical records #13. Mild hyponatremia present on admission likely related to hypovolemia #14. Acute kidney injury related to intravascular volume depletion #15. Chronic diarrhea follows with gastroenterology #16. Chronic cachexia, protein calorie malnutrition and continued weight loss Plan: No sizable pleural effusion was appreciated on the chest x-ray done yesterday, oxygenation stable, as a matter fact we took the patient off the 2 L of oxygen, and she is maintaining oxygenation around 97%, through awaiting results of the ascites fluid pathology, cultures are negative, we'll continue to follow the results of the pathology of ascites fluid I performed a history & physical examination of the patient and discussed their management with my nurse practitioner, Liudmila Mcconnell. I reviewed the nurse practitioner's note and agree with the documented findings and plan of care. Lung sounds are positive for diminished breath sounds. The findings and the impression was discussed with the patient. I attest to the documentation by the nurse practitioner. Time with Patient: Less than 30
[2019-06-27 11:21] LABS: Glucose,Whole Blood 116 mg/dL (75-99)
--- NOTE | 2019-06-27 12:00 | P.PN ---
Subjective Patient is seen in follow-up for hyponatremia. Sodium level is 128 today. Currently has Garcia catheter for urinary retention. Urine output documented is 3.5 L in the last 24 hours. Edema improved. He is off oxygen. Vital signs are stable. General: The patient appeared well nourished and normally developed. HEENT: Head exam is unremarkable. Neck is without jugular venous distension. LUNGS: Lungs are clear to auscultation and percussion. Breath sounds decreased. HEART: Rate and Rhythm are regular. ABDOMEN: Mild distention noted. Nontender. EXTREMITITES: 1+ edema. Objective - Vital Signs Vital signs: Vital Signs Temp 98.1 F 06/27/19 08:00 Pulse 102 H 06/27/19 11:20 Resp 18 06/27/19 08:00 BP 86/56 06/27/19 08:00 Pulse Ox 98 06/27/19 08:00 Intake & Output 06/26/19 06/27/19 06/27/19 18:59 06:59 18:59 Intake Total 720 96.333 120 Output Total 4003 3601 851 Balance -3283 -3504.667 -731 Weight 41.5 kg Intake: Intake, IV Titration 96.333 100 Amount Furosemide 100 mg In 96.333 100 Sodium Chloride 0.9% 90 ml @ 10 MG/HR 10 mls/hr IV .Q10H [facility] Rx#: [id number] Oral 720 20 Output: Urine 4000 3600 850 Stool 3 1 1 Other: Voiding Method Indwelling Catheter Indwelling Catheter Indwelling Catheter # Bowel Movements 1 - Labs CBC & Chem 7: 06/24/19 06:04 06/27/19 05:29 Labs: Abnormal Lab Results - Last 24 Hours (Table) 06/26/19 06/26/19 06/27/19 Range/Units 16:09 20:32 05:29 Sodium 128 L (137-145) mmol/L Chloride 85 L (98-107) mmol/L Carbon Dioxide 38 H (22-30) mmol/L BUN 22 H (9-20) mg/dL Creatinine 0.56 L (0.66-1.25) mg/dL POC Glucose (mg/dL) 198 H 139 H (75-99) mg/dL Calcium 8.1 L (8.4-10.2) mg/dL 06/27/19 06/27/19 Range/Units 06:08 11:20 Sodium (137-145) mmol/L Chloride (98-107) mmol/L Carbon Dioxide (22-30) mmol/L BUN (9-20) mg/dL Creatinine (0.66-1.25) mg/dL POC Glucose (mg/dL) 119 H 116 H (75-99) mg/dL Calcium (8.4-10.2) mg/dL Microbiology - Last 24 Hours (Table) 06/25/19 10:09 Gram Stain - Preliminary Peritoneal Fluid Body Fluid Culture - Preliminary Assessment and Plan Plan: Assessment: 1. Hypervolemic hyponatremia. Patient is also on Keppra which can induce SIADH. Additionally respiratory infection can also induce SIADH. TSH normal. Urine osmolality high at 934. Urine sodium 164. 2. Pneumonia maintained on antibiotics. 3. Status post fall with left pneumothorax. 4. Acute on chronic diastolic CHF. 5. Urinary retention status post Garcia catheter placement. Urology following. 6. Volume overload. 7. Hypomagnesemia due to poor oral intake. Better. Plan: Encourage oral intake, especially protein. Maintain ensure 3 times daily. 1500 mL fluid restriction. Maintain Lasix drip for another 24 hours. I will repeat IV albumin 25 g 2 doses today. Repeat electrolytes in the morning. Repeat urine osmolality and urine sodium level.
[2019-06-27] MEDS: ALBUMIN HUMAN 25% 50 ML in EMPTY BAG 1 BAG IVPB SCH ×4 (12:40→23:15)
--- NOTE | 2019-06-27 13:49 | P.PN ---
Subjective Progress Note Date: 06/27/19 Principal diagnosis: Pneumothorax Patient is admitted after a fall found to have pneumonia patient is on treatment for pneumonia. We'll cut down the IV fluids and 5 mL per hour patient is quite a bit dehydrated on admission. Repeat chest x-rays showed small pneumothorax probably from fall. Patient has atypical chest pain from fall. Unsure whether patient has syncope patient also has a seizure disorder EEG was obtained which did not show any epileptiform focus but did show severe encephalopathy. Keppra levels are low and patient is being can urine For will obtain levels again today if they're still low will consult neurology will increase the Keppra dose. Patient's clinical exam remains the same. Cardiology evaluated the patient for chest pain no further dictation from that perspective. Patient remains hyponatremic. 06/20/2019 Patient white blood cell count went up to 25,000 patient doesn't have any diarrhea patient also clinically looks better patient has 10-15% pneumothorax pulmonary recommended consultation with parathoracic surgery were consulted. 06/21/2019 Patient white blood cell count remains at the same level around 22,000 pneumothorax remains the same overall patient looks better but will need disposition to subacute rehabilitation may be able to be discharged tomorrow or Monday. 06/22/2019 Patient is currently awake alert and oriented 3. Lying in the bed comfortably. Currently saturating well on room air. Denied any complaints of chest pain are worsening shortness of breath. Chest x-ray showed 15% left-sided pneumothorax. Patient is being followed by CT surgery. Also antibodies the form of ceftriaxone and azithromycin. Patient has been afebrile. WBC trending down to 1.0. Renal function is stable. 06/23/2019 Patient is currently lying in the bed comfortably. Awake alert and oriented. Denied any complaints of chest pain or worsening shortness of breath. Currently on oxygen with another cannula at 2 L. Chest x-ray today showed continued left- sided pneumothorax about 15% which is stable. Patient has been afebrile. Patient developed urinary retention yesterday requiring placement of Garcia catheter. Urology was consulted. CT surgery and nephrology is following. Sodium level is 132 today. Currently on normal saline at 50 mL per hour. Patient was given a dose of IV Lasix today. Constitutional: Patient is still weak and looks much better today Cardio vascular: denied any chest pain, palpitations Gastrointestinal denied any nausea vomiting Pulmonary: Denied any shortness of breath cough Neurologic denied any new focal deficits All inpatient medications were reviewed and appropriate changes in these m edications as dictated in the interval history and assessment and plan. Current medications reviewed. 06/24/2019 Patient is seen and evaluated in follow-up currently sitting in the chair drinking contrast for CT abdomen that was ordered. Multiple medical consultations following. Patient remains on 2 L of oxygen via nasal cannula and reports no worsening of shortness of breath although continues to be short of breath with exertion. Discussed with the patient at length about continuing to use the incentive spirometer at least 10 times every hour while awake. Patient states he is attempting for 1000 although only been reaching 500 on the incentive spirometer. Patient continues to be quite weak and cachectic. Patient CT abdomen shows some dilated small bowel without definite transition zone with contrast seen within the colon with findings that may reflect ileus versus partial bowel obstruction, interval development of ascites and anasarca with bilateral pleural effusions with comprehensive atelectasis and/or infiltrates, and left-sided pneumothorax. Patient's chest x-ray today continues to show the left-sided pneumothorax approximately 10% and stable. Cardiothoracic surgery following an recommending no chest tube at this time. Surgery consulted for findings on the CT although patient and nursing staff states he had a large bowel movement today. Will await report. Patient continues with an indwelling Garcia catheter as he was retaining. Case management and social work following for possible rehab placement once stabilized and discharged. Currently no reports of chest pain or palpitations. Patient is afebrile. No reports of nausea or vomiting and patient has been tolerating diet. 06/25/2019 Patient is seen in follow-up today sitting up in the bed continues to have some abdominal distention and feelings of fullness and states he will be undergoing a paracentesis with interventional radiology. Will await report. Patient was seen and evaluated by surgery for possible ileus. Patient states he had a large bowel movement yesterday although has not had any bowel movements today. Patient has not been eating yet today although states he is hungry. Patient will be continued on full liquids and will monitor closely. Sodium is 131 today and albumin is low at 2.2. Patient will be receiving albumin prior and post paracentesis. Nephrology is following closely along with other multiple medical consultations. Patient will also be initiated on IV Lasix today. Patient remains on IV ceftriaxone along with oral Zithromax and will continue at this time. Sputum cultures showing Myesha albicans and will be initiated on Diflucan. Currently no reports of chest pain, worsening shortness of breath, or palpitations. Patient is afebrile. No reports of nausea or vomiting and patient is tolerating diet. Patient states his breathing has improved and cur rently remains on 2 L of oxygen via nasal cannula 100%. 06/26/2019 Patient is seen in follow-up today sitting up in the bed with no acute overnight issues. Underwent abdominal paracentesis for fluid collection analysis and tolerated well. Multiple medical consultations following. Patient denies any abdominal pain or discomfort and has been tolerating diet. Patient states he is passing gas and having bowel movements with no difficulties. Repeat chest x-ray today shows stable left-sided pneumothorax with persistent but improved right upper lobe infiltrate and stable basilar patchy infiltrates. Pulmonary is following. Patient continues to use incentive spirometer and states his breathing has improved. Patient currently remains on 2 L oxygen via nasal cannula and saturating 100%. Patient continues to have an indwelling Garcia catheter and was seen and evaluated by urology and recommends discontinuation of the Garcia catheter to assess for voiding difficulties and or retention. Garcia catheter may be removed today. Currently no reports of chest pain, shortness of breath, or palpitations. Patient is afebrile. No reports of nausea or vomiting and patient is tolerating diet. Awaiting fluid analysis report at this time. 06/27/2019 Patient is seen in follow-up today and has been initiated on Lasix drip. Nephrology and pulmonary following. Oxygen was discontinued today and patient tolerating well. Patient continues to have an indwelling Garcia catheter for strict I&O's. Will continue for another 24 hours. Patient continues to have some mild abdominal distention although denies any abdominal discomfort. No reports of chest pain, worsening shortness of breath, or palpitations. Is afebrile. Is currently off antibiotics. Will repeat a.m. labs. Sodium is 128 and will maintain 1500 mL fluid restriction. Case management and social work are following for possible placement at a subacute rehab once stabilized and discharged. Fluid analysis still pending at this time. Patient encouraged to increased oral intake especially protein and has been drinking ensure. Patient continues to have a very poor appetite and eats very little. Will continue to monitor closely. Objective - Vital Signs Vital signs: Vital Signs Temp 98.1 F 06/27/19 08:00 Pulse 102 H 06/27/19 11:20 Resp 18 06/27/19 08:00 BP 86/56 06/27/19 08:00 Pulse Ox 98 06/27/19 08:00 Intake & Output 06/26/19 06/27/19 06/27/19 18:59 06:59 18:59 Intake Total 720 96.333 120 Output Total 4003 3601 851 Balance -3283 -3504.667 -731 Weight 41.5 kg Intake: Intake, IV Titration 96.333 100 Amount Furosemide 100 mg In 96.333 100 Sodium Chloride 0.9% 90 ml @ 10 MG/HR 10 mls/hr IV .Q10H [facility] Rx#: [id number] Oral 720 20 Output: Urine 4000 3600 850 Stool 3 1 1 Other: Voiding Method Indwelling Catheter Indwelling Catheter Indwelling Catheter # Bowel Movements 1 - Exam GENERAL: The patient is alert and oriented x3, not in any acute distress. thin built cachectic male HEENT: Pupils are round and equally reacting to light. EOMI. No scleral icterus. No conjunctival pallor. Normocephalic, atraumatic. No pharyngeal erythema. No thyromegaly. CARDIOVASCULAR: S1 and S2 present. No murmurs, rubs, or gallops. PULMONARY: decreased air entry into bilateral lung house, no wheezing or rhonchi noted ABDOMEN: Soft, nontender, mildly distended, normoactive bowel sounds. No palpable organomegaly. MUSCULOSKELETAL: No joint swelling or deformity. EXTREMITIES: No cyanosis, clubbing, or pedal edema. NEUROLOGICAL: Gross neurological examination did not reveal any focal deficits. SKIN: No rashes. - Labs CBC & Chem 7: 06/24/19 06:04 06/27/19 05:29 Labs: Abnormal Lab Results - Last 24 Hours (Table) 06/26/19 06/26/19 06/27/19 Range/Units 16:09 20:32 05:29 Sodium 128 L (137-145) mmol/L Chloride 85 L (98-107) mmol/L Carbon Dioxide 38 H (22-30) mmol/L BUN 22 H (9-20) mg/dL Creatinine 0.56 L (0.66-1.25) mg/dL POC Glucose (mg/dL) 198 H 139 H (75-99) mg/dL Calcium 8.1 L (8.4-10.2) mg/dL 06/27/19 06/27/19 Range/Units 06:08 11:20 Sodium (137-145) mmol/L Chloride (98-107) mmol/L Carbon Dioxide (22-30) mmol/L BUN (9-20) mg/dL Creatinine (0.66-1.25) mg/dL POC Glucose (mg/dL) 119 H 116 H (75-99) mg/dL Calcium (8.4-10.2) mg/dL Microbiology - Last 24 Hours (Table) 06/25/19 10:09 Gram Stain - Preliminary Peritoneal Fluid Body Fluid Culture - Preliminary Assessment and Plan Assessment: -acute hypoxic respiratory failure probably secondary to bilateral pneumonia or may be a component of mild COPD exacerbation -Abdominal Ascites as noted on ultrasound. Patient underwent paracentesis with interventional radiology today. Fluid analysis will be sent and report pending. -Small pneumothorax on the x-ray possibly from his fall: Cardiac thoracic surgery and pulmonary evaluated the patient no further intervention at this time, stable -Leukocytosis: Secondary to sepsis with the his white blood cell all the cultures are so far negative. Blood and sputum cultures thus far remain negative. -COPD with acute exacerbation patient may have mild exacerbation -Euovolemic hyponatremia: Possible SIADH. Patient is currently on a Lasix drip and to continue 1500 mL fluid restriction. Nephrology is following. -Acute renal failure: Secondary to dehydration and intravascular depletion IV fluids as mentioned above. Improved -Mildly elevated troponin secondary to hypoxemia and renal failure. Renal failure improved -Chest pain. musculoskeletal in nature secondary to fall, improved -Rule out syncope and seizure , Keppra levels are low lipid Keppra levels .EEG as mentioned above. Patient has therapeutic Keppra levels. -Seizure disorder continue with Keppra -Chronic diarrhea symptomatic treatment follow with gastroenterology as an outpatient -chronic pain -Cachexia which is chronic patient scan of the chest did not show any nodules but the patient need regular cancer screening as an outpatient. -Ruled out covid 19 -DVT prophylaxis with subcutaneous heparin
[2019-06-27 14:06] VITALS: BMI 14.8
[2019-06-27 16:37] LABS: Glucose,Whole Blood 238 mg/dL (75-99)
[2019-06-27] MEDS: CYCLOBENZAPRINE 10 MG TAB PO PRN (17:27)
[2019-06-27] MEDS: SODIUM CHLORIDE 0.9% 1,000 ML IV SCH (18:12)
[2019-06-27 19:54] LABS: Glucose,Whole Blood 112 mg/dL (75-99)
[2019-06-27] MEDS: ZOLPIDEM 10 MG TAB PO PRN (21:13)
[2019-06-28 05:39] LABS: Glucose,Whole Blood 110 mg/dL (75-99)
[2019-06-28] MEDS: INSULIN ASPART (NovoLOG) 100 UNIT/ML VIAL SQ SCH ×4 (06:08→20:25)
[2019-06-28] MEDS: PANTOPRAZOLE 40 MG TABLET PO SCH (06:38)
[2019-06-28] MEDS: BUDESONIDE 0.5 MG/2 ML NEBU INHALATION SCH ×2 (07:07→19:23)
[2019-06-28] MEDS: IPRATROPIUM-ALBUTEROL 3 ML NEB INHALATION SCH ×4 (07:07→19:23)
[2019-06-28 07:14] LABS: ALT 33 U/L (4-49); AST 36 U/L (17-59); African American GFR (CKD) >90 (>60 ml/min/1.73 sqM); Albumin 3.1 g/dL (3.5-5.0); Alkaline Phosphatase 72 U/L (38-126); Anion Gap 9 mmol/L; Blood Urea Nitrogen 26 mg/dL (9-20); Calcium 8.4 mg/dL (8.4-10.2); Carbon Dioxide 39 mmol/L (22-30); Chloride 83 mmol/L (98-107); Glucose 93 mg/dL (74-99); Non-African American GFR(CKD) >90 (>60 ml/min/1.73 sqM); Potassium 4.1 mmol/L (3.5-5.1); Sodium 131 mmol/L (137-145); Total Bilirubin 0.8 mg/dL (0.2-1.3); Total Protein 5.4 g/dL (6.3-8.2)
[2019-06-28] MEDS: FUROSEMIDE 100 MG in SODIUM CHLORIDE 0.9% 90 ML IV SCH (08:42)
[2019-06-28] MEDS: FLUCONAZOLE 100 MG TAB PO SCH (08:43)
[2019-06-28] MEDS: HEPARIN SODIUM,PORCINE 5,000 UNIT/ML 1 ML VIAL SQ SCH ×2 (08:43→20:55)
[2019-06-28] MEDS: levETIRAcetam 500 MG TAB PO SCH ×2 (08:43→20:55)
[2019-06-28] MEDS: MAGNESIUM OXIDE 400 MG TAB PO SCH (08:43)
[2019-06-28] MEDS: levETIRAcetam 250 MG TAB PO SCH ×2 (08:43→20:55)
[2019-06-28] MEDS: MORPHINE SULFATE IR 15 MG TABLET PO PRN ×3 (09:33→20:58)
--- NOTE | 2019-06-28 10:05 | P.PN ---
Subjective Progress Note Date: 06/28/19 Principal diagnosis: Pneumothorax Patient is admitted after a fall found to have pneumonia patient is on treatment for pneumonia. We'll cut down the IV fluids and 5 mL per hour patient is quite a bit dehydrated on admission. Repeat chest x-rays showed small pneumothorax probably from fall. Patient has atypical chest pain from fall. Unsure whether patient has syncope patient also has a seizure disorder EEG was obtained which did not show any epileptiform focus but did show severe encephalopathy. Keppra levels are low and patient is being can urine For will obtain levels again today if they're still low will consult neurology will increase the Keppra dose. Patient's clinical exam remains the same. Cardiology evaluated the patient for chest pain no further dictation from that perspective. Patient remains hyponatremic. 06/20/2019 Patient white blood cell count went up to 25,000 patient doesn't have any diarrhea patient also clinically looks better patient has 10-15% pneumothorax pulmonary recommended consultation with parathoracic surgery were consulted. 06/21/2019 Patient white blood cell count remains at the same level around 22,000 pneumothorax remains the same overall patient looks better but will need disposition to subacute rehabilitation may be able to be discharged tomorrow or Monday. 06/22/2019 Patient is currently awake alert and oriented 3. Lying in the bed comfortably. Currently saturating well on room air. Denied any complaints of chest pain are worsening shortness of breath. Chest x-ray showed 15% left-sided pneumothorax. Patient is being followed by CT surgery. Also antibodies the form of ceftriaxone and azithromycin. Patient has been afebrile. WBC trending down to 1.0. Renal function is stable. 06/23/2019 Patient is currently lying in the bed comfortably. Awake alert and oriented. Denied any complaints of chest pain or worsening shortness of breath. Currently on oxygen with another cannula at 2 L. Chest x-ray today showed continued left- sided pneumothorax about 15% which is stable. Patient has been afebrile. Patient developed urinary retention yesterday requiring placement of Garcia catheter. Urology was consulted. CT surgery and nephrology is following. Sodium level is 132 today. Currently on normal saline at 50 mL per hour. Patient was given a dose of IV Lasix today. Constitutional: Patient is still weak and looks much better today Cardio vascular: denied any chest pain, palpitations Gastrointestinal denied any nausea vomiting Pulmonary: Denied any shortness of breath cough Neurologic denied any new focal deficits All inpatient medications were reviewed and appropriate changes in these m edications as dictated in the interval history and assessment and plan. Current medications reviewed. 06/24/2019 Patient is seen and evaluated in follow-up currently sitting in the chair drinking contrast for CT abdomen that was ordered. Multiple medical consultations following. Patient remains on 2 L of oxygen via nasal cannula and reports no worsening of shortness of breath although continues to be short of breath with exertion. Discussed with the patient at length about continuing to use the incentive spirometer at least 10 times every hour while awake. Patient states he is attempting for 1000 although only been reaching 500 on the incentive spirometer. Patient continues to be quite weak and cachectic. Patient CT abdomen shows some dilated small bowel without definite transition zone with contrast seen within the colon with findings that may reflect ileus versus partial bowel obstruction, interval development of ascites and anasarca with bilateral pleural effusions with comprehensive atelectasis and/or infiltrates, and left-sided pneumothorax. Patient's chest x-ray today continues to show the left-sided pneumothorax approximately 10% and stable. Cardiothoracic surgery following an recommending no chest tube at this time. Surgery consulted for findings on the CT although patient and nursing staff states he had a large bowel movement today. Will await report. Patient continues with an indwelling Garcia catheter as he was retaining. Case management and social work following for possible rehab placement once stabilized and discharged. Currently no reports of chest pain or palpitations. Patient is afebrile. No reports of nausea or vomiting and patient has been tolerating diet. 06/25/2019 Patient is seen in follow-up today sitting up in the bed continues to have some abdominal distention and feelings of fullness and states he will be undergoing a paracentesis with interventional radiology. Will await report. Patient was seen and evaluated by surgery for possible ileus. Patient states he had a large bowel movement yesterday although has not had any bowel movements today. Patient has not been eating yet today although states he is hungry. Patient will be continued on full liquids and will monitor closely. Sodium is 131 today and albumin is low at 2.2. Patient will be receiving albumin prior and post paracentesis. Nephrology is following closely along with other multiple medical consultations. Patient will also be initiated on IV Lasix today. Patient remains on IV ceftriaxone along with oral Zithromax and will continue at this time. Sputum cultures showing Myesha albicans and will be initiated on Diflucan. Currently no reports of chest pain, worsening shortness of breath, or palpitations. Patient is afebrile. No reports of nausea or vomiting and patient is tolerating diet. Patient states his breathing has improved and cur rently remains on 2 L of oxygen via nasal cannula 100%. 06/26/2019 Patient is seen in follow-up today sitting up in the bed with no acute overnight issues. Underwent abdominal paracentesis for fluid collection analysis and tolerated well. Multiple medical consultations following. Patient denies any abdominal pain or discomfort and has been tolerating diet. Patient states he is passing gas and having bowel movements with no difficulties. Repeat chest x-ray today shows stable left-sided pneumothorax with persistent but improved right upper lobe infiltrate and stable basilar patchy infiltrates. Pulmonary is following. Patient continues to use incentive spirometer and states his breathing has improved. Patient currently remains on 2 L oxygen via nasal cannula and saturating 100%. Patient continues to have an indwelling Garcia catheter and was seen and evaluated by urology and recommends discontinuation of the Garcia catheter to assess for voiding difficulties and or retention. Garcia catheter may be removed today. Currently no reports of chest pain, shortness of breath, or palpitations. Patient is afebrile. No reports of nausea or vomiting and patient is tolerating diet. Awaiting fluid analysis report at this time. 06/27/2019 Patient is seen in follow-up today and has been initiated on Lasix drip. Nephrology and pulmonary following. Oxygen was discontinued today and patient tolerating well. Patient continues to have an indwelling Garcia catheter for strict I&O's. Will continue for another 24 hours. Patient continues to have some mild abdominal distention although denies any abdominal discomfort. No reports of chest pain, worsening shortness of breath, or palpitations. Is afebrile. Is currently off antibiotics. Will repeat a.m. labs. Sodium is 128 and will maintain 1500 mL fluid restriction. Case management and social work are following for possible placement at a subacute rehab once stabilized and discharged. Fluid analysis still pending at this time. Patient encouraged to increased oral intake especially protein and has been drinking ensure. Patient continues to have a very poor appetite and eats very little. Will continue to monitor closely. 06/28/2019 Patient is seen and evaluated in follow-up continues to be on room air with no worsening shortness of breath. Patient is using incentive spirometer multiple times during the day. Multiple medical consultations following. Continue to await pathology report from paracentesis. Preliminary fluid cultures remain negative with the sputum culture showing Myesha albicans. Patient remains on oral Diflucan. Patient also remains on the Lasix drip with indwelling Garcia catheter for strict I&O's. Patient remains in a negative fluid balance. No reports of chest pain or palpitations. Patient is afebrile. No reports of nausea or vomiting and patient is tolerating diet. Continue to encourage oral intake with protein. Patient remains on fluid restrictions and sodium has improved at 131 today. Current creatinine is 0.65. Albumin continues to be low at 3.1 although improved status post 2 infusions yesterday. When discussing with the patient about discharge planning patient states he does not want to go to rehab although per PT/OT notes patient would benefit from continued physical therapy for strength and mobility. Objective - Vital Signs Vital signs: Vital Signs Temp 98.0 F 06/28/19 03:24 Pulse 100 06/28/19 07:26 Resp 18 06/28/19 03:24 BP 91/56 06/28/19 03:24 Pulse Ox 96 06/28/19 03:24 Intake & Output 06/27/19 06/28/19 06/28/19 18:59 06:59 18:59 Intake Total 300 20 Output Total 2533 3225 490 Balance -1773 -322 -470 Weight 41.5 kg 41 kg Intake: Intake, IV Titration 200 Amount Furosemide 100 mg In 200 Sodium Chloride 0.9% 90 ml @ 10 MG/HR 10 mls/hr IV .Q10H [facility] Rx#: [id number] Oral 100 20 Output: Urine 2530 3225 490 Stool 3 Other: Voiding Method Indwelling Catheter Indwelling Catheter - Exam GENERAL: The patient is alert and oriented x3, not in any acute distress. thin built cachectic male HEENT: Pupils are round and equally reacting to light. EOMI. No scleral icterus. No conjunctival pallor. Normocephalic, atraumatic. No pharyngeal erythema. No thyromegaly. CARDIOVASCULAR: S1 and S2 present. No murmurs, rubs, or gallops. PULMONARY: decreased air entry into bilateral lung house, no wheezing or rhonchi noted ABDOMEN: Soft, nontender, mildly distended, normoactive bowel sounds. No palpable organomegaly. MUSCULOSKELETAL: No joint swelling or deformity. EXTREMITIES: No cyanosis, clubbing, or pedal edema. NEUROLOGICAL: Gross neurological examination did not reveal any focal deficits. SKIN: No rashes. - Labs CBC & Chem 7: 06/24/19 06:04 06/28/19 06:03 Labs: Abnormal Lab Results - Last 24 Hours (Table) 06/27/19 06/27/19 06/27/19 Range/Units 11:20 16:35 19:53 Sodium (137-145) mmol/L Chloride (98-107) mmol/L Carbon Dioxide (22-30) mmol/L BUN (9-20) mg/dL Creatinine (0.66-1.25) mg/dL POC Glucose (mg/dL) 116 H 238 H 112 H (75-99) mg/dL Total Protein (6.3-8.2) g/dL Albumin (3.5-5.0) g/dL 06/28/19 06/28/19 Range/Units 05:37 06:03 Sodium 131 L (137-145) mmol/L Chloride 83 L (98-107) mmol/L Carbon Dioxide 39 H (22-30) mmol/L BUN 26 H (9-20) mg/dL Creatinine 0.65 L (0.66-1.25) mg/dL POC Glucose (mg/dL) 110 H (75-99) mg/dL Total Protein 5.4 L (6.3-8.2) g/dL Albumin 3.1 L (3.5-5.0) g/dL Microbiology - Last 24 Hours (Table) 06/25/19 10:09 Gram Stain - Preliminary Peritoneal Fluid Body Fluid Culture - Preliminary Assessment and Plan Assessment: -acute hypoxic respiratory failure probably secondary to bilateral pneumonia or may be a component of mild COPD exacerbation -Abdominal Ascites as noted on ultrasound. Patient underwent paracentesis with interventional radiology for pathology that was sent and currently still pending -Small pneumothorax on the x-ray possibly from his fall: stable, currently on room air -Leukocytosis: Secondary to sepsis, improved. Sputum culture shows Myesha albicans -COPD with acute exacerbation patient may have mild exacerbation -Euvolemic hyponatremia: Possible SIADH. Patient is currently on a Lasix drip and to continue 1500 mL fluid restriction. Nephrology is following. Sodium is 131 -Acute renal failure: Secondary to dehydration and intravascular depletion IV fluids as mentioned above. Improved, current creatinine is 0.65 -Mildly elevated troponin secondary to hypoxemia and renal failure. Renal failure improved -Chest pain. musculoskeletal in nature secondary to fall, improved -Ruled out syncope and seizure -Seizure disorder continue with Keppra -Chronic diarrhea symptomatic treatment follow with gastroenterology as an outpatient -chronic pain -Cachexia which is chronic patient scan of the chest did not show any nodules but the patient need regular cancer screening as an outpatient. -Ruled out covid 19 -DVT prophylaxis with subcutaneous heparin
--- NOTE | 2019-06-28 10:45 | P.PN ---
<Mariel Meadows - Last Filed: 06/28/19 10:41> Subjective Progress Note Date: 06/28/19 CHIEF COMPLAINT: Ileus versus obstruction HISTORY OF PRESENT ILLNESS: Patient examined at the bedside. He is s/p paracentesis. He denies abdominal pain. Tolerating regular diet. No nausea or vomiting. Passing flatus. Last BM 06/26/19. PHYSICAL EXAM: VITAL SIGNS: Reviewed. GENERAL: Well-developed in no acute distress. Thin. Cachectic. HEENT: No sclera icterus. Extraocular movements grossly intact. Moist buccal mucosa. Head is atraumatic, normocephalic. ABDOMEN: Soft. Mildly distended. No pain with palpation. NEUROLOGIC: Alert and oriented. Cranial nerves II through XII grossly intact. ASSESSMENT: 1. Possible ileus, resolved 2. Severe protein calorie malnutrition, albumin 1.6, BMI 15 3. Ascites PLAN: Continue diet as tolerated Await cytology from paracentesis Dr. Hemphill recommends oncology consultation. Discussed with Elizabeth Ventura, internal medicine [facility] Nurse practitioner note has been reviewed by physician. Signing provider agrees with the documented findings, assessment, and plan of care. Objective - Vital Signs Vital signs: Vital Signs Temp 97.9 F 06/28/19 08:00 Pulse 98 06/28/19 08:00 Resp 18 06/28/19 08:00 BP 83/51 06/28/19 08:00 Pulse Ox 95 06/28/19 08:00 Intake & Output 06/27/19 06/28/19 06/28/19 18:59 06:59 18:59 Intake Total 300 20 Output Total 2533 3225 490 Balance -0142 -9324 -617 Weight 41.5 kg 41 kg Intake: Intake, IV Titration 200 Amount Furosemide 100 mg In 200 Sodium Chloride 0.9% 90 ml @ 10 MG/HR 10 mls/hr IV .Q10H [facility] Rx#: [id number] Oral 100 20 Output: Urine 2530 3225 490 Stool 3 Other: Voiding Method Indwelling Catheter Indwelling Catheter Indwelling Catheter - Labs CBC & Chem 7: 06/24/19 06:04 06/28/19 06:03 Labs: Abnormal Lab Results - Last 24 Hours (Table) 06/27/19 06/27/19 06/27/19 Range/Units 11:20 16:35 19:53 Sodium (137-145) mmol/L Chloride (98-107) mmol/L Carbon Dioxide (22-30) mmol/L BUN (9-20) mg/dL Creatinine (0.66-1.25) mg/dL POC Glucose (mg/dL) 116 H 238 H 112 H (75-99) mg/dL Total Protein (6.3-8.2) g/dL Albumin (3.5-5.0) g/dL 06/28/19 06/28/19 Range/Units 05:37 06:03 Sodium 131 L (137-145) mmol/L Chloride 83 L (98-107) mmol/L Carbon Dioxide 39 H (22-30) mmol/L BUN 26 H (9-20) mg/dL Creatinine 0.65 L (0.66-1.25) mg/dL POC Glucose (mg/dL) 110 H (75-99) mg/dL Total Protein 5.4 L (6.3-8.2) g/dL Albumin 3.1 L (3.5-5.0) g/dL Microbiology - Last 24 Hours (Table) 06/25/19 10:09 Gram Stain - Preliminary Peritoneal Fluid Body Fluid Culture - Preliminary <Quinn Hemphill - Last Filed: 06/28/19 12:31> Subjective As above. Pathology report supposed to be available later this afternoon. Continue diet. Will follow. Objective - Vital Signs Vital signs: Vital Signs Temp 97.9 F 06/28/19 08:00 Pulse 104 H 06/28/19 11:23 Resp 18 06/28/19 08:00 BP 83/51 06/28/19 08:00 Pulse Ox 95 06/28/19 08:00 Intake & Output 06/27/19 06/28/19 06/28/19 18:59 06:59 18:59 Intake Total 300 20 Output Total 2533 3225 490 Balance -3145 -8782 -127 Weight 41.5 kg 41 kg Intake: Intake, IV Titration 200 Amount Furosemide 100 mg In 200 Sodium Chloride 0.9% 90 ml @ 10 MG/HR 10 mls/hr IV .Q10H [facility] TO [facility] Rx#: [id number] Oral 100 20 Output: Urine 2530 3225 490 Stool 3 Other: Voiding Method Indwelling Catheter Indwelling Catheter Indwelling Catheter - Labs CBC & Chem 7: 06/24/19 06:04 06/28/19 06:03 Labs: Abnormal Lab Results - Last 24 Hours (Table) 06/27/19 06/27/19 06/28/19 Range/Units 16:35 19:53 05:37 Sodium (137-145) mmol/L Chloride (98-107) mmol/L Carbon Dioxide (22-30) mmol/L BUN (9-20) mg/dL Creatinine (0.66-1.25) mg/dL POC Glucose (mg/dL) 238 H 112 H 110 H (75-99) mg/dL Total Protein (6.3-8.2) g/dL Albumin (3.5-5.0) g/dL 06/28/19 06/28/19 Range/Units 06:03 11:30 Sodium 131 L (137-145) mmol/L Chloride 83 L (98-107) mmol/L Carbon Dioxide 39 H (22-30) mmol/L BUN 26 H (9-20) mg/dL Creatinine 0.65 L (0.66-1.25) mg/dL POC Glucose (mg/dL) 181 H (75-99) mg/dL Total Protein 5.4 L (6.3-8.2) g/dL Albumin 3.1 L (3.5-5.0) g/dL Microbiology - Last 24 Hours (Table) 06/25/19 10:09 Gram Stain - Preliminary Peritoneal Fluid Body Fluid Culture - Preliminary
--- NOTE | 2019-06-28 11:04 | P.PN ---
Subjective Progress Note Date: 06/28/19 Principal diagnosis: Small left-sided pneumothorax 74-year-old white male patient of Dr. Oliveros with past medical history seizure disorder, osteoarthritis, GERD/reflux, nicotine dependence came into the emergency department on 06/17/2019 after sustaining a fall. Patient was in the bathroom and passed out and fell on the ground he does not remember the events leading up to his injury. EMS brought the patient to the hospital. He had recent hospitalization for severe diarrhea and weakness discharged on 04/23/2019, to rule out infective diarrhea. Patient was also having progressive weight loss and severe protein calorie malnutrition, was evaluated by gastroenterology. Admission chest x-ray showed bilateral acute infiltrates to mid to lower lungs. Head and cervical CT showed no acute fracture or dislocation of the cervical spine tiny left apical pneumothorax was noted, no acute intracranial hemorrhage or midline shift was seen, fairly moderate generalized atrophy and small vessel ischemic changes. CT angios of the chest showed no evidence of pulmonary embolism, and moderately severe pulmonary edema with small right pleural effusion, and nonspecific mediastinal and bronchial of nodes. Small left-sided pneumothorax was noted. Echocardiogram was completed s howing preserved left ventricular systolic function with EF of 60-65%, mild mitral regurgitation, mild tricuspid regurgitation, no evidence of pulmonary hypertension right-sided pressures were less than 35 mmHg. Admission labs showed a leukopenia with white blood cell, 2.2, hemoglobin of 15.1, d-dimer was 4.97 with CTA chest negative for pulmonary embolism, sodium was 132, and the rest of the electrolytes were within normal limits, BUN is 34 creatinine is 0.85. Coronavirus PCR was negative, urinalysis was negative, proBNP was 917, troponin 0.026, and 0.064, CRP was 10.8, LDH was 755, ferritin level is 348.9. Temperature on admission was 96.4F, sats was 91% on room air, patient did have periods of hypotension with a blood pressure as low as 71/56, EKG showed sinus tachycardia evidence of anterior infarct of undetermined age T-wave abnormality with consideration for lateral ischemia. Patient was placed on empiric antibiotics in the form of azithromycin and Rocephin for possibility of underlying pneumonia, he was fluid resuscitated on admission with improvement in his blood pressure. Procalcitonin level came back at 3.49 suggesting presence of bacterial infection. Follow-up chest x-ray today shows small to tiny left pneumothorax, possible slightly increased in size from one day earlier, and small to tiny bilateral pleural effusions felt to be stable, there is background of chronic emphysematous changes with bibasilar and left midlung acute infiltrate and/or atelectasis. Patient has been afebrile, she is fairly comfortable at rest, it appears to be in no acute distress. He seen on selective care unit, awake and alert, and altered mentation, responding appropriately, he remains on 3 L of oxygen with pulse ox of 94%, his been afebrile. Remains on empiric antibiotics with azithromycin and Rocephin On 06/20/2019 patient seen in follow-up on selective care unit, no worsening dyspnea, he is 97% on 3 L of oxygen, he is afebrile, hemodynamically patient is stable. He is short of breath with any exertion. Denies any chest pain. Chest x-ray showed left-sided pneumothorax of 10-15% with left basilar hydropneumothorax component, and scattered interstitial and airspace infiltrates throughout both lung house greatest at the lung bases with mild progression. There was increase in the white count on today's labs, up to 21.8, hemoglobin is 14.4, serum sodium is 131, the rest of her electrolytes were within normal limits, BUN of 23 creatinine 0.52. Blood culture remains negative, patient remains on azithromycin and Rocephin, patient continues to have diarrhea. He is on IV fluids of 0.9 normal saline at a rate 75 ML per hour, no nausea or vomiting. On 06/21/2019 patient seen in follow-up on selective care unit, patient is on 2 L of oxygen and the pulse ox of 95%, hemodynamically stable, does get short of breath especially with exertion, but no worsening dyspnea, he is afebrile, he remains on antibiotics for possibility of pneumonia, but no signs have been stable, no significant events overnight, today's chest x-ray shows redemonstration of 15% left-sided pneumothorax, and increasing right upper lobe reticular opacity and unchanged diffuse interstitial opacities. No altered mentation, no acute distress, patient is on minimal amount of supplemental oxygen, tolerating oral intake, he is extremely cachectic. He states his diarrhea has improved. No abdominal pain On 06/25/2019 patient seen in follow-up on selective care unit, he is up in the chair, appears to be in no acute distress. He is on 2 L of oxygen his pulse ox at home percent, vitals are stable, he is afebrile. He remains on a combination of azithromycin and Rocephin for possibility bibasilar pneumonia, probably calcitonin is trending down, patient has been afebrile, no increased cough or congestion, patient had the ultrasound of the abdomen which showed nonspecific bowel gas present, air and some debris in the colon, scattered air-fluid levels could be related to ileus, mild partial small bowel obstruction. CT of the abdomen showed dilated small bowel without definite transition zone reflect ileus versus partial obstruction, and interval development of ascites and anasarca, abdomen is more distended on today's exam. Patient's albumin is extremely low related to his overall poor nutritional status, he was given a dose of Lasix and albumin. He is in negative fluid balance, no worsening hypoxia. He is scheduled for ultrasound-guided paracentesis today for alyce gnostic services. On 06/26/2019 patient seen in follow-up, he is resting in bed, denies any acute distress, he is on 2 L of oxygen with pulse ox 100%, he status post diagnostic paracentesis would removal of 100 mL of ascitic fluid which was sent for analysis and cytology. Awaiting results the cytology, patient has been afebrile, patient has completed his course of Rocephin and azithromycin, no f ever or chills, his latest pro-calcitonin level from 06/24/2019 has come down nicely, 20.18 from 3.49 on admission. No cough or congestion, no complaints of abdominal pain, he states his appetite is fair. He continues on IV Lasix. Patient is in -3114 mL fluid balance, today's chest x-ray was reviewed, showing stable left sided pneumothorax, stable basilar patchy infiltrates, persistent but improved right upper lobe infiltrate. On 06/27/2019 patient seen in follow-up on selective care unit, he is calm and comfortable, he is in 2 L of oxygen, with pulse ox of 98%, which took him off the oxygen, and his pulse ox was 97%, no worsening dyspnea, he is afebrile, he was started on Lasix drip per nephrology today however his blood pressures are marginal, and running lower at 86/56. We reviewed his chest x-ray yesterday showing stable left-sided pneumothorax, stable basilar patchy infiltrates and right upper lobe infiltrate, no evidence of any sizable pleural effusion for drainage, or still awaiting results of the pathology of the ascites fluid. Patient has completed his antibiotics, his been afebrile. His ascites fluid cultures, blood and sputum were all negative. No nausea or vomiting, surgery is following patient is tolerating regular diet, passing flatus. On 06/28/2019 patient seen in follow-up on selective care unit, he sitting up in bed, in no acute distress, denies any shortness of breath, breathing is comfortable, room air pulse ox of 95%, no fever or chills, lung sounds are clear, diminished at the bases, only occasional cough, no rhonchi or wheezing on today's exam, he remains on Lasix at 10 mg per hour, and he is in -5458 mL fluid balance over the last 24 hours. Today's labs have been reviewed, showing sodium of 131, potassium is 4.1, chloride is 83, CO2 39, UN is 26, creatinine 0.65. Cytology of the ascites fluid is still pending, otherwise patient is in no acute respiratory distress, his appetite remains poor, he states food doesn't look that appealing to him, but she will try to consume more food, she was up in a chair yesterday, his been ambulating with assistance, no abdominal pain. No nausea or vomiting. Objective - Vital Signs Vital signs: Vital Signs Temp 97.9 F 06/28/19 08:00 Pulse 98 06/28/19 08:00 Resp 18 06/28/19 08:00 BP 83/51 06/28/19 08:00 Pulse Ox 95 06/28/19 08:00 Intake & Output 06/27/19 06/28/19 06/28/19 18:59 06:59 18:59 Intake Total 300 20 Output Total 2533 3225 490 Balance -7192 -5314 -863 Weight 41.5 kg 41 kg Intake: Intake, IV Titration 200 Amount Furosemide 100 mg In 200 Sodium Chloride 0.9% 90 ml @ 10 MG/HR 10 mls/hr IV .Q10H [facility] Rx#: [id number] Oral 100 20 Output: Urine 2530 3225 490 Stool 3 Other: Voiding Method Indwelling Catheter Indwelling Catheter Indwelling Catheter - Exam GENERAL EXAM: Alert, cachectic 74-year-old white male, on 2 L of oxygen with pulse ox of 98%, resting comfortably in bed, does not appear to be in any acute distress, patient IS showing signs of severe calorie malnutrition and muscle wasting comfortable in no apparent distress. HEAD: Normocephalic/atraumatic. EYES: Normal reaction of pupils, equal size. Conjunctiva pink, sclera white. NOSE: Clear with pink turbinates. THROAT: No erythema or exudates. NECK: No masses, no JVD, no thyroid enlargement, no adenopathy. CHEST: No chest wall deformity. Symmetrical expansion. LUNGS: Equal air entry with no crackles, wheeze, rhonchi or dullness. CVS: Regular rate and rhythm, normal S1 and S2, no gallops, no murmurs, no rubs ABDOMEN: Soft, nontender. No hepatosplenomegaly, normal bowel sounds, no gu arding or rigidity. EXTREMITIES: No clubbing, no edema, no cyanosis, 2+ pulses and upper and lower e xtremities. MUSCULOSKELETAL: Muscle strength and tone normal. SPINE: No scoliosis or deformity SKIN: No rashes CENTRAL NERVOUS SYSTEM: Alert and oriented -3. No focal deficits, tone is normal in all 4 extremities. PSYCHIATRIC: Alert and oriented -3. Appropriate affect. Intact judgment and insight. - Labs CBC & Chem 7: 06/24/19 06:04 06/28/19 06:03 Labs: Abnormal Lab Results - Last 24 Hours (Table) 06/27/19 06/27/19 06/27/19 Range/Units 11:20 16:35 19:53 Sodium (137-145) mmol/L Chloride (98-107) mmol/L Carbon Dioxide (22-30) mmol/L BUN (9-20) mg/dL Creatinine (0.66-1.25) mg/dL POC Glucose (mg/dL) 116 H 238 H 112 H (75-99) mg/dL Total Protein (6.3-8.2) g/dL Albumin (3.5-5.0) g/dL 06/28/19 06/28/19 Range/Units 05:37 06:03 Sodium 131 L (137-145) mmol/L Chloride 83 L (98-107) mmol/L Carbon Dioxide 39 H (22-30) mmol/L BUN 26 H (9-20) mg/dL Creatinine 0.65 L (0.66-1.25) mg/dL POC Glucose (mg/dL) 110 H (75-99) mg/dL Total Protein 5.4 L (6.3-8.2) g/dL Albumin 3.1 L (3.5-5.0) g/dL Microbiology - Last 24 Hours (Table) 06/25/19 10:09 Gram Stain - Preliminary Peritoneal Fluid Body Fluid Culture - Preliminary Assessment and Plan Plan: Assessment: #1. Acute hypoxic respiratory failure, multifactorial related to possibility of community acquired pneumonia, small pleural effusions, and tiny left pneumothorax of 10-15% with left basilar hydropneumothorax component #2. Weakness, general medical debility, gait dysfunction #3. A fall, and small left pneumothorax #4. History of seizures #5. Possible exacerbation of CHF with preserved systolic function #6. Hypotension multifactorial, related to dehydration, hypovolemia, and possibility of sepsis is not excluded. Recovered with IV hydration #7. Osteoarthritis #8. Glaucoma #9. Nicotine dependence #10. History of COPD, CTA chest shows for some at this changes #11. Possibility of interstitial lung disease in addition to acute pneumonia and mild exacerbation of CHF was not excluded #12. Recent hospitalization in April for her diarrhea, weight loss please refer to the medical records #13. Mild hyponatremia present on admission likely related to hypovolemia #14. Acute kidney injury related to intravascular volume depletion #15. Chronic diarrhea follows with gastroenterology #16. Chronic cachexia, protein calorie malnutrition and continued weight loss #17. Hyponatremia, hypervolemic, and a component of SIADH, nephrology is f ollowing, and serum sodium is improving with diuresis Plan: Continue current management, will defer to nephrology for hyponatremia management, it is improving with diuresis, patient denies any respiratory distress, he is on room air, increase activity as tolerated, no sizable pleural effusion for us to drain. Awaiting results of the ascites cytology. We'll continue to follow I performed a history & physical examination of the patient and discussed their management with my nurse practitioner, Liudmila Mccnonell. I reviewed the nurse practitioner's note and agree with the documented findings and plan of care. Lung sounds are positive for diminished breath sounds. The findings and the impression was discussed with the patient. I attest to the documentation by the nurse practitioner. Time with Patient: Less than 30
[2019-06-28 11:31] LABS: Glucose,Whole Blood 181 mg/dL (75-99)
--- NOTE | 2019-06-28 12:38 | P.PN ---
Subjective Patient is seen in follow-up for hyponatremia. Sodium level is 131 today. Currently has Garcia catheter for urinary retention. Urine output documented is 2.5 L in the last 24 hours. Edema improved. No active complaints. Vital signs are stable. General: The patient appeared well nourished and normally developed. HEENT: Head exam is unremarkable. Neck is without jugular venous distension. LUNGS: Lungs are clear to auscultation and percussion. Breath sounds decreased. HEART: Rate and Rhythm are regular. ABDOMEN: Mild distention noted. Nontender. EXTREMITITES: 1+ edema. Objective - Vital Signs Vital signs: Vital Signs Temp 97.9 F 06/28/19 08:00 Pulse 104 H 06/28/19 11:23 Resp 18 06/28/19 08:00 BP 83/51 06/28/19 08:00 Pulse Ox 95 06/28/19 08:00 Intake & Output 06/27/19 06/28/19 06/28/19 18:59 06:59 18:59 Intake Total 300 20 Output Total 2533 3225 490 Balance -1543 -322 -295 Weight 41.5 kg 41 kg Intake: Intake, IV Titration 200 Amount Furosemide 100 mg In 200 Sodium Chloride 0.9% 90 ml @ 10 MG/HR 10 mls/hr IV .Q10H [facility] Rx#: [id number] Oral 100 20 Output: Urine 2530 3225 490 Stool 3 Other: Voiding Method Indwelling Catheter Indwelling Catheter Indwelling Catheter - Labs CBC & Chem 7: 06/24/19 06:04 06/28/19 06:03 Labs: Abnormal Lab Results - Last 24 Hours (Table) 06/27/19 06/27/19 06/28/19 Range/Units 16:35 19:53 05:37 Sodium (137-145) mmol/L Chloride (98-107) mmol/L Carbon Dioxide (22-30) mmol/L BUN (9-20) mg/dL Creatinine (0.66-1.25) mg/dL POC Glucose (mg/dL) 238 H 112 H 110 H (75-99) mg/dL Total Protein (6.3-8.2) g/dL Albumin (3.5-5.0) g/dL 06/28/19 06/28/19 Range/Units 06:03 11:30 Sodium 131 L (137-145) mmol/L Chloride 83 L (98-107) mmol/L Carbon Dioxide 39 H (22-30) mmol/L BUN 26 H (9-20) mg/dL Creatinine 0.65 L (0.66-1.25) mg/dL POC Glucose (mg/dL) 181 H (75-99) mg/dL Total Protein 5.4 L (6.3-8.2) g/dL Albumin 3.1 L (3.5-5.0) g/dL Microbiology - Last 24 Hours (Table) 06/25/19 10:09 Gram Stain - Preliminary Peritoneal Fluid Body Fluid Culture - Preliminary Assessment and Plan Plan: Assessment: 1. Hypervolemic hyponatremia. Patient is also on Keppra which can induce SIADH. Additionally respiratory infection can also induce SIADH. TSH normal. Urine osmolality high at 934. Urine sodium 164. 2. Pneumonia maintained on antibiotics. 3. Status post fall with left pneumothorax. 4. Acute on chronic diastolic CHF. 5. Urinary retention status post Garcia catheter placement. Urology following. 6. Volume overload. Improving with diuresis. 7. Hypomagnesemia due to poor oral intake. Better. Plan: Encourage oral intake, especially protein. Maintain ensure 3 times daily. 1500 mL fluid restriction. Discontinue Lasix drip. Start IV push Lasix 40 mg twice daily. Status post IV albumin and the . Repeat electrolytes in the morning.
[2019-06-28 16:24] LABS: Glucose,Whole Blood 169 mg/dL (75-99)
[2019-06-28 20:21] LABS: Glucose,Whole Blood 127 mg/dL (75-99)
[2019-06-28] MEDS: FUROSEMIDE 10 MG/ML 4 ML VIAL IV SCH (20:55)
[2019-06-28] MEDS: ZOLPIDEM 10 MG TAB PO PRN (20:58)
[2019-06-29] MEDS: MORPHINE SULFATE IR 15 MG TABLET PO PRN ×3 (05:09→19:36)
[2019-06-29] MEDS: PANTOPRAZOLE 40 MG TABLET PO SCH (05:09)
[2019-06-29 06:14] LABS: Glucose,Whole Blood 126 mg/dL (75-99)
[2019-06-29] MEDS: INSULIN ASPART (NovoLOG) 100 UNIT/ML VIAL SQ SCH ×4 (06:17→20:27)
--- NOTE | 2019-06-29 07:32 | XR ---
EXAMINATION TYPE: XR chest 1V DATE OF EXAM: 06/29/2019 HISTORY: ptx. REFERENCE: Previous study dated 06/26/2019. FINDINGS: The lungs are overinflated. There continues to be a tiny pneumothorax on the left which shakeel ears to the less than 10% by volume. The lungs are otherwise clear. Pleural space are clear. The hear t is not enlarged. IMPRESSION: 1. COPD. 2. RESIDUAL, TINY LEFT APICAL PNEUMOTHORAX.
[2019-06-29] MEDS: IPRATROPIUM-ALBUTEROL 3 ML NEB INHALATION SCH ×4 (07:45→20:50)
[2019-06-29] MEDS: BUDESONIDE 0.5 MG/2 ML NEBU INHALATION SCH ×2 (07:45→20:50)
[2019-06-29] MEDS: HEPARIN SODIUM,PORCINE 5,000 UNIT/ML 1 ML VIAL SQ SCH ×2 (08:21→19:36)
[2019-06-29] MEDS: FUROSEMIDE 10 MG/ML 4 ML VIAL IV SCH ×2 (08:21→19:36)
[2019-06-29] MEDS: levETIRAcetam 500 MG TAB PO SCH ×2 (08:21→19:36)
[2019-06-29] MEDS: FLUCONAZOLE 100 MG TAB PO SCH (08:22)
[2019-06-29] MEDS: MAGNESIUM OXIDE 400 MG TAB PO SCH (08:22)
[2019-06-29] MEDS: levETIRAcetam 250 MG TAB PO SCH ×2 (08:34→19:36)
--- NOTE | 2019-06-29 08:36 | P.PN ---
Subjective Progress Note Date: 06/29/19 Principal diagnosis: Abdominal swelling Patient doing well. Tolerating diet. No nausea or vomiting. Normal bowel movement last night. Cytology came back without evidence of peritoneal malignancy. Objective - Vital Signs Vital signs: Vital Signs Temp 98 F 06/29/19 08:00 Pulse 100 06/29/19 08:00 Resp 18 06/29/19 08:00 BP 97/60 06/29/19 08:00 Pulse Ox 99 06/29/19 08:00 Intake & Output 06/28/19 06/29/19 06/29/19 18:59 06:59 18:59 Intake Total 276 Output Total 1290 900 Balance -1014 -900 Weight 43.1 kg Intake: Oral 276 Output: Urine 1290 900 Other: Voiding Method Indwelling Catheter Indwelling Catheter # Bowel Movements 1 - Exam Abdomen: Soft, non-tender, mild distention - Labs CBC & Chem 7: 06/24/19 06:04 06/28/19 06:03 Labs: Abnormal Lab Results - Last 24 Hours (Table) 06/28/19 06/28/19 06/28/19 Range/Units 11:30 16:23 20:19 POC Glucose (mg/dL) 181 H 169 H 127 H (75-99) mg/dL 06/29/19 Range/Units 06:13 POC Glucose (mg/dL) 126 H (75-99) mg/dL Microbiology - Last 24 Hours (Table) 06/25/19 10:09 Gram Stain - Preliminary Peritoneal Fluid Body Fluid Culture - Preliminary Assessment and Plan (1) Cachexia Narrative/Plan: Patient certainly doing better since admission. Continue diet as tolerated at this point. Still suspect possibility of underlying malignancy but peritoneal cytology negative. Patient is anxious to go home which is not unreasonable given his improvement. He is not interested in rehab although there certainly would be some benefit given his weakness. Consider outpatient oncologic evaluation given his profound cachexia. Will follow intermittently. Current Visit: No Status: Acute Code(s): R64 - CACHEXIA SNOMED Code(s): 563618596
[2019-06-29 09:04] LABS: Basophils # (A) 0.1 k/uL (0-0.2); Basophils % (A) 1 %; Eosinophils # (A) 0.2 k/uL (0-0.7); Eosinophils % (A) 2 %; HCT 37.6 % (39.0-53.0); HGB 11.6 gm/dL (13.0-17.5); Lymphocytes # (A) 1.5 k/uL (1.0-4.8); Lymphocytes % (A) 16 %; MCH 30.4 pg (25.0-35.0); MCHC 30.7 g/dL (31.0-37.0); MCV 98.8 fL (80.0-100.0); Mean Platelet Volume 7.5; Monocytes # (A) 0.4 k/uL (0-1.0); Monocytes % (A) 5 %; Neutrophils # (A) 6.8 k/uL (1.3-7.7); Neutrophils % (A) 74 %; RDW 14.4 % (11.5-15.5); WBC 9.1 k/uL (3.8-10.6)
[2019-06-29 09:13] LABS: African American GFR (CKD) >90 (>60 ml/min/1.73 sqM); Blood Urea Nitrogen 34 mg/dL (9-20); Calcium 8.7 mg/dL (8.4-10.2); Chloride 85 mmol/L (98-107); Glucose 112 mg/dL (74-99); Magnesium 2.2 mg/dL (1.6-2.3); Non-African American GFR(CKD) >90 (>60 ml/min/1.73 sqM); Potassium 4.4 mmol/L (3.5-5.1); Sodium 130 mmol/L (137-145)
[2019-06-29 09:19] LABS: Anion Gap 6 mmol/L; Carbon Dioxide 39 mmol/L (22-30)
[2019-06-29 09:52] LABS: Platelet Count 580 k/uL (150-450)
[2019-06-29 11:32] LABS: Glucose,Whole Blood 107 mg/dL (75-99)
[2019-06-29] MEDS: SODIUM CHLORIDE 0.9% 1,000 ML IV SCH (11:33)
--- NOTE | 2019-06-29 11:54 | P.PN ---
Subjective Progress Note Date: 06/29/19 Principal diagnosis: Small left-sided pneumothorax 74-year-old white male patient of Dr. Oliveros with past medical history seizure disorder, osteoarthritis, GERD/reflux, nicotine dependence came into the emergency department on 06/17/2019 after sustaining a fall. Patient was in the bathroom and passed out and fell on the ground he does not remember the events leading up to his injury. EMS brought the patient to the hospital. He had recent hospitalization for severe diarrhea and weakness discharged on 04/23/2019, to rule out infective diarrhea. Patient was also having progressive weight loss and severe protein calorie malnutrition, was evaluated by gastroenterology. Admission chest x-ray showed bilateral acute infiltrates to mid to lower lungs. Head and cervical CT showed no acute fracture or dislocation of the cervical spine tiny left apical pneumothorax was noted, no acute intracranial hemorrhage or midline shift was seen, fairly moderate generalized atrophy and small vessel ischemic changes. CT angios of the chest showed no evidence of pulmonary embolism, and moderately severe pulmonary edema with small right pleural effusion, and nonspecific mediastinal and bronchial of nodes. Small left-sided pneumothorax was noted. Echocardiogram was completed s howing preserved left ventricular systolic function with EF of 60-65%, mild mitral regurgitation, mild tricuspid regurgitation, no evidence of pulmonary hypertension right-sided pressures were less than 35 mmHg. Admission labs showed a leukopenia with white blood cell, 2.2, hemoglobin of 15.1, d-dimer was 4.97 with CTA chest negative for pulmonary embolism, sodium was 132, and the rest of the electrolytes were within normal limits, BUN is 34 creatinine is 0.85. Coronavirus PCR was negative, urinalysis was negative, proBNP was 917, troponin 0.026, and 0.064, CRP was 10.8, LDH was 755, ferritin level is 348.9. Temperature on admission was 96.4F, sats was 91% on room air, patient did have periods of hypotension with a blood pressure as low as 71/56, EKG showed sinus tachycardia evidence of anterior infarct of undetermined age T-wave abnormality with consideration for lateral ischemia. Patient was placed on empiric antibiotics in the form of azithromycin and Rocephin for possibility of underlying pneumonia, he was fluid resuscitated on admission with improvement in his blood pressure. Procalcitonin level came back at 3.49 suggesting presence of bacterial infection. Follow-up chest x-ray today shows small to tiny left pneumothorax, possible slightly increased in size from one day earlier, and small to tiny bilateral pleural effusions felt to be stable, there is background of chronic emphysematous changes with bibasilar and left midlung acute infiltrate and/or atelectasis. Patient has been afebrile, she is fairly comfortable at rest, it appears to be in no acute distress. He seen on selective care unit, awake and alert, and altered mentation, responding appropriately, he remains on 3 L of oxygen with pulse ox of 94%, his been afebrile. Remains on empiric antibiotics with azithromycin and Rocephin On 06/20/2019 patient seen in follow-up on selective care unit, no worsening dyspnea, he is 97% on 3 L of oxygen, he is afebrile, hemodynamically patient is stable. He is short of breath with any exertion. Denies any chest pain. Chest x-ray showed left-sided pneumothorax of 10-15% with left basilar hydropneumothorax component, and scattered interstitial and airspace infiltrates throughout both lung house greatest at the lung bases with mild progression. There was increase in the white count on today's labs, up to 21.8, hemoglobin is 14.4, serum sodium is 131, the rest of her electrolytes were within normal limits, BUN of 23 creatinine 0.52. Blood culture remains negative, patient remains on azithromycin and Rocephin, patient continues to have diarrhea. He is on IV fluids of 0.9 normal saline at a rate 75 ML per hour, no nausea or vomiting. On 06/21/2019 patient seen in follow-up on selective care unit, patient is on 2 L of oxygen and the pulse ox of 95%, hemodynamically stable, does get short of breath especially with exertion, but no worsening dyspnea, he is afebrile, he remains on antibiotics for possibility of pneumonia, but no signs have been stable, no significant events overnight, today's chest x-ray shows redemonstration of 15% left-sided pneumothorax, and increasing right upper lobe reticular opacity and unchanged diffuse interstitial opacities. No altered mentation, no acute distress, patient is on minimal amount of supplemental oxygen, tolerating oral intake, he is extremely cachectic. He states his diarrhea has improved. No abdominal pain On 06/25/2019 patient seen in follow-up on selective care unit, he is up in the chair, appears to be in no acute distress. He is on 2 L of oxygen his pulse ox at home percent, vitals are stable, he is afebrile. He remains on a combination of azithromycin and Rocephin for possibility bibasilar pneumonia, probably calcitonin is trending down, patient has been afebrile, no increased cough or congestion, patient had the ultrasound of the abdomen which showed nonspecific bowel gas present, air and some debris in the colon, scattered air-fluid levels could be related to ileus, mild partial small bowel obstruction. CT of the abdomen showed dilated small bowel without definite transition zone reflect ileus versus partial obstruction, and interval development of ascites and anasarca, abdomen is more distended on today's exam. Patient's albumin is extremely low related to his overall poor nutritional status, he was given a dose of Lasix and albumin. He is in negative fluid balance, no worsening hypoxia. He is scheduled for ultrasound-guided paracentesis today for alyce gnostic services. On 06/26/2019 patient seen in follow-up, he is resting in bed, denies any acute distress, he is on 2 L of oxygen with pulse ox 100%, he status post diagnostic paracentesis would removal of 100 mL of ascitic fluid which was sent for analysis and cytology. Awaiting results the cytology, patient has been afebrile, patient has completed his course of Rocephin and azithromycin, no f ever or chills, his latest pro-calcitonin level from 06/24/2019 has come down nicely, 20.18 from 3.49 on admission. No cough or congestion, no complaints of abdominal pain, he states his appetite is fair. He continues on IV Lasix. Patient is in -3114 mL fluid balance, today's chest x-ray was reviewed, showing stable left sided pneumothorax, stable basilar patchy infiltrates, persistent but improved right upper lobe infiltrate. On 06/27/2019 patient seen in follow-up on selective care unit, he is calm and comfortable, he is in 2 L of oxygen, with pulse ox of 98%, which took him off the oxygen, and his pulse ox was 97%, no worsening dyspnea, he is afebrile, he was started on Lasix drip per nephrology today however his blood pressures are marginal, and running lower at 86/56. We reviewed his chest x-ray yesterday showing stable left-sided pneumothorax, stable basilar patchy infiltrates and right upper lobe infiltrate, no evidence of any sizable pleural effusion for drainage, or still awaiting results of the pathology of the ascites fluid. Patient has completed his antibiotics, his been afebrile. His ascites fluid cultures, blood and sputum were all negative. No nausea or vomiting, surgery is following patient is tolerating regular diet, passing flatus. On 06/28/2019 patient seen in follow-up on selective care unit, he sitting up in bed, in no acute distress, denies any shortness of breath, breathing is comfortable, room air pulse ox of 95%, no fever or chills, lung sounds are clear, diminished at the bases, only occasional cough, no rhonchi or wheezing on today's exam, he remains on Lasix at 10 mg per hour, and he is in -5458 mL fluid balance over the last 24 hours. Today's labs have been reviewed, showing sodium of 131, potassium is 4.1, chloride is 83, CO2 39, UN is 26, creatinine 0.65. Cytology of the ascites fluid is still pending, otherwise patient is in no acute respiratory distress, his appetite remains poor, he states food doesn't look that appealing to him, but she will try to consume more food, she was up in a chair yesterday, his been ambulating with assistance, no abdominal pain. No nausea or vomiting. The patient is seen today 06/29/2019 in follow-up on the selective care unit. He is currently resting comfortably in bed. Awake and alert in no acute distress. Denies any worsening shortness of breath, cough or congestion. Chest x-ray reveals very minimal left-sided pneumothorax. He is maintaining O2 saturations in the upper 90s on room air. Afebrile. Hemodynamically stable. Ascites fluid cytology negative for malignancy. White count 9.1. Hemoglobin 11.6. Sodium 1:30. Potassium 4.4. Creatinine 0.54. Appetite is improving. Remains on IV diuretics. Anxious to go home. Objective - Vital Signs Vital signs: Vital Signs Temp 98.2 F 06/29/19 11:06 Pulse 86 06/29/19 11:32 Resp 16 06/29/19 11:06 BP 107/69 06/29/19 11:06 Pulse Ox 96 06/29/19 11:06 Intake & Output 06/28/19 06/29/19 06/29/19 18:59 06:59 18:59 Intake Total 276 850 Output Total 1290 900 975 Balance -1018 -900 -125 Weight 43.1 kg Intake: Oral 276 850 Output: Urine 1290 900 975 Other: Voiding Method Indwelling Catheter Indwelling Catheter Indwelling Catheter # Bowel Movements 1 - Exam GENERAL EXAM: Alert, cachectic 74-year-old white male, on room air with pulse ox of 96%, resting comfortably in bed, does not appear to be in any acute distress, patient is showing signs of severe calorie malnutrition and muscle wasting comfortable in no apparent distress. HEAD: Normocephalic/atraumatic. EYES: Normal reaction of pupils, equal size. Conjunctiva pink, sclera white. NOSE: Clear with pink turbinates. THROAT: No erythema or exudates. NECK: No masses, no JVD, no thyroid enlargement, no adenopathy. CHEST: No chest wall deformity. Symmetrical expansion. LUNGS: Equal air entry with no crackles, wheeze, rhonchi or dullness. CVS: Regular rate and rhythm, normal S1 and S2, no gallops, no murmurs, no rubs ABDOMEN: Soft, nontender. No hepatosplenomegaly, normal bowel sounds, no guarding or rigidity. EXTREMITIES: No clubbing, no edema, no cyanosis, 2+ pulses and upper and lower extremities. MUSCULOSKELETAL: Muscle strength and tone normal. SPINE: No scoliosis or deformity SKIN: No rashes CENTRAL NERVOUS SYSTEM: No focal deficits, tone is normal in all 4 extremities. PSYCHIATRIC: Alert and oriented -3. Appropriate affect. Intact judgment and insight. - Labs CBC & Chem 7: 06/29/19 08:01 06/29/19 08:01 Labs: Abnormal Lab Results - Last 24 Hours (Table) 06/28/19 06/28/19 06/29/19 Range/Units 16:23 20:19 06:13 RBC (4.30-5.90) m/uL Hgb (13.0-17.5) gm/dL Hct (39.0-53.0) % MCHC (31.0-37.0) g/dL Plt Count (150-450) k/uL Sodium (137-145) mmol/L Chloride (98-107) mmol/L Carbon Dioxide (22-30) mmol/L BUN (9-20) mg/dL Creatinine (0.66-1.25) mg/dL Glucose (74-99) mg/dL POC Glucose (mg/dL) 169 H 127 H 126 H (75-99) mg/dL 06/29/19 06/29/19 06/29/19 Range/Units 08:01 08:01 11:31 RBC 3.80 L (4.30-5.90) m/uL Hgb 11.6 L (13.0-17.5) gm/dL Hct 37.6 L (39.0-53.0) % MCHC 30.7 L (31.0-37.0) g/dL Plt Count 580 H D (150-450) k/uL Sodium 130 L (137-145) mmol/L Chloride 85 L (98-107) mmol/L Carbon Dioxide 39 H (22-30) mmol/L BUN 34 H (9-20) mg/dL Creatinine 0.54 L (0.66-1.25) mg/dL Glucose 112 H (74-99) mg/dL POC Glucose (mg/dL) 107 H (75-99) mg/dL Microbiology - Last 24 Hours (Table) 06/25/19 10:09 Gram Stain - Preliminary Peritoneal Fluid Body Fluid Culture - Preliminary Assessment and Plan Assessment: #1. Acute hypoxic respiratory failure, multifactorial related to possibility of community acquired pneumonia, small pleural effusions, and tiny left pneumothorax of 10-15% with left basilar hydropneumothorax component #2. Weakness, general medical debility, gait dysfunction #3. A fall, and small left pneumothorax #4. History of seizures #5. Possible exacerbation of CHF with preserved systolic function #6. Hypotension multifactorial, related to dehydration, hypovolemia, and possibility of sepsis is not excluded. Recovered with IV hydration #7. Osteoarthritis #8. Glaucoma #9. Nicotine dependence #10. History of COPD, CTA chest shows for some at this changes #11. Possibility of interstitial lung disease in addition to acute pneumonia and mild exacerbation of CHF was not excluded #12. Recent hospitalization in April for her diarrhea, weight loss please refer to the medical records #13. Mild hyponatremia present on admission likely related to hypovolemia #14. Acute kidney injury related to intravascular volume depletion #15. Chronic diarrhea follows with gastroenterology #16. Chronic cachexia, protein calorie malnutrition and continued weight loss #17. Hyponatremia, hypervolemic, and a component of SIADH, nephrology is following, and serum sodium is improving with diuresis Plan: The patient was seen and evaluated by Dr. Avalos Chest x-ray and labs reviewed He is stable from the pulmonary standpoint On room air Pathology negative for malignancy from peritoneal fluid Home once cleared medically I, the cosigning physician, performed a history & physical examination of the patient. Lungs sounds are clear. Maintaining good O2 saturations in the 90s on room air. I discussed the assessment and plan of care with my nurse practitioner, Angely Holliday. I attest to the above note as dictated by her.
--- NOTE | 2019-06-29 13:43 | P.PN ---
Subjective Patient is admitted after a fall found to have pneumonia patient is on treatment for pneumonia. We'll cut down the IV fluids and 5 mL per hour patient is quite a bit dehydrated on admission. Repeat chest x-rays showed small pneumothorax probably from fall. Patient has atypical chest pain from fall. Unsure whether patient has syncope patient also has a seizure disorder EEG was obtained which did not show any epileptiform focus but did show severe encephalopathy. Keppra levels are low and patient is being can urine For will obtain levels again today if they're still low will consult neurology will increase the Keppra dose. Patient's clinical exam remains the same. Cardiology evaluated the patient for chest pain no further dictation from that perspective. Patient remains hyponatremic. 06/20/2019 Patient white blood cell count went up to 25,000 patient doesn't have any diarrhea patient also clinically looks better patient has 10-15% pneumothorax pulmonary recommended consultation with parathoracic surgery were consulted. 06/21/2019 Patient white blood cell count remains at the same level around 22,000 pneumothorax remains the same overall patient looks better but will need disposition to subacute rehabilitation may be able to be discharged tomorrow or Monday. 06/22/2019 Patient is currently awake alert and oriented 3. Lying in the bed comfortably. Currently saturating well on room air. Denied any complaints of chest pain are worsening shortness of breath. Chest x-ray showed 15% left-sided pneumothorax. Patient is being followed by CT surgery. Also antibodies the form of ceftriaxone and azithromycin. Patient has been afebrile. WBC trending down to 1.0. Renal function is stable. 06/23/2019 Patient is currently lying in the bed comfortably. Awake alert and oriented. Denied any complaints of chest pain or worsening shortness of breath. Currently on oxygen with another cannula at 2 L. Chest x-ray today showed continued left- sided pneumothorax about 15% which is stable. Patient has been afebrile. Patient developed urinary retention yesterday requiring placement of Garcia catheter. Urology was consulted. CT surgery and nephrology is following. Sodium level is 132 today. Currently on normal saline at 50 mL per hour. Patient was given a dose of IV Lasix today. Constitutional: Patient is still weak and looks much better today Cardio vascular: denied any chest pain, palpitations Gastrointestinal denied any nausea vomiting Pulmonary: Denied any shortness of breath cough Neurologic denied any new focal deficits All inpatient medications were reviewed and appropriate changes in these medi cations as dictated in the interval history and assessment and plan. Current medications reviewed. 06/24/2019 Patient is seen and evaluated in follow-up currently sitting in the chair drinking contrast for CT abdomen that was ordered. Multiple medical consultations following. Patient remains on 2 L of oxygen via nasal cannula and reports no worsening of shortness of breath although continues to be short of breath with exertion. Discussed with the patient at length about continuing to use the incentive spirometer at least 10 times every hour while awake. Patient states he is attempting for 1000 although only been reaching 500 on the incentive spirometer. Patient continues to be quite weak and cachectic. Patient CT abdomen shows some dilated small bowel without definite transition zo ne with contrast seen within the colon with findings that may reflect ileus versus partial bowel obstruction, interval development of ascites and anasarca with bilateral pleural effusions with comprehensive atelectasis and/or infiltrates, and left-sided pneumothorax. Patient's chest x-ray today continues to show the left-sided pneumothorax approximately 10% and stable. Cardiothoracic surgery following an recommending no chest tube at this time. Surgery consulted for findings on the CT although patient and nursing staff states he had a large bowel movement today. Will await report. Patient continues with an indwelling Garcia catheter as he was retaining. Case management and social work following for possible rehab placement once stabilized and discharged. Currently no reports of chest pain or palpitations. Patient is afebrile. No reports of nausea or vomiting and patient has been tolerating diet. 06/25/2019 Patient is seen in follow-up today sitting up in the bed continues to have some abdominal distention and feelings of fullness and states he will be undergoing a paracentesis with interventional radiology. Will await report. Patient was seen and evaluated by surgery for possible ileus. Patient states he had a large bowel movement yesterday although has not had any bowel movements today. Patient has not been eating yet today although states he is hungry. Patient w ill be continued on full liquids and will monitor closely. Sodium is 131 today and albumin is low at 2.2. Patient will be receiving albumin prior and post paracentesis. Nephrology is following closely along with other multiple medical consultations. Patient will also be initiated on IV Lasix today. Patient remains on IV ceftriaxone along with oral Zithromax and will continue at this time. Sputum cultures showing Myesha albicans and will be initiated on Diflucan. Currently no reports of chest pain, worsening shortness of breath, or palpitations. Patient is afebrile. No reports of nausea or vomiting and patient is tolerating diet. Patient states his breathing has improved and currently remains on 2 L of oxygen via nasal cannula 100%. 06/26/2019 Patient is seen in follow-up today sitting up in the bed with no acute overnight issues. Underwent abdominal paracentesis for fluid collection analysis and tolerated well. Multiple medical consultations following. Patient denies any abdominal pain or discomfort and has been tolerating diet. Patient states he is passing gas and having bowel movements with no difficulties. Repeat chest x-ray today shows stable left-sided pneumothorax with persistent but improved right upper lobe infiltrate and stable basilar patchy infiltrates. Pulmonary is following. Patient continues to use incentive spirometer and states his breathing has improved. Patient currently remains on 2 L oxygen via nasal cannula and saturating 100%. Patient continues to have an indwelling Garcia catheter and was seen and evaluated by urology and recommends discontinuation of the Garcia catheter to assess for voiding difficulties and or retention. Garcia catheter may be removed today. Currently no reports of chest pain, shortness of breath, or palpitations. Patient is afebrile. No reports of nausea or vomiting and patient is tolerating diet. Awaiting fluid analysis report at this time. 06/27/2019 Patient is seen in follow-up today and has been initiated on Lasix drip. Nephrology and pulmonary following. Oxygen was discontinued today and patient tolerating well. Patient continues to have an indwelling Garcia catheter for strict I&O's. Will continue for another 24 hours. Patient continues to have some mild abdominal distention although denies any abdominal discomfort. No reports of chest pain, worsening shortness of breath, or palpitations. Is afebrile. Is currently off antibiotics. Will repeat a.m. labs. Sodium is 128 and will maintain 1500 mL fluid restriction. Case management and social work are following for possible placement at a subacute rehab once stabilized and discharged. Fluid analysis still pending at this time. Patient encouraged to increased oral intake especially protein and has been drinking ensure. Patient continues to have a very poor appetite and eats very little. Will continue to monitor closely. 06/28/2019 Patient is seen and evaluated in follow-up continues to be on room air with no worsening shortness of breath. Patient is using incentive spirometer multiple times during the day. Multiple medical consultations following. Continue to await pathology report from paracentesis. Preliminary fluid cultures remain negative with the sputum culture showing Myesha albicans. Patient remains on oral Diflucan. Patient also remains on the Lasix drip with indwelling Garcia catheter for strict I&O's. Patient remains in a negative fluid balance. No reports of chest pain or palpitations. Patient is afebrile. No reports of nausea or vomiting and patient is tolerating diet. Continue to encourage oral intake with protein. Patient remains on fluid restrictions and sodium has improved at 131 today. Current creatinine is 0.65. Albumin continues to be low at 3.1 although improved status post 2 infusions yesterday. When discussing with the patient about discharge planning patient states he does not want to go to rehab although per PT/OT notes patient would benefit from continued physical therapy for strength and mobility. 06/29/2019 Patient with known new symptoms. Hemodynamically stable. Cytology for the ascites fluid came back negative for malignant cells Patient is severely cachectic, discussed with the patient and he agrees to go to rehab on Monday Objective - Vital Signs Vital signs: Vital Signs Temp 98.2 F 06/29/19 11:06 Pulse 86 06/29/19 11:32 Resp 16 06/29/19 11:06 BP 107/69 06/29/19 11:06 Pulse Ox 96 06/29/19 11:06 Intake & Output 06/28/19 06/29/19 06/29/19 18:59 06:59 18:59 Intake Total 276 850 Output Total 1290 900 975 Balance -1014 -900 -125 Weight 43.1 kg Intake: Oral 276 850 Output: Urine 1290 900 975 Other: Voiding Method Indwelling Catheter Indwelling Catheter Indwelling Catheter # Bowel Movements 1 - Exam -GENERAL: The patient is alert and oriented x3, not in any acute distress. thin built cachectic male HEENT: Pupils are round and equally reacting to light. EOMI. No scleral icterus. No conjunctival pallor. Normocephalic, atraumatic. No pharyngeal erythema. No thyromegaly. CARDIOVASCULAR: S1 and S2 present. No murmurs, rubs, or gallops. PULMONARY: decreased air entry into bilateral lung house, no wheezing or rhonchi noted ABDOMEN: Soft, nontender, mildly distended, normoactive bowel sounds. No palpable organomegaly. MUSCULOSKELETAL: No joint swelling or deformity. EXTREMITIES: No cyanosis, clubbing, or pedal edema. NEUROLOGICAL: Gross neurological examination did not reveal any focal deficits. SKIN: No rashes. - Labs CBC & Chem 7: 06/29/19 08:01 06/29/19 08:01 Labs: Abnormal Lab Results - Last 24 Hours (Table) 06/28/19 06/28/19 06/29/19 Range/Units 16:23 20:19 06:13 RBC (4.30-5.90) m/uL Hgb (13.0-17.5) gm/dL Hct (39.0-53.0) % MCHC (31.0-37.0) g/dL Plt Count (150-450) k/uL Sodium (137-145) mmol/L Chloride (98-107) mmol/L Carbon Dioxide (22-30) mmol/L BUN (9-20) mg/dL Creatinine (0.66-1.25) mg/dL Glucose (74-99) mg/dL POC Glucose (mg/dL) 169 H 127 H 126 H (75-99) mg/dL 06/29/19 06/29/19 06/29/19 Range/Units 08:01 08:01 11:31 RBC 3.80 L (4.30-5.90) m/uL Hgb 11.6 L (13.0-17.5) gm/dL Hct 37.6 L (39.0-53.0) % MCHC 30.7 L (31.0-37.0) g/dL Plt Count 580 H D (150-450) k/uL Sodium 130 L (137-145) mmol/L Chloride 85 L (98-107) mmol/L Carbon Dioxide 39 H (22-30) mmol/L BUN 34 H (9-20) mg/dL Creatinine 0.54 L (0.66-1.25) mg/dL Glucose 112 H (74-99) mg/dL POC Glucose (mg/dL) 107 H (75-99) mg/dL Microbiology - Last 24 Hours (Table) 06/25/19 10:09 Gram Stain - Preliminary Peritoneal Fluid Body Fluid Culture - Preliminary Assessment and Plan Assessment: -acute hypoxic respiratory failure probably secondary to bilateral pneumonia or may be a component of mild COPD exacerbation, improved -Abdominal Ascites as noted on ultrasound. Patient underwent paracentesis with interventional radiology . Cytology of the acitis fluid came back negative for malignant cells -Small pneumothorax on the x-ray possibly from his fall: stable, currently on room air -Leukocytosis: Secondary to sepsis, improved. Sputum culture shows Myesha albicans -COPD with acute exacerbation patient may have mild exacerbation -Euvolemic hyponatremia: Possible SIADH. Patient is currently on a Lasix drip and to continue 1500 mL fluid restriction. Nephrology is following. Sodium is 131 -Acute renal failure: Secondary to dehydration and intravascular depletion IV fluids as mentioned above. Improved, current creatinine is 0.65 -Mildly elevated troponin secondary to hypoxemia and renal failure. Renal failure improved -Chest pain. musculoskeletal in nature secondary to fall, improved -Ruled out syncope and seizure -Seizure disorder continue with Keppra -Chronic diarrhea symptomatic treatment follow with gastroenterology as an outpatient -chronic pain -Cachexia which is chronic patient scan of the chest did not show any nodules but the patient need regular cancer screening as an outpatient. -Ruled out covid 19 -DVT prophylaxis with subcutaneous heparin pending placement to rehab
[2019-06-29 16:40] LABS: Glucose,Whole Blood 133 mg/dL (75-99)
--- NOTE | 2019-06-29 16:58 | PN ---
PROGRESS NOTE Patient is seen for followup for hyponatremia. His serum sodium has improved. Serum sodium was 131 yesterday, today it is at 130, prior to that it was 128. This morning patient states that he is being considered for discharge. He has been eating well. PHYSICAL EXAMINATION: On examination today, blood pressure was 97/60, heart rate of 84 per minute . He is afebrile. Examination of the heart S1, S2. Examination of the lungs, decreased breath sounds at bases. Abdomen is soft, nontender. Examination of lower extremities shows no evidence of edema. HYDRAULIC MINER exam grossly intact. LAB: Show sodium 130, potassium 4.4, chloride 85, CO2 is 39, BUN 34, serum creatinine 0.54. ASSESSMENT: 1. Hyponatremia, multifactorial including possible SIADH given the significantly high urine osmolality on initial admission and also an element of hyperkalemia, now improved. The patient is advised to maintain adequate protein intake. 2. Pneumonia, maintained on antibiotics. 3. Left pneumothorax with history of fall. 4. Acute on chronic diastolic congestive heart failure. 5. Urinary retention status post Garcia catheter placement. The patient was evaluated by Urology. We will discontinue the Garcia catheter and maintain voiding trial. PLAN: DC Garcia. Check postvoid residuals. Okay for discharge and maintain adequate protein intake. Repeat labs in 2-3 days post discharge as outpatient. MMODL / IJN: [id number] /
[2019-06-29] MEDS: ZOLPIDEM 10 MG TAB PO PRN (19:36)
[2019-06-29 20:14] LABS: Glucose,Whole Blood 125 mg/dL (75-99)
[2019-06-30 06:03] LABS: Glucose,Whole Blood 90 mg/dL (75-99)
[2019-06-30] MEDS: PANTOPRAZOLE 40 MG TABLET PO SCH (06:09)
[2019-06-30] MEDS: INSULIN ASPART (NovoLOG) 100 UNIT/ML VIAL SQ SCH ×4 (06:09→21:55)
[2019-06-30 07:04] LABS: African American GFR (CKD) >90 (>60 ml/min/1.73 sqM); Anion Gap 4 mmol/L; Blood Urea Nitrogen 31 mg/dL (9-20); Calcium 8.7 mg/dL (8.4-10.2); Carbon Dioxide 38 mmol/L (22-30); Chloride 88 mmol/L (98-107); Glucose 90 mg/dL (74-99); Non-African American GFR(CKD) >90 (>60 ml/min/1.73 sqM); Potassium 4.3 mmol/L (3.5-5.1); Sodium 130 mmol/L (137-145)
[2019-06-30] MEDS: levETIRAcetam 500 MG TAB PO SCH ×2 (07:52→21:54)
[2019-06-30] MEDS: FUROSEMIDE 10 MG/ML 4 ML VIAL IV SCH ×2 (07:52→21:54)
[2019-06-30] MEDS: MAGNESIUM OXIDE 400 MG TAB PO SCH (07:52)
[2019-06-30] MEDS: HEPARIN SODIUM,PORCINE 5,000 UNIT/ML 1 ML VIAL SQ SCH ×2 (07:52→21:54)
[2019-06-30] MEDS: MORPHINE SULFATE IR 15 MG TABLET PO PRN ×2 (07:52→19:55)
[2019-06-30] MEDS: FLUCONAZOLE 100 MG TAB PO SCH (07:52)
[2019-06-30] MEDS: levETIRAcetam 250 MG TAB PO SCH ×2 (07:55→21:54)
[2019-06-30] MEDS: BUDESONIDE 0.5 MG/2 ML NEBU INHALATION SCH ×2 (08:39→20:21)
[2019-06-30] MEDS: IPRATROPIUM-ALBUTEROL 3 ML NEB INHALATION SCH ×4 (08:39→20:21)
[2019-06-30] MEDS: SODIUM CHLORIDE 0.9% 1,000 ML IV SCH (11:13)
[2019-06-30 11:37] LABS: Glucose,Whole Blood 142 mg/dL (75-99)
--- NOTE | 2019-06-30 12:27 | P.PN ---
Subjective Progress Note Date: 06/30/19 Principal diagnosis: Small left-sided pneumothorax 74-year-old white male patient of Dr. Oliveros with past medical history seizure disorder, osteoarthritis, GERD/reflux, nicotine dependence came into the emergency department on 06/17/2019 after sustaining a fall. Patient was in the bathroom and passed out and fell on the ground he does not remember the events leading up to his injury. EMS brought the patient to the hospital. He had recent hospitalization for severe diarrhea and weakness discharged on 04/23/2019, to rule out infective diarrhea. Patient was also having progressive weight loss and severe protein calorie malnutrition, was evaluated by gastroenterology. Admission chest x-ray showed bilateral acute infiltrates to mid to lower lungs. Head and cervical CT showed no acute fracture or dislocation of the cervical spine tiny left apical pneumothorax was noted, no acute intracranial hemorrhage or midline shift was seen, fairly moderate generalized atrophy and small vessel ischemic changes. CT angios of the chest showed no evidence of pulmonary embolism, and moderately severe pulmonary edema with small right pleural effusion, and nonspecific mediastinal and bronchial of nodes. Small left-sided pneumothorax was noted. Echocardiogram was completed s howing preserved left ventricular systolic function with EF of 60-65%, mild mitral regurgitation, mild tricuspid regurgitation, no evidence of pulmonary hypertension right-sided pressures were less than 35 mmHg. Admission labs showed a leukopenia with white blood cell, 2.2, hemoglobin of 15.1, d-dimer was 4.97 with CTA chest negative for pulmonary embolism, sodium was 132, and the rest of the electrolytes were within normal limits, BUN is 34 creatinine is 0.85. Coronavirus PCR was negative, urinalysis was negative, proBNP was 917, troponin 0.026, and 0.064, CRP was 10.8, LDH was 755, ferritin level is 348.9. Temperature on admission was 96.4F, sats was 91% on room air, patient did have periods of hypotension with a blood pressure as low as 71/56, EKG showed sinus tachycardia evidence of anterior infarct of undetermined age T-wave abnormality with consideration for lateral ischemia. Patient was placed on empiric antibiotics in the form of azithromycin and Rocephin for possibility of underlying pneumonia, he was fluid resuscitated on admission with improvement in his blood pressure. Procalcitonin level came back at 3.49 suggesting presence of bacterial infection. Follow-up chest x-ray today shows small to tiny left pneumothorax, possible slightly increased in size from one day earlier, and small to tiny bilateral pleural effusions felt to be stable, there is background of chronic emphysematous changes with bibasilar and left midlung acute infiltrate and/or atelectasis. Patient has been afebrile, she is fairly comfortable at rest, it appears to be in no acute distress. He seen on selective care unit, awake and alert, and altered mentation, responding appropriately, he remains on 3 L of oxygen with pulse ox of 94%, his been afebrile. Remains on empiric antibiotics with azithromycin and Rocephin On 06/20/2019 patient seen in follow-up on selective care unit, no worsening dyspnea, he is 97% on 3 L of oxygen, he is afebrile, hemodynamically patient is stable. He is short of breath with any exertion. Denies any chest pain. Chest x-ray showed left-sided pneumothorax of 10-15% with left basilar hydropneumothorax component, and scattered interstitial and airspace infiltrates throughout both lung house greatest at the lung bases with mild progression. There was increase in the white count on today's labs, up to 21.8, hemoglobin is 14.4, serum sodium is 131, the rest of her electrolytes were within normal limits, BUN of 23 creatinine 0.52. Blood culture remains negative, patient remains on azithromycin and Rocephin, patient continues to have diarrhea. He is on IV fluids of 0.9 normal saline at a rate 75 ML per hour, no nausea or vomiting. On 06/21/2019 patient seen in follow-up on selective care unit, patient is on 2 L of oxygen and the pulse ox of 95%, hemodynamically stable, does get short of breath especially with exertion, but no worsening dyspnea, he is afebrile, he remains on antibiotics for possibility of pneumonia, but no signs have been stable, no significant events overnight, today's chest x-ray shows redemonstration of 15% left-sided pneumothorax, and increasing right upper lobe reticular opacity and unchanged diffuse interstitial opacities. No altered mentation, no acute distress, patient is on minimal amount of supplemental oxygen, tolerating oral intake, he is extremely cachectic. He states his diarrhea has improved. No abdominal pain On 06/25/2019 patient seen in follow-up on selective care unit, he is up in the chair, appears to be in no acute distress. He is on 2 L of oxygen his pulse ox at home percent, vitals are stable, he is afebrile. He remains on a combination of azithromycin and Rocephin for possibility bibasilar pneumonia, probably calcitonin is trending down, patient has been afebrile, no increased cough or congestion, patient had the ultrasound of the abdomen which showed nonspecific bowel gas present, air and some debris in the colon, scattered air-fluid levels could be related to ileus, mild partial small bowel obstruction. CT of the abdomen showed dilated small bowel without definite transition zone reflect ileus versus partial obstruction, and interval development of ascites and anasarca, abdomen is more distended on today's exam. Patient's albumin is extremely low related to his overall poor nutritional status, he was given a dose of Lasix and albumin. He is in negative fluid balance, no worsening hypoxia. He is scheduled for ultrasound-guided paracentesis today for alyce gnostic services. On 06/26/2019 patient seen in follow-up, he is resting in bed, denies any acute distress, he is on 2 L of oxygen with pulse ox 100%, he status post diagnostic paracentesis would removal of 100 mL of ascitic fluid which was sent for analysis and cytology. Awaiting results the cytology, patient has been afebrile, patient has completed his course of Rocephin and azithromycin, no f ever or chills, his latest pro-calcitonin level from 06/24/2019 has come down nicely, 20.18 from 3.49 on admission. No cough or congestion, no complaints of abdominal pain, he states his appetite is fair. He continues on IV Lasix. Patient is in -3114 mL fluid balance, today's chest x-ray was reviewed, showing stable left sided pneumothorax, stable basilar patchy infiltrates, persistent but improved right upper lobe infiltrate. On 06/27/2019 patient seen in follow-up on selective care unit, he is calm and comfortable, he is in 2 L of oxygen, with pulse ox of 98%, which took him off the oxygen, and his pulse ox was 97%, no worsening dyspnea, he is afebrile, he was started on Lasix drip per nephrology today however his blood pressures are marginal, and running lower at 86/56. We reviewed his chest x-ray yesterday showing stable left-sided pneumothorax, stable basilar patchy infiltrates and right upper lobe infiltrate, no evidence of any sizable pleural effusion for drainage, or still awaiting results of the pathology of the ascites fluid. Patient has completed his antibiotics, his been afebrile. His ascites fluid cultures, blood and sputum were all negative. No nausea or vomiting, surgery is following patient is tolerating regular diet, passing flatus. On 06/28/2019 patient seen in follow-up on selective care unit, he sitting up in bed, in no acute distress, denies any shortness of breath, breathing is comfortable, room air pulse ox of 95%, no fever or chills, lung sounds are clear, diminished at the bases, only occasional cough, no rhonchi or wheezing on today's exam, he remains on Lasix at 10 mg per hour, and he is in -5458 mL fluid balance over the last 24 hours. Today's labs have been reviewed, showing sodium of 131, potassium is 4.1, chloride is 83, CO2 39, UN is 26, creatinine 0.65. Cytology of the ascites fluid is still pending, otherwise patient is in no acute respiratory distress, his appetite remains poor, he states food doesn't look that appealing to him, but she will try to consume more food, she was up in a chair yesterday, his been ambulating with assistance, no abdominal pain. No nausea or vomiting. The patient is seen today 06/29/2019 in follow-up on the selective care unit. He is currently resting comfortably in bed. Awake and alert in no acute distress. Denies any worsening shortness of breath, cough or congestion. Chest x-ray reveals very minimal left-sided pneumothorax. He is maintaining O2 saturations in the upper 90s on room air. Afebrile. Hemodynamically stable. Ascites fluid cytology negative for malignancy. White count 9.1. Hemoglobin 11.6. Sodium 1:30. Potassium 4.4. Creatinine 0.54. Appetite is improving. Remains on IV diuretics. Anxious to go home. The patient is seen today 06/30/2019 and follow-up on the selective care unit. He is awake and alert in no acute distress. Resting quite comfortably in bed. No worsening shortness of breath, cough or congestion. He is maintaining good O2 saturations in the 90s on room air. Afebrile. Hemodynamically stable. Sodium 1:30. Potassium 4.3. Bicarb 38. Creatinine 0.48. Objective - Vital Signs Vital signs: Vital Signs Temp 98.4 F 06/30/19 11:44 Pulse 94 06/30/19 11:55 Resp 18 06/30/19 11:44 BP 96/62 06/30/19 11:44 Pulse Ox 98 06/30/19 11:44 Intake & Output 06/29/19 06/30/19 06/30/19 18:59 06:59 18:59 Intake Total 1770 240 Output Total 994 300 100 Balance 776 -300 140 Weight 42.5 kg Intake: Intake, IV Titration 200 Amount Sodium Chloride 0.9% 1, 200 000 ml @ 20 mls/hr IV . Q24H [facility] Rx#:[id number] Oral 1570 240 Output: Urine 975 300 100 Post Void Residual 19 Other: Voiding Method Indwelling Catheter Toilet # Voids 1 2 2 # Bowel Movements 1 - Exam GENERAL EXAM: Alert, cachectic 74-year-old white male, on room air with pulse ox of 98%, resting comfortably in bed, does not appear to be in any acute distress, patient is showing signs of severe calorie malnutrition and muscle wasting HEAD: Normocephalic/atraumatic. EYES: Normal reaction of pupils, equal size. Conjunctiva pink, sclera white. NOSE: Clear with pink turbinates. THROAT: No erythema or exudates. NECK: No masses, no JVD, no thyroid enlargement, no adenopathy. CHEST: No chest wall deformity. Symmetrical expansion. LUNGS: Equal air entry with no crackles, wheeze, rhonchi or dullness. CVS: Regular rate and rhythm, normal S1 and S2, no gallops, no murmurs, no rubs ABDOMEN: Soft, nontender. No hepatosplenomegaly, normal bowel sounds, no guar ding or rigidity. EXTREMITIES: No clubbing, no edema, no cyanosis, 2+ pulses and upper and lower extremities. MUSCULOSKELETAL: Muscle strength and tone normal. SPINE: No scoliosis or deformity SKIN: No rashes CENTRAL NERVOUS SYSTEM: No focal deficits, tone is normal in all 4 extremities. PSYCHIATRIC: Alert and oriented -3. Appropriate affect. Intact judgment and insight. - Labs CBC & Chem 7: 06/29/19 08:01 06/30/19 05:59 Labs: Abnormal Lab Results - Last 24 Hours (Table) 06/29/19 06/29/19 06/30/19 Range/Units 16:39 20:12 05:59 Sodium 130 L (137-145) mmol/L Chloride 88 L (98-107) mmol/L Carbon Dioxide 38 H (22-30) mmol/L BUN 31 H (9-20) mg/dL Creatinine 0.48 L (0.66-1.25) mg/dL POC Glucose (mg/dL) 133 H 125 H (75-99) mg/dL 06/30/19 Range/Units 11:36 Sodium (137-145) mmol/L Chloride (98-107) mmol/L Carbon Dioxide (22-30) mmol/L BUN (9-20) mg/dL Creatinine (0.66-1.25) mg/dL POC Glucose (mg/dL) 142 H (75-99) mg/dL Microbiology - Last 24 Hours (Table) 06/25/19 10:09 Gram Stain - Final Peritoneal Fluid Body Fluid Culture - Final Assessment and Plan Assessment: #1. Acute hypoxic respiratory failure, multifactorial related to possibility of community acquired pneumonia, small pleural effusions, and tiny left pneumothorax of 10-15% with left basilar hydropneumothorax component #2. Weakness, general medical debility, gait dysfunction #3. A fall, and small left pneumothorax #4. History of seizures #5. Possible exacerbation of CHF with preserved systolic function #6. Hypotension multifactorial, related to dehydration, hypovolemia, and possibility of sepsis is not excluded. Recovered with IV hydration #7. Osteoarthritis #8. Glaucoma #9. Nicotine dependence #10. History of COPD, CTA chest shows for some at this changes #11. Possibility of interstitial lung disease in addition to acute pneumonia and mild exacerbation of CHF was not excluded #12. Recent hospitalization in April for her diarrhea, weight loss please refer to the medical records #13. Mild hyponatremia present on admission likely related to hypovolemia #14. Acute kidney injury related to intravascular volume depletion #15. Chronic diarrhea follows with gastroenterology #16. Chronic cachexia, protein calorie malnutrition and continued weight loss #17. Hyponatremia, hypervolemic, and a component of SIADH, nephrology is following, and serum sodium is improving with diuresis Plan: The patient was seen and evaluated by Dr. Avalos He is stable from the pulmonary standpoint On room air Plan is for discharge to subacute rehabilitation I, the cosigning physician, performed a history & physical examination of the pa tient. Lungs sounds are clear. Maintaining good O2 saturations in the 90s on room air. I discussed the assessment and plan of care with my nurse practitioner, Angely Holliday. I attest to the above note as dictated by her.
--- NOTE | 2019-06-30 12:44 | P.PN ---
Subjective Patient is admitted after a fall found to have pneumonia patient is on treatment for pneumonia. We'll cut down the IV fluids and 5 mL per hour patient is quite a bit dehydrated on admission. Repeat chest x-rays showed small pneumothorax probably from fall. Patient has atypical chest pain from fall. Unsure whether patient has syncope patient also has a seizure disorder EEG was obtained which did not show any epileptiform focus but did show severe encephalopathy. Keppra levels are low and patient is being can urine For will obtain levels again today if they're still low will consult neurology will increase the Keppra dose. Patient's clinical exam remains the same. Cardiology evaluated the patient for chest pain no further dictation from that perspective. Patient remains hyponatremic. 06/20/2019 Patient white blood cell count went up to 25,000 patient doesn't have any diarrhea patient also clinically looks better patient has 10-15% pneumothorax pulmonary recommended consultation with parathoracic surgery were consulted. 06/21/2019 Patient white blood cell count remains at the same level around 22,000 pneumothorax remains the same overall patient looks better but will need disposition to subacute rehabilitation may be able to be discharged tomorrow or Monday. 06/22/2019 Patient is currently awake alert and oriented 3. Lying in the bed comfortably. Currently saturating well on room air. Denied any complaints of chest pain are worsening shortness of breath. Chest x-ray showed 15% left-sided pneumothorax. Patient is being followed by CT surgery. Also antibodies the form of ceftriaxone and azithromycin. Patient has been afebrile. WBC trending down to 1.0. Renal function is stable. 06/23/2019 Patient is currently lying in the bed comfortably. Awake alert and oriented. Denied any complaints of chest pain or worsening shortness of breath. Currently on oxygen with another cannula at 2 L. Chest x-ray today showed continued left- sided pneumothorax about 15% which is stable. Patient has been afebrile. Patient developed urinary retention yesterday requiring placement of Garcia catheter. Urology was consulted. CT surgery and nephrology is following. Sodium level is 132 today. Currently on normal saline at 50 mL per hour. Patient was given a dose of IV Lasix today. Constitutional: Patient is still weak and looks much better today Cardio vascular: denied any chest pain, palpitations Gastrointestinal denied any nausea vomiting Pulmonary: Denied any shortness of breath cough Neurologic denied any new focal deficits All inpatient medications were reviewed and appropriate changes in these medi cations as dictated in the interval history and assessment and plan. Current medications reviewed. 06/24/2019 Patient is seen and evaluated in follow-up currently sitting in the chair drinking contrast for CT abdomen that was ordered. Multiple medical consultations following. Patient remains on 2 L of oxygen via nasal cannula and reports no worsening of shortness of breath although continues to be short of breath with exertion. Discussed with the patient at length about continuing to use the incentive spirometer at least 10 times every hour while awake. Patient states he is attempting for 1000 although only been reaching 500 on the incentive spirometer. Patient continues to be quite weak and cachectic. Patient CT abdomen shows some dilated small bowel without definite transition zo ne with contrast seen within the colon with findings that may reflect ileus versus partial bowel obstruction, interval development of ascites and anasarca with bilateral pleural effusions with comprehensive atelectasis and/or infiltrates, and left-sided pneumothorax. Patient's chest x-ray today continues to show the left-sided pneumothorax approximately 10% and stable. Cardiothoracic surgery following an recommending no chest tube at this time. Surgery consulted for findings on the CT although patient and nursing staff states he had a large bowel movement today. Will await report. Patient continues with an indwelling Garcia catheter as he was retaining. Case management and social work following for possible rehab placement once stabilized and discharged. Currently no reports of chest pain or palpitations. Patient is afebrile. No reports of nausea or vomiting and patient has been tolerating diet. 06/25/2019 Patient is seen in follow-up today sitting up in the bed continues to have some abdominal distention and feelings of fullness and states he will be undergoing a paracentesis with interventional radiology. Will await report. Patient was seen and evaluated by surgery for possible ileus. Patient states he had a large bowel movement yesterday although has not had any bowel movements today. Patient has not been eating yet today although states he is hungry. Patient w ill be continued on full liquids and will monitor closely. Sodium is 131 today and albumin is low at 2.2. Patient will be receiving albumin prior and post paracentesis. Nephrology is following closely along with other multiple medical consultations. Patient will also be initiated on IV Lasix today. Patient remains on IV ceftriaxone along with oral Zithromax and will continue at this time. Sputum cultures showing Myesha albicans and will be initiated on Diflucan. Currently no reports of chest pain, worsening shortness of breath, or palpitations. Patient is afebrile. No reports of nausea or vomiting and patient is tolerating diet. Patient states his breathing has improved and currently remains on 2 L of oxygen via nasal cannula 100%. 06/26/2019 Patient is seen in follow-up today sitting up in the bed with no acute overnight issues. Underwent abdominal paracentesis for fluid collection analysis and tolerated well. Multiple medical consultations following. Patient denies any abdominal pain or discomfort and has been tolerating diet. Patient states he is passing gas and having bowel movements with no difficulties. Repeat chest x-ray today shows stable left-sided pneumothorax with persistent but improved right upper lobe infiltrate and stable basilar patchy infiltrates. Pulmonary is following. Patient continues to use incentive spirometer and states his breathing has improved. Patient currently remains on 2 L oxygen via nasal cannula and saturating 100%. Patient continues to have an indwelling Garcia catheter and was seen and evaluated by urology and recommends discontinuation of the Garcia catheter to assess for voiding difficulties and or retention. Garcia catheter may be removed today. Currently no reports of chest pain, shortness of breath, or palpitations. Patient is afebrile. No reports of nausea or vomiting and patient is tolerating diet. Awaiting fluid analysis report at this time. 06/27/2019 Patient is seen in follow-up today and has been initiated on Lasix drip. Nephrology and pulmonary following. Oxygen was discontinued today and patient tolerating well. Patient continues to have an indwelling Garcia catheter for strict I&O's. Will continue for another 24 hours. Patient continues to have some mild abdominal distention although denies any abdominal discomfort. No reports of chest pain, worsening shortness of breath, or palpitations. Is afebrile. Is currently off antibiotics. Will repeat a.m. labs. Sodium is 128 and will maintain 1500 mL fluid restriction. Case management and social work are following for possible placement at a subacute rehab once stabilized and discharged. Fluid analysis still pending at this time. Patient encouraged to increased oral intake especially protein and has been drinking ensure. Patient continues to have a very poor appetite and eats very little. Will continue to monitor closely. 06/28/2019 Patient is seen and evaluated in follow-up continues to be on room air with no worsening shortness of breath. Patient is using incentive spirometer multiple times during the day. Multiple medical consultations following. Continue to await pathology report from paracentesis. Preliminary fluid cultures remain negative with the sputum culture showing Myesha albicans. Patient remains on oral Diflucan. Patient also remains on the Lasix drip with indwelling Garcia catheter for strict I&O's. Patient remains in a negative fluid balance. No reports of chest pain or palpitations. Patient is afebrile. No reports of nausea or vomiting and patient is tolerating diet. Continue to encourage oral intake with protein. Patient remains on fluid restrictions and sodium has improved at 131 today. Current creatinine is 0.65. Albumin continues to be low at 3.1 although improved status post 2 infusions yesterday. When discussing with the patient about discharge planning patient states he does not want to go to rehab although per PT/OT notes patient would benefit from continued physical therapy for strength and mobility. 06/29/2019 Patient with known new symptoms. Hemodynamically stable. Cytology for the ascites fluid came back negative for malignant cells Patient is severely cachectic, discussed with the patient and he agrees to go to rehab on Monday06/30/2019 Patient clinically stable. Garcia catheter is out and is being without difficulty, however he is voiding more frequently probably because he is on IV Lasix which is going to be switched to oral upon discharge Bladder scan was checked and was unremarkable and low volume Still the plan for the patient is to go to rehab tomorrow Objective - Vital Signs Vital signs: Vital Signs Temp 98.4 F 06/30/19 11:44 Pulse 94 06/30/19 11:55 Resp 18 06/30/19 11:44 BP 96/62 06/30/19 11:44 Pulse Ox 98 06/30/19 11:44 Intake & Output 06/29/19 06/30/19 06/30/19 18:59 06:59 18:59 Intake Total 1770 240 Output Total 994 300 100 Balance 776 -300 140 Weight 42.5 kg Intake: Intake, IV Titration 200 Amount Sodium Chloride 0.9% 1, 200 000 ml @ 20 mls/hr IV . Q24H SARAVANAN Rx#:[id number] Oral 1570 240 Output: Urine 975 300 100 Post Void Residual 19 Other: Voiding Method Indwelling Catheter Toilet # Voids 1 2 2 # Bowel Movements 1 - Exam -GENERAL: The patient is alert and oriented x3, not in any acute distress. thin built cachectic male HEENT: Pupils are round and equally reacting to light. EOMI. No scleral icterus. No conjunctival pallor. Normocephalic, atraumatic. No pharyngeal erythema. No thyromegaly. CARDIOVASCULAR: S1 and S2 present. No murmurs, rubs, or gallops. PULMONARY: decreased air entry into bilateral lung house, no wheezing or rhonchi noted ABDOMEN: Soft, nontender, mildly distended, normoactive bowel sounds. No palpable organomegaly. MUSCULOSKELETAL: No joint swelling or deformity. EXTREMITIES: No cyanosis, clubbing, or pedal edema. NEUROLOGICAL: Gross neurological examination did not reveal any focal deficits. SKIN: No rashes. - Labs CBC & Chem 7: 06/29/19 08:01 06/30/19 05:59 Labs: Abnormal Lab Results - Last 24 Hours (Table) 06/29/19 06/29/19 06/30/19 Range/Units 16:39 20:12 05:59 Sodium 130 L (137-145) mmol/L Chloride 88 L (98-107) mmol/L Carbon Dioxide 38 H (22-30) mmol/L BUN 31 H (9-20) mg/dL Creatinine 0.48 L (0.66-1.25) mg/dL POC Glucose (mg/dL) 133 H 125 H (75-99) mg/dL 06/30/19 Range/Units 11:36 Sodium (137-145) mmol/L Chloride (98-107) mmol/L Carbon Dioxide (22-30) mmol/L BUN (9-20) mg/dL Creatinine (0.66-1.25) mg/dL POC Glucose (mg/dL) 142 H (75-99) mg/dL Microbiology - Last 24 Hours (Table) 06/25/19 10:09 Gram Stain - Final Peritoneal Fluid Body Fluid Culture - Final Assessment and Plan Assessment: -acute hypoxic respiratory failure probably secondary to bilateral pneumonia or may be a component of mild COPD exacerbation, improved -Abdominal Ascites as noted on ultrasound. Patient underwent paracentesis with interventional radiology . Cytology of the acitis fluid came back negative for malignant cells -Small pneumothorax on the x-ray possibly from his fall: stable, currently on room air -Leukocytosis: Secondary to sepsis, improved. Sputum culture shows Myesha albicans -COPD with acute exacerbation patient may have mild exacerbation -Euvolemic hyponatremia: Possible SIADH. Patient is currently on a Lasix drip and to continue 1500 mL fluid restriction. Nephrology is following. Sodium is 131 -Acute renal failure: Secondary to dehydration and intravascular depletion IV fluids as mentioned above. Improved, current creatinine is 0.65 -Mildly elevated troponin secondary to hypoxemia and renal failure. Renal failure improved -Chest pain. musculoskeletal in nature secondary to fall, improved -Ruled out syncope and seizure -Seizure disorder continue with Keppra -Chronic diarrhea symptomatic treatment follow with gastroenterology as an outpatient -chronic pain -Cachexia which is chronic patient scan of the chest did not show any nodules but the patient need regular cancer screening as an outpatient. -Ruled out covid 19 -DVT prophylaxis with subcutaneous heparin pending placement to rehab
--- NOTE | 2019-06-30 15:41 | PN ---
PROGRESS NOTE Patient is seen for followup for hyponatremia. Serum sodium is staying stable at 130. He is currently doing well. Awaiting discharge. EXAMINATION: Today blood pressure was 96/62, heart rate 96 per minute, he is afebrile. Exam reveals patient is euvolemic. No evidence of edema lower extremities. Abdomen is soft, nontender. LAB: Show sodium 130, potassium 4.3, CO2 is 38, BUN 31, creatinine 0.48. ASSESSMENT: 1. Hyponatremia, currently stable. Sodium staying at about 130. 2. Pneumonia, maintained on antibiotics. 3. Left pneumothorax. 4. Urine retention status post Garcia catheter placement. Garcia catheter was removed yesterday. Patient has been voiding. PLAN: Maintain adequate oral protein intake. The patient can be discharged from nephrology standpoint. MMODL / IJN: [id number] /
[2019-06-30 16:38] LABS: Glucose,Whole Blood 113 mg/dL (75-99)
[2019-06-30 20:34] LABS: Glucose,Whole Blood 117 mg/dL (75-99)
[2019-07-01] MEDS: MORPHINE SULFATE IR 15 MG TABLET PO PRN ×3 (01:18→15:52)
[2019-07-01] MEDS: ZOLPIDEM 10 MG TAB PO PRN (01:18)
[2019-07-01 05:44] LABS: Glucose,Whole Blood 103 mg/dL (75-99)
[2019-07-01] MEDS: SODIUM CHLORIDE 0.9% 1,000 ML IV SCH (06:22)
[2019-07-01 07:05] LABS: African American GFR (CKD) >90 (>60 ml/min/1.73 sqM); Blood Urea Nitrogen 33 mg/dL (9-20); Calcium 8.6 mg/dL (8.4-10.2); Chloride 88 mmol/L (98-107); Glucose 90 mg/dL (74-99); Non-African American GFR(CKD) >90 (>60 ml/min/1.73 sqM); Potassium 4.6 mmol/L (3.5-5.1); Sodium 132 mmol/L (137-145)
[2019-07-01 07:13] LABS: Anion Gap 6 mmol/L
[2019-07-01 07:15] LABS: Carbon Dioxide 38 mmol/L (22-30)
[2019-07-01] MEDS: BUDESONIDE 0.5 MG/2 ML NEBU INHALATION SCH (07:54)
[2019-07-01] MEDS: IPRATROPIUM-ALBUTEROL 3 ML NEB INHALATION SCH ×3 (07:54→15:13)
[2019-07-01] MEDS: INSULIN ASPART (NovoLOG) 100 UNIT/ML VIAL SQ SCH ×2 (08:17→12:41)
[2019-07-01] MEDS: levETIRAcetam 500 MG TAB PO SCH (08:50)
[2019-07-01] MEDS: FUROSEMIDE 10 MG/ML 4 ML VIAL IV SCH (08:50)
[2019-07-01] MEDS: FLUCONAZOLE 100 MG TAB PO SCH (08:50)
[2019-07-01] MEDS: MAGNESIUM OXIDE 400 MG TAB PO SCH (08:50)
[2019-07-01] MEDS: HEPARIN SODIUM,PORCINE 5,000 UNIT/ML 1 ML VIAL SQ SCH (08:50)
[2019-07-01] MEDS: PANTOPRAZOLE 40 MG TABLET PO SCH (09:02)
[2019-07-01 09:04] VITALS: RESP 16; TEMP 97.9
[2019-07-01 11:55] LABS: Glucose,Whole Blood 137 mg/dL (75-99)
[2019-07-01] MEDS ORDERED: SENNOSIDES 8.6 MG TAB PO SCH (12:00)
[2019-07-01] MEDS ORDERED: POLYETHYLENE GLYCOL 3350 17 GM POWD.PACK PO PRN (12:34)
[2019-07-01] MEDS ORDERED: SENNOSIDES 8.6 MG TAB PO PRN (12:34)
[2019-07-01] MEDS: levETIRAcetam 250 MG TAB PO SCH (12:44)
--- NOTE | 2019-07-01 12:46 | P.DS ---
Providers Date of admission: 06/18/19 05:08 Attending physician: Angie Dailey Consults: 06/18/19 05:07 Consult Physician Routine Consulting Provider: Maribell Loya Consult Reason/Comments: chf Do you want consulting provider notified?: Yes 06/19/19 12:02 Consult Physician Routine Consulting Provider: Alexander Avalos Consult Reason/Comments: Pneumonia Do you want consulting provider notified?: Yes 06/20/19 08:48 Consult Physician Routine Consulting Provider: Socrates Winchester Consult Reason/Comments: left pnemothorax Do you want consulting provider notified?: Yes 06/21/19 10:41 Consult Physician Routine Consulting Provider: Kiran Mock Consult Reason/Comments: hyponatremia Do you want consulting provider notified?: Yes 06/22/19 22:56 Consult Physician Routine Consulting Provider: Jhonatan Hernandez Consult Reason/Comments: urine retention Do you want consulting provider notified?: Yes, Notify in am 06/24/19 14:03 Consult Physician Routine Consulting Provider: Quinn Hemphill Consult Reason/Comments: ileus vs obstruction Do you want consulting provider notified?: Yes Primary care physician: Sascha Oliveros [facility] Hospital Course: Diagnoses: -acute hypoxic respiratory failure probably secondary to bilateral pneumonia + a component of mild COPD exacerbation, improved -Small pneumothorax on the x-ray (15%) possibly from his fall: stable, currently on room air -Abdominal Ascites as noted on ultrasound. Patient underwent paracentesis with interventional radiology . Cytology of the acitis fluid came back negative for malignant cells -Euvolemic hyponatremia: Possible SIADH. Patient is currently on a Lasix and to continue 1500 mL fluid restriction. Evaluated by insurance sales associate and sodium on discharge stable at 130 -Cachexia which is chronic patient scan of the chest did not show any nodules but the patient need regular cancer screening as an outpatient. -chronic pain -Mildly elevated troponin secondary to hypoxemia and renal failure. -Chest pain. musculoskeletal in nature secondary to fall, improved -fall , Ruled out syncope and seizure -Seizure disorder continue with Keppra -Chronic diarrhea symptomatic treatment follow with gastroenterology as an outpatient. His diarrhea stopped since he came to the hospital and currently is constipated needing a laxative since he is on morphine Hospital course: 74-year-old white male patient of Dr. Oliveros with past medical history seizure disorder, osteoarthritis, GERD/reflux, nicotine dependence came into the emergency department on 06/17/2019 after sustaining a fall. Patient was in the bathroom and passed out and fell on the ground he does not remember the events leading up to his injury. Patient was also having progressive weight loss and severe protein calorie malnutrition, was evaluated by gastroenterology. CT angios of the chest showed no evidence of pulmonary embolism, and moderately severe pulmonary edema with Small left-sided pneumothorax was noted. Which was treated conservatively, Patient was placed on empiric antibiotics in the form of azithromycin and Rocephin for possibility of underlying pneumonia, CT of the abdomen showed dilated small bowel without definite transition zone reflect ileus versus partial obstruction, and interval development of ascites and anasarca, he had ultrasound-guided paracentesis with removal of 100 mL of ascitic fluid for diagnostic services and cytology test came back negative for malignant cells. Patient is followed by several consultants including pulmonary, surgery and nephrology. Eventually patient's symptoms improved and on the day of discharge he denies chest pain, no dyspnea, no abdominal pain, no change in urine or bowel habits, no fever. He is saturating 97% in room air. Physical therapy evaluate the patient and recommended subacute rehab to which he agrees Patient was cleared for discharge by all consultants including surgery, pulmonology and nephrology Problems and management plan were discussed with the patient and he verbalized understanding and acceptance Patient was found stable and can be discharged home however he needs follow-up as an outpatient. Patient was instructed to follow up with PCP within one week and patient agrees. Also patient was instructed to follow up with his oncologist in 2-3 weeks for his cachexia and he agrees Gen: patient is a AAOx3, no distress, thin built CVS: S1-S2, RRR, no murmur Lungs: B/L CTA, no wheezing Abdomen: soft, no distention, no tenderness, positive bowel sounds Extremity: no leg edema or induration Time spent more than 35 minutes Patient Condition at Discharge: Serious Plan - Discharge Summary Discharge Rx Participant: Yes New Discharge Prescriptions: New Ipratropium-Albuterol Nebulize [Duoneb 0.5 mg-3 mg/3 ml Soln] 3 ml INHALATION RT-QID ml Cyclobenzaprine [Flexeril] 10 mg PO BID PRN #2 tab PRN Reason: Muscle Spasm Furosemide [Lasix] 40 mg PO BID #60 tablet Polyethylene Glycol 3350 [Miralax] 17 gm PO HS PRN powd.pack PRN Reason: Constipation INSULIN ASPART (NovoLOG) [NovoLOG (formulary)] 0 unit SQ ACHS vial Budesonide [Pulmicort] 0.5 mg INHALATION RT-BID ml Sennosides [Senokot] 8.6 mg PO BID tab Morphine Sulfate Ir [MSIR] 30 mg PO Q8HR PRN #6 tab PRN Reason: Pain Continue levETIRAcetam [Keppra] 1,000 mg PO BID Zolpidem [Ambien] 10 mg PO HS levETIRAcetam [Keppra] 250 mg PO BID Pantoprazole Sodium [Protonix] 40 mg PO DAILY #30 tablet. Multivit-Min/Folic/Vit K/Lycop [Men's Multivitamin Tablet] 1 tab PO DAILY Magnesium 250 mg PO DAILY Discontinued Morphine Sulfate [Ms Contin] 30 mg PO QID Cyclobenzaprine [Flexeril] 10 mg PO BID Discharge Medication List levETIRAcetam [Keppra] 1,000 mg PO BID 03/29/16 [History] Zolpidem [Ambien] 10 mg PO HS 04/23/19 [History] levETIRAcetam [Keppra] 250 mg PO BID 04/23/19 [History] Pantoprazole Sodium [Protonix] 40 mg PO DAILY #30 tablet. 04/29/19 [Rx] Magnesium 250 mg PO DAILY 06/18/19 [History] Multivit-Min/Folic/Vit K/Lycop [Men's Multivitamin Tablet] 1 tab PO DAILY 06/18/19 [History] Budesonide [Pulmicort] 0.5 mg INHALATION RT-BID ml 07/01/19 [Rx] Cyclobenzaprine [Flexeril] 10 mg PO BID PRN #2 tab 07/01/19 [Rx] Furosemide [Lasix] 40 mg PO BID #60 tablet 07/01/19 [Rx] INSULIN ASPART (NovoLOG) [NovoLOG (formulary)] 0 unit SQ ACHS vial 07/01/19 [Rx] Ipratropium-Albuterol Nebulize [Duoneb 0.5 mg-3 mg/3 ml Soln] 3 ml INHALATION RT-QID ml 07/01/19 [Rx] Morphine Sulfate Ir [MSIR] 30 mg PO Q8HR PRN #6 tab 07/01/19 [Rx] Polyethylene Glycol 3350 [Miralax] 17 gm PO HS PRN powd.pack 07/01/19 [Rx] Sennosides [Senokot] 8.6 mg PO BID tab 07/01/19 [Rx] Follow up Appointment(s)/Referral(s): Clyde Bruce MD [STAFF PHYSICIAN] - 2 Weeks (Oncologist for Cachexia and loss of weight) Pati Hernandez MD [STAFF PHYSICIAN] - 2 Weeks (Chronic diarrhea) Satish Stone DO [Doctor of Osteopathic Medicine] - 1 Week (Pneumonia and pneumothorax) Sascha Oliveros MD [Primary Care Provider] - 1-2 days Discharge Disposition: TRANSFER TO SNF/ECF
[2019-07-01 12:53] VITALS: BP 94/64
[2019-07-01 15:23] VITALS: PULSE 86
[2019-07-01] MEDS ORDERED: POLYETHYLENE GLYCOL 3350 17 GM POWD.PACK PO SCH (21:00)
--- NOTE | 2019-07-01 21:52 | PN ---
PROGRESS NOTE Patient was seen this morning for followup for hyponatremia. He is maintained on IV Lasix. Serum sodium has been staying 130 to 132 mEq/L. On examination today, blood pressure 94/64, heart rate 97 per minute. He is afebrile. Examination shows patient is euvolemic. No evidence of edema in bilateral lower extremities. Abdomen is soft, nontender. Bilateral breath sounds are heard. Heart sounds are heard and are normal. Labs show sodium 132, potassium 4.6, chloride 88. CO2 is 38, BUN 33, creatinine 0.59. ASSESSMENT: 1. Hyponatremia, multifactorial, currently improved, maintained on IV Lasix, which can be discontinued when patient is discharged. 2. Pneumonia, maintained on antibiotics. 3. Left pneumothorax. 4. Urine retention with Garcia catheter which was removed, and patient has been voiding successfully. PLAN: Discontinue Lasix at time of discharge. Maintain adequate protein intake and repeat labs as outpatient in 3 to 4 days. MMODL / IJN: [id number] /
--- NOTE | 2019-07-02 10:03 | CDI ---
Documentation Clarification Form Date: 07/02/19 From: Barbara Gamboa CCS Phone: If you have a question about this query, please contact Ruth Gastelum, Car Rental Manager at [phone] between 8am and 5pm. Admit Date: 06/18/19 Discharge Date:07/01/19 Patient Name: Satish Pearl Visit Number: [id number] ATTENTION: The Clinical Documentation Specialists (CDI) and [facility] Coding Staff appreciate your assistance in clarifying documentation. Please respond to the clarification below the line at the bottom and electronically sign. The CDI & [facility] Coding staff will review the response and follow-up if needed. Please note: Queries are made part of the Legal Health Record. If you have any questions, please contact the author of this message via ITS. Dear Dr. Huggins, The diagnosis sepsis was documented in the PNs and Consult but is not noted in subsequent documentation. Consult 06/18 documents: Hypotension multifactorial, related to dehydration, hypovolemia, and possibility of sepsis is not excluded PNs 06/19, 06/20, 06/24 document: Small pneumothorax on the x-ray possibly from his fall: Cardiac thoracic surgery and pulmonary valid the patient no further intervention at this time repeat chest x-ray tomorrow -Leukocytosis: Secondary to sepsis with the his white blood cell count continued to get worse awaiting sputum cultures blood cultures are so far negative. PNs 06/21, , 06/23 document: Leukocytosis: Secondary to sepsis with the his white blood cell all the cultures are so far negative. History/Risk Factors: PNA, CHF, Malnutrition, Seizure D/O, Acute respiratory failure, MAISHA Clinical Indicators: PNA, Tachycardia, Hypotension WBC: 14.3, 21.8, 22.0 Lactic Acid: 3.7 Vitals: BP 85/61, MO 97, RR 16, O2 Sat 97 Treatment: Rocephin 1 gm IVPB Q 24 HR Please clarify if the sepsis was: Present/active this admission and POA Treated and resolved this admission not POA Ruled out Other, please specify Clinically unable to determine Clinically unable to determine MTDD
--- NOTE | 2019-07-02 10:31 | CDI ---
Documentation Clarification Form Date: 07/02/19 From: Barbara Gamboa CCS Phone: If you have a question about this query, please contact Ruth Gastelum, Coremaking Supervisor at [phone] between 8am and 5pm. Admit Date: 06/18/19 Discharge Date: 07/01/19 Patient Name: Satish Pearl Visit Number: [id number] ATTENTION: The Clinical Documentation Specialists (CDI) and [facility] Coding Staff appreciate your assistance in clarifying documentation. Please respond to the clarification below the line at the bottom and electronically sign. The CDI & [facility] Coding staff will review the response and follow-up if needed. Please note: Queries are made part of the Legal Health Record. If you have any questions, please contact the author of this message via ITS. Dear Dr. Huggins, Encephalopathy is documented in the PNs. PNs 06/18-06/29 document: Unsure whether patient has syncope patient also has a seizure disorder EEG was obtained which did not show any epileptiform focus but did show severe encephalopathy. ED notes document: Limitations: altered mental status History/Risk Factors: Hx Seizure D/O, PNA, Fall, Pneumothorax, MAISHA, Dehydration, Malnutrition, Hypoxic respiratory failure Clinical Indicators: Altered mental status EEG: This is an abnormal EEG due to background slowing of moderate degree.This is suggestive of generalized cerebral dysfunction, as can be seen with toxic metabolic encephalopathies or due to diffuse structural brain abnormality.No epileptiform activity was seen. CT/MRI Brain: No acute intracranial hemorrhage or midline shift is seen.Fairly moderate generalized atrophy and chronic small vessel ischemic change. In your professional opinion, can you please clarify the specific type of Encephalopathy, if known? Anoxic Encephalopathy Metabolic Encephalopathy Septic Encephalopathy Toxic Encephalopathy due to Traumatic Encephalopathy Other, please specify Unable to determine Unable to determine, when i saw the pt he was not encephalopathic so hard for me to know which kind was MTDD
== END 2019-07-01 15:55 | DRG 871 ==
LOC: EC 22:42 → 3SCARD 06-18 05:08
PROVIDERS: ADMIT Hospitalist; ATTEND Hospitalist
PROC: 0W9G3ZZ Drainage of Peritoneal Cavity, Percutaneous Approach (ICD-10-PCS; principal; 2019-06-25)
DX: A41.9 Sepsis, unspecified organism (principal); J18.9 Pneumonia, unspecified organism; J96.01 Acute respiratory failure with hypoxia; I50.33 Acute on chronic diastolic (congestive) heart failure; E43 Unspecified severe protein-calorie malnutrition; S27.2XXA Traumatic hemopneumothorax, initial encounter; G93.40 Encephalopathy, unspecified; E22.2 Syndrome of inappropriate secretion of antidiuretic hormone; N17.9 Acute kidney failure, unspecified; R64 Cachexia; R18.8 Other ascites; J44.1 Chronic obstructive pulmonary disease with (acute) exacerbation; J44.0 Chronic obstructive pulmonary disease with (acute) lower respiratory infection; M48.54XA Collapsed vertebra, not elsewhere classified, thoracic region, initial encounter for fracture; K56.7 Ileus, unspecified; J84.9 Interstitial pulmonary disease, unspecified; Z68.1 Body mass index [BMI] 19.9 or less, adult; Z20.828 Contact with and (suspected) exposure to other viral communicable diseases; G40.909 Epilepsy, unspecified, not intractable, without status epilepticus; I95.9 Hypotension, unspecified; E86.1 Hypovolemia; E86.0 Dehydration; K52.9 Noninfective gastroenteritis and colitis, unspecified; R55 Syncope and collapse; M19.90 Unspecified osteoarthritis, unspecified site; K21.9 Gastro-esophageal reflux disease without esophagitis; H40.9 Unspecified glaucoma; F17.210 Nicotine dependence, cigarettes, uncomplicated; R00.0 Tachycardia, unspecified; D72.819 Decreased white blood cell count, unspecified; G89.29 Other chronic pain; R07.89 Other chest pain; R79.89 Other specified abnormal findings of blood chemistry; E16.2 Hypoglycemia, unspecified; I08.1 Rheumatic disorders of both mitral and tricuspid valves; R53.81 Other malaise; R26.9 Unspecified abnormalities of gait and mobility; I49.3 Ventricular premature depolarization; R33.9 Retention of urine, unspecified; M25.512 Pain in left shoulder; N50.89 Other specified disorders of the male genital organs; R91.8 Other nonspecific abnormal finding of lung field; E83.42 Hypomagnesemia; Z71.3 Dietary counseling and surveillance; Z71.6 Tobacco abuse counseling; W18.30XA Fall on same level, unspecified, initial encounter; Y92.121 Bathroom in nursing home as the place of occurrence of the external cause; Z79.899 Other long term (current) drug therapy; Z79.891 Long term (current) use of opiate analgesic; Z90.49 Acquired absence of other specified parts of digestive tract; Z98.41 Cataract extraction status, right eye; Z80.9 Family history of malignant neoplasm, unspecified
CPT/HCPCS: 36415; 49083; 70450; 71045; 71046; 71275; 72125; 74019; 74177; 76705; 80048; 80053; 80177; 81003; 82378; 82550; 82553; 82728; 82947; 83605; 83615; 83735; 83880; 83930; 83935; 84100; 84145; 84300; 84443; 84484; 85025; 85027; 85379; 85610; 85730; 86140; 87040; 87070; 87102; 87205; 87635; 88108; 88305; 88341; 88342; 89050; 93005; 93306; 94640; 94760; 95816; 96361; 96374; 99291

== ENCOUNTER 2019-07-18 10:07 | Observation (INO) | payer MEDICARE, OTHER ==
[2019-07-18] MEDS ORDERED: SODIUM CHLORIDE 0.9% 500 ML 500 ML IV ONE (10:33)
--- NOTE | 2019-07-18 10:48 | ED ---
General Adult HPI - General Chief complaint: Altered Mental Status Stated complaint: Falls Time Seen by Provider: 07/18/19 10:20 Source: patient, family Mode of arrival: wheelchair Limitations: altered mental status, physical limitation - History of Present Illness Initial comments: This is a 74-year-old male whose brings him into the emergency department because he was altered mentally this morning and was falling down multiple times. Patient currently is alert and oriented 3 however she states this morning he was confused didn't know where he was and Walking into things and then falling to the ground. Patient states he did not get hurt when he fell down other than some skin tears but he does feel weak. states he was in the hospital couple months ago for pneumonia. Patient has chronic back problems and is taking morphine for that he denies taking any extra. Patient denies any headache patient denies any numbness weakness. Patient denies chest pain palpitations difficult breathing shortness of breath. Patient denies any a bdominal pain. Patient any recent nausea vomiting diarrhea. - Related Data Home Medications Medication Instructions Recorded Confirmed levETIRAcetam [Keppra] 1,000 mg PO BID 03/29/16 06/18/19 levETIRAcetam [Keppra] 250 mg PO BID 04/23/19 06/18/19 Magnesium 250 mg PO DAILY 06/18/19 06/18/19 Multivit-Min/Folic/Vit K/Lycop 1 tab PO DAILY 06/18/19 06/18/19 [Men's Multivitamin Tablet] Previous Rx's Medication Instructions Recorded Pantoprazole Sodium [Protonix] 40 mg PO DAILY #30 tablet. 04/29/19 Budesonide [Pulmicort] 0.5 mg INHALATION RT-BID ml 07/01/19 Cyclobenzaprine [Flexeril] 10 mg PO BID PRN #2 tab 07/01/19 Furosemide [Lasix] 40 mg PO BID #60 tablet 07/01/19 INSULIN ASPART (NovoLOG) [NovoLOG 0 unit SQ ACHS vial 07/01/19 (formulary)] Ipratropium-Albuterol Nebulize 3 ml INHALATION RT-QID ml 07/01/19 [Duoneb 0.5 mg-3 mg/3 ml Soln] Morphine Sulfate Ir [MSIR] 30 mg PO Q8HR PRN #6 tab 07/01/19 Polyethylene Glycol 3350 [Miralax] 17 gm PO HS PRN powd.pack 07/01/19 Sennosides [Senokot] 8.6 mg PO BID tab 07/01/19 Zolpidem [Ambien] 10 mg PO HS #3 tab 07/01/19 Allergies Allergy/AdvReac Type Severity Reaction Status Date / Time No Known Allergies Allergy Verified 07/18/19 10:21 Review of Systems ROS Statement: Those systems with pertinent positive or pertinent negative responses have been documented in the HPI. ROS Other: All systems not noted in ROS Statement are negative. Past Medical History Past Medical History: Eye Disorder, GERD/Reflux, Osteoarthritis (OA), Seizure Disorder Additional Past Medical History / Comment(s): LAST SEIZURE 2006, GLAUCOMA. History of Any Multi-Drug Resistant Organisms: None Reported Past Surgical History: Cholecystectomy Additional Past Surgical History / Comment(s): CATARACT RIGHT EYE REMOVED, history of EGD and colonoscopy. Past Anesthesia/Blood Transfusion Reactions: No Reported Reaction Past Psychological History: No Psychological Hx Reported Smoking Status: Current every day smoker Past Alcohol Use History: None Reported Past Drug Use History: None Reported - Past Family History Mother Family Medical History: Cancer General Exam - General Exam Comments Initial Comments: GENERAL: Patient is well-developed and well-nourished. Patient is nontoxic and well- hydrated and is in mild distress. ENT: Neck is soft and supple. No significant lymphadenopathy is noted. Oropharynx is clear. Moist mucous membranes. Neck has full range of motion without eliciting any pain. EYES: The sclera were anicteric and conjunctiva were pink and moist. Extraocular movements were intact and pupils were equal round and reactive to light. Eyel ids were unremarkable. PULMONARY: Unlabored respirations. Good breath sounds bilaterally. No audible rales rhonchi or wheezing was noted. CARDIOVASCULAR: There is a regular rate and rhythm without any murmurs gallops or rubs. ABDOMEN: Soft and nontender with normal bowel sounds. SKIN: Patient has 2 older skin tears on his right arm and into new skin tears one on each shoulder. NEUROLOGIC: Patient is alert and oriented x3. states earlier he was altered. Cranial nerves II through XII are grossly intact. Motor and sensory are also intact. Normal speech, volume and content. Symmetrical smile. MUSCULOSKELETAL: Normal extremities with adequate strength and full range of motion. LYMPHATICS: No significant lymphadenopathy is noted PSYCHIATRIC: Normal psychiatric evaluation. Limitations: altered mental status, physical limitation Course Vital Signs 07/18/19 07/18/19 07/18/19 10:18 11:00 11:30 Temperature 98.0 F Pulse Rate 87 79 74 Respiratory 18 16 16 Rate Blood Pressure 115/79 115/75 112/73 O2 Sat by Pulse 99 100 99 Oximetry 07/18/19 12:45 Temperature Pulse Rate 80 Respiratory 18 Rate Blood Pressure 113/81 O2 Sat by Pulse 100 Oximetry Medical Decision Making - Medical Decision Making EKG shows normal sinus rhythm at [address] interval 156 QRS is 78 QT interval 360 QTC is 434. Patient's EKG shows no ST segment elevation or depression. CT of the brain shows no acute abnormality. Spoke with Dr. Maxwell agreed to admit the patient admitted the patient I wrote admitting orders - Lab Data Result diagrams: 07/18/19 10:48 07/18/19 10:48 Lab Results 07/18/19 07/18/19 07/18/19 Range/Units 10:48 10:48 10:48 WBC 9.7 (3.8-10.6) k/uL RBC 4.19 L (4.30-5.90) m/uL Hgb 12.8 L (13.0-17.5) gm/dL Hct 40.3 (39.0-53.0) % MCV 96.2 (80.0-100.0) fL MCH 30.6 (25.0-35.0) pg MCHC 31.8 (31.0-37.0) g/dL RDW 14.2 (11.5-15.5) % Plt Count 356 (150-450) k/uL Neutrophils % 80 % Lymphocytes % 14 % Monocytes % 4 % Eosinophils % 1 % Basophils % 1 % Neutrophils # 7.8 H (1.3-7.7) k/uL Lymphocytes # 1.4 (1.0-4.8) k/uL Monocytes # 0.4 (0-1.0) k/uL Eosinophils # 0.1 (0-0.7) k/uL Basophils # 0.1 (0-0.2) k/uL PT 10.8 (9.0-12.0) sec INR 1.0 (<1.2) APTT 28.4 (22.0-30.0) sec Sodium 132 L (137-145) mmol/L Potassium 4.7 (3.5-5.1) mmol/L Chloride 103 (98-107) mmol/L Carbon Dioxide 27 (22-30) mmol/L Anion Gap 2 mmol/L BUN 15 (9-20) mg/dL Creatinine 0.59 L (0.66-1.25) mg/dL Est GFR (CKD-EPI)AfAm >90 (>60 ml/min/1.73 sqM) Est GFR (CKD-EPI)NonAf >90 (>60 ml/min/1.73 sqM) Glucose 96 (74-99) mg/dL Calcium 8.4 (8.4-10.2) mg/dL Total Bilirubin 0.8 (0.2-1.3) mg/dL AST 24 (17-59) U/L ALT 23 (4-49) U/L Alkaline Phosphatase 98 (38-126) U/L Troponin I (0.000-0.034) ng/mL Total Protein 5.2 L (6.3-8.2) g/dL Albumin 2.6 L (3.5-5.0) g/dL Urine Color Urine Appearance (Clear) Urine pH (5.0-8.0) Ur Specific Catron (1.001-1.035) Urine Protein (Negative) Urine Glucose (UA) (Negative) Urine Ketones (Negative) Urine Blood (Negative) Urine Nitrite (Negative) Urine Bilirubin (Negative) Urine Urobilinogen (<2.0) mg/dL Ur Leukocyte Esterase (Negative) Urine Opiates Screen (NotDetected) Ur Oxycodone Screen (NotDetected) Urine Methadone Screen (NotDetected) Ur Propoxyphene Screen (NotDetected) Ur Barbiturates Screen (NotDetected) U Tricyclic Antidepress (NotDetected) Ur Phencyclidine Scrn (NotDetected) Ur Amphetamines Screen (NotDetected) U Methamphetamines Scrn (NotDetected) U Benzodiazepines Scrn (NotDetected) Urine Cocaine Screen (NotDetected) U Marijuana (THC) Screen (NotDetected) 07/18/19 07/18/19 Range/Units 10:48 12:40 WBC (3.8-10.6) k/uL RBC (4.30-5.90) m/uL Hgb (13.0-17.5) gm/dL Hct (39.0-53.0) % MCV (80.0-100.0) fL MCH (25.0-35.0) pg MCHC (31.0-37.0) g/dL RDW (11.5-15.5) % Plt Count (150-450) k/uL Neutrophils % % Lymphocytes % % Monocytes % % Eosinophils % % Basophils % % Neutrophils # (1.3-7.7) k/uL Lymphocytes # (1.0-4.8) k/uL Monocytes # (0-1.0) k/uL Eosinophils # (0-0.7) k/uL Basophils # (0-0.2) k/uL PT (9.0-12.0) sec INR (<1.2) APTT (22.0-30.0) sec Sodium (137-145) mmol/L Potassium (3.5-5.1) mmol/L Chloride (98-107) mmol/L Carbon Dioxide (22-30) mmol/L Anion Gap mmol/L BUN (9-20) mg/dL Creatinine (0.66-1.25) mg/dL Est GFR (CKD-EPI)AfAm (>60 ml/min/1.73 sqM) Est GFR (CKD-EPI)NonAf (>60 ml/min/1.73 sqM) Glucose (74-99) mg/dL Calcium (8.4-10.2) mg/dL Total Bilirubin (0.2-1.3) mg/dL AST (17-59) U/L ALT (4-49) U/L Alkaline Phosphatase (38-126) U/L Troponin I <0.012 (0.000-0.034) ng/mL Total Protein (6.3-8.2) g/dL Albumin (3.5-5.0) g/dL Urine Color Yellow Urine Appearance Clear (Clear) Urine pH 7.0 (5.0-8.0) Ur Specific Catron 1.014 (1.001-1.035) Urine Protein Negative (Negative) Urine Glucose (UA) Negative (Negative) Urine Ketones Negative (Negative) Urine Blood Negative (Negative) Urine Nitrite Negative (Negative) Urine Bilirubin Negative (Negative) Urine Urobilinogen 2.0 (<2.0) mg/dL Ur Leukocyte Esterase Negative (Negative) Urine Opiates Screen Detected H (NotDetected) Ur Oxycodone Screen Not Detected (NotDetected) Urine Methadone Screen Not Detected (NotDetected) Ur Propoxyphene Screen Not Detected (NotDetected) Ur Barbiturates Screen Not Detected (NotDetected) U Tricyclic Antidepress Detected H (NotDetected) Ur Phencyclidine Scrn Not Detected (NotDetected) Ur Amphetamines Screen Not Detected (NotDetected) U Methamphetamines Scrn Not Detected (NotDetected) U Benzodiazepines Scrn Not Detected (NotDetected) Urine Cocaine Screen Not Detected (NotDetected) U Marijuana (THC) Screen Not Detected (NotDetected) Disposition Clinical Impression: Altered mental status, Multiple falls, Generalized weakness Disposition: ADMITTED IP TO THIS [facility] Referrals: Sascha Oliveros MD [Primary Care Provider] - 1-2 days Time of Disposition: 13:59
[2019-07-18 11:05] LABS: Basophils # (A) 0.1 k/uL (0-0.2); Basophils % (A) 1 %; Eosinophils # (A) 0.1 k/uL (0-0.7); Eosinophils % (A) 1 %; HCT 40.3 % (39.0-53.0); HGB 12.8 gm/dL (13.0-17.5); Lymphocytes # (A) 1.4 k/uL (1.0-4.8); Lymphocytes % (A) 14 %; MCH 30.6 pg (25.0-35.0); MCHC 31.8 g/dL (31.0-37.0); MCV 96.2 fL (80.0-100.0); Mean Platelet Volume 7.3; Monocytes # (A) 0.4 k/uL (0-1.0); Monocytes % (A) 4 %; Neutrophils # (A) 7.8 k/uL (1.3-7.7); Neutrophils % (A) 80 %; Platelet Count 356 k/uL (150-450); RBC 4.19 m/uL (4.30-5.90); RDW 14.2 % (11.5-15.5); WBC 9.7 k/uL (3.8-10.6)
[2019-07-18 11:17] LABS: ALT 23 U/L (4-49); AST 24 U/L (17-59); African American GFR (CKD) >90 (>60 ml/min/1.73 sqM); Albumin 2.6 g/dL (3.5-5.0); Alkaline Phosphatase 98 U/L (38-126); Anion Gap 2 mmol/L; Blood Urea Nitrogen 15 mg/dL (9-20); Calcium 8.4 mg/dL (8.4-10.2); Carbon Dioxide 27 mmol/L (22-30); Chloride 103 mmol/L (98-107); Glucose 96 mg/dL (74-99); Non-African American GFR(CKD) >90 (>60 ml/min/1.73 sqM); Potassium 4.7 mmol/L (3.5-5.1); Sodium 132 mmol/L (137-145); Total Bilirubin 0.8 mg/dL (0.2-1.3); Total Protein 5.2 g/dL (6.3-8.2)
--- NOTE | 2019-07-18 11:41 | CT ---
EXAMINATION TYPE: CT brain wo con DATE OF EXAM: 07/18/2019 COMPARISON: 06/17/2019 HISTORY: AMS CT DLP: 1098.4 mGycm Automated exposure control for dose reduction was used. FINDINGS: There is generalized degenerative change. There is greater CSF space prominence overlying both cerebr al convexities which also noted on the prior exam suspicious for chronic subdural hematoma or hygroma . No acute hemorrhage or mass effect. Abnormal density in the basal ganglia submitted chest above remote lacunar infarct. Low-attenuation t he white matter is nonspecific but most typical remote microvascular ischemia intracranial atheroscle rotic changes noted. Calvarium intact. Craniocervical junction maintained. IMPRESSION: THERE ARE PERSISTENT BILATERAL CSF COLLECTIONS GREATER ON THE LEFT WITH A MAXIMAL THICKNESS OF 7. 9 M M. 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 PREVIOUSLY MEASURED A MAX IMAL THICKNESS OF 6 MM. DEGENERATIVE AND NONSPECIFIC WHITE MATTER CHANGES WITH NO EVIDENCE OF MIDLINE SHIFT OR ACUTE HEMORRHA GE.
--- NOTE | 2019-07-18 11:53 | XR ---
EXAMINATION TYPE: XR chest 2V DATE OF EXAM: 07/18/2019 COMPARISON: 06/29/2019 HISTORY: Altered mental status TECHNIQUE: Frontal and lateral views of the chest are obtained. FINDINGS: There is no new focal air space opacity, pleural effusion, or pulmonary vascular congestio n seen. Tiny left apical pneumothorax due to the calcified left pleural plaque is appreciated as seen on the prior, appearing slightly smaller in size. The cardiac silhouette size is within normal limit s. There is diffuse osseous demineralization. Mild degenerative change of the spine. IMPRESSION: There remains a very trace left apical less than 5% pneumothorax deep to the calcified l eft apical pleural plaque is seen on the prior of 06/29/2019.
[2019-07-18 12:04] LABS: Partial Thromboplastin Time 28.4 sec (22.0-30.0); Prothrombin Time 10.8 sec (9.0-12.0)
[2019-07-18 13:08] LABS: Appearance,Urine Clear (Clear); Bilirubin,Urine Negative (Negative); Blood,Urine Negative (Negative); Color,Urine Yellow; Glucose,Urine (UA) Negative (Negative); Ketones,Urine Negative (Negative); Leukocyte Esterase,Urine Negative (Negative); Nitrite,Urine Negative (Negative); Protein,Urine Negative (Negative); Specific Gravity,Urine 1.014 (1.001-1.035)
[2019-07-18 13:18] LABS: Amphetamine Screen,Urine Not Detected (NotDetected); Barbiturate Screen,Urine Not Detected (NotDetected); Benzodiazepines Screen,Urine Not Detected (NotDetected); Cocaine Screen,Urine Not Detected (NotDetected); Methadone Screen, Urine Not Detected (NotDetected); Opiate Screen,Urine Detected (NotDetected); Oxycodone Screen, Urine Not Detected (NotDetected); Phencyclidine Screen,Urine Not Detected (NotDetected); Tricyclic Antidepressant,Urine Detected (NotDetected); Urn Cannabinoid Scrn Not Detected (NotDetected)
[2019-07-18] MEDS ORDERED: KETOROLAC 30 MG/ML 1 ML VIAL IVP PRN (13:59)
[2019-07-18] MEDS ORDERED: SODIUM CHLORIDE 0.9% 1,000 ML IV ONE (14:00)
[2019-07-18] MEDS ORDERED: SENNOSIDES 8.6 MG TAB PO PRN (14:00)
[2019-07-18] MEDS ORDERED: POLYETHYLENE GLYCOL 3350 17 GM POWD.PACK PO PRN (14:00)
[2019-07-18] MEDS ORDERED: MORPHINE SULFATE IR 15 MG TABLET PO PRN (14:04)
[2019-07-18] MEDS: FAMOTIDINE 20 MG TAB PO SCH ×2 (15:18→21:13)
[2019-07-18] MEDS: IPRATROPIUM-ALBUTEROL 3 ML NEB INHALATION SCH ×2 (15:25→20:42)
--- NOTE | 2019-07-18 16:33 | P.HPIM ---
History of Present Illness 74-year-old male came to emergency department with complaints of altered mental status patient has been getting a being confused at lately. Patient is workup for sepsis all the sepsis workup is negative patient had a CAT scan of the head which showed old subdural hematoma and hygromas which is stable compared to old exams patient also had a fall in the past with pneumothorax which is also stable. Patient was recently discharged from subacute rehabilitation. Patient was discharged from the hospital to subacute rehab went home and did okay for a few days and felt more and more weaker. Patient is on multiple Kardex including opiates for pain which I'll cut it down along with Ambien and Flexeril for back pain patient has chronic low back pain issues patient is very thin built but the denied any significant weight loss recently. Review of Systems REVIEW OF SYSTEMS: CONSTITUTIONAL: No fever, HEENT: No recent visual problems or hearing problems. Denied any sore throat. CARDIOVASCULAR: No chest pain, orthopnea, PND, no palpitations, no syncope. PULMONARY: No shortness of breath, no cough, no hemoptysis. GASTROINTESTINAL: No diarrhea, no nausea, no vomiting, no abdominal pain. NEUROLOGICAL: No headaches, no weakness, no numbness. HEMATOLOGICAL: Denies any bleeding or petechiae. GENITOURINARY: Denies any burning micturition, frequency, or urgency. MUSCULOSKELETAL/RHEUMATOLOGICAL: Denies any joint pain, swelling, or any muscle pain. ENDOCRINE: Denies any polyuria or polydipsia. The rest of the 14-point review of systems is negative. Past Medical History Past Medical History: Eye Disorder, GERD/Reflux, Osteoarthritis (OA), Seizure Disorder Additional Past Medical History / Comment(s): LAST SEIZURE 2006, GLAUCOMA. History of Any Multi-Drug Resistant Organisms: None Reported Past Surgical History: Cholecystectomy Additional Past Surgical History / Comment(s): CATARACT RIGHT EYE REMOVED, history of EGD and colonoscopy. Past Anesthesia/Blood Transfusion Reactions: No Reported Reaction Past Psychological History: No Psychological Hx Reported Smoking Status: Current every day smoker Past Alcohol Use History: None Reported Past Drug Use History: None Reported - Past Family History Mother Family Medical History: Cancer Medications and Allergies Home Medications Medication Instructions Recorded Confirmed Type levETIRAcetam [Keppra] 1,000 mg PO BID 03/29/16 07/18/19 History levETIRAcetam [Keppra] 250 mg PO BID 04/23/19 07/18/19 History Pantoprazole Sodium [Protonix] 40 mg PO DAILY #30 tablet. 04/29/19 07/18/19 Rx Magnesium 250 mg PO DAILY 06/18/19 07/18/19 History Multivit-Min/Folic/Vit K/Lycop 1 tab PO DAILY 06/18/19 07/18/19 History [Men's Multivitamin Tablet] Cyclobenzaprine [Flexeril] 10 mg PO BID PRN #2 tab 07/01/19 07/18/19 Rx Furosemide [Lasix] 40 mg PO BID #60 tablet 07/01/19 07/18/19 Rx Morphine Sulfate Ir [MSIR] 30 mg PO Q8HR PRN #6 tab 07/01/19 07/18/19 Rx Sennosides [Senokot] 8.6 mg PO BID tab 07/01/19 07/18/19 Rx Zolpidem [Ambien] 10 mg PO HS #3 tab 07/01/19 07/18/19 Rx Allergies Allergy/AdvReac Type Severity Reaction Status Date / Time No Known Allergies Allergy Verified 07/18/19 14:55 Physical Exam Vitals: Vital Signs Temp Pulse Resp BP Pulse Ox 07/18/19 16:16 88 07/18/19 16:08 88 07/18/19 14:51 97.8 F 76 18 111/76 99 07/18/19 12:45 80 18 113/81 100 07/18/19 11:30 74 16 112/73 99 07/18/19 11:00 79 16 115/75 100 07/18/19 10:18 98.0 F 87 18 115/79 99 Intake and Output 07/18/19 07/18/19 07/18/19 06:59 14:59 22:59 Other: Weight 45.359 kg PHYSICAL EXAMINATION: GENERAL: The patient is alert and oriented x3, not in any acute distress. thin built with lower BMI HEENT: Pupils are round and equally reacting to light. EOMI. No scleral icterus. No conjunctival pallor. Normocephalic, atraumatic. No pharyngeal erythema. No thyromegaly. CARDIOVASCULAR: S1 and S2 present. No murmurs, rubs, or gallops. PULMONARY: Chest is clear to auscultation, no wheezing or crackles. ABDOMEN: Soft, nontender, nondistended, normoactive bowel sounds. No palpable organomegaly. MUSCULOSKELETAL: No joint swelling or deformity. EXTREMITIES: No cyanosis, clubbing, or pedal edema. NEUROLOGICAL: Gross neurological examination did not reveal any focal deficits. SKIN: No rashes. Results CBC & Chem 7: 07/18/19 10:48 07/18/19 10:48 Labs: Abnormal Lab Results - Last 24 Hours (Table) 07/18/19 07/18/19 07/18/19 Range/Units 10:48 10:48 12:40 RBC 4.19 L (4.30-5.90) m/uL Hgb 12.8 L (13.0-17.5) gm/dL Neutrophils # 7.8 H (1.3-7.7) k/uL Sodium 132 L (137-145) mmol/L Creatinine 0.59 L (0.66-1.25) mg/dL Total Protein 5.2 L (6.3-8.2) g/dL Albumin 2.6 L (3.5-5.0) g/dL Urine Opiates Screen Detected H (NotDetected) U Tricyclic Antidepress Detected H (NotDetected) Assessment and Plan Plan: -altered mental status most probably secondary to toxic encephalopathy from medications will discontinue Ambien will cut down the dose of short-acting morphine patient will be started on Toradol for pain along with GI prophylaxis. Flexeril will be held as well. -Generalized weakness will obtain PT and OT consultation -Stable hygroma and subdural hematoma -gastroesophageal reflux disease -Seizure disorder: No recent seizures patient will be resumed on his home medications -Continued nicotine use -COPD without any acute exacerbation - DVT prophylaxis with subcutaneous heparin
[2019-07-18 16:39] LABS: Glucose,Whole Blood 117 mg/dL (75-99)
[2019-07-18] MEDS: INSULIN ASPART (NovoLOG) 100 UNIT/ML VIAL SQ SCH ×2 (16:52→20:38)
[2019-07-18 20:33] LABS: Glucose,Whole Blood 158 mg/dL (75-99)
[2019-07-18] MEDS: BUDESONIDE 0.5 MG/2 ML NEBU INHALATION SCH (20:42)
[2019-07-18] MEDS: HEPARIN SODIUM,PORCINE 5,000 UNIT/ML 1 ML VIAL SQ SCH (21:13)
[2019-07-18] MEDS: levETIRAcetam 500 MG TAB PO SCH (21:13)
[2019-07-18] MEDS: levETIRAcetam 250 MG TAB PO SCH (21:14)
[2019-07-19 07:14] LABS: Glucose,Whole Blood 102 mg/dL (75-99)
[2019-07-19] MEDS: HEPARIN SODIUM,PORCINE 5,000 UNIT/ML 1 ML VIAL SQ SCH (07:16)
[2019-07-19] MEDS: levETIRAcetam 250 MG TAB PO SCH (07:17)
[2019-07-19] MEDS: levETIRAcetam 500 MG TAB PO SCH (07:17)
[2019-07-19] MEDS: FAMOTIDINE 20 MG TAB PO SCH (07:17)
[2019-07-19] MEDS: INSULIN ASPART (NovoLOG) 100 UNIT/ML VIAL SQ SCH ×2 (07:17→12:09)
[2019-07-19] MEDS: IPRATROPIUM-ALBUTEROL 3 ML NEB INHALATION SCH ×2 (07:24→10:58)
[2019-07-19] MEDS: BUDESONIDE 0.5 MG/2 ML NEBU INHALATION SCH (07:24)
[2019-07-19 07:42] VITALS: BP 111/71; RESP 17; TEMP 98.3
[2019-07-19] MEDS ORDERED: MAGNESIUM OXIDE 400 MG TAB PO SCH (09:00)
[2019-07-19] MEDS ORDERED: PANTOPRAZOLE 40 MG TABLET PO SCH (09:00)
[2019-07-19 11:11] VITALS: PULSE 80
[2019-07-19 11:29] LABS: Glucose,Whole Blood 122 mg/dL (75-99)
--- NOTE | 2019-07-20 15:49 | P.DS ---
Providers Date of admission: 07/18/19 14:00 Expected date of discharge: 07/19/19 Attending physician: Sylvia Lin Primary care physician: Sascha Oliveros Hospital Course: Final Diagnosis -altered mental status most probably secondary to toxic encephalopathy from medications -Generalized weakness -Stable hygroma and subdural hematoma -gastroesophageal reflux disease -Seizure disorder -Continued nicotine use -COPD without any acute exacerbation - DVT prophylaxis -GI prophylaxis Discharge disposition Patient is being discharged in a stable condition with guarded prognosis to home. Patient will follow-up with Dr. Oliveros upon discharge. Total time taken is 35 minutes. History of present illness This is a 74-year-old male who was recently admitted with altered mental status and was being closely monitored. Patient was initially worked up for sepsis which was negative. Patient was recently at a [facility] for continued PT/OT therapy and had been taking a number of narcotics which is likely due to his altered mental status. Mentation has much improved. Patient will continue on a lesser dose of his Morphine and discontinue the ambien and flexeril. Patient was evaluated by PT/OT and was independent in ADL with a steady gait. Patient was offered home care but refused stating he would like to go home and that his girlfriend's family lives above them and assists him if needed. Currently no reports of chest pain, palpitations, or shortness. Patient is afebrile. No reports of nausea or vomiting and patient is tolerating diet. On exam vital signs are stable. Temp is 98.3F, pulse is 76, respirations are 16, blood pressure 111/71, oxygen saturation is 97% on room air. Cardio S1, S2 are present. Respiratory shows clear to auscultation. Abdomen is soft and nontender. Nervous system shows no focal deficits. Please refer to medication reconciliation sheet for a list of medications. Patient Condition at Discharge: Stable Plan - Discharge Summary Discharge Rx Participant: No New Discharge Prescriptions: New Morphine Sulfate Ir [MSIR] 30 mg PO DAILY PRN #12 tablet PRN Reason: Pain Continue levETIRAcetam [Keppra] 1,000 mg PO BID levETIRAcetam [Keppra] 250 mg PO BID Pantoprazole Sodium [Protonix] 40 mg PO DAILY #30 tablet. Multivit-Min/Folic/Vit K/Lycop [Men's Multivitamin Tablet] 1 tab PO DAILY Magnesium 250 mg PO DAILY Furosemide [Lasix] 40 mg PO BID #60 tablet Sennosides [Senokot] 8.6 mg PO BID tab Discontinued Cyclobenzaprine [Flexeril] 10 mg PO BID PRN #2 tab PRN Reason: Muscle Spasm Morphine Sulfate Ir [MSIR] 30 mg PO Q8HR PRN #6 tab PRN Reason: Pain Zolpidem [Ambien] 10 mg PO HS #3 tab Discharge Medication List levETIRAcetam [Keppra] 1,000 mg PO BID 03/29/16 [History] levETIRAcetam [Keppra] 250 mg PO BID 04/23/19 [History] Pantoprazole Sodium [Protonix] 40 mg PO DAILY #30 tablet. 04/29/19 [Rx] Magnesium 250 mg PO DAILY 06/18/19 [History] Multivit-Min/Folic/Vit K/Lycop [Men's Multivitamin Tablet] 1 tab PO DAILY 06/18/19 [History] Furosemide [Lasix] 40 mg PO BID #60 tablet 07/01/19 [Rx] Sennosides [Senokot] 8.6 mg PO BID tab 07/01/19 [Rx] Morphine Sulfate Ir [MSIR] 30 mg PO DAILY PRN #12 tablet 07/19/19 [Rx] Follow up Appointment(s)/Referral(s): Sascha Oliveros MD [Primary Care Provider] - 1-2 days (Office closed at time of discharge please call Monday to set up a follow up appointment) Patient Instructions/Handouts: Altered Mental Status (GEN), Fall Prevention (DC) Activity/Diet/Wound Care/Special Instructions: Activity Limited until follow-up Follow-up with primary care provider upon discharge Continue current diet Discharge Disposition: HOME SELF-CARE
== END 2019-07-19 13:41 | disposition home or self-care (01) ==
LOC: EC 10:07 → 4SSUR 14:00 → INTOOBSV 14:00 → UNDODISIN 07-19 13:41
PROVIDERS: ADMIT Internal Medicine; ATTEND Internal Medicine
DX: R41.82 Altered mental status, unspecified (principal); R53.1 Weakness; D18.1 Lymphangioma, any site; Z87.820 Personal history of traumatic brain injury; R29.6 Repeated falls; G89.29 Other chronic pain; M54.5 Low back pain; K21.9 Gastro-esophageal reflux disease without esophagitis; M19.90 Unspecified osteoarthritis, unspecified site; G40.909 Epilepsy, unspecified, not intractable, without status epilepticus; H40.9 Unspecified glaucoma; S41.012A Laceration without foreign body of left shoulder, initial encounter; S41.011A Laceration without foreign body of right shoulder, initial encounter; F17.200 Nicotine dependence, unspecified, uncomplicated; Z87.01 Personal history of pneumonia (recurrent); Z79.891 Long term (current) use of opiate analgesic; Z79.899 Other long term (current) drug therapy; Z79.4 Long term (current) use of insulin; Z79.51 Long term (current) use of inhaled steroids; Z90.49 Acquired absence of other specified parts of digestive tract; W18.30XA Fall on same level, unspecified, initial encounter; Z80.9 Family history of malignant neoplasm, unspecified; Z11.59 Encounter for screening for other viral diseases
CPT/HCPCS: 96372 ×2; 96374; 96361; 99285; 36415; 94640 ×4; 94760; 93005; 97162; 97165; 80053; 84484; 85025; 85610; 85730; 81003; 80306; 71046; 70450; G0378 ×2; U0003; J1644 ×2; J1885; 96360

== ENCOUNTER → 2020-04-24 | Outpatient (CLI) | payer MEDICARE, OTHER | END | disposition home or self-care (01) | LOC: LABWHC1 10:36 | PROVIDERS: ATTEND Psychiatry & Neurology Neurology | DX: G40.209 Localization-related (focal) (partial) symptomatic epilepsy and epileptic syndromes with complex partial seizures, not intractable, without status epilepticus (principal) | CPT/HCPCS: 36415; 80177 ==

== ENCOUNTER → 2021-04-07 | Outpatient (CLI) | payer MEDICARE, OTHER | END | disposition home or self-care (01) | LOC: LABWHC1 09:21 | PROVIDERS: ATTEND Psychiatry & Neurology Neurology | DX: G40.209 Localization-related (focal) (partial) symptomatic epilepsy and epileptic syndromes with complex partial seizures, not intractable, without status epilepticus (principal) | CPT/HCPCS: 36415; 80177 ==

== ENCOUNTER → 2021-09-28 | Outpatient (CLI) | payer MEDICARE, OTHER | END | disposition home or self-care (01) | LOC: LABWHC1 07:02 | PROVIDERS: ATTEND Psychiatry & Neurology Neurology | DX: G40.209 Localization-related (focal) (partial) symptomatic epilepsy and epileptic syndromes with complex partial seizures, not intractable, without status epilepticus (principal) | CPT/HCPCS: 36415; 80177 ==

== ENCOUNTER → 2021-10-13 | Outpatient (CLI) | payer MEDICARE, OTHER ==
[2021-10-13 09:58] LABS: African American GFR (CKD) >90 (>60 ml/min/1.73 sqM); Blood Urea Nitrogen 16 mg/dL (9-20); Non-African American GFR(CKD) 85 (>60 ml/min/1.73 sqM)
--- NOTE | 2021-10-13 15:09 | CT ---
EXAMINATION TYPE: CT abdomen pelvis w con DATE OF EXAM: 10/13/2021 COMPARISON: 06/24/2019 INDICATION: Abnormal weight loss DLP: 342 mGycm, Automated exposure control for dose reduction was used. CONTRAST: 70 mL of Isovue 300. Study performed with Oral Contrast TECHNIQUE: Axial images were obtained from above the diaphragm to the pubic rami in the axial plane a t 5 mm thick sections. Reconstructed images are reviewed on the computer in the coronal plane. FINDINGS: Limited CT sections are obtained the lung bases. The lung bases are clear. CT ABDOMEN: Liver: Normal Spleen: Normal Pancreas: Normal Adrenal glands: The adrenal glands are normal. Gallbladder: Surgically absent Kidneys: No masses are evident. No hydronephrosis is present. There is a 3.1 cm cyst on the medial upper pole left kidney. Delayed images were obtained through the kidneys, which remain unremarkable. Aorta: Vascular calcification is within the aorta. Inferior vena cava: Normal. CT PELVIS: There are some small bowel loops with wall thickening within the lower pelvis. Correlate for ileitis. Terminal ileum appears unremarkable. No obstruction is identified. Some ileus may be present with di lated fluid-filled small bowel loops. There are loops of bowel which are incompletely distended or la ck oral contrast limiting their evaluation. Appendix: Normal as visualized. Urinary bladder: Normal. Genitourinary structures: Prostate appears normal Osseous structures: No suspicious lytic or sclerotic lesions. Degenerative changes are in the lower l umbar spine. COMPARISON: Previous pleural effusions have resolved. Prior studies is resolved. IMPRESSIONS: 1. Clinical correlation recommended for ileitis. Some mild pelvic small bowel ileus may be present. 2. Left renal cyst
== END | disposition home or self-care (01) ==
LOC: RADCTMAIN 08:33
PROVIDERS: ATTEND Internal Medicine Gastroenterology
DX: N28.1 Cyst of kidney, acquired (principal); R63.4 Abnormal weight loss
CPT/HCPCS: 82565; 84520; 74177; 36415; Q9967 ×2

== ENCOUNTER 2022-02-10 10:01 | Emergency (ER) | payer MEDICARE, OTHER ==
[2022-02-10 10:08] VITALS: RESP 18
[2022-02-10] MEDS ORDERED: SODIUM CHLORIDE 0.9% 1,000 ML IV ONE (10:25)
[2022-02-10 11:02] LABS: Glucose,Whole Blood 94 mg/dL (70-110)
[2022-02-10 11:22] LABS: Basophils % (A) 0 %; Eosinophils # (A) 0.1 k/uL (0-0.7); Eosinophils % (A) 1 %; HCT 41.9 % (39.0-53.0); HGB 13.8 gm/dL (13.0-17.5); Lymphocytes # (A) 2.5 k/uL (1.0-4.8); Lymphocytes % (A) 25 %; MCH 30.4 pg (25.0-35.0); MCHC 32.8 g/dL (31.0-37.0); MCV 92.6 fL (80.0-100.0); Mean Platelet Volume 7.5; Monocytes # (A) 0.6 k/uL (0-1.0); Monocytes % (A) 6 %; Neutrophils # (A) 6.8 k/uL (1.3-7.7); Neutrophils % (A) 67 %; Platelet Count 390 k/uL (150-450); RBC 4.53 m/uL (4.30-5.90); RDW 13.8 % (11.5-15.5); WBC 10.1 k/uL (3.8-10.6)
--- NOTE | 2022-02-10 11:25 | XR ---
EXAMINATION TYPE: XR chest 2V DATE OF EXAM: 02/10/2022 COMPARISON: 07/18/2019 INDICATION: Altered mental status TECHNIQUE: Frontal and lateral views of the chest are obtained. FINDINGS: The heart size is normal. The pulmonary vasculature is normal. The lungs are clear. Hyperinflation is present compatible with COPD. IMPRESSION: 1. No acute pulmonary process.
[2022-02-10 11:42] LABS: Partial Thromboplastin Time 26.8 sec (22.0-30.0); Prothrombin Time 10.7 sec (9.0-12.0)
--- NOTE | 2022-02-10 11:42 | CT ---
EXAMINATION TYPE: CT brain cspine wo con CT DLP: 1361.6 mGycm, Automated exposure control for dose reduction was used. DATE OF EXAM: 02/10/2022 11:23 AM COMPARISON: 07/18/2019 CLINICAL INDICATION:Male, 77 years old with history of fall; Altered mental status. TECHNIQUE: Brain: Multiple axial CT images of the brain were obtained without IV contrast. Cspine: Axial CT images from the skull base to the inferior aspect of T2 we obtained without intraven ous contrast. Coronal and sagittal reformatted images were also reviewed. FINDINGS: Brain: Extra-axial spaces: No abnormal extra-axial fluid collections. Ventricular system: Dilatation in proportion to cerebral atrophy. Cerebral parenchyma: Right leon radiata hypodense injury. Unchanged from prior. Cerebral atrophy. N o acute intraparenchymal hemorrhage or mass effect. The sanford-white junction is well differentiated. Scattered hypoattenuating areas are seen within the white matter. Cerebellum: Unremarkable. Mass effect: No evidence of midline shift. Intracranial vasculature: Atherosclerotic calcifications of the intracranial vessels. Soft tissues: Normal. Calvarium/osseous structures: No depressed skull fracture. Paranasal sinuses and mastoid air cells: Clear. Visualized orbits: Orbital contents are intact. Cervical spine: Fracture: None. Osseous structures: Multilevel degenerative disc disease changes with endplate spurring and disc oste ophyte complex's. Findings are worse at C5-C6 and C6-C7. Vertebral alignment: Within normal limits. Spinal canal/Neural Foramina: Disc osteophyte complexes at C4-C6 with at least mild spinal canal sten osis. Facet joint uncovertebral joint arthropathy scattered throughout the cervical spine with varyin g degrees of neural foraminal stenosis. Neck soft tissues: Prevertebral soft tissues are within normal limits. Other: The airway is patent. The lung apices are clear. IMPRESSION: 1. No acute intracranial process. 2. Remote right leon radiata injury along with nonspecific white matter changes likely secondary t o chronic microangiopathy. 3. No evidence of cervical spine fracture. 4. Moderate multilevel degenerative disc disease.
[2022-02-10 12:11] LABS: ALT 21 U/L (4-49); African American GFR (CKD) >90 (>60 ml/min/1.73 sqM); Alkaline Phosphatase 116 U/L (38-126); Anion Gap 1 mmol/L; Calcium 8.1 mg/dL (8.4-10.2); Carbon Dioxide 32 mmol/L (22-30); Chloride 103 mmol/L (98-107); Glucose 87 mg/dL (74-99); Non-African American GFR(CKD) >90 (>60 ml/min/1.73 sqM); Potassium 3.9 mmol/L (3.5-5.1); Sodium 136 mmol/L (137-145)
[2022-02-10 12:13] LABS: AST 27 U/L (17-59); Blood Urea Nitrogen 18 mg/dL (9-20); Total Bilirubin 0.3 mg/dL (0.2-1.3); Total Protein 5.4 g/dL (6.3-8.2)
[2022-02-10] MEDS ORDERED: CALCIUM CARBONATE 500 MG CHEWABLE PO STA (12:17)
--- NOTE | 2022-02-10 13:12 | ED ---
Altered Mental Status HPI - General Chief Complaint: Altered Mental Status Stated Complaint: fall - hallucinations Time Seen by Provider: 02/10/22 10:21 Source: patient Mode of arrival: ambulatory Limitations: no limitations - History of Present Illness Initial Comments: Patient is a 74-year-old male whose brings him to the emergency Department due to altered mental status. His girlfriend is concerned that patient is having visual hallucinations since yesterday evening around 12 AM. Patient fell twice while looking for items on the floor during his hallucination and hit his head. He did not lose consciousness. He is not on blood thinners. Patient is alert and oriented 3. He denies fever, chills, headache, upper respiratory symptoms, chest pain, shortness of breath, abdominal pain, nausea, vomiting, diarrhea, burning with urination. Denies new medication use and recent change in medication. - Related Data Home Medications Medication Instructions Recorded Confirmed levETIRAcetam [Keppra] 1,000 mg PO BID 03/29/16 02/10/22 levETIRAcetam [Keppra] 250 mg PO BID 04/23/19 02/10/22 Multivit-Min/Folic/Vit K/Lycop 1 tab PO DAILY 06/18/19 02/10/22 [Men's Multivitamin Tablet] Bimatoprost [Lumigan 0.01% Ophth 1 drop BOTH EYES HS 02/10/22 02/10/22 Soln] Morphine Sulfate Ir [MSIR] 30 mg PO QID PRN 02/10/22 02/10/22 Zolpidem [Ambien] 10 mg PO HS PRN 02/10/22 02/10/22 Allergies Allergy/AdvReac Type Severity Reaction Status Date / Time No Known Allergies Allergy Verified 02/10/22 12:54 Review of Systems ROS Statement: Those systems with pertinent positive or pertinent negative responses have been documented in the HPI. ROS Other: All systems not noted in ROS Statement are negative. Past Medical History Past Medical History: Eye Disorder, GERD/Reflux, Osteoarthritis (OA), Seizure Disorder Additional Past Medical History / Comment(s): LAST SEIZURE 2006, GLAUCOMA. History of Any Multi-Drug Resistant Organisms: None Reported Past Surgical History: Cholecystectomy Additional Past Surgical History / Comment(s): CATARACT RIGHT EYE REMOVED, history of EGD and colonoscopy. Past Anesthesia/Blood Transfusion Reactions: No Reported Reaction Past Psychological History: No Psychological Hx Reported Smoking Status: Current every day smoker Past Alcohol Use History: None Reported Past Drug Use History: None Reported - Past Family History Mother Family Medical History: Cancer General Exam Limitations: no limitations General appearance: alert, in no apparent distress Head exam: Present: atraumatic, normocephalic, normal inspection Eye exam: Present: normal appearance, PERRL, EOMI. Absent: scleral icterus, conjunctival injection, periorbital swelling Respiratory exam: Present: normal lung sounds bilaterally. Absent: respiratory distress, wheezes, rales, rhonchi, stridor Cardiovascular Exam: Present: regular rate, normal rhythm, normal heart sounds. Absent: systolic murmur, diastolic murmur, rubs, gallop, clicks GI/Abdominal exam: Present: soft, normal bowel sounds. Absent: distended, tenderness, guarding, rebound, rigid Extremities exam: Present: normal inspection Neurological exam: Present: alert, oriented X3, CN II-XII intact Psychiatric exam: Present: normal affect, normal mood Skin exam: Present: warm, dry, intact, normal color. Absent: rash Course Vital Signs 02/10/22 02/10/22 10:02 14:15 Temperature 97.5 F L 98.8 F Pulse Rate 70 62 Respiratory 18 18 Rate Blood Pressure 137/86 117/79 O2 Sat by Pulse 98 97 Oximetry Medical Decision Making - Medical Decision Making Was pt. sent in by a medical professional or institution? No Did you speak to anyone other than the patient for history? Yes, patient's girlfriend Did you review nursing and triage notes? Yes, and I agree. Symptoms consistent with nursing and triage notes. Were old charts reviewed? Yes, she had a previous episode a couple years ago which were concluded to be due to his home prescription of narcotics. Morphine TID reduced to once daily, patient taken off Ambien and Flexeril. Patient and girlfriend state patient was put back on morphine TID the pain clinic for chronic back pain. He was also placed back on Ambien. Patient not currently taking Flexeril Differential Diagnosis? Hypoglycemia, DKA, hypercapnia, ETOH, overdose, infection, encephalitis, psychosis, intercranial hemorrhage, hepatic encephalopathy, this is not meant to be an all-inclusive list EKG interpreted by me (3pts min.)? Yes, normal sinus rhythm without St segment or T wave abnormalities. Vent rate 68, PA interval 144, QRS duration 78, QTc 435 X-rays interpreted by me (1pt min.)? Yes, chronic COPD changes without evidence of acute process CT interpreted by me (1pt min.)? Yes, CT of the brain and C-spine without contrast negative for acute process. U/S interpreted by me (1pt. min.)? NA What testing was considered but not performed? (CT, X-rays, U/S, labs)? Why? NA What meds were considered but not given? Why? None Did you discuss the management of the patient with other professionals? No Did you reconcile home meds? No, patient discharged. Was smoking cessation discussed for >3mins.? I discussed smoking cessation for greater than 3 minutes. The risk of smoking were discussed with the patient including but not limited to risks of cancer, stroke, coronary artery disease and COPD. Also discussed with patient were multiple methods of quitting smoking. Lastly we discussed the financial cost of smoking. Was critical care preformed (if so, how long)? No Were there social determinants of health that impacted care today? How? (Homelessness, low income, unemployed, alcoholism, drug addiction, transportation, low edu. Level, literacy, decrease access to med. care, alf, rehab)? No Was there de-escalation of care discussed even if they declined? (Discuss DNR or withdrawal of care, Hospice)? No What co-morbidities impacted this encounter? (DM, HTN, Smoking, COPD, CAD, Cancer, CVA, Hep., AIDS, mental health diagnosis, sleep apnea, morbid obesity)? COPD, smoking Was patient admitted / discharged? This is a 77-year-old male presenting with hallucinations.A&O x 3. Afebrile. Laboratory studies are unremarkable. Urinalysis not indicated of infection. RS V, COVID-19, Influenza not detected. Chest x-ray shows chronic COPD changes without acute process. CT of the brain and C-spine without contrast negative for acute process. Results discussed with patient and girlfriend. At this time etiology of hallucinations is unknown. Possibly related to morphine and Ambien again. I did advise girlfriend to trial decreased morphine doses with close observation. Patient and girlfriend to discuss with PCP. Undiagnosed new problem with uncertain prognosis? No. Drug Therapy requiring intensive monitoring for toxicity (Heparin, Nitro, Insulin, Cardizem)? No Were any procedures done? No Diagnosis/symptom? AMS, hallucinations Acute, or Chronic, or Acute on Chronic? acute Uncomplicated (without systemic symptoms) or Complicated (systemic symptoms)? NA Side effects of treatment? No Exacerbation, Progression, or Severe Exacerbation] NA Poses a threat to life or bodily function? No Dr. Juarez is my attending. - Lab Data Result diagrams: 02/10/22 10:54 02/10/22 10:54 Lab Results 02/10/22 02/10/22 02/10/22 Range/Units 10:54 10:54 10:54 WBC 10.1 (3.8-10.6) k/uL RBC 4.53 (4.30-5.90) m/uL Hgb 13.8 (13.0-17.5) gm/dL Hct 41.9 (39.0-53.0) % MCV 92.6 (80.0-100.0) fL MCH 30.4 (25.0-35.0) pg MCHC 32.8 (31.0-37.0) g/dL RDW 13.8 (11.5-15.5) % Plt Count 390 (150-450) k/uL MPV 7.5 Neutrophils % 67 % Lymphocytes % 25 % Monocytes % 6 % Eosinophils % 1 % Basophils % 0 % Neutrophils # 6.8 (1.3-7.7) k/uL Lymphocytes # 2.5 (1.0-4.8) k/uL Monocytes # 0.6 (0-1.0) k/uL Eosinophils # 0.1 (0-0.7) k/uL Basophils # 0.0 (0-0.2) k/uL PT 10.7 (9.0-12.0) sec INR 1.0 (<1.2) APTT 26.8 (22.0-30.0) sec Sodium 136 L (137-145) mmol/L Potassium 3.9 (3.5-5.1) mmol/L Chloride 103 (98-107) mmol/L Carbon Dioxide 32 H (22-30) mmol/L Anion Gap 1 mmol/L BUN 18 (9-20) mg/dL Creatinine 0.72 (0.66-1.25) mg/dL Est GFR (CKD-EPI)AfAm >90 (>60 ml/min/1.73 sqM) Est GFR (CKD-EPI)NonAf >90 (>60 ml/min/1.73 sqM) Glucose 87 (74-99) mg/dL POC Glucose (mg/dL) (70-110) mg/dL POC Glu Train Announcer ID Calcium 8.1 L (8.4-10.2) mg/dL Total Bilirubin 0.3 (0.2-1.3) mg/dL AST 27 (17-59) U/L ALT 21 (4-49) U/L Alkaline Phosphatase 116 (38-126) U/L Ammonia (<30) umol/L Troponin I (0.000-0.034) ng/mL Total Protein 5.4 L (6.3-8.2) g/dL Albumin 3.0 L (3.5-5.0) g/dL Urine Color Urine Appearance (Clear) Urine pH (5.0-8.0) Ur Specific [place] (1.001-1.035) Urine Protein (Negative) Urine Glucose (UA) (Negative) Urine Ketones (Negative) Urine Blood (Negative) Urine Nitrite (Negative) Urine Bilirubin (Negative) Urine Urobilinogen (<2.0) mg/dL Ur Leukocyte Esterase (Negative) Urine Opiates Screen (NotDetected) Ur Oxycodone Screen (NotDetected) Urine Methadone Screen (NotDetected) Ur Propoxyphene Screen (NotDetected) Ur Barbiturates Screen (NotDetected) U Tricyclic Antidepress (NotDetected) Ur Phencyclidine Scrn (NotDetected) Ur Amphetamines Screen (NotDetected) U Methamphetamines Scrn (NotDetected) U Benzodiazepines Scrn (NotDetected) Urine Cocaine Screen (NotDetected) U Marijuana (THC) Screen (NotDetected) Influenza Type A (PCR) (Not Detectd) Influenza Type B (PCR) (Not Detectd) RSV (PCR) (Not Detectd) SARS-CoV-2 (PCR) (Not Detectd) 02/10/22 02/10/22 02/10/22 Range/Units 10:54 10:54 10:54 WBC (3.8-10.6) k/uL RBC (4.30-5.90) m/uL Hgb (13.0-17.5) gm/dL Hct (39.0-53.0) % MCV (80.0-100.0) fL MCH (25.0-35.0) pg MCHC (31.0-37.0) g/dL RDW (11.5-15.5) % Plt Count (150-450) k/uL MPV Neutrophils % % Lymphocytes % % Monocytes % % Eosinophils % % Basophils % % Neutrophils # (1.3-7.7) k/uL Lymphocytes # (1.0-4.8) k/uL Monocytes # (0-1.0) k/uL Eosinophils # (0-0.7) k/uL Basophils # (0-0.2) k/uL PT (9.0-12.0) sec INR (<1.2) APTT (22.0-30.0) sec Sodium (137-145) mmol/L Potassium (3.5-5.1) mmol/L Chloride (98-107) mmol/L Carbon Dioxide (22-30) mmol/L Anion Gap mmol/L BUN (9-20) mg/dL Creatinine (0.66-1.25) mg/dL Est GFR (CKD-EPI)AfAm (>60 ml/min/1.73 sqM) Est GFR (CKD-EPI)NonAf (>60 ml/min/1.73 sqM) Glucose (74-99) mg/dL POC Glucose (mg/dL) (70-110) mg/dL POC Glu Train Announcer ID Calcium (8.4-10.2) mg/dL Total Bilirubin (0.2-1.3) mg/dL AST (17-59) U/L ALT (4-49) U/L Alkaline Phosphatase (38-126) U/L Ammonia <9 (<30) umol/L Troponin I <0.012 (0.000-0.034) ng/mL Total Protein (6.3-8.2) g/dL Albumin (3.5-5.0) g/dL Urine Color Urine Appearance (Clear) Urine pH (5.0-8.0) Ur Specific [place] (1.001-1.035) Urine Protein (Negative) Urine Glucose (UA) (Negative) Urine Ketones (Negative) Urine Blood (Negative) Urine Nitrite (Negative) Urine Bilirubin (Negative) Urine Urobilinogen (<2.0) mg/dL Ur Leukocyte Esterase (Negative) Urine Opiates Screen (NotDetected) Ur Oxycodone Screen (NotDetected) Urine Methadone Screen (NotDetected) Ur Propoxyphene Screen (NotDetected) Ur Barbiturates Screen (NotDetected) U Tricyclic Antidepress (NotDetected) Ur Phencyclidine Scrn (NotDetected) Ur Amphetamines Screen (NotDetected) U Methamphetamines Scrn (NotDetected) U Benzodiazepines Scrn (NotDetected) Urine Cocaine Screen (NotDetected) U Marijuana (THC) Screen (NotDetected) Influenza Type A (PCR) Not Detected (Not Detectd) Influenza Type B (PCR) Not Detected (Not Detectd) RSV (PCR) Not Detected (Not Detectd) SARS-CoV-2 (PCR) Not Detected (Not Detectd) 02/10/22 02/10/22 Range/Units 10:59 12:47 WBC (3.8-10.6) k/uL RBC (4.30-5.90) m/uL Hgb (13.0-17.5) gm/dL Hct (39.0-53.0) % MCV (80.0-100.0) fL MCH (25.0-35.0) pg MCHC (31.0-37.0) g/dL RDW (11.5-15.5) % Plt Count (150-450) k/uL MPV Neutrophils % % Lymphocytes % % Monocytes % % Eosinophils % % Basophils % % Neutrophils # (1.3-7.7) k/uL Lymphocytes # (1.0-4.8) k/uL Monocytes # (0-1.0) k/uL Eosinophils # (0-0.7) k/uL Basophils # (0-0.2) k/uL PT (9.0-12.0) sec INR (<1.2) APTT (22.0-30.0) sec Sodium (137-145) mmol/L Potassium (3.5-5.1) mmol/L Chloride (98-107) mmol/L Carbon Dioxide (22-30) mmol/L Anion Gap mmol/L BUN (9-20) mg/dL Creatinine (0.66-1.25) mg/dL Est GFR (CKD-EPI)AfAm (>60 ml/min/1.73 sqM) Est GFR (CKD-EPI)NonAf (>60 ml/min/1.73 sqM) Glucose (74-99) mg/dL POC Glucose (mg/dL) 94 (70-110) mg/dL POC Glu Train Announcer ID Buddy Russo Calcium (8.4-10.2) mg/dL Total Bilirubin (0.2-1.3) mg/dL AST (17-59) U/L ALT (4-49) U/L Alkaline Phosphatase (38-126) U/L Ammonia (<30) umol/L Troponin I (0.000-0.034) ng/mL Total Protein (6.3-8.2) g/dL Albumin (3.5-5.0) g/dL Urine Color Yellow Urine Appearance Clear (Clear) Urine pH 6.0 (5.0-8.0) Ur Specific [place] 1.025 (1.001-1.035) Urine Protein Negative (Negative) Urine Glucose (UA) Negative (Negative) Urine Ketones Negative (Negative) Urine Blood Negative (Negative) Urine Nitrite Negative (Negative) Urine Bilirubin Negative (Negative) Urine Urobilinogen 4.0 (<2.0) mg/dL Ur Leukocyte Esterase Negative (Negative) Urine Opiates Screen Detected H (NotDetected) Ur Oxycodone Screen Not Detected (NotDetected) Urine Methadone Screen Not Detected (NotDetected) Ur Propoxyphene Screen Not Detected (NotDetected) Ur Barbiturates Screen Not Detected (NotDetected) U Tricyclic Antidepress Not Detected (NotDetected) Ur Phencyclidine Scrn Not Detected (NotDetected) Ur Amphetamines Screen Not Detected (NotDetected) U Methamphetamines Scrn Not Detected (NotDetected) U Benzodiazepines Scrn Not Detected (NotDetected) Urine Cocaine Screen Not Detected (NotDetected) U Marijuana (THC) Screen Not Detected (NotDetected) Influenza Type A (PCR) (Not Detectd) Influenza Type B (PCR) (Not Detectd) RSV (PCR) (Not Detectd) SARS-CoV-2 (PCR) (Not Detectd) Disposition Clinical Impression: Hallucination, Fall Disposition: HOME SELF-CARE Condition: Good Instructions (If sedation given, give patient instructions): Altered Mental Status (ED) Additional Instructions: Follow-up with primary care provider in one to 2 days. Ambien and morphine may be contributing to symptoms. Return to the emergency Department if you experience, new, worsening, or concerning symptoms. Is patient prescribed a controlled substance at d/c from ED?: No Referrals: Gato Reina MD [Primary Care Provider] - 1-2 days Time of Disposition: 14:01
[2022-02-10 13:15] LABS: Appearance,Urine Clear (Clear); Bilirubin,Urine Negative (Negative); Blood,Urine Negative (Negative); Color,Urine Yellow; Glucose,Urine (UA) Negative (Negative); Ketones,Urine Negative (Negative); Leukocyte Esterase,Urine Negative (Negative); Nitrite,Urine Negative (Negative); Protein,Urine Negative (Negative); Specific Gravity,Urine 1.025 (1.001-1.035)
[2022-02-10 13:27] LABS: Amphetamine Screen,Urine Not Detected (NotDetected); Barbiturate Screen,Urine Not Detected (NotDetected); Benzodiazepines Screen,Urine Not Detected (NotDetected); Cocaine Screen,Urine Not Detected (NotDetected); Methadone Screen, Urine Not Detected (NotDetected); Opiate Screen,Urine Detected (NotDetected); Oxycodone Screen, Urine Not Detected (NotDetected); Phencyclidine Screen,Urine Not Detected (NotDetected); Tricyclic Antidepressant,Urine Not Detected (NotDetected); Urn Cannabinoid Scrn Not Detected (NotDetected)
[2022-02-10 14:16] VITALS: BP 117/79; PULSE 62; TEMP 98.8
== END 2022-02-10 14:20 | disposition home or self-care (01) ==
LOC: EC 10:01
DX: R44.3 Hallucinations, unspecified (principal); K21.9 Gastro-esophageal reflux disease without esophagitis; M19.90 Unspecified osteoarthritis, unspecified site; F17.200 Nicotine dependence, unspecified, uncomplicated; Z79.899 Other long term (current) drug therapy; Z20.822 Contact with and (suspected) exposure to COVID-19; W01.198A Fall on same level from slipping, tripping and stumbling with subsequent striking against other object, initial encounter
CPT/HCPCS: 36415; 70450; 71046; 72125; 80053; 80306; 81003; 82140; 84484; 85025; 85610; 85730; 87636; 93005; 96360; 99285

== ENCOUNTER → 2022-05-24 | Outpatient (CLI) | payer MEDICARE, OTHER | END | disposition home or self-care (01) | LOC: LABWHC1 08:27 | PROVIDERS: ATTEND Psychiatry & Neurology Neurology | DX: G40.109 Localization-related (focal) (partial) symptomatic epilepsy and epileptic syndromes with simple partial seizures, not intractable, without status epilepticus (principal) | CPT/HCPCS: 36415; 80177 ==

== ENCOUNTER → 2022-06-09 | Outpatient (CLI) | payer MEDICARE, OTHER ==
--- NOTE | 2022-06-09 16:28 | XR ---
EXAMINATION TYPE: XR lumbosacral spine 5 views DATE OF EXAM: 06/09/2022 Comparison: None Clinical History: 77-year-old male M54.50 Findings: Bridging left lateral and anterior endplate spondylosis throughout the lumbar spine. 5 lumbar type ve rtebral bodies. Hypertrophic facet arthropathy mid and lower lumbar spine. Vertebral body heights are preserved. Alignment is maintained. Impression: Bridging left lateral and anterior spondylosis throughout the lumbar spine may reflect DISH. No verte bral compression collapse or malalignment. Hypertrophic facet arthropathy mid to lower lumbar spine.
== END | disposition home or self-care (01) ==
LOC: RADXRMAIN 12:25
PROVIDERS: ATTEND Physical Medicine & Rehabilitation
DX: M47.816 Spondylosis without myelopathy or radiculopathy, lumbar region (principal)
CPT/HCPCS: 72110

== ENCOUNTER → 2022-07-04 | Outpatient (CLI) | payer MEDICARE, OTHER ==
--- NOTE | 2022-07-04 10:22 | FL ---
EXAMINATION TYPE: FL UGI w small bowel DATE OF EXAM: 07/04/2022 COMPARISON: NONE HISTORY: Significant weight loss, stomach aches, and diarrhea. TECHNIQUE: Single contrast upper GI FINDINGS: Certified Ophthalmic Surgical Assistant image of the abdomen shows no gross abnormality. The esophagus shows normal motility and emptying into the stomach. No evidence of hiatal hernia or s tricture noted. Following ingestion of 1 ounce of EZpaque noted was a [id number] amount of as piration. Examination was subsequently discontinued. IMPRESSION: Examination was discontinued given aspiration by the patient. Speech pathology consult ad vised.
== END | disposition home or self-care (01) ==
LOC: RADFLMAIN 08:48
PROVIDERS: ATTEND Internal Medicine Gastroenterology
DX: R63.4 Abnormal weight loss (principal); R19.7 Diarrhea, unspecified; R10.9 Unspecified abdominal pain
CPT/HCPCS: 74240; 74248

== ENCOUNTER → 2022-08-09 | Outpatient (CLI) | payer MEDICARE, OTHER ==
[2022-08-09 10:43] LABS: African American GFR (CKD) >90 (>60 ml/min/1.73 sqM); Blood Urea Nitrogen 23 mg/dL (9-20); Non-African American GFR(CKD) 90 (>60 ml/min/1.73 sqM)
--- NOTE | 2022-08-09 21:21 | CT ---
EXAMINATION TYPE: CT abdomen pelvis wo/w con DATE OF EXAM: 08/09/2022 COMPARISON: Most recent CT October 13, 2021 and older studies. HISTORY: abd pain, constipation, diarrhea CT DLP: 629.8 mGycm, Automated Exposure Control for Dose Reduction was Utilized. CONTRAST: CT scan of the abdomen and pelvis is performed with oral and without and with IV Contrast, patient in jected with 100 mL of Isovue 300. FINDINGS: LUNG BASES: No significant abnormality is appreciated. LIVER/GB: Cholecystectomy clips are redemonstrated. PANCREAS: No significant abnormality is seen. SPLEEN: No significant abnormality is seen. ADRENALS: No significant abnormality is seen. KIDNEYS: There is a 3.2 cm cyst medially in the upper to mid pole left kidney. BOWEL: Contrast filled moderately distended stomach on current study. There are fluid and contrast pr ominent and slightly dilated small bowel loops with air-fluid levels throughout the abdomen and pelvi s that are more prominent from prior study. Some small bowel loops dilated to over 4.0 cm. Oral contr ast does not reach the level of the terminal ileum. There is mucosal enhancement and some nondilated distal small bowel loops in the right lower quadrant and right pelvis. Fecal material and fluid is se en in nondistended colon along the periphery. There is diffuse intra-abdominal ascites blurring the f at planes throughout the abdomen and pelvis. No free air. PROSTATE/SEMINAL VESICLES: No gross abnormality seen. LYMPH NODES: No greater than 1cm abdominal or pelvic lymph nodes are appreciated. OSSEOUS STRUCTURES: Prominent Schmorl node in the superior T12 endplate redemonstrated. There is calc ification and disc space narrowing lumbosacral junction redemonstrated. OTHER: Mild to moderate calcified plaque distal abdominal aorta extends into common iliac arterial br anches similar to prior. Diffuse soft tissue anasarca is new and/or more prominent from prior. IMPRESSION: 1. Findings suggest a distal enteritis causing at least partial small bowel obstruction. Correlate cl inically and Progress study advised. 2. New intra-abdominal ascites and soft tissue anasarca suggesting fluid overload state, other etiolo gies are not excluded. Correlate clinically.
== END | disposition home or self-care (01) ==
LOC: RADCTMAIN 09:46
PROVIDERS: ATTEND Internal Medicine Gastroenterology
DX: R10.9 Unspecified abdominal pain (principal); R63.4 Abnormal weight loss; R18.8 Other ascites
CPT/HCPCS: 82565; 84520; 74178; 36415; Q9967

== ENCOUNTER → 2022-08-19 | Outpatient (CLI) | payer MEDICARE, OTHER ==
--- NOTE | 2022-08-19 12:48 | FL ---
EXAMINATION TYPE: FL barium swallow w video DATE OF EXAM: 08/19/2022 COMPARISON: NONE HISTORY: Weight loss dysphagia aspiration TECHNIQUE: Fluoroscopy. FINDINGS: Fluoroscopic guidance was provided for the procedure performed in conjunction with the [facility] pathology department. Please see complete report forthcoming from the Speech Pathology departmen t. Various consistencies from thin liquid to solids were administered. Fluoroscopy time 1 minute 33 seconds. Number of images: 0. No aspiration or penetration was present during the majority the examination. On the last thin liquid swallowing there was some transient penetration observed. Some pooling within the vallecula was present. There may be some fluid in the hypopharynx IMPRESSION: 1. Transient penetration with thin liquids. 2. Pooling within the vallecula
== END | disposition home or self-care (01) ==
LOC: RADFLMAIN 11:34
PROVIDERS: ATTEND Internal Medicine Gastroenterology
DX: R10.9 Unspecified abdominal pain (principal); R63.4 Abnormal weight loss
CPT/HCPCS: 74230

== ENCOUNTER → 2022-08-19 | Outpatient (CLI) | payer MEDICARE, OTHER ==
[2022-08-19 20:17] LABS: ALT 22 U/L (10-49); AST 33 U/L (14-35); Albumin 3.4 d/dL (3.8-4.9); Albumin/Globulin Ratio 1.55 Ratio (1.60-3.17); Alkaline Phosphatase 143 U/L (41-126); Blood Urea Nitrogen 14.4 mg/dL (9.0-27.0); Calcium 9.4 mg/dL (8.7-10.3); Carbon Dioxide 28.5 mmol/L (21.6-31.8); Chloride 102 mmol/L (96-109); Globulin 2.2 d/dL (1.6-3.3); Glucose 96 mg/dL (70-110); Sodium 140 mmol/L (135-145); Total Bilirubin 0.4 mg/dL (0.3-1.2); Total Protein 5.6 d/dL (6.2-8.2)
== END | disposition home or self-care (01) ==
LOC: LABWHC1 12:32
PROVIDERS: ATTEND Nurse Practitioner Family
DX: F10.10 Alcohol abuse, uncomplicated (principal)
CPT/HCPCS: 36415; 80053

== ENCOUNTER 2022-09-12 09:58 | Inpatient (IN) | payer MEDICARE, OTHER ==
[2022-09-12] MEDS ORDERED: SODIUM CHLORIDE 0.9% 1,000 ML IV ONE (10:41)
[2022-09-12] MEDS ORDERED: ONDANSETRON 4 MG/2 ML VIAL IVP STA (10:41)
[2022-09-12] MEDS ORDERED: HYDROmorphone 0.5 MG/0.5 ML SYRINGE IVP STA (10:41)
--- NOTE | 2022-09-12 10:52 | ED ---
General Adult HPI - General Chief complaint: Abdominal Pain Stated complaint: abd pain, diarrhea Time Seen by Provider: 09/12/22 10:31 Source: patient, RN notes reviewed Mode of arrival: wheelchair Limitations: no limitations - History of Present Illness Initial comments: 77-year-old male with a past medical history significant for seizures and chronic back pain presents to the emergency department with a chief complaint of abdominal pain 1 week. He is also complaining of accompanying symptoms of diarrhea and having bouts of diarrhea 12-13 times today. He reports that he takes morphine for his back pain however is not provided any symptomatic relief. Patient reports that he had a CAT scan in July however is unsure of his results. He is also complaining of left ankle pain and swelling that occurred 2 days ago. Denies any trauma or injury. Denies fever, chills, shortness breath, chest pain, palpitations, nausea, vomiting. Last bowel movement was this morning normal for him. Denies recent alcohol use. Patient does smoke tobacco products. - Related Data Home Medications Medication Instructions Recorded Confirmed levETIRAcetam [Keppra] 1,000 mg PO BID 03/29/16 09/12/22 levETIRAcetam [Keppra] 250 mg PO BID 04/23/19 09/12/22 Bimatoprost [Lumigan 0.01% Ophth 1 drop BOTH EYES HS 02/10/22 09/12/22 Soln] Morphine Sulfate Ir [MSIR] 30 mg PO QID 02/10/22 09/12/22 Ergocalciferol (Vitamin D2) 1,250 mcg PO WE 03/17/22 09/12/22 [Drisdol (50,000 Iu)] Dicyclomine [Bentyl] 10 mg PO TID PRN 09/12/22 09/12/22 Allergies Allergy/AdvReac Type Severity Reaction Status Date / Time No Known Allergies Allergy Verified 09/12/22 13:26 Review of Systems ROS Statement: Those systems with pertinent positive or pertinent negative responses have been documented in the HPI. ROS Other: All systems not noted in ROS Statement are negative. Past Medical History Past Medical History: Eye Disorder, GERD/Reflux, Osteoarthritis (OA), Seizure Disorder Additional Past Medical History / Comment(s): LAST SEIZURE 2006, GLAUCOMA. History of Any Multi-Drug Resistant Organisms: None Reported Past Surgical History: Cholecystectomy Additional Past Surgical History / Comment(s): CATARACT RIGHT EYE REMOVED, history of EGD and colonoscopy, [facility] study 2022 Past Anesthesia/Blood Transfusion Reactions: No Reported Reaction Past Psychological History: No Psychological Hx Reported Smoking Status: Former smoker Past Alcohol Use History: None Reported Past Drug Use History: None Reported - Past Family History Mother Family Medical History: Cancer General Exam - General Exam Comments Initial Comments: General: Alert, in no acute distress Head: atraumatic normocephalic. Eyes PERRL, EOMI intact, mucous membranes moist Respiratory: Lungs clear to auscultation bilaterally Cardiovascular: Heart rate regular rate and Abdominal: Mildly distended with generalized tenderness, no guarding rebound Extremities: Normal inspection with full range of motion and normal capillary refill Neuroogic: alert and oriented 3, CN II-XII intact, able to ambulate with steady gait Skin: warm dry and intact with normal color Limitations: no limitations Course Vital Signs 09/12/22 09/12/22 09/12/22 10:16 12:00 13:00 Temperature 97.6 F Pulse Rate 80 62 57 L Respiratory 18 16 18 Rate Blood Pressure 106/70 114/76 110/68 O2 Sat by Pulse 98 Oximetry 09/12/22 09/12/22 09/12/22 14:00 15:00 16:00 Temperature 97.4 F L Pulse Rate 64 62 68 Respiratory 18 17 18 Rate Blood Pressure 111/72 134/98 126/92 O2 Sat by Pulse Oximetry - Reevaluation(s) Reevaluation #1: 09/12/22 12:[address] patel, [facility] who agrees and accepts the patient for admission with consult to general surgery EKG Findings - EKG Comments: EKG Findings:: I interpreted the following: EKG performed at 11:07 normal sinus rhythm rate 65 bpm PA interval 165, QRS duration 81, QT/QTc 417/429 Medical Decision Making - Medical Decision Making Was pt. sent in by a medical professional or institution ([facility], [employer], urgent care, hospital, or residential...) When possible be specific @ -[No] Did you speak to anyone other than the patient for history (EMS, parent, family, police, friend...)? What history was obtained from this source @ -[No] Did you review nursing and triage notes (agree or disagree)? Why? @ -[I reviewed and agree with nursing and triage notes] Were old charts reviewed (outside hosp., previous admission, EMS record, old EKG, old radiological studies, urgent care reports/EKG's, residential records)? Report findings @ -[No old charts were reviewed] Differential Diagnosis (chest pain, altered mental status, abdominal pain women, abdominal pain men, vaginal bleeding, weakness, fever, dyspnea, syncope, headache, dizziness, GI bleed, back pain, seizure, CVA, palpatations, mental health, musculoskeletal)? @ -[not applicable] EKG interpreted by me (3pts min.). @ -[As above] X-rays interpreted by me (1pt min.). @ -[None done] CT interpreted by me (1pt min.). @ -CT consistent with small bowel obstruction U/S interpreted by me (1pt. min.). @ -[None done] What testing was considered but not performed or refused? (CT, X-rays, U/S, labs)? Why? @ -[None] What meds were considered but not given or refused? Why? @ -[None] Did you discuss the management of the patient with other professionals (professionals i.e. , PA, [employer], lab, RT, psych nurse, social media sr strategy manager, bag machine operator, teacher, environmental compliance officer, top case assembler)? Give summary @ -[No] Was smoking cessation discussed for >3mins.? @ -[No] Was critical care preformed (if so, how long)? @ -[No] Were there social determinants of health that impacted care today? How? (Homelessness, low income, unemployed, alcoholism, drug addiction, transportation, low edu. Level, literacy, decrease access to med. care, detention, rehab)? @ -[No] Was there de-escalation of care discussed even if they declined (Discuss DNR or withdrawal of care, Hospice)? DNR status @ -[No] What co-morbidities impacted this encounter? (DM, HTN, Smoking, COPD, CAD, Can cer, CVA, ARF, Chemo, Hep., AIDS, mental health diagnosis, sleep apnea, morbid obesity)? @ -[None] Was patient admitted / discharged? Hospital course, mention meds given and route, prescriptions, significant lab abnormalities, going to OR and other pertinent info. @ Admission. This is a 77-year-old male presents the emergency depa rtment with abdominal pain. Patient had a thorough history and physical exam performed. Abdomen is mildly distended generalized tenderness. Patient had CT imaging which revealed dilated fluid-filled small bowel loops, ascites, common hepatic duct. I discussed the results in detail the patient verbalized understanding all questions addressed. He is agreeable with the plan for admission for further observation. Patient discussed with Dr. Patten who agrees with plan of care Undiagnosed new problem with uncertain prognosis? @ -[No] Drug Therapy requiring intensive monitoring for toxicity (Heparin, Nitro, Insulin, Cardizem)? @ -[No] Were any procedures done? @ -[No] Diagnosis/symptom? @ -Abdominal Pain - Small Bowel Obstruction Acute, or Chronic, or Acute on Chronic? @ -Acute Uncomplicated (without systemic symptoms) or Complicated (systemic symptoms)? @ -complicated Side effects of treatment? @ -[No] Exacerbation, Progression, or Severe Exacerbation? @ -[No] Poses a threat to life or bodily function? How? (Chest pain, [place], [place], pneumonia, PE, COPD, DKA, ARF, appy, cholecystitis, CVA, Diverticulitis, Homicidal, Suicidal, threat to staff... and all critical care pts) @ -Moderate Likelihood with risk for perforation - Lab Data Result diagrams: 09/12/22 10:52 09/12/22 10:52 Lab Results 09/12/22 09/12/22 09/12/22 Range/Units 10:52 10:52 10:52 WBC 7.1 (3.8-10.6) k/uL RBC 4.54 (4.30-5.90) m/uL Hgb 14.6 (13.0-17.5) gm/dL Hct 42.4 (39.0-53.0) % MCV 93.3 (80.0-100.0) fL MCH 32.2 (25.0-35.0) pg MCHC 34.5 (31.0-37.0) g/dL RDW 13.3 (11.5-15.5) % Plt Count 264 (150-450) k/uL MPV 7.6 Neutrophils % 74 % Lymphocytes % 19 % Monocytes % 6 % Eosinophils % 0 % Basophils % 0 % Neutrophils # 5.3 (1.3-7.7) k/uL Lymphocytes # 1.4 (1.0-4.8) k/uL Monocytes # 0.4 (0-1.0) k/uL Eosinophils # 0.0 (0-0.7) k/uL Basophils # 0.0 (0-0.2) k/uL PT 10.7 (9.0-12.0) sec INR 1.0 (<1.2) APTT 24.6 (22.0-30.0) sec Sodium 134 L (137-145) mmol/L Potassium 3.7 (3.5-5.1) mmol/L Chloride 101 (98-107) mmol/L Carbon Dioxide 29 (22-30) mmol/L Anion Gap 4 mmol/L BUN 22 H (9-20) mg/dL Creatinine 0.82 (0.66-1.25) mg/dL Est GFR (CKD-EPI)AfAm >90 (>60 ml/min/1.73 sqM) Est GFR (CKD-EPI)NonAf 86 (>60 ml/min/1.73 sqM) Glucose 100 H (74-99) mg/dL Plasma Lactic Acid Khurram (0.7-2.0) mmol/L Calcium 8.1 L (8.4-10.2) mg/dL Total Bilirubin 0.8 (0.2-1.3) mg/dL Conjugated Bilirubin 0.0 (0.0-0.3) mg/dL Unconjugated Bilirubin 0.5 (0.0-1.1) mg/dL Delta Bilirubin 0.3 H (0.0-0.2) mg/dL AST 31 (17-59) U/L ALT 21 (4-49) U/L Alkaline Phosphatase 121 (38-126) U/L Total Protein 5.0 L (6.3-8.2) g/dL Albumin 2.6 L (3.5-5.0) g/dL Lipase 17 L (23-300) U/L Influenza Type A (PCR) (Not Detectd) Influenza Type B (PCR) (Not Detectd) RSV (PCR) (Not Detectd) SARS-CoV-2 (PCR) (Not Detectd) 09/12/22 09/12/22 Range/Units 10:52 10:52 WBC (3.8-10.6) k/uL RBC (4.30-5.90) m/uL Hgb (13.0-17.5) gm/dL Hct (39.0-53.0) % MCV (80.0-100.0) fL MCH (25.0-35.0) pg MCHC (31.0-37.0) g/dL RDW (11.5-15.5) % Plt Count (150-450) k/uL MPV Neutrophils % % Lymphocytes % % Monocytes % % Eosinophils % % Basophils % % Neutrophils # (1.3-7.7) k/uL Lymphocytes # (1.0-4.8) k/uL Monocytes # (0-1.0) k/uL Eosinophils # (0-0.7) k/uL Basophils # (0-0.2) k/uL PT (9.0-12.0) sec INR (<1.2) APTT (22.0-30.0) sec Sodium (137-145) mmol/L Potassium (3.5-5.1) mmol/L Chloride (98-107) mmol/L Carbon Dioxide (22-30) mmol/L Anion Gap mmol/L BUN (9-20) mg/dL Creatinine (0.66-1.25) mg/dL Est GFR (CKD-EPI)AfAm (>60 ml/min/1.73 sqM) Est GFR (CKD-EPI)NonAf (>60 ml/min/1.73 sqM) Glucose (74-99) mg/dL Plasma Lactic Acid Khurram 1.3 (0.7-2.0) mmol/L Calcium (8.4-10.2) mg/dL Total Bilirubin (0.2-1.3) mg/dL Conjugated Bilirubin (0.0-0.3) mg/dL Unconjugated Bilirubin (0.0-1.1) mg/dL Delta Bilirubin (0.0-0.2) mg/dL AST (17-59) U/L ALT (4-49) U/L Alkaline Phosphatase (38-126) U/L Total Protein (6.3-8.2) g/dL Albumin (3.5-5.0) g/dL Lipase (23-300) U/L Influenza Type A (PCR) Not Detected (Not Detectd) Influenza Type B (PCR) Not Detected (Not Detectd) RSV (PCR) Not Detected (Not Detectd) SARS-CoV-2 (PCR) Not Detected (Not Detectd) Disposition Clinical Impression: Ascites, Small bowel obstruction, Abdominal pain Disposition: ADMITTED IP TO THIS HOSP Condition: Stable Is patient prescribed a controlled substance at d/c from ED?: No Time of Disposition: 12:44
[2022-09-12 11:21] LABS: Basophils % (A) 0 %; Eosinophils % (A) 0 %; HCT 42.4 % (39.0-53.0); HGB 14.6 gm/dL (13.0-17.5); Lymphocytes # (A) 1.4 k/uL (1.0-4.8); Lymphocytes % (A) 19 %; MCH 32.2 pg (25.0-35.0); MCHC 34.5 g/dL (31.0-37.0); MCV 93.3 fL (80.0-100.0); Mean Platelet Volume 7.6; Monocytes # (A) 0.4 k/uL (0-1.0); Monocytes % (A) 6 %; Neutrophils # (A) 5.3 k/uL (1.3-7.7); Neutrophils % (A) 74 %; Platelet Count 264 k/uL (150-450); RBC 4.54 m/uL (4.30-5.90); RDW 13.3 % (11.5-15.5); WBC 7.1 k/uL (3.8-10.6)
[2022-09-12 11:32] LABS: ALT 21 U/L (4-49); AST 31 U/L (17-59); African American GFR (CKD) >90 (>60 ml/min/1.73 sqM); Albumin 2.6 g/dL (3.5-5.0); Alkaline Phosphatase 121 U/L (38-126); Anion Gap 4 mmol/L; Bilirubin, Delta 0.3 mg/dL (0.0-0.2); Bilirubin,Unconjugated 0.5 mg/dL (0.0-1.1); Blood Urea Nitrogen 22 mg/dL (9-20); Calcium 8.1 mg/dL (8.4-10.2); Carbon Dioxide 29 mmol/L (22-30); Chloride 101 mmol/L (98-107); Glucose 100 mg/dL (74-99); Lipase 17 U/L (23-300); Non-African American GFR(CKD) 86 (>60 ml/min/1.73 sqM); Potassium 3.7 mmol/L (3.5-5.1); Sodium 134 mmol/L (137-145); Total Bilirubin 0.8 mg/dL (0.2-1.3)
[2022-09-12 11:34] LABS: Partial Thromboplastin Time 24.6 sec (22.0-30.0); Prothrombin Time 10.7 sec (9.0-12.0)
--- NOTE | 2022-09-12 12:43 | CT ---
EXAMINATION TYPE: CT abdomen pelvis w con DATE OF EXAM: 09/12/2022 COMPARISON: 08/09/2022 INDICATION: Abdomen pain and distention diarrhea DLP: 566.3 mGycm, Automated exposure control for dose reduction was used. CONTRAST: 100 mL of Isovue 300. Study performed without Oral Contrast TECHNIQUE: Axial images were obtained from above the diaphragm to the pubic rami in the axial plane a t 5 mm thick sections. Reconstructed images are reviewed on the computer in the coronal plane. FINDINGS: Limited CT sections are obtained the lung bases. There is a small right pleural effusion.. CT ABDOMEN: Moderate ascites is present. Liver: Normal Spleen: Normal Pancreas: There is some minimal prominence of the pancreatic duct measuring 0.2 cm at the tail of the pancreas. Normal less than 0.1 cm. Pancreatic duct at the head of the pancreas is 0.5 cm which is d ilated. Consider follow-up with ERCP. Adrenal glands: The adrenal glands are normal. Gallbladder: Surgically absent Kidneys: No masses are evident. No hydronephrosis is present. There is a 2.8 cm cyst medial upper p ole left kidney. Delayed images were obtained through the kidneys, which remain unremarkable. Aorta: Vascular calcification is within the aorta. Inferior vena cava: Normal. CT PELVIS: There are multiple dilated small bowel loops containing fluid. Air-fluid levels are present. Colon ap pears decompressed. There may be a zone of transition within the posterior mid pelvic small bowel loo ps, example image 201 image 61. Distal ileum loops of bowel appear decompressed. Few scattered divert iculi within the sigmoid colon. The study is without oral contrast limiting bowel evaluation. Appendix: Not identified. No dilated tubular structure or inflammatory changes are identified. Urinary bladder: There are visualized in the coronal plane. No obvious abnormality identified. Genitourinary structures: Prostate appears normal. Osseous structures: No suspicious lytic or sclerotic lesions. IMPRESSIONS: 1. Dilated fluid-filled small bowel loops may have his own transition within the distal ileum in the mid posterior pelvis with more distal ileal loops being nondistended. An obstructing etiology howeve r is not identified. Partial small bowel obstruction is suspected. And pulmonary results were called to the emergency room by Dr. Lizarraga by telephone at the time of preliminary interpretation. 2. Ascites. 3. Prominent pancreatic duct. Consider follow-up with ERCP. 4. Small right pleural effusion
[2022-09-12] MEDS ORDERED: NALOXONE 0.4 MG/ML 1 ML VIAL IV PRN (12:45)
[2022-09-12] MEDS: SODIUM CHLORIDE 0.9% 1,000 ML IV SCH ×2 (14:02→20:53)
[2022-09-12] MEDS: HYDROmorphone 0.5 MG/0.5 ML SYRINGE IVP PRN ×2 (14:20→21:43)
--- NOTE | 2022-09-12 14:30 | P.HPIM ---
History of Present Illness This is a pleasant 77 years old male with multiple medical problems, GERD/Reflux, Osteoarthritis (OA), Seizure Disorder,LAST SEIZURE 2006, GLAUCOMA. Presents because of diarrhea more than one months. at bedside. Patient looks cachectic and it looks like [place] lost some weight Patient says that he eats well but he has frequent bowel movement about 10-15 H day. There are lose and no blood in them. Normally his bowel movement was was twice a day. 2 days ago he noticed that he has swelling in his feet and that's it was purple in color but this resolved now. Also patient complains from stomach distention. He sees Dr. Hernandez from GI as an outpatient for colonoscopy and EGD Patient smokes about 5 cigarettes per day and he was counseled to quit and he agrees but he declines nicotine patch. He used to drink alcohol 40 years quit about 3-4 years ago when he lost appetite.. No illicit drugs. Patient is hemodynamically stable and afebrile and He has unremarkable CBC, INR, BMP, liver enzymes. undetected viruses including influenza, rsv and leon viruses CT of the abdomen and pelvis: Dilated fluid-filled small bowel loops, partial small bowel obstruction is suspected. Ascites with prominent pancreatic duct Review of Systems Review of systems CONSTITUTIONAL: No fever, no malaise, no fatigue. HEENT: No recent visual problems or hearing problems. Denied any sore throat. CARDIOVASCULAR: No orthopnea, PND, no palpitations, no syncope. PULMONARY: No shortness of breath, no cough, no hemoptysis. GASTROINTESTINAL: No constipation, . Normoactive bowel sounds. NEUROLOGICAL: No headaches, no weakness, no numbness. HEMATOLOGICAL: Denies any bleeding or petechiae. GENITOURINARY: Denies any burning micturition, frequency, or urgency. MUSCULOSKELETAL/RHEUMATOLOGICAL: Denies any joint pain, swelling, or any muscle pain. ENDOCRINE: Denies any polyuria or polydipsia. Past Medical History Past Medical History: Eye Disorder, GERD/Reflux, Osteoarthritis (OA), Seizure Disorder Additional Past Medical History / Comment(s): LAST SEIZURE 2006, GLAUCOMA. History of Any Multi-Drug Resistant Organisms: None Reported Past Surgical History: Cholecystectomy Additional Past Surgical History / Comment(s): CATARACT RIGHT EYE REMOVED, history of EGD and colonoscopy, [facility] study 2022 Past Anesthesia/Blood Transfusion Reactions: No Reported Reaction Past Psychological History: No Psychological Hx Reported Smoking Status: Former smoker Past Alcohol Use History: None Reported Past Drug Use History: None Reported - Past Family History Mother Family Medical History: Cancer Medications and Allergies Home Medications Medication Instructions Recorded Confirmed Type levETIRAcetam [Keppra] 1,000 mg PO BID 03/29/16 09/12/22 History levETIRAcetam [Keppra] 250 mg PO BID 04/23/19 09/12/22 History Bimatoprost [Lumigan 0.01% Ophth 1 drop BOTH EYES HS 02/10/22 09/12/22 History Soln] Morphine Sulfate Ir [MSIR] 30 mg PO QID 02/10/22 09/12/22 History Ergocalciferol (Vitamin D2) 1,250 mcg PO WE 03/17/22 09/12/22 History [Drisdol (50,000 Iu)] Dicyclomine [Bentyl] 10 mg PO TID PRN 09/12/22 09/12/22 History Allergies Allergy/AdvReac Type Severity Reaction Status Date / Time No Known Allergies Allergy Verified 09/12/22 13:26 Physical Exam Vitals: Vital Signs Temp Pulse Resp BP Pulse Ox 09/12/22 10:16 97.6 F 80 18 106/70 98 Intake and Output 09/11/22 09/12/22 09/12/22 22:59 06:59 14:59 Other: Weight 47.174 kg -GENERAL: The patient is alert and oriented x3, not in any acute distress. Cachectic HEENT: Pupils are round and equally reacting to light. EOMI. No scleral icterus. No conjunctival pallor. Normocephalic, atraumatic. No pharyngeal erythema. No thyromegaly. CARDIOVASCULAR: S1 and S2 present. No murmurs, rubs, or gallops. PULMONARY: Chest is clear to auscultation, no wheezing , no crackles. -ABDOMEN: Soft, very mild tenderness in the right lower quadrant, no guarding or rebound tenderness, distended, normoactive bowel sounds. No palpable organomegaly. MUSCULOSKELETAL: No joint swelling or deformity. -EXTREMITIES: No cyanosis, clubbing, 1-2+ peripheral like pitting edema NEUROLOGICAL: Gross neurological examination did not reveal any focal deficits. SKIN: No rashes. no petechiae. Results CBC & Chem 7: 09/12/22 10:52 09/12/22 10:52 Labs: Abnormal Lab Results - Last 24 Hours (Table) 09/12/22 Range/Units 10:52 Sodium 134 L (137-145) mmol/L BUN 22 H (9-20) mg/dL Glucose 100 H (74-99) mg/dL Calcium 8.1 L (8.4-10.2) mg/dL Delta Bilirubin 0.3 H (0.0-0.2) mg/dL Total Protein 5.0 L (6.3-8.2) g/dL Albumin 2.6 L (3.5-5.0) g/dL Lipase 17 L (23-300) U/L Assessment and Plan Assessment: Small bowel obstruction, partial Permanent pancreatic duct with ascites. moderate to severe calories protein malnutrition Nicotine dependence History of seizure disorder History of alcohol use disorder History of glaucoma History of GERD Osteoarthritis Plan: Continue with IV fluid Pain medication Bowel rest Surgery consult GI service consult Dietary consult Send for stool studies and C. diff Labs and medication were reviewed.. Continue same treatment. Continue with symptomatic treatment. Resume home medication. Monitor labs and vitals. DVT and GI prophylaxis. Further recommendations as per clinical course of the patient DVT prophylaxis: Subcutaneous heparin GI Prophylaxis: Pepcid PT/OT: Pending Prognosis is guarded
--- NOTE | 2022-09-12 15:00 | XR ---
EXAMINATION TYPE: XR chest 1V portable DATE OF EXAM: 09/12/2022 2:45 PM COMPARISON: Chest radiographs from 03/17/2022. TECHNIQUE: XR chest 1V portable Frontal view of the chest. CLINICAL INDICATION:Male, 77 years old with history of confirm tube placement - NG; FINDINGS: Lungs/Pleura: There is no evidence of pleural effusion, focal consolidation, or pneumothorax. Pulmonary vascularity: Unremarkable. Heart/mediastinum: Cardiomediastinal silhouette is unremarkable. Musculoskeletal: No acute osseous pathology. Nasogastric tube is coiled in the proximal phalanx with tip and side-port terminating suspected be wi thin the right main bronchus. IMPRESSION: Nasogastric tube within the right main bronchus. Removal and replacement recommended. Findings communicated to provider on 09/12/2022 2:[address] Satish Stephens.
--- NOTE | 2022-09-12 15:09 | XR ---
EXAMINATION TYPE: XR chest 1V confirm line plcmt DATE OF EXAM: 09/12/2022 2:58 PM COMPARISON: Chest radiographs from same day. TECHNIQUE: XR chest 1V confirm line plcmt Frontal view of the chest. CLINICAL INDICATION:Male, 77 years old with history of NG TUBE PLACEMENT; FINDINGS: Lungs/Pleura: There is no evidence of pleural effusion, focal consolidation, or pneumothorax. Pulmonary vascularity: Unremarkable. Heart/mediastinum: Cardiomediastinal silhouette is unremarkable. Musculoskeletal: No acute osseous pathology. Other findings: None Lines/Tubes: Nasogastric tube with side-port projecting over the distal esophagus. IMPRESSION: Interval correction of nasogastric tube now extending along the esophageal course. The side port is i n the distal esophagus consider advancement of 5 cm for optimal placement.
[2022-09-12] MEDS ORDERED: SODIUM CHLORIDE 0.9% IVPB SCH (22:45)
[2022-09-12] MEDS ORDERED: LEVETIRACETAM IVPB SCH (22:45)
[2022-09-12] MEDS: FAMOTIDINE 20 MG/2 ML VIAL IV SCH (23:49)
[2022-09-12] MEDS: levETIRAcetam IV 500 MG/5 ML VIAL IVP SCH (23:49)
[2022-09-13] MEDS: SODIUM CHLORIDE 0.9% 1,000 ML IV SCH (02:03)
[2022-09-13] MEDS: HYDROmorphone 0.5 MG/0.5 ML SYRINGE IVP PRN ×4 (06:49→22:10)
[2022-09-13] MEDS: HEPARIN SODIUM,PORCINE/PF 5,000 UNIT/0.5 ML SYRINGE SQ SCH ×2 (07:58→22:10)
[2022-09-13] MEDS: levETIRAcetam IV 500 MG/5 ML VIAL IVP SCH ×2 (08:07→22:10)
[2022-09-13] MEDS: FAMOTIDINE 20 MG/2 ML VIAL IV SCH ×2 (08:08→22:09)
[2022-09-13 08:18] LABS: Glucose,Whole Blood 63 mg/dL (70-110)
--- NOTE | 2022-09-13 11:02 | P.PN ---
Subjective This is a pleasant 77 years old male with multiple medical problems, GERD/Reflux, Osteoarthritis (OA), Seizure Disorder,LAST SEIZURE 2006, GLAUCOMA. Presents because of diarrhea more than one months. at bedside. Patient looks cachectic and it looks like [place] lost some weight Patient says that he eats well but he has frequent bowel movement about 10-15 H day. There are lose and no blood in them. Normally his bowel movement was was twice a day. 2 days ago he noticed that he has swelling in his feet and that's it was purple in color but this resolved now. Also patient complains from stomach distention. He sees Dr. Hernandez from GI as an outpatient for colonoscopy and EGD Patient smokes about 5 cigarettes per day and he was counseled to quit and he agrees but he declines nicotine patch. He used to drink alcohol 40 years quit about 3-4 years ago when he lost appetite.. No illicit drugs. Patient is hemodynamically stable and afebrile and He has unremarkable CBC, INR, BMP, liver enzymes. undetected viruses including influenza, rsv and leon viruses CT of the abdomen and pelvis: Dilated fluid-filled small bowel loops, partial small bowel obstruction is suspected. Ascites with prominent pancreatic duct 10/02/2022 Patient has less abdominal distention, NG tube is in place and draining about 500 mL with Dark Green discharge from his stomach over the last few hours in the morning. No significant abdominal pain and tenderness. No bowel movement. He had mild hypoglycemia this morning and fluent change to D5 normal saline at 75 mL/h. Surgery consult is requested. Continue with home dose of Keppra intravenously, conversion from oral to IV is 1:1 as per pharmacist Objective - Vital Signs Vital signs: Vital Signs Temp 98.4 F 09/13/22 07:29 Pulse 72 09/13/22 07:29 Resp 15 09/13/22 07:29 BP 132/81 09/13/22 07:29 Pulse Ox 97 09/13/22 07:29 FiO2 Intake & Output 09/12/22 09/13/22 09/13/22 18:59 06:59 18:59 Intake Total 150 Output Total 1350 500 Balance -1350 -350 Weight 47.174 kg 47.174 kg Intake: Intake, IV Titration 150 Amount Sodium Chloride 0.9% 1, 150 000 ml @ 75 mls/hr IV . [id number] [facility] Rx#:[id number] Output: Gastric Drainage 1350 500 Other: Voiding Method Urinal Urinal # Voids 3 # Bowel Movements 1 - Exam -GENERAL: The patient is alert and oriented x3, not in any acute d istress.cachectic HEENT: Pupils are round and equally reacting to light. EOMI. No scleral icterus. No conjunctival pallor. Normocephalic, atraumatic. No pharyngeal erythema. No thyromegaly. CARDIOVASCULAR: S1 and S2 present. No murmurs, rubs, or gallops. PULMONARY: Chest is clear to auscultation, no wheezing , no crackles. -ABDOMEN: Soft, nontender, less distended, normoactive bowel sounds. No palpable organomegaly. NG tube in a Place MUSCULOSKELETAL: No joint swelling or deformity. EXTREMITIES: No cyanosis, clubbing, or pedal edema. NEUROLOGICAL: Gross neurological examination did not reveal any focal deficits. SKIN: No rashes. no petechiae. - Labs CBC & Chem 7: 09/12/22 10:52 09/12/22 10:52 Labs: Abnormal Lab Results - Last 24 Hours (Table) 09/12/22 09/13/22 Range/Units 10:52 08:17 Sodium 134 L (137-145) mmol/L BUN 22 H (9-20) mg/dL Glucose 100 H (74-99) mg/dL POC Glucose (mg/dL) 63 L (70-110) mg/dL Calcium 8.1 L (8.4-10.2) mg/dL Delta Bilirubin 0.3 H (0.0-0.2) mg/dL Total Protein 5.0 L (6.3-8.2) g/dL Albumin 2.6 L (3.5-5.0) g/dL Lipase 17 L (23-300) U/L Assessment and Plan Assessment: Small bowel obstruction, partial Permanent pancreatic duct with ascites. moderate to severe calories protein malnutrition Nicotine dependence History of seizure disorder History of alcohol use disorder History of glaucoma History of GERD Osteoarthritis Plan: Continue with IV fluid Pain medication Bowel rest Surgery consult GI service consult Dietary consult Send for stool studies and C. diff Labs and medication were reviewed.. Continue same treatment. Continue with symptomatic treatment. Resume home medication. Monitor labs and vitals. DVT and GI prophylaxis. Further recommendations as per clinical course of the patient DVT prophylaxis: Subcutaneous heparin GI Prophylaxis: Pepcid PT/OT: Pending Prognosis is guarded
[2022-09-13 11:06] LABS: Glucose,Whole Blood 80 mg/dL (70-110)
[2022-09-13 11:45] VITALS: BMI 14.5
--- NOTE | 2022-09-13 12:33 | P.GSCN ---
History of Present Illness Consult date: 09/13/22 History of present illness: CHIEF COMPLAINT: Abdominal pain HISTORY OF PRESENT ILLNESS: This is a 77-year-old male who presented to the hospital with complaints of abdominal pain in the upper left abdomen for the last 3 days. Also complains of back pain. Patient does have chronic back pain in which she takes morphine. He does have a known history of constipation. He has been having diarrhea. Yesterday he had multiple episodes of diarrhea. Denies any nausea or vomiting. He had a computed tomography scan completed fissure dilated fluid-filled small bowel loops may have transition within the distal ileum in the mid posterior pelvis with more distal ileal loops being nondistended. An obstructing etiology is not identified. Partial small bowel obstruction is suspected. Patient had NG tube placed and had 850 ML output during the night and 500 ML output this morning. Patient did have a loose stool last night. Patient denies any fever, chills or sweats. Past surgical history does include cholecystectomy. Patient does report that he has had decrease in abdominal pain and abdominal distention since the placement of the NG tube. PAST MEDICAL HISTORY: See below PAST SURGICAL HISTORY: See below MEDICATIONS: See below ALLERGIES: See below SOCIAL HISTORY: No illicit drug use. History of smoking and alcohol use. Quit drinking alcohol 3-4 years ago. Also quit smoking. REVIEW OF SYSTEMS: CONSTITUTIONAL: Denies fever or chills. HEENT: Denies blurred vision, vision changes, or eye pain. Denies hemoptysis CARDIOVASCULAR: Denies chest pain or pressure. RESPIRATORY: No shortness of breath. GASTROINTESTINAL: See HPI for pertinent findings HEMATOLOGIC: Denies bleeding disorders. GENITOURINARY: Denies any blood in urine or increased urinary frequency. SKIN: Denies pruitis. Denies rash. PHYSICAL EXAM: VITAL SIGNS: Reviewed GENERAL: Patient appears frail and underweight. no acute distress. HEENT: No sclera icterus. Extraocular movements grossly intact. Moist buccal mucosa. Head is atraumatic, normocephalic. No nasal drainage. ABDOMEN: Soft. Mildly distended. Tender with palpation in the left upper quadrant NEUROLOGIC: Alert and oriented. Cranial nerves II through XII grossly intact. LABORATORY DATA: WBC 7.1 Hgb 14.6 plt 264 Na 134 K 3.7 cr 0.82 LFTs normal, total bili 0.8 Lipase 17 Influenza, RSV and COVID-19 not detected IMAGING: Computed tomography scan demonstrates dilated fluid-filled small bowel loops t hey have owned transition within the distal ileum in the mid posterior pelvis and more distal ileal loops being nondistended. Obstructing etiology however is not identified. Partial small bowel obstruction is suspected. Ascites. Prominent pancreatic duct. Small right pleural effusion. ASSESSMENT: 1. Abdominal pain with abdominal distention. Computed tomography scan with evidence of dilated fluid-filled small bowel loops. Partial small bowel obstruction is suspected. 2. Prominent pancreatic duct 3. Chronic back pain on scheduled morphine 4. History of cholecystectomy PLAN: -Continue NG tube for decompression -Keep patient nothing by mouth -Continue IV fluids -Continue supportive care -Further recommendations forthcoming per surgeon Physician Head Waiter/Waitress note has been reviewed by physician. Signing provider agrees with the documented findings, assessment, and plan of care. I have personally seen and examined the patient, reviewed the BALLROOM DANCE INSTRUCTOR /PAs history, exam and MDM and agree with the assessment and plan as written. Based on total visit time, I have performed more than 50% of the visit. As above: Patient with abdominal pain and bloating. Significant ascites. Patient significantly malnourished. Will check small bowel series tomorrow. Unfortunately may require diagnostic laparoscopy or laparotomy to evaluate. Will follow. Past Medical History Past Medical History: Eye Disorder, GERD/Reflux, Osteoarthritis (OA), Seizure D isorder Additional Past Medical History / Comment(s): LAST SEIZURE 2006, GLAUCOMA. History of Any Multi-Drug Resistant Organisms: None Reported Past Surgical History: Cholecystectomy Additional Past Surgical History / Comment(s): CATARACT RIGHT EYE REMOVED, history of EGD and colonoscopy, [facility] study 2022 Past Anesthesia/Blood Transfusion Reactions: No Reported Reaction Past Psychological History: No Psychological Hx Reported Smoking Status: Former smoker Past Alcohol Use History: None Reported Additional Past Alcohol Use History / Comment(s): STARTED SMOKING AT AGE 16, quit jun, 2019 Past Drug Use History: None Reported - Past Family History Mother Family Medical History: Cancer Medications and Allergies Home Medications Medication Instructions Recorded Confirmed Type levETIRAcetam [Keppra] 1,000 mg PO BID 03/29/16 09/12/22 History levETIRAcetam [Keppra] 250 mg PO BID 04/23/19 09/12/22 History Bimatoprost [Lumigan 0.01% Ophth 1 drop BOTH EYES HS 02/10/22 09/12/22 History Soln] Morphine Sulfate Ir [MSIR] 30 mg PO QID 02/10/22 09/12/22 History Ergocalciferol (Vitamin D2) 1,250 mcg PO WE 03/17/22 09/12/22 History [Drisdol (50,000 Iu)] Dicyclomine [Bentyl] 10 mg PO TID PRN 09/12/22 09/12/22 History Allergies Allergy/AdvReac Type Severity Reaction Status Date / Time No Known Allergies Allergy Verified 09/12/22 13:26 Surgical - Exam Vital Signs Temp Pulse Resp BP Pulse Ox 97.6 F 80 18 106/70 98 09/12/22 10:16 09/12/22 10:16 09/12/22 10:16 09/12/22 10:16 09/12/22 10:16 Results - Labs 09/13/22 06:59 09/13/22 06:59 Abnormal Lab Results - Last 24 Hours (Table) 09/12/22 09/13/22 Range/Units 10:52 08:17 Sodium 134 L (137-145) mmol/L BUN 22 H (9-20) mg/dL Glucose 100 H (74-99) mg/dL POC Glucose (mg/dL) 63 L (70-110) mg/dL Calcium 8.1 L (8.4-10.2) mg/dL Delta Bilirubin 0.3 H (0.0-0.2) mg/dL Total Protein 5.0 L (6.3-8.2) g/dL Albumin 2.6 L (3.5-5.0) g/dL Lipase 17 L (23-300) U/L Diabetes panel 09/12/22 Range/Units 10:52 Sodium 134 L (137-145) mmol/L Potassium 3.7 (3.5-5.1) mmol/L Chloride 101 (98-107) mmol/L Carbon Dioxide 29 (22-30) mmol/L BUN 22 H (9-20) mg/dL Creatinine 0.82 (0.66-1.25) mg/dL Glucose 100 H (74-99) mg/dL Calcium 8.1 L (8.4-10.2) mg/dL AST 31 (17-59) U/L ALT 21 (4-49) U/L Alkaline Phosphatase 121 (38-126) U/L Total Protein 5.0 L (6.3-8.2) g/dL Albumin 2.6 L (3.5-5.0) g/dL Calcium panel 09/12/22 Range/Units 10:52 Calcium 8.1 L (8.4-10.2) mg/dL Albumin 2.6 L (3.5-5.0) g/dL Pituitary panel 09/12/22 Range/Units 10:52 Sodium 134 L (137-145) mmol/L Potassium 3.7 (3.5-5.1) mmol/L Chloride 101 (98-107) mmol/L Carbon Dioxide 29 (22-30) mmol/L BUN 22 H (9-20) mg/dL Creatinine 0.82 (0.66-1.25) mg/dL Glucose 100 H (74-99) mg/dL Calcium 8.1 L (8.4-10.2) mg/dL Adrenal panel 09/12/22 Range/Units 10:52 Sodium 134 L (137-145) mmol/L Potassium 3.7 (3.5-5.1) mmol/L Chloride 101 (98-107) mmol/L Carbon Dioxide 29 (22-30) mmol/L BUN 22 H (9-20) mg/dL Creatinine 0.82 (0.66-1.25) mg/dL Glucose 100 H (74-99) mg/dL Calcium 8.1 L (8.4-10.2) mg/dL Total Bilirubin 0.8 (0.2-1.3) mg/dL AST 31 (17-59) U/L ALT 21 (4-49) U/L Alkaline Phosphatase 121 (38-126) U/L Total Protein 5.0 L (6.3-8.2) g/dL Albumin 2.6 L (3.5-5.0) g/dL
--- NOTE | 2022-09-13 12:43 | P.CONS ---
History of Present Illness - Reason for Consult Consult date: 09/13/22 Prominent pancreatic duct Requesting physician: Samuel E Sheet - Chief Complaint Diarrhea - History of Present Illness This a pleasant 77-year-old male who presented to the emergency department with complaints of diarrhea on insulin low abdominal pain 1 week. States he's been having bouts of diarrhea up to 13 times a day nonbloody. He has a past medical history including seizure disorder and chronic back pain. He denies any nausea or vomiting. He does state that he has had weight loss of 20-30 pounds in the last 3-4 months. He denies any previous history of pancreatitis, no history of liver disease. He denies any abdominal pain at this time. He currently has NG tube in place and general surgery is following for small bowel obstruction. He had a CT of the abdomen and pelvis reporting prominent pancreatic duct and ascites, thus, gastroenterology was consulted. Patient has a history of chronic diarrhea. He has seen gastroenterology in the past had an EGD and colonoscopy on 04/29/[address] Elise for nausea vomiting and chronic diarrhea. Upper endoscopy revealed mild gastritis and a 2 mm nodule that was removed from the GE junction. Colonoscopy revealed mild left colonic diverticulosis otherwise normal-appearing colon. Patient also has a h istory of ascites looking back through his records in 2019 did have to undergo paracentesis at that time. He denies any history of liver disease, no history of alcoholism. Admitting labs WBC 7.1 hemoglobin 14.6 platelet count 264,019 or 1.0 sodium 134 potassium 3.7 BUN 22 creatinine 0.8 total bilirubin 0.8 AST 31 AST 21 alkaline phosphatase 121 lipase 17 Review of Systems REVIEW OF SYSTEMS: CARDIOPULMONARY: No chest pain or shortness of breath. Gastrointestinal: Abdominal pain, lower 1 week. No nausea or vomiting. Reports appetite good. However weight loss 20-30 pounds over last 3-4 months. No hematemesis, coffee-ground emesis. Chronic diarrhea. No rectal bleeding, or melena. GENITOURINARY: No dysuria or hematuria. MUSCULOSKELETAL: Reports normal range of motion. Back pain. SKIN: No rashes. No jaundice. ENDOCRINE: No chills, fevers. Weight loss 2030 pounds.-. No polydipsia or polyuria. PSYCHIATRIC: Unremarkable. NEUROLOGY: No change in mental status. Denies dizziness, headache. ENT: Vision unremarkable. CONSTITUTIONAL: Reported weight loss 20-30 pounds over last 3-4 months duration. No fever, chills, night sweats. Past Medical History Past Medical History: Eye Disorder, GERD/Reflux, Osteoarthritis (OA), Seizure Disorder Additional Past Medical History / Comment(s): LAST SEIZURE 2006, GLAUCOMA. History of Any Multi-Drug Resistant Organisms: None Reported Past Surgical History: Cholecystectomy Additional Past Surgical History / Comment(s): CATARACT RIGHT EYE REMOVED, history of EGD and colonoscopy, [facility] study 2022 Past Anesthesia/Blood Transfusion Reactions: No Reported Reaction Past Psychological History: No Psychological Hx Reported Smoking Status: Former smoker Past Alcohol Use History: None Reported Additional Past Alcohol Use History / Comment(s): STARTED SMOKING AT AGE 16, quit jun, 2019 Past Drug Use History: None Reported - Past Family History Mother Family Medical History: Cancer Medications and Allergies Home Medications Medication Instructions Recorded Confirmed Type levETIRAcetam [Keppra] 1,000 mg PO BID 03/29/16 09/12/22 History levETIRAcetam [Keppra] 250 mg PO BID 04/23/19 09/12/22 History Bimatoprost [Lumigan 0.01% Ophth 1 drop BOTH EYES HS 02/10/22 09/12/22 History Soln] Morphine Sulfate Ir [MSIR] 30 mg PO QID 02/10/22 09/12/22 History Ergocalciferol (Vitamin D2) 1,250 mcg PO WE 03/17/22 09/12/22 History [Drisdol (50,000 Iu)] Dicyclomine [Bentyl] 10 mg PO TID PRN 09/12/22 09/12/22 History Allergies Allergy/AdvReac Type Severity Reaction Status Date / Time No Known Allergies Allergy Verified 09/12/22 13:26 Physical Exam Vitals: Vital Signs Temp Pulse Pulse Resp BP BP Pulse Ox 09/13/22 07:29 98.4 F 72 15 132/81 97 09/13/22 02:00 97.8 F 74 17 137/83 100 09/12/22 20:00 97.6 F 79 77 17 116/87 129/81 100 09/12/22 16:00 68 18 126/92 09/12/22 15:00 62 17 134/98 07/31/23 14:00 97.4 F L 64 18 111/72 09/12/22 13:00 57 L 18 110/68 09/12/22 12:00 62 16 114/76 09/12/22 10:16 97.6 F 80 18 106/70 98 Intake and Output 09/12/22 09/13/22 09/13/22 22:59 06:59 14:59 Intake Total 150 Output Total 500 850 500 Balance -500 -850 -350 Intake: Intake, IV Titration 150 Amount Sodium Chloride 0.9% 1, 150 000 ml @ 75 mls/hr IV . [id number] [facility] Rx#:[id number] Output: Gastric Drainage 500 850 500 Other: Voiding Method Urinal Urinal # Voids 3 # Bowel Movements 1 Weight 47.174 kg General appearance: The patient is alert, oriented, appears in no acute distress. Thin, emaciated appearing. HET: Head is normocephalic and atraumatic. Conjunctiva pink. Sclera anicteric. Neck: Supple without lymphadenopathy. Trachea midline. Heart: S1 S2. Regular rate and rhythm. Lungs: Clear to auscultation. Abdomen: Soft, thin, nontender, nondistended with bowel sounds. No guarding or rigidity. Skin: No rashes. No jaundice. Extremities: Normal skin color and turgor. No pedal edema. Neurological: No focal deficits. Alert and oriented x3. Results CBC & Chem 7: 09/13/22 06:59 09/12/22 10:52 Labs: Abnormal Lab Results - Last 24 Hours (Table) 09/12/22 09/13/22 Range/Units 10:52 08:17 Sodium 134 L (137-145) mmol/L BUN 22 H (9-20) mg/dL Glucose 100 H (74-99) mg/dL POC Glucose (mg/dL) 63 L (70-110) mg/dL Calcium 8.1 L (8.4-10.2) mg/dL Delta Bilirubin 0.3 H (0.0-0.2) mg/dL Total Protein 5.0 L (6.3-8.2) g/dL Albumin 2.6 L (3.5-5.0) g/dL Lipase 17 L (23-300) U/L Assessment and Plan (1) Abnormal CT of the abdomen Narrative/Plan: 77-year-old male came in with complaints of abdominal pain for 1 week duration with diarrhea. He was found to have small bowel obstruction. Gen. surgery is following for that. While he was having his CT of his abdomen and pelvis did note a prominent pancreatic duct Measuring 0.2 cm at the tail of the pancreas. Normal less than 0.1 cm pancreatic duct at the head of the pancreas is 0.5 cm which is dilated. Consider follow-up ERCP. Unclear etiology of a prominent duct. Patient without any abdominal pain in the upper abdomen. Denies any nausea or vomiting. He does however report I explained weight loss of 20-30 pounds over the last 3-4 months. Denies any history of known liver disease or pancreatitis. Lipase and LFTs are all within normal limits, with no evidence of cholestatic pattern. Will consider further imaging. Current Visit: Yes Status: Acute Code(s): R93.5 - ABN FINDINGS ON DX IMAGING OF ABD REGIONS, INC RETROPERITON SNOMED Code(s): 97126871692681786 (2) Chronic diarrhea Narrative/Plan: Stool studies ordered Current Visit: Yes Status: Acute Code(s): K52.9 - NONINFECTIVE GASTROENTERITIS AND COLITIS, UNSPECIFIED SNOMED Code(s): 859635903 (3) Ascites Current Visit: Yes Status: Acute Code(s): R18.8 - OTHER ASCITES SNOMED Code(s): 484810559 (4) Small bowel obstruction Narrative/Plan: Gen. surgery following. Current Visit: Yes Status: Acute Code(s): K56.609 - UNSP INTESTNL OBST, UNSP TO PARTIAL VERSUS COMPLETE OBST SNOMED Code(s): 922636050 Plan: 1. Continue symptomatic and supportive care 2. Continue with recommendations from general surgery 3. Stool studies ordered by medicine team 4. Ultrasound ordered to evaluate for ascites 5. Consult to interventional radiology for paracentesis with fluid studies 6. CA-19-9 and fecal elastase ordered Thank you for this consultation, we will continue to follow. Dr. Elva Hernandez I agree with the dictator's note, documented as a scribe by Mari Reeves.
[2022-09-13 14:10] LABS: Basophils # (A) 0.02 X 10*3/uL (0.00-0.10); Basophils % (A) 0.2 %; Eosinophils # (A) 0 X 10*3/uL (0.04-0.35); Eosinophils % (A) 0 %; HGB 15.6 d/dL (13.0-17.0); Lymphocytes # (A) 1.91 X 10*3/uL (0.90-5.00); Lymphocytes % (A) 19.4 %; MCH 30.2 pg (27.0-32.0); MCHC 32.5 d/dL (32.0-37.0); MCV 92.8 FL (80.0-97.0); Mean Platelet Volume 10.1 FL (9.5-12.2); Monocytes # (A) 0.54 X 10*3/uL (0.20-1.00); Monocytes % (A) 5.5 %; NRBC Per 100 WBC 0 X 10*3/uL (0.00-0.01); Neutrophils # (A) 7.36 X 10*3/uL (1.80-7.70); Neutrophils % (A) 74.5 %; Platelet Count 365 X 10*3/uL (140-440); RBC 5.17 X 10*6/uL (4.40-5.60); RDW 13.9 % (11.5-14.5); WBC 9.87 X 10*3/uL (4.50-10.00)
--- NOTE | 2022-09-13 15:44 | US ---
Ultrasound-guided paracentesis. DATE OF EXAM: 09/13/2022 CLINICAL HISTORY: Ascites The procedure was discussed with the patient. The risks, complications, benefits, and alternatives we re discussed and any questions were answered. Informed consent was obtained. The patient was placed s upine on the ultrasound table and prepped and draped in the usual sterile fashion. All elements of maximal barrier technique were utilized. Under ultrasound guidance, access into the left lower quadrant was obtained, via the paracentesis catheter system and direct ultrasound guidance . Approximately 1 liters of straw-colored fluid was removed. Sample sent to pathology for analysis. The patient was stable throughout the procedure and remained stable upon discharge from Department of Ra diology. IMPRESSION: Successful paracentesis under ultrasound guidance.
[2022-09-13 15:49] LABS: ALT 21 U/L (10-49); AST 30 U/L (14-35); Albumin 3.3 d/dL (3.8-4.9); Albumin/Globulin Ratio 1.74 Ratio (1.60-3.17); Alkaline Phosphatase 143 U/L (41-126); BUN/Creat Ratio 25.33 Ratio (12.00-20.00); Bilirubin, Conjugated 0.22 mg/dL (0.20-0.40); Bilirubin,Unconjugated 0.38 mg/dL (0.20-1.00); Blood Urea Nitrogen 22.8 mg/dL (9.0-27.0); Calcium 8.9 mg/dL (8.7-10.3); Carbon Dioxide 21.5 mmol/L (21.6-31.8); Chloride 102 mmol/L (96-109); Globulin 1.9 d/dL (1.6-3.3); Glucose 64 mg/dL (70-110); Potassium 4.1 mmol/L (3.5-5.5); Sodium 141 mmol/L (135-145); Total Bilirubin 0.6 mg/dL (0.3-1.2); Total Protein 5.2 d/dL (6.2-8.2)
[2022-09-13 16:11] LABS: Glucose,Whole Blood 81 mg/dL (70-110)
[2022-09-13] MEDS: DEXTROSE 5%-0.9% NACL 1,000 ML IV SCH ×2 (16:12→22:40)
--- NOTE | 2022-09-13 19:46 | US ---
EXAMINATION TYPE: US abdomen limited DATE OF EXAM: 09/13/2022 COMPARISON: NONE CLINICAL INDICATION: Male, 77 years old with history of Evaluate for ascites, possible paracentesis; Ascites Technique: Multiple sonographic images of the 4 abdominal quadrants. FINDINGS: Mild amount of fluid visualized within the abdomen. IMPRESSION: Only mild abdominal ascites.
[2022-09-13 21:10] LABS: Appearance,BF Slightly Hazy (Clear)
[2022-09-13 21:24] LABS: Glucose,Whole Blood 111 mg/dL (70-110)
[2022-09-13 21:59] LABS: T. Protein, Body Fluid Source Ascites; Total Protein, Body Fluid 1500 mg/dL
[2022-09-14 03:00] LABS: Glucose,Whole Blood 121 mg/dL (70-110)
[2022-09-14] MEDS: HYDROmorphone 0.5 MG/0.5 ML SYRINGE IVP PRN ×6 (03:05→22:26)
[2022-09-14 06:18] LABS: Glucose,Whole Blood 121 mg/dL (70-110)
[2022-09-14] MEDS: FAMOTIDINE 20 MG/2 ML VIAL IV SCH (08:31)
[2022-09-14] MEDS: HEPARIN SODIUM,PORCINE/PF 5,000 UNIT/0.5 ML SYRINGE SQ SCH ×2 (08:32→21:07)
[2022-09-14] MEDS: levETIRAcetam IV 500 MG/5 ML VIAL IVP SCH ×2 (08:32→21:07)
[2022-09-14 11:13] LABS: Glucose,Whole Blood 128 mg/dL (70-110)
[2022-09-14] MEDS: DEXTROSE 5%-0.9% NACL 1,000 ML IV SCH (11:42)
[2022-09-14 11:52] LABS: Basophils # (A) 0.03 X 10*3/uL (0.00-0.10); Basophils % (A) 0.2 %; Eosinophils # (A) 0.01 X 10*3/uL (0.04-0.35); Eosinophils % (A) 0.1 %; HCT 43.9 % (39.6-50.0); HGB 14.8 d/dL (13.0-17.0); MCH 30.6 pg (27.0-32.0); MCHC 33.7 d/dL (32.0-37.0); MCV 90.9 FL (80.0-97.0); Mean Platelet Volume 10.1 FL (9.5-12.2); Monocytes # (A) 0.93 X 10*3/uL (0.20-1.00); Monocytes % (A) 7.7 %; NRBC Per 100 WBC 0 X 10*3/uL (0.00-0.01); Neutrophils # (A) 9.41 X 10*3/uL (1.80-7.70); Neutrophils % (A) 77.8 %; Platelet Count 341 X 10*3/uL (140-440); RBC 4.83 X 10*6/uL (4.40-5.60); RDW 13.8 % (11.5-14.5); WBC 12.11 X 10*3/uL (4.50-10.00)
[2022-09-14 12:18] LABS: BUN/Creat Ratio 26.56 Ratio (12.00-20.00); Blood Urea Nitrogen 23.9 mg/dL (9.0-27.0); Calcium 8.6 mg/dL (8.7-10.3); Carbon Dioxide 26.8 mmol/L (21.6-31.8); Chloride 105 mmol/L (96-109); Glucose 136 mg/dL (70-110); Potassium 3.4 mmol/L (3.5-5.5); Sodium 143 mmol/L (135-145)
[2022-09-14] MEDS ORDERED: Potassium Replacement Protocol 1 EACH MISC MISCELLANE PRN ×2 (12:51→15:42)
--- NOTE | 2022-09-14 12:51 | P.PN ---
Subjective This is a pleasant 77 years old male with multiple medical problems, GERD/Reflux, Osteoarthritis (OA), Seizure Disorder,LAST SEIZURE 2006, GLAUCOMA. Presents because of diarrhea more than one months. at bedside. Patient looks cachectic and it looks like [place] lost some weight Patient says that he eats well but he has frequent bowel movement about 10-15 H day. There are lose and no blood in them. Normally his bowel movement was was twice a day. 2 days ago he noticed that he has swelling in his feet and that's it was purple in color but this resolved now. Also patient complains from stomach distention. He sees Dr. Hernandez from GI as an outpatient for colonoscopy and EGD Patient smokes about 5 cigarettes per day and he was counseled to quit and he agrees but he declines nicotine patch. He used to drink alcohol 40 years quit about 3-4 years ago when he lost appetite.. No illicit drugs. Patient is hemodynamically stable and afebrile and He has unremarkable CBC, INR, BMP, liver enzymes. undetected viruses including influenza, rsv and leon viruses CT of the abdomen and pelvis: Dilated fluid-filled small bowel loops, partial small bowel obstruction is suspected. Ascites with prominent pancreatic duct 09/13/2022 Patient has less abdominal distention, NG tube is in place and draining about 500 mL with Dark Green discharge from his stomach over the last few hours in the morning. No significant abdominal pain and tenderness. No bowel movement. He had mild hypoglycemia this morning and fluent change to D5 normal saline at 75 mL/h. Surgery consult is requested. Continue with home dose of Keppra intravenously, conversion from oral to IV is 1:1 as per pharmacist 09/14/2022 Patient looks the same. NG tube is in place with Tyler discharge today. Abdomen less distended with mild tenderness. His status post ultrasound-guided paracentesis and results are pending including cytology studies Tumor markers sent by GI team and still pending GI and surgery team on the case. Patient still studies also are pending as well. She remains on bowel rest, pain management and IV fluids Objective - Vital Signs Vital signs: Vital Signs Temp 98.1 F 09/14/22 06:45 Pulse 69 09/14/22 06:45 Resp 16 09/14/22 06:45 BP 125/76 09/14/22 06:45 Pulse Ox 97 09/14/22 06:45 FiO2 Intake & Output 08/01/23 08/02/23 08/02/23 18:59 06:59 18:59 Intake Total 900 900 Output Total 900 500 300 Balance 0 400 -300 Weight 47.174 kg Intake: Intake, IV Titration 900 900 Amount Dextrose 5%-0.9% NaCl 1, 750 900 000 ml @ 75 mls/hr IV . [id number] [facility] Rx#:[id number] Sodium Chloride 0.9% 1, 150 000 ml @ 75 mls/hr IV . [id number] [facility] Rx#:[id number] Output: Gastric Drainage 900 500 300 Other: Voiding Method Urinal # Voids 2 1 - Exam -GENERAL: The patient is alert and oriented x3, not in any acute distress.cac hectic HEENT: Pupils are round and equally reacting to light. EOMI. No scleral icterus. No conjunctival pallor. Normocephalic, atraumatic. No pharyngeal erythema. No thyromegaly. CARDIOVASCULAR: S1 and S2 present. No murmurs, rubs, or gallops. PULMONARY: Chest is clear to auscultation, no wheezing , no crackles. -ABDOMEN: Soft, nontender, less distended, normoactive bowel sounds. No palpable organomegaly. NG tube in a Place MUSCULOSKELETAL: No joint swelling or deformity. EXTREMITIES: No cyanosis, clubbing, or pedal edema. NEUROLOGICAL: Gross neurological examination did not reveal any focal deficits. SKIN: No rashes. no petechiae. - Labs CBC & Chem 7: 09/14/22 06:48 09/14/22 06:48 Labs: Abnormal Lab Results - Last 24 Hours (Table) 09/13/22 09/13/22 09/13/22 Range/Units 06:59 06:59 15:07 WBC (4.50-10.00) X 10*3/uL Neutrophils # (1.80-7.70) X 10*3/uL Eosinophils # 0 L (0.04-0.35) X 10*3/uL Potassium (3.5-5.5) mmol/L Carbon Dioxide 21.5 L (21.6-31.8) mmol/L Anion Gap 17.50 H (4.00-12.00) mmol/L BUN/Creatinine Ratio 25.33 H (12.00-20.00) Ratio Glucose 64 L (70-110) mg/dL POC Glucose (mg/dL) (70-110) mg/dL Calcium (8.7-10.3) mg/dL Alkaline Phosphatase 143 H (41-126) U/L Total Protein 5.2 L (6.2-8.2) d/dL Albumin 3.3 L (3.8-4.9) d/dL Fluid Appearance Slightly Hazy A (Clear) 09/13/22 09/14/22 09/14/22 Range/Units 21:23 02:58 06:17 WBC (4.50-10.00) X 10*3/uL Neutrophils # (1.80-7.70) X 10*3/uL Eosinophils # (0.04-0.35) X 10*3/uL Potassium (3.5-5.5) mmol/L Carbon Dioxide (21.6-31.8) mmol/L Anion Gap (4.00-12.00) mmol/L BUN/Creatinine Ratio (12.00-20.00) Ratio Glucose (70-110) mg/dL POC Glucose (mg/dL) 111 H 121 H 121 H (70-110) mg/dL Calcium (8.7-10.3) mg/dL Alkaline Phosphatase (41-126) U/L Total Protein (6.2-8.2) d/dL Albumin (3.8-4.9) d/dL Fluid Appearance (Clear) 09/14/22 09/14/22 09/14/22 Range/Units 06:48 06:48 11:12 WBC 12.11 H (4.50-10.00) X 10*3/uL Neutrophils # 9.41 H (1.80-7.70) X 10*3/uL Eosinophils # 0.01 L (0.04-0.35) X 10*3/uL Potassium 3.4 L (3.5-5.5) mmol/L Carbon Dioxide (21.6-31.8) mmol/L Anion Gap (4.00-12.00) mmol/L BUN/Creatinine Ratio 26.56 H (12.00-20.00) Ratio Glucose 136 H (70-110) mg/dL POC Glucose (mg/dL) 128 H (70-110) mg/dL Calcium 8.6 L (8.7-10.3) mg/dL Alkaline Phosphatase (41-126) U/L Total Protein (6.2-8.2) d/dL Albumin (3.8-4.9) d/dL Fluid Appearance (Clear) Assessment and Plan Assessment: Small bowel obstruction, partial Permanent pancreatic duct with ascites. moderate to severe calories protein malnutrition Nicotine dependence History of seizure disorder History of alcohol use disorder History of glaucoma History of GERD Osteoarthritis Plan: Continue with IV fluid Pain medication Bowel rest Surgery consult GI service consult Dietary consult Send for stool studies and C. diff Labs and medication were reviewed.. Continue same treatment. Continue with symptomatic treatment. Resume home medication. Monitor labs and vitals. DVT and GI prophylaxis. Further recommendations as per clinical course of the patient DVT prophylaxis: Subcutaneous heparin GI Prophylaxis: Pepcid PT/OT: Pending Prognosis is guarded
--- NOTE | 2022-09-14 15:22 | P.PN ---
Subjective Progress Note Date: 09/14/22 CHIEF COMPLAINT: Partial small bowel obstruction HISTORY OF PRESENT ILLNESS: Patient reports having bowel movements today. He reports some improvement in his abdominal pain. Denies any nausea. NG tube w ith 1400 mL output yesterday and 300 output this morning. It is greenish in color. Patient had a paracentesis with 1 L removed yesterday. Afebrile. WBC 12.11 Hgb 14.8 sodium 143 potassium 3.4 PHYSICAL EXAM: VITAL SIGNS: Reviewed. GENERAL: Well-developed in no acute distress. ABDOMEN: Soft. Mildly distended. Tenderness palpation of the lower abdomen NEUROLOGIC: Alert and oriented. Cranial nerves II through XII grossly intact. ASSESSMENT: 1. Partial small bowel obstruction 2. Prominent pancreatic duct 3. Chronic back pain on scheduled morphine 4. History of cholecystectomy 5. Hypokalemia 6. Abdominal ascites status post paracentesis PLAN: -Continue NG tube for decompression -Keep patient nothing by mouth -Small bowel follow-through study with Gastrografin ordered for tomorrow -Potassium being replaced per medicine service -Continue supportive care -continue IV fluids -DVT prophylaxis subcu heparin Physician Assistant Portfolio Manager note has been reviewed by physician. Signing provider agrees with the documented findings, assessment, and plan of care. Objective - Vital Signs Vital signs: Vital Signs Temp 97.9 F 09/14/22 13:41 Pulse 69 09/14/22 13:41 Resp 16 09/14/22 13:41 BP 126/76 09/14/22 13:41 Pulse Ox 95 09/14/22 13:41 FiO2 Intake & Output 09/13/22 09/14/22 09/14/22 18:59 06:59 18:59 Intake Total 900 900 Output Total 900 500 300 Balance 0 400 -300 Weight 47.174 kg Intake: Intake, IV Titration 900 900 Amount Dextrose 5%-0.9% NaCl 1, 750 900 000 ml @ 75 mls/hr IV . [id number] [facility] Rx#:[id number] Sodium Chloride 0.9% 1, 150 000 ml @ 75 mls/hr IV . [id number] [facility] Rx#:[id number] Output: Gastric Drainage 900 500 300 Other: Voiding Method Urinal # Voids 2 1 - Labs CBC & Chem 7: 09/14/22 06:48 09/14/22 06:48 Labs: Abnormal Lab Results - Last 24 Hours (Table) 09/13/22 09/13/22 09/13/22 Range/Units 06:59 15:07 21:23 WBC (4.50-10.00) X 10*3/uL Neutrophils # (1.80-7.70) X 10*3/uL Eosinophils # (0.04-0.35) X 10*3/uL Potassium (3.5-5.5) mmol/L Carbon Dioxide 21.5 L (21.6-31.8) mmol/L Anion Gap 17.50 H (4.00-12.00) mmol/L BUN/Creatinine Ratio 25.33 H (12.00-20.00) Ratio Glucose 64 L (70-110) mg/dL POC Glucose (mg/dL) 111 H (70-110) mg/dL Calcium (8.7-10.3) mg/dL Alkaline Phosphatase 143 H (41-126) U/L Total Protein 5.2 L (6.2-8.2) d/dL Albumin 3.3 L (3.8-4.9) d/dL Fluid Appearance Slightly Hazy A (Clear) 09/14/22 09/14/22 09/14/22 Range/Units 02:58 06:17 06:48 WBC 12.11 H (4.50-10.00) X 10*3/uL Neutrophils # 9.41 H (1.80-7.70) X 10*3/uL Eosinophils # 0.01 L (0.04-0.35) X 10*3/uL Potassium (3.5-5.5) mmol/L Carbon Dioxide (21.6-31.8) mmol/L Anion Gap (4.00-12.00) mmol/L BUN/Creatinine Ratio (12.00-20.00) Ratio Glucose (70-110) mg/dL POC Glucose (mg/dL) 121 H 121 H (70-110) mg/dL Calcium (8.7-10.3) mg/dL Alkaline Phosphatase (41-126) U/L Total Protein (6.2-8.2) d/dL Albumin (3.8-4.9) d/dL Fluid Appearance (Clear) 09/14/22 09/14/22 Range/Units 06:48 11:12 WBC (4.50-10.00) X 10*3/uL Neutrophils # (1.80-7.70) X 10*3/uL Eosinophils # (0.04-0.35) X 10*3/uL Potassium 3.4 L (3.5-5.5) mmol/L Carbon Dioxide (21.6-31.8) mmol/L Anion Gap (4.00-12.00) mmol/L BUN/Creatinine Ratio 26.56 H (12.00-20.00) Ratio Glucose 136 H (70-110) mg/dL POC Glucose (mg/dL) 128 H (70-110) mg/dL Calcium 8.6 L (8.7-10.3) mg/dL Alkaline Phosphatase (41-126) U/L Total Protein (6.2-8.2) d/dL Albumin (3.8-4.9) d/dL Fluid Appearance (Clear)
[2022-09-14] MEDS: POTASSIUM CHLORIDE 10 MEQ in WATER FOR INJECTION 1 100ML.BAG IVPB SCH ×4 (16:10→21:06)
[2022-09-14 16:18] LABS: Glucose,Whole Blood 131 mg/dL (70-110)
--- NOTE | 2022-09-14 17:14 | P.PN ---
Subjective Progress Note Date: 09/14/22 Principal diagnosis: Prominent pancreatic duct This a pleasant 77-year-old male who presented to the emergency department with complaints of diarrhea on insulin low abdominal pain 1 week. States he's been having bouts of diarrhea up to 13 times a day nonbloody. He has a past medical history including seizure disorder and chronic back pain. He denies any nausea or vomiting. He does state that he has had weight loss of 20-30 pounds in the last 3-4 months. He denies any previous history of pancreatitis, no history of liver disease. He denies any abdominal pain at this time. He currently has NG tube in place and general surgery is following for small bowel obstruction. He had a CT of the abdomen and pelvis reporting prominent pancreatic duct and ascites, thus, gastroenterology was consulted. Patient has a history of chronic diarrhea. He has seen gastroenterology in the past had an EGD and colonoscopy on 04/29/[address] Elise for nausea vomiting and chronic diarrhea. Upper endoscopy revealed mild gastritis and a 2 mm nodule that was removed from the GE junction. Colonoscopy revealed mild left colonic diverticulosis otherwise normal-appearing colon. Patient also has a history of ascites looking back through his records in 2019 did have to undergo paracentesis at that time. He denies any history of liver disease, no history of alcoholism. Admitting labs WBC 7.1 hemoglobin 14.6 platelet count 264,019 or 1.0 sodium 134 potassium 3.7 BUN 22 creatinine 0.8 total bilirubin 0.8 AST 31 AST 21 alkaline phosphatase 121 lipase 17 09/14/2022 Patient seen and examined today as a follow-up. Patient lying in bed resting comfortably. NG tube still in place with significant amount of coffee-ground output. Patient states he did have a bowel movement today. CA-19-9 negative, patient underwent paracentesis with reported very mild amount of ascites. Fluid protein 1500 fluid albumin currently pending. Cytology currently pending. Objective - Vital Signs Vital signs: Vital Signs Temp 98.1 F 09/14/22 06:45 Pulse 69 09/14/22 06:45 Resp 16 09/14/22 06:45 BP 125/76 09/14/22 06:45 Pulse Ox 97 09/14/22 06:45 FiO2 Intake & Output 09/13/22 09/14/22 09/14/22 18:59 06:59 18:59 Intake Total 900 900 Output Total 900 500 300 Balance 0 400 -300 Weight 47.174 kg Intake: Intake, IV Titration 900 900 Amount Dextrose 5%-0.9% NaCl 1, 750 900 000 ml @ 75 mls/hr IV . [id number] [facility] Rx#:[id number] Sodium Chloride 0.9% 1, 150 000 ml @ 75 mls/hr IV . [id number] [facility] Rx#:[id number] Output: Gastric Drainage 900 500 300 Other: Voiding Method Urinal # Voids 2 1 - Exam General appearance: The patient is alert, oriented, appears in no acute distress. HET: Head is normocephalic and atraumatic. Conjunctiva pink. Sclera anicteric. NG tube in place. Neck: Supple without lymphadenopathy. Trachea midline. Heart: S1 S2. Regular rate and rhythm. Lungs: Clear to auscultation. Abdomen: Soft, thin, nontender, nondistended with bowel sounds. No guarding or rigidity. Skin: No rashes. No jaundice. Extremities: Normal skin color and turgor. No pedal edema. Neurological: No focal deficits. Alert and oriented x3. - Labs CBC & Chem 7: 09/14/22 06:48 09/14/22 06:48 Labs: Abnormal Lab Results - Last 24 Hours (Table) 09/13/22 09/13/22 09/13/22 Range/Units 06:59 06:59 15:07 Eosinophils # 0 L (0.04-0.35) X 10*3/uL Carbon Dioxide 21.5 L (21.6-31.8) mmol/L Anion Gap 17.50 H (4.00-12.00) mmol/L BUN/Creatinine Ratio 25.33 H (12.00-20.00) Ratio Glucose 64 L (70-110) mg/dL POC Glucose (mg/dL) (70-110) mg/dL Alkaline Phosphatase 143 H (41-126) U/L Total Protein 5.2 L (6.2-8.2) d/dL Albumin 3.3 L (3.8-4.9) d/dL Fluid Appearance Slightly Hazy A (Clear) 09/13/22 09/14/22 09/14/22 Range/Units 21:23 02:58 06:17 Eosinophils # (0.04-0.35) X 10*3/uL Carbon Dioxide (21.6-31.8) mmol/L Anion Gap (4.00-12.00) mmol/L BUN/Creatinine Ratio (12.00-20.00) Ratio Glucose (70-110) mg/dL POC Glucose (mg/dL) 111 H 121 H 121 H (70-110) mg/dL Alkaline Phosphatase (41-126) U/L Total Protein (6.2-8.2) d/dL Albumin (3.8-4.9) d/dL Fluid Appearance (Clear) 09/14/22 Range/Units 11:12 Eosinophils # (0.04-0.35) X 10*3/uL Carbon Dioxide (21.6-31.8) mmol/L Anion Gap (4.00-12.00) mmol/L BUN/Creatinine Ratio (12.00-20.00) Ratio Glucose (70-110) mg/dL POC Glucose (mg/dL) 128 H (70-110) mg/dL Alkaline Phosphatase (41-126) U/L Total Protein (6.2-8.2) d/dL Albumin (3.8-4.9) d/dL Fluid Appearance (Clear) Assessment and Plan (1) Abnormal CT of the abdomen Narrative/Plan: 77-year-old male came in with complaints of abdominal pain for 1 week duration with diarrhea. He was found to have small bowel obstruction. Gen. surgery is following for that. While he was having his CT of his abdomen and pelvis did note a prominent pancreatic duct Measuring 0.2 cm at the tail of the pancreas. Normal less than 0.1 cm pancreatic duct at the head of the pancreas is 0.5 cm which is dilated. Consider follow-up ERCP. Unclear etiology of a prominent duct. Patient without any abdominal pain in the upper abdomen. Denies any nausea or vomiting. He does however report I explained weight loss of 20-30 pounds over the last 3-4 months. Denies any history of known liver disease or pancreatitis. Lipase and LFTs are all within normal limits, with no evidence of cholestatic pattern. Will consider further imaging. CA-19-9 negative. Await cytology results from paracentesis. Further recommendations forthcoming. Current Visit: Yes Status: Acute Code(s): R93.5 - ABN FINDINGS ON DX IMAGING OF ABD REGIONS, INC RETROPERITON SNOMED Code(s): 46469243650715036 (2) Chronic diarrhea Narrative/Plan: Stool studies ordered Current Visit: Yes Status: Acute Code(s): K52.9 - NONINFECTIVE G ASTROENTERITIS AND COLITIS, UNSPECIFIED SNOMED Code(s): 057591879 (3) Ascites Current Visit: Yes Status: Acute Code(s): R18.8 - OTHER ASCITES SNOMED Code(s): 645583086 (4) Small bowel obstruction Narrative/Plan: Gen. surgery following. Current Visit: Yes Status: Acute Code(s): K56.609 - UNSP INTESTNL OBST, UNSP TO PARTIAL VERSUS COMPLETE OBST SNOMED Code(s): 509292662 Plan: 1. Continue symptomatic and supportive care 2. Continue with recommendations from general surgery 3. Stool studies ordered by medicine team, is currently pending 4. Patient status post paracentesis with fluid studies. Cytology pending 5. fecal elastase ordered and pending 6. Continue with further recommendations from general surgery Thank you for this consultation, we will continue to follow. Dr. Elva Hernandez I agree with the dictator's note, documented as a scribe by Mari Reeves.
[2022-09-14 20:42] LABS: Glucose,Whole Blood 110 mg/dL (70-110)
[2022-09-15] MEDS: HYDROmorphone 0.5 MG/0.5 ML SYRINGE IVP PRN ×6 (01:29→22:52)
[2022-09-15 02:11] LABS: Glucose,Whole Blood 126 mg/dL (70-110)
[2022-09-15] MEDS: DEXTROSE 5%-0.9% NACL 1,000 ML IV SCH ×2 (02:31→04:30)
[2022-09-15 06:22] LABS: Glucose,Whole Blood 121 mg/dL (70-110)
[2022-09-15 08:37] LABS: Basophils # (A) 0.03 X 10*3/uL (0.00-0.10); Basophils % (A) 0.2 %; Eosinophils # (A) 0.02 X 10*3/uL (0.04-0.35); Eosinophils % (A) 0.2 %; HCT 43.9 % (39.6-50.0); HGB 14.5 d/dL (13.0-17.0); Lymphocytes # (A) 1.83 X 10*3/uL (0.90-5.00); Lymphocytes % (A) 15.1 %; MCH 30.5 pg (27.0-32.0); MCV 92.2 FL (80.0-97.0); Monocytes # (A) 0.92 X 10*3/uL (0.20-1.00); Monocytes % (A) 7.6 %; NRBC Per 100 WBC 0 X 10*3/uL (0.00-0.01); Neutrophils # (A) 9.26 X 10*3/uL (1.80-7.70); Neutrophils % (A) 76.5 %; Platelet Count 320 X 10*3/uL (140-440); RBC 4.76 X 10*6/uL (4.40-5.60); RDW 13.7 % (11.5-14.5); WBC 12.11 X 10*3/uL (4.50-10.00)
[2022-09-15 08:57] LABS: BUN/Creat Ratio 22.25 Ratio (12.00-20.00); Blood Urea Nitrogen 17.8 mg/dL (9.0-27.0); Calcium 8.5 mg/dL (8.7-10.3); Carbon Dioxide 32.5 mmol/L (21.6-31.8); Chloride 106 mmol/L (96-109); Glucose 131 mg/dL (70-110); Magnesium 1.9 mg/dL (1.5-2.4); Potassium 3.6 mmol/L (3.5-5.5); Sodium 146 mmol/L (135-145)
[2022-09-15] MEDS ORDERED: FAMOTIDINE 20 MG/2 ML VIAL IV SCH (09:00)
[2022-09-15] MEDS ORDERED: ONDANSETRON 4 MG/2 ML VIAL IVP PRN (10:04)
[2022-09-15 10:25] LABS: Albumin, Fluid Source Ascites
[2022-09-15] MEDS: HEPARIN SODIUM,PORCINE/PF 5,000 UNIT/0.5 ML SYRINGE SQ SCH (10:30)
[2022-09-15] MEDS: levETIRAcetam IV 500 MG/5 ML VIAL IVP SCH ×2 (10:32→21:01)
[2022-09-15 11:20] LABS: Glucose,Whole Blood 127 mg/dL (70-110)
--- NOTE | 2022-09-15 13:15 | P.PN ---
Subjective Progress Note Date: 09/15/22 Principal diagnosis: Prominent pancreatic duct This a pleasant 77-year-old male who presented to the emergency department with complaints of diarrhea on insulin low abdominal pain 1 week. States he's been having bouts of diarrhea up to 13 times a day nonbloody. He has a past medical history including seizure disorder and chronic back pain. He denies any nausea or vomiting. He does state that he has had weight loss of 20-30 pounds in the last 3-4 months. He denies any previous history of pancreatitis, no history of liver disease. He denies any abdominal pain at this time. He currently has NG tube in place and general surgery is following for small bowel obstruction. He had a CT of the abdomen and pelvis reporting prominent pancreatic duct and ascites, thus, gastroenterology was consulted. Patient has a history of chronic diarrhea. He has seen gastroenterology in the past had an EGD and colonoscopy on 04/29/[address] Elise for nausea vomiting and chronic diarrhea. Upper endoscopy revealed mild gastritis and a 2 mm nodule that was removed from the GE junction. Colonoscopy revealed mild left colonic diverticulosis otherwise normal-appearing colon. Patient also has a history of ascites looking back through his records in 2019 did have to undergo paracentesis at that time. He denies any history of liver disease, no history of alcoholism. Admitting labs WBC 7.1 hemoglobin 14.6 platelet count 264,019 or 1.0 sodium 134 potassium 3.7 BUN 22 creatinine 0.8 total bilirubin 0.8 AST 31 AST 21 alkaline phosphatase 121 lipase 17 09/14/2022 Patient seen and examined today as a follow-up. Patient lying in bed resting comfortably. NG tube still in place with significant amount of coffee-ground output. Patient states he did have a bowel movement today. CA-19-9 negative, patient underwent paracentesis with reported very mild amount of ascites. Fluid protein 1500 fluid albumin currently pending. Cytology currently pending. 09/15/2022 Patient seen and examined today as a follow-up. Patient just got back from small bowel series. He is complaining of a lot of abdominal pain and rates it at 8 out of 10. NG tube in place clamped currently as patient just got back from x-ray. He did have a bowel movement today which was reported as soft, more formed, and brown. He is denying any nausea or vomiting. Small bowel series currently pending. Objective - Vital Signs Vital signs: Vital Signs Temp 98.0 F 09/15/22 06:50 Pulse 67 09/15/22 06:50 Resp 18 09/15/22 06:50 BP 122/76 09/15/22 06:50 Pulse Ox 94 L 09/15/22 06:50 FiO2 Intake & Output 09/14/22 09/15/22 09/15/22 18:59 06:59 18:59 Intake Total 1160 Output Total 1400 1300 800 Balance -1400 -140 -800 Intake: Intake, IV Titration 1000 Amount Dextrose 5%-0.9% NaCl 1, 900 000 ml @ 75 mls/hr IV . [id number] [facility] Rx#:[id number] Potassium Chloride 10 meq 100 In Water For Injection 1 100ml.bag @ 100 mls/hr IVPB Q1H [facility] Rx#: [id number] Oral 160 Output: Gastric Drainage 1400 1300 Other 800 Other: # Voids 1 1 # Bowel Movements 1 - Exam General appearance: The patient is alert, oriented, appears in no acute distress. HET: Head is normocephalic and atraumatic. Conjunctiva pink. Sclera anicteric. NG tube in place. Neck: Supple without lymphadenopathy. Trachea midline. Heart: S1 S2. Regular rate and rhythm. Lungs: Clear to auscultation. Abdomen: Soft, thin, tender to palpation,, nondistended with bowel sounds. Pat ient guarding/holding his abdomen. Skin: No rashes. No jaundice. Extremities: Normal skin color and turgor. No pedal edema. Neurological: No focal deficits. Alert and oriented x3. - Labs CBC & Chem 7: 09/15/22 05:50 09/15/22 05:50 Labs: Abnormal Lab Results - Last 24 Hours (Table) 09/12/22 09/14/22 09/14/22 Range/Units 16:49 06:48 06:48 WBC 12.11 H (4.50-10.00) X 10*3/uL Neutrophils # 9.41 H (1.80-7.70) X 10*3/uL Eosinophils # 0.01 L (0.04-0.35) X 10*3/uL Sodium (135-145) mmol/L Potassium 3.4 L (3.5-5.5) mmol/L Carbon Dioxide (21.6-31.8) mmol/L BUN/Creatinine Ratio 26.56 H (12.00-20.00) Ratio Glucose 136 H (70-110) mg/dL POC Glucose (mg/dL) (70-110) mg/dL Calcium 8.6 L (8.7-10.3) mg/dL Stool Lactoferrin Positive A (Negative) 09/14/22 09/14/22 09/15/22 Range/Units 11:12 16:17 02:08 WBC (4.50-10.00) X 10*3/uL Neutrophils # (1.80-7.70) X 10*3/uL Eosinophils # (0.04-0.35) X 10*3/uL Sodium (135-145) mmol/L Potassium (3.5-5.5) mmol/L Carbon Dioxide (21.6-31.8) mmol/L BUN/Creatinine Ratio (12.00-20.00) Ratio Glucose (70-110) mg/dL POC Glucose (mg/dL) 128 H 131 H 126 H (70-110) mg/dL Calcium (8.7-10.3) mg/dL Stool Lactoferrin (Negative) 09/15/22 09/15/22 09/15/22 Range/Units 05:47 05:50 05:50 WBC 12.11 H (4.50-10.00) X 10*3/uL Neutrophils # 9.26 H (1.80-7.70) X 10*3/uL Eosinophils # 0.02 L (0.04-0.35) X 10*3/uL Sodium 146 H (135-145) mmol/L Potassium (3.5-5.5) mmol/L Carbon Dioxide 32.5 H (21.6-31.8) mmol/L BUN/Creatinine Ratio 22.25 H (12.00-20.00) Ratio Glucose 131 H (70-110) mg/dL POC Glucose (mg/dL) 121 H (70-110) mg/dL Calcium 8.5 L (8.7-10.3) mg/dL Stool Lactoferrin (Negative) Microbiology - Last 24 Hours (Table) 09/13/22 15:07 Body Fluid Culture - Preliminary Peritoneal Fluid Assessment and Plan (1) Abnormal CT of the abdomen Narrative/Plan: 77-year-old male came in with complaints of abdominal pain for 1 week duration with diarrhea. He was found to have small bowel obstruction. Gen. surgery is following for that. While he was having his CT of his abdomen and pelvis did note a prominent pancreatic duct Measuring 0.2 cm at the tail of the pancreas. Normal less than 0.1 cm pancreatic duct at the head of the pancreas is 0.5 cm which is dilated. Consider follow-up ERCP. Unclear etiology of a prominent duct. Patient without any abdominal pain in the upper abdomen. Denies any nausea or vomiting. He does however report I explained weight loss of 20-30 pounds over the last 3-4 months. Denies any history of known liver disease or pancreatitis. Lipase and LFTs are all within normal limits, with no evidence of cholestatic pattern. Will consider further imaging. CA-19-9 negative. Await cytology results from paracentesis. Further recommendations forthcoming. Current Visit: Yes Status: Acute Code(s): R93.5 - ABN FINDINGS ON DX IMAGING OF ABD REGIONS, INC RETROPERITON SNOMED Code(s): 11448547099469585 (2) Chronic diarrhea Narrative/Plan: Stool studies ordered C. diff negative, stool cultures pending. Stool is beginning to become more formed. Current Visit: Yes Status: Acute Code(s): K52.9 - NONINFECTIVE GASTROENTERITIS AND COLITIS, UNSPECIFIED SNOMED Code(s): 812074466 (3) Ascites Narrative/Plan: Small amount of ascites, paracentesis. Fluid studies ordered. Fluid studies are consistent with underlying liver disease. Cytology currently pending. Current Visit: Yes Status: Acute Code(s): R18.8 - OTHER ASCITES SNOMED Code(s): 854961462 (4) Small bowel obstruction Narrative/Plan: Gen. surgery following. Current Visit: Yes Status: Acute Code(s): K56.609 - UNSP INTESTNL OBST, UNSP TO PARTIAL VERSUS COMPLETE OBST SNOMED Code(s): 438416029 Plan: 1. Continue symptomatic and supportive care 2. Continue with recommendations from general surgery 3. Stool studies ordered by medicine team, is currently pending 4. Patient status post paracentesis with fluid studies. Await cytology. 5. fecal elastase ordered 6. Continue with medical management Thank you for this consultation, we will continue to follow. Dr. K Tumma I agree with the dictator's note, documented as a scribe by Mari Reeves.
--- NOTE | 2022-09-15 14:13 | FL ---
EXAMINATION TYPE: FL small bowel follow through DATE OF EXAM: 09/15/2022 8:51 AM COMPARISON: CT abdomen pelvis most recent from 09/12/2022 INDICATION: Patient age:Male; 77 years old; Reason for study: partial SBO, abdominal pain; TECHNIQUE: The procedure was explained and patient history elicited. All patient questions were ans wered prior to start of procedure. A hand pattern marker radiograph of the abdomen was also reviewed. The patient was asked to ingest liquid Gastrografin and incremental frontal abdominal radiographs were then taken until contrast was visualized in the cecum. Fluoroscopic time: None min Fluoroscopic images: None Radiographs taken: 8 DAP: Not reported [id number] FINDINGS: Nasogastric tube in the with tip in the is stomach and distal side-port in the distal esophagus. Right upper quadrant course significance. Gaseous dilation of the stomach. Contrast is seen extending from the duodenojejunal junction into the rectum after 4 hours and felt to be within the rectum also on the two-hour film, which is within the expected time period. The small bowel follows centralized distribution secondary to ascites. The contour is without any evidence of extraluminal or intraluminal irregularity. There is no extravasation of contrast material. Small bow el mucosal folds are felt to be within normal limits. IMPRESSION: 1. Contrast freely flows through the gastrointestinal tract within the expected limits. 2. Centralized location of the bowel loops secondary to known ascites. 3. Nasogastric tube should be advanced at least 10.5 cm for optimal placement.
--- NOTE | 2022-09-15 15:00 | P.PN ---
Subjective Progress Note Date: 09/15/22 77 years old male with multiple medical problems, GERD/Reflux, Osteoarthritis (OA), Seizure Disorder,LAST SEIZURE 2006, GLAUCOMA. Presents because of diarrhea more than one months. at bedside. Patient looks cachectic and it looks like [place] lost some weight Patient says that he eats well but he has frequent bowel movement about 10-15 H day. There are lose and no blood in them. Normally his bowel movement was was twice a day. 2 days ago he noticed that he has swelling in his feet and that's it was purple in color but this resolved now. Also patient complains from stomach distention. He sees Dr. Hernandez from GI as an outpatient for colonoscopy and EGD Patient smokes about 5 cigarettes per day and he was counseled to quit and he agrees but he declines nicotine patch. He used to drink alcohol 40 years quit about 3-4 years ago when he lost appetite.. No illicit drugs. CT of the abdomen and pelvis: Dilated fluid-filled small bowel loops, partial small bowel obstruction is suspected. Ascites with prominent pancreatic duct 09/13/2022 Patient has less abdominal distention, NG tube is in place and draining about 500 mL with Dark Green discharge from his stomach over the last few hours in the morning. No significant abdominal pain and tenderness. No bowel movement. He had mild hypoglycemia this morning and fluent change to D5 normal saline at 75 mL/h. Surgery consult is requested. Continue with home dose of Keppra intravenously, conversion from oral to IV is 1:1 as per pharmacist 09/14/2022 Patient looks the same. NG tube is in place with Tyler discharge today. Abdomen less distended with mild tenderness. His status post ultrasound-guided paracentesis and results are pending including cytology studies Tumor markers sent by GI team and still pending GI and surgery team on the case. Patient still studies also are pending as well. She remains on bowel rest, pain management and IV fluids 09/15 patient seen and everted bedside, abdominal distention has improved, NG tube in place Objective - Vital Signs Vital signs: Vital Signs Temp 98.0 F 09/15/22 06:50 Pulse 80 09/15/22 13:17 Resp 17 09/15/22 13:17 BP 128/83 09/15/22 13:17 Pulse Ox 94 L 09/15/22 06:50 FiO2 Intake & Output 09/14/22 09/15/22 09/15/22 18:59 06:59 18:59 Intake Total 1160 Output Total 1400 1300 800 Balance -1400 -140 -800 Intake: Intake, IV Titration 1000 Amount Dextrose 5%-0.9% NaCl 1, 900 000 ml @ 75 mls/hr IV . [id number] SRAAVANAN Rx#:[id number] Potassium Chloride 10 meq 100 In Water For Injection 1 100ml.bag @ 100 mls/hr IVPB Q1H SARAVANAN Rx#: [id number] Oral 160 Output: Gastric Drainage 1400 1300 Other 800 Other: Voiding Method Urinal # Voids 1 1 2 # Bowel Movements 1 2 - Exam PHYSICAL EXAMINATION: GENERAL: The patient is alert and oriented x3, ill appearance, underweight HEENT: Pupils are round and equally reacting to light. EOMI. NG tube in place CARDIOVASCULAR: S1 and S2 present. No murmurs, rubs, or gallops. PULMONARY: Chest is clear to auscultation, no wheezing or crackles. ABDOMEN: Soft, nontender, nondistended, normoactive bowel sounds. No palpable organomegaly. MUSCULOSKELETAL: No joint swelling or deformity. EXTREMITIES: No cyanosis, clubbing, or pedal edema. NEUROLOGICAL: Gross neurological examination did not reveal any focal deficits. - Labs CBC & Chem 7: 09/15/22 05:50 09/15/22 05:50 Labs: Abnormal Lab Results - Last 24 Hours (Table) 09/12/22 09/14/22 09/15/22 Range/Units 16:49 16:17 02:08 WBC (4.50-10.00) X 10*3/uL Neutrophils # (1.80-7.70) X 10*3/uL Eosinophils # (0.04-0.35) X 10*3/uL Sodium (135-145) mmol/L Carbon Dioxide (21.6-31.8) mmol/L BUN/Creatinine Ratio (12.00-20.00) Ratio Glucose (70-110) mg/dL POC Glucose (mg/dL) 131 H 126 H (70-110) mg/dL Calcium (8.7-10.3) mg/dL Stool Lactoferrin Positive A (Negative) 09/15/22 09/15/22 09/15/22 Range/Units 05:47 05:50 05:50 WBC 12.11 H (4.50-10.00) X 10*3/uL Neutrophils # 9.26 H (1.80-7.70) X 10*3/uL Eosinophils # 0.02 L (0.04-0.35) X 10*3/uL Sodium 146 H (135-145) mmol/L Carbon Dioxide 32.5 H (21.6-31.8) mmol/L BUN/Creatinine Ratio 22.25 H (12.00-20.00) Ratio Glucose 131 H (70-110) mg/dL POC Glucose (mg/dL) 121 H (70-110) mg/dL Calcium 8.5 L (8.7-10.3) mg/dL Stool Lactoferrin (Negative) 09/15/22 Range/Units 11:19 WBC (4.50-10.00) X 10*3/uL Neutrophils # (1.80-7.70) X 10*3/uL Eosinophils # (0.04-0.35) X 10*3/uL Sodium (135-145) mmol/L Carbon Dioxide (21.6-31.8) mmol/L BUN/Creatinine Ratio (12.00-20.00) Ratio Glucose (70-110) mg/dL POC Glucose (mg/dL) 127 H (70-110) mg/dL Calcium (8.7-10.3) mg/dL Stool Lactoferrin (Negative) Microbiology - Last 24 Hours (Table) 09/13/22 15:07 Body Fluid Culture - Preliminary Peritoneal Fluid Assessment and Plan Assessment: Assessment: Small bowel obstruction, partial moderate to severe calories protein malnutrition Prominent pancreatic duct with abdominal ascites Nicotine dependence History of seizure disorder History of alcohol use disorder History of glaucoma History of GERD Osteoarthritis Plan: * Consult obtained from gastroenterology, general surgery * Will advance diet as tolerated small bowel follow-through negative on 09/15, we'll start patient on clear liquid diet * Status post paracentesis and will follow up on cytology * While nothing by mouth continue patient on IV Keppra * Optimize electrolytes
--- NOTE | 2022-09-15 15:17 | P.PN ---
Subjective Progress Note Date: 09/15/22 CHIEF COMPLAINT: Partial small bowel obstruction HISTORY OF PRESENT ILLNESS: Patient complains of abdominal pain. He completed small bowel follow-through. Contrast freely flows through the gastrointestinal tract within the expected limits. Centralized location of the bowel loops secondary to ascites. Patient has had 1800 mL output through NG tube yesterday and 600 mL output this morning. Patient has been having bowel movements. Does complain of abdominal pain and back pain after laying on on the bed for the x- rays. Afebrile. WBC 12.1 1HB 14.5 platelets 320 PHYSICAL EXAM: VITAL SIGNS: Reviewed. GENERAL: Well-developed in no acute distress. ABDOMEN: Soft. Mildly distended. Tenderness palpation of the lower abdomen NEUROLOGIC: Alert and oriented. Cranial nerves II through XII grossly intact. ASSESSMENT: 1. Partial small bowel obstruction 2. Prominent pancreatic duct 3. Chronic back pain on scheduled morphine 4. History of cholecystectomy 5. Hypokalemia 6. Abdominal ascites status post paracentesis PLAN: -Continue NG tube for decompression -Keep patient nothing by mouth -Continue supportive care -continue IV fluids -Continue to monitor -Further recommendations forthcoming per surgeon -DVT prophylaxis subcu heparin Physician Technical Artist note has been reviewed by physician. Signing provider agrees with the documented findings, assessment, and plan of care. I have personally seen and examined the patient, reviewed the [place] [employer] /PAs history, exam and MDM and agree with the assessment and plan as written. Based on total visit time, I have performed more than 50% of the visit. As above: Patient resting comfortably. Apparently he had increased pain earlier today but that is improved now. He recently returned from his small bowel series where he was seen to have fairly rapid transit through the bowel. No definite transition point is seen or changes to suggest bowel obstruction. Cytology from paracentesis is negative. Case discussed with GI. His CA-19-9 that they ordered was normal. The patient appears quite ill and significantly emaciated. We will plan removing nasogastric tube tomorrow if output remains low. Considered removing today however one week but the nasogastric tube to suction upon immediate return from small bowel series he had about 100 mL of bile out. Patient and I along with GI discussed options of diagnostic laparoscopy despite small bowel series findings. Unfortunately likelihood of finding significant bowel related pathology is low and he is a poor surgical candidate. We'll reassess tomorrow. Objective - Vital Signs Vital signs: Vital Signs Temp 98.0 F 09/15/22 06:50 Pulse 80 09/15/22 13:17 Resp 17 09/15/22 13:17 BP 128/83 09/15/22 13:17 Pulse Ox 94 L 09/15/22 06:50 FiO2 Intake & Output 09/14/22 09/15/22 09/15/22 18:59 06:59 18:59 Intake Total 1160 Output Total 1400 1300 800 Balance -1400 -140 -800 Intake: Intake, IV Titration 1000 Amount Dextrose 5%-0.9% NaCl 1, 900 000 ml @ 75 mls/hr IV . [id number] SARAVANAN Rx#:[id number] Potassium Chloride 10 meq 100 In Water For Injection 1 100ml.bag @ 100 mls/hr IVPB Q1H SARAVANAN Rx#: [id number] Oral 160 Output: Gastric Drainage 1400 1300 Other 800 Other: Voiding Method Urinal # Voids 1 1 2 # Bowel Movements 1 2 - Labs CBC & Chem 7: 09/15/22 05:50 09/15/22 05:50 Labs: Abnormal Lab Results - Last 24 Hours (Table) 09/12/22 09/14/22 09/15/22 Range/Units 16:49 16:17 02:08 WBC (4.50-10.00) X 10*3/uL Neutrophils # (1.80-7.70) X 10*3/uL Eosinophils # (0.04-0.35) X 10*3/uL Sodium (135-145) mmol/L Carbon Dioxide (21.6-31.8) mmol/L BUN/Creatinine Ratio (12.00-20.00) Ratio Glucose (70-110) mg/dL POC Glucose (mg/dL) 131 H 126 H (70-110) mg/dL Calcium (8.7-10.3) mg/dL Stool Lactoferrin Positive A (Negative) 09/15/22 09/15/22 09/15/22 Range/Units 05:47 05:50 05:50 WBC 12.11 H (4.50-10.00) X 10*3/uL Neutrophils # 9.26 H (1.80-7.70) X 10*3/uL Eosinophils # 0.02 L (0.04-0.35) X 10*3/uL Sodium 146 H (135-145) mmol/L Carbon Dioxide 32.5 H (21.6-31.8) mmol/L BUN/Creatinine Ratio 22.25 H (12.00-20.00) Ratio Glucose 131 H (70-110) mg/dL POC Glucose (mg/dL) 121 H (70-110) mg/dL Calcium 8.5 L (8.7-10.3) mg/dL Stool Lactoferrin (Negative) 09/15/22 Range/Units 11:19 WBC (4.50-10.00) X 10*3/uL Neutrophils # (1.80-7.70) X 10*3/uL Eosinophils # (0.04-0.35) X 10*3/uL Sodium (135-145) mmol/L Carbon Dioxide (21.6-31.8) mmol/L BUN/Creatinine Ratio (12.00-20.00) Ratio Glucose (70-110) mg/dL POC Glucose (mg/dL) 127 H (70-110) mg/dL Calcium (8.7-10.3) mg/dL Stool Lactoferrin (Negative) Microbiology - Last 24 Hours (Table) 09/13/22 15:07 Body Fluid Culture - Preliminary Peritoneal Fluid
[2022-09-15 16:16] LABS: Glucose,Whole Blood 144 mg/dL (70-110)
[2022-09-15 20:43] LABS: Glucose,Whole Blood 101 mg/dL (70-110)
[2022-09-15] MEDS: PANTOPRAZOLE 40 MG/10 ML VIAL IVP SCH (21:02)
[2022-09-15] MEDS: HEPARIN SODIUM,PORCINE 5,000 UNIT/ML 1 ML VIAL SQ SCH (21:03)
[2022-09-16 01:46] LABS: Glucose,Whole Blood 86 mg/dL (70-110)
[2022-09-16] MEDS: HYDROmorphone 0.5 MG/0.5 ML SYRINGE IVP PRN ×6 (02:19→20:46)
[2022-09-16] MEDS: DEXTROSE 5%-0.9% NACL 1,000 ML IV SCH (04:27)
[2022-09-16 05:45] LABS: Glucose,Whole Blood 125 mg/dL (70-110)
[2022-09-16] MEDS: PANTOPRAZOLE 40 MG/10 ML VIAL IVP SCH ×2 (07:53→20:44)
[2022-09-16] MEDS: HEPARIN SODIUM,PORCINE 5,000 UNIT/ML 1 ML VIAL SQ SCH ×2 (07:54→20:44)
--- NOTE | 2022-09-16 08:00 | P.PN ---
Subjective Progress Note Date: 09/16/22 Principal diagnosis: Prominent pancreatic duct This a pleasant 77-year-old male who presented to the emergency department with complaints of diarrhea on insulin low abdominal pain 1 week. States he's been having bouts of diarrhea up to 13 times a day nonbloody. He has a past medical history including seizure disorder and chronic back pain. He denies any nausea or vomiting. He does state that he has had weight loss of 20-30 pounds in the last 3-4 months. He denies any previous history of pancreatitis, no history of liver disease. He denies any abdominal pain at this time. He currently has NG tube in place and general surgery is following for small bowel obstruction. He had a CT of the abdomen and pelvis reporting prominent pancreatic duct and ascites, thus, gastroenterology was consulted. Patient has a history of chronic diarrhea. He has seen gastroenterology in the past had an EGD and colonoscopy on 04/29/[address] Elise for nausea vomiting and chronic diarrhea. Upper endoscopy revealed mild gastritis and a 2 mm nodule that was removed from the GE junction. Colonoscopy revealed mild left colonic diverticulosis otherwise normal-appearing colon. Patient also has a history of ascites looking back through his records in 2019 did have to undergo paracentesis at that time. He denies any history of liver disease, no history of alcoholism. Admitting labs WBC 7.1 hemoglobin 14.6 platelet count 264,019 or 1.0 sodium 134 potassium 3.7 BUN 22 creatinine 0.8 total bilirubin 0.8 AST 31 AST 21 alkaline phosphatase 121 lipase 17 09/14/2022 Patient seen and examined today as a follow-up. Patient lying in bed resting comfortably. NG tube still in place with significant amount of coffee-ground output. Patient states he did have a bowel movement today. CA-19-9 negative, patient underwent paracentesis with reported very mild amount of ascites. Fluid protein 1500 fluid albumin currently pending. Cytology currently pending. 09/15/2022 Patient seen and examined today as a follow-up. Patient just got back from small bowel series. He is complaining of a lot of abdominal pain and rates it at 8 out of 10. NG tube in place clamped currently as patient just got back from x-ray. He did have a bowel movement today which was reported as soft, more formed, and brown. He is denying any nausea or vomiting. Small bowel series currently pending. 09/16/2022 Patient seen and examined today as a follow-up. He still has NG tube placed with dark output. He states he has some abdominal pain ever since he underwent a small bowel series. He is denying any nausea or vomiting and asking to eat. Small bowel series was negative for obstruction. Fluid cytology from ascites negative for malignant cells. Patient's labs are more consistent with portal hypertension from either likely underlying liver disease versus cardiac source. Objective - Vital Signs Vital signs: Vital Signs Temp 97.5 F L 09/16/22 01:34 Pulse 46 L 09/16/22 01:34 Resp 14 09/16/22 01:34 BP 99/59 09/16/22 01:34 Pulse Ox 91 L 09/16/22 01:34 FiO2 Intake & Output 09/15/22 09/16/22 09/16/22 18:59 06:59 18:59 Output Total 1550 1950 Balance -1550 -1950 Output: Gastric Drainage 750 1800 Urine 150 Other 800 Other: Voiding Method Urinal # Voids 2 # Bowel Movements 2 - Exam General appearance: The patient is alert, oriented, appears in no acute distress. Emaciated appearing. HET: Head is normocephalic and atraumatic. Conjunctiva pink. Sclera anicteric. NG tube in place. Neck: Supple without lymphadenopathy. Trachea midline. Heart: S1 S2. Regular rate and rhythm. Lungs: Clear to auscultation. Abdomen: Soft, thin, tender to palpation,, nondistended with bowel sounds. Skin: No rashes. No jaundice. Extremities: Normal skin color and turgor. No pedal edema. Neurological: No focal deficits. Alert and oriented x3. - Labs CBC & Chem 7: 09/15/22 05:50 09/15/22 05:50 Labs: Abnormal Lab Results - Last 24 Hours (Table) 09/15/22 09/15/22 09/15/22 Range/Units 05:50 05:50 11:19 WBC 12.11 H (4.50-10.00) X 10*3/uL Neutrophils # 9.26 H (1.80-7.70) X 10*3/uL Eosinophils # 0.02 L (0.04-0.35) X 10*3/uL Sodium 146 H (135-145) mmol/L Carbon Dioxide 32.5 H (21.6-31.8) mmol/L BUN/Creatinine Ratio 22.25 H (12.00-20.00) Ratio Glucose 131 H (70-110) mg/dL POC Glucose (mg/dL) 127 H (70-110) mg/dL Calcium 8.5 L (8.7-10.3) mg/dL 09/15/22 09/16/22 Range/Units 16:14 05:43 WBC (4.50-10.00) X 10*3/uL Neutrophils # (1.80-7.70) X 10*3/uL Eosinophils # (0.04-0.35) X 10*3/uL Sodium (135-145) mmol/L Carbon Dioxide (21.6-31.8) mmol/L BUN/Creatinine Ratio (12.00-20.00) Ratio Glucose (70-110) mg/dL POC Glucose (mg/dL) 144 H 125 H (70-110) mg/dL Calcium (8.7-10.3) mg/dL Microbiology - Last 24 Hours (Table) 09/13/22 15:07 Anaerobic Culture - Preliminary Peritoneal Fluid 09/13/22 15:07 Gram Stain - Preliminary Peritoneal Fluid Body Fluid Culture - Preliminary Assessment and Plan (1) Abnormal CT of the abdomen Narrative/Plan: 77-year-old male came in with complaints of abdominal pain for 1 week duration with diarrhea. He was found to have small bowel obstruction. Gen. surgery is following for that. While he was having his CT of his abdomen and pelvis did note a prominent pancreatic duct Measuring 0.2 cm at the tail of the pancreas. Normal less than 0.1 cm pancreatic duct at the head of the pancreas is 0.5 cm which is dilated. Consider follow-up ERCP. Unclear etiology of a prominent duct. Patient without any abdominal pain in the upper abdomen. Denies any nausea or vomiting. He does however report I explained weight loss of 20-30 pounds over the last 3-4 months. Denies any history of known liver disease or pancreatitis. Lipase and LFTs are all within normal limits, with no evidence of cholestatic pattern. CA-19-9 negative. Cytology from ascites and negative for malignancy. LFTs all normal range. No further workup indicated at this time. Current Visit: Yes Status: Acute Code(s): R93.5 - ABN FINDINGS ON DX IMAGING OF ABD REGIONS, INC RETROPERITON SNOMED Code(s): 80714859126626513 (2) Chronic diarrhea Narrative/Plan: Stool studies ordered C. diff negative, stool cultures pending. Stool is beginning to become more formed. Current Visit: Yes Status: Acute Code(s): K52.9 - NONINFECTIVE GASTROENTERITIS AND COLITIS, UNSPECIFIED SNOMED Code(s): 064500892 (3) Ascites Narrative/Plan: Small amount of ascites, paracentesis. Fluid studies ordered. Fluid studies are consistent with portal hypertension from either underlying liver disease or cardiac source. Cytology negative for malignancy. Current Visit: Yes Status: Acute Code(s): R18.8 - OTHER ASCITES SNOMED Code(s): 744444464 (4) Small bowel obstruction Narrative/Plan: Gen. surgery following. Current Visit: Yes Status: Acute Code(s): K56.609 - UNSP INTESTNL OBST, UNSP TO PARTIAL VERSUS COMPLETE OBST SNOMED Code(s): 791121817 Plan: 1. Continue symptomatic and supportive care 2. Continue with recommendations from general surgery 3. Patient status post paracentesis with fluid studies. Cytology negative for malignancy. Fluid studies consistent with portal hypertension from either underlying liver disease versus cardiac source. 4. No further workup planned at this time. 5. Continue with medical management Thank you for this consultation, we will sign off at this time. Dr. Elva Hernandez I agree with the dictator's note, documented as a scribe by Mari Reeves.
[2022-09-16] MEDS: levETIRAcetam IV 500 MG/5 ML VIAL IVP SCH ×2 (09:23→20:46)
[2022-09-16 11:21] LABS: BUN/Creat Ratio 18.88 Ratio (12.00-20.00); Blood Urea Nitrogen 15.1 mg/dL (9.0-27.0); Calcium 8.5 mg/dL (8.7-10.3); Carbon Dioxide 35.2 mmol/L (21.6-31.8); Chloride 109 mmol/L (96-109); Glucose 127 mg/dL (70-110); Magnesium 2.1 mg/dL (1.5-2.4); Sodium 152 mmol/L (135-145)
[2022-09-16 11:24] LABS: Glucose,Whole Blood 96 mg/dL (70-110)
[2022-09-16 11:25] LABS: HCT 42.1 % (39.6-50.0); HGB 13.6 d/dL (13.0-17.0); MCH 30.4 pg (27.0-32.0); MCHC 32.3 d/dL (32.0-37.0); MCV 94.2 FL (80.0-97.0); Mean Platelet Volume 10.1 FL (9.5-12.2); NRBC Per 100 WBC 0 X 10*3/uL (0.00-0.01); Platelet Count 286 X 10*3/uL (140-440); RBC 4.47 X 10*6/uL (4.40-5.60); WBC 13.86 X 10*3/uL (4.50-10.00)
--- NOTE | 2022-09-16 13:59 | P.PN ---
Subjective Progress Note Date: 09/16/22 Principal diagnosis: Abdominal pain Patient doing better today. Says his pain is improved. Still having some loose stools. He would like nasogastric tube removed. Says he is hungry. Objective - Vital Signs Vital signs: Vital Signs Temp 97.9 F 09/16/22 07:09 Pulse 69 09/16/22 07:56 Resp 19 09/16/22 07:56 BP 96/61 09/16/22 07:09 Pulse Ox 97 09/16/22 07:09 FiO2 Intake & Output 09/15/22 09/16/22 09/16/22 18:59 06:59 18:59 Output Total 1550 1950 Balance -1550 -1950 Output: Gastric Drainage 750 1800 Urine 150 Other 800 Other: Voiding Method Urinal # Voids 2 # Bowel Movements 2 - Exam Abdomen: Soft, mild distention, nontender - Labs CBC & Chem 7: 09/16/22 06:32 09/16/22 06:32 Labs: Abnormal Lab Results - Last 24 Hours (Table) 09/15/22 09/16/22 09/16/22 Range/Units 16:14 05:43 06:32 WBC 13.86 H (4.50-10.00) X 10*3/uL Sodium (135-145) mmol/L Potassium (3.5-5.5) mmol/L Carbon Dioxide (21.6-31.8) mmol/L Glucose (70-110) mg/dL POC Glucose (mg/dL) 144 H 125 H (70-110) mg/dL Calcium (8.7-10.3) mg/dL 09/16/22 Range/Units 06:32 WBC (4.50-10.00) X 10*3/uL Sodium 152 H (135-145) mmol/L Potassium 3.0 L (3.5-5.5) mmol/L Carbon Dioxide 35.2 H (21.6-31.8) mmol/L Glucose 127 H (70-110) mg/dL POC Glucose (mg/dL) (70-110) mg/dL Calcium 8.5 L (8.7-10.3) mg/dL Microbiology - Last 24 Hours (Table) 09/13/22 15:07 Anaerobic Culture - Preliminary Peritoneal Fluid 09/13/22 15:07 Gram Stain - Preliminary Peritoneal Fluid Body Fluid Culture - Preliminary Assessment and Plan (1) Abdominal pain Narrative/Plan: Patient doing better today. We'll remove nasogastric tube and begin liquid diet. If patient has episodes of recurrent bowel distention or nausea vomiting would proceed with diagnostic laparoscopy. Patient I discussed that he is high risk for any surgical intervention unless necessary. Spoke with GI. They plan to medically manage the patient's significant ascites. Chronic diarrhea will be addressed with GI as outpatient as well. Current Visit: Yes Status: Acute Code(s): R10.9 - UNSPECIFIED ABDOMINAL PAIN SNOMED Code(s): 30038173
--- NOTE | 2022-09-16 15:16 | P.PN ---
Subjective Progress Note Date: 09/16/22 77 years old male with multiple medical problems, GERD/Reflux, Osteoarthritis (OA), Seizure Disorder,LAST SEIZURE 2006, GLAUCOMA. Presents because of diarrhea more than one months. at bedside. Patient looks cachectic and it looks like [place] lost some weight Patient says that he eats well but he has frequent bowel movement about 10-15 H day. There are lose and no blood in them. Normally his bowel movement was was twice a day. 2 days ago he noticed that he has swelling in his feet and that's it was purple in color but this resolved now. Also patient complains from stomach distention. He sees Dr. Hernandez from GI as an outpatient for colonoscopy and EGD Patient smokes about 5 cigarettes per day and he was counseled to quit and he agrees but he declines nicotine patch. He used to drink alcohol 40 years quit about 3-4 years ago when he lost appetite.. No illicit drugs. CT of the abdomen and pelvis: Dilated fluid-filled small bowel loops, partial small bowel obstruction is suspected. Ascites with prominent pancreatic duct 09/13/2022 Patient has less abdominal distention, NG tube is in place and draining about 500 mL with Dark Green discharge from his stomach over the last few hours in the morning. No significant abdominal pain and tenderness. No bowel movement. He had mild hypoglycemia this morning and fluent change to D5 normal saline at 75 mL/h. Surgery consult is requested. Continue with home dose of Keppra intravenously, conversion from oral to IV is 1:1 as per pharmacist 09/14/2022 Patient looks the same. NG tube is in place with Tyler discharge today. Abdomen less distended with mild tenderness. His status post ultrasound-guided paracentesis and results are pending including cytology studies Tumor markers sent by GI team and still pending GI and surgery team on the case. Patient still studies also are pending as well. She remains on bowel rest, pain management and IV fluids 09/15 patient seen and everted bedside, abdominal distention has improved, NG tube in place 09/16: Patient doing better today mild discomfort that have bowel movement movement. Seen by general surgery. Plan to advance diet as tolerated and remove NG tube. IV fluid transition to D5W as well. We'll continue to monitor serum sodium levels Objective - Vital Signs Vital signs: Vital Signs Temp 97.8 F 09/16/22 14:00 Pulse 82 09/16/22 14:00 Resp 17 09/16/22 14:00 BP 113/72 09/16/22 14:00 Pulse Ox 94 L 09/16/22 14:00 FiO2 Intake & Output 09/15/22 09/16/22 09/16/22 18:59 06:59 18:59 Output Total 1550 1950 Balance -1550 -1950 Weight 47.174 kg Output: Gastric Drainage 750 1800 Urine 150 Other 800 Other: Voiding Method Urinal # Voids 2 # Bowel Movements 2 - Exam PHYSICAL EXAMINATION: GENERAL: The patient is alert and oriented x3, ill appearance, underweight HEENT: Pupils are round and equally reacting to light. EOMI. NG tube in place CARDIOVASCULAR: S1 and S2 present. No murmurs, rubs, or gallops. PULMONARY: Chest is clear to auscultation, no wheezing or crackles. ABDOMEN: Soft, nontender, nondistended, normoactive bowel sounds. No palpable organomegaly. MUSCULOSKELETAL: No joint swelling or deformity. EXTREMITIES: No cyanosis, clubbing, or pedal edema. NEUROLOGICAL: Gross neurological examination did not reveal any focal deficits. - Labs CBC & Chem 7: 09/16/22 06:32 09/16/22 06:32 Labs: Abnormal Lab Results - Last 24 Hours (Table) 09/15/22 09/16/22 09/16/22 Range/Units 16:14 05:43 06:32 WBC 13.86 H (4.50-10.00) X 10*3/uL Sodium (135-145) mmol/L Potassium (3.5-5.5) mmol/L Carbon Dioxide (21.6-31.8) mmol/L Glucose (70-110) mg/dL POC Glucose (mg/dL) 144 H 125 H (70-110) mg/dL Calcium (8.7-10.3) mg/dL 09/16/22 Range/Units 06:32 WBC (4.50-10.00) X 10*3/uL Sodium 152 H (135-145) mmol/L Potassium 3.0 L (3.5-5.5) mmol/L Carbon Dioxide 35.2 H (21.6-31.8) mmol/L Glucose 127 H (70-110) mg/dL POC Glucose (mg/dL) (70-110) mg/dL Calcium 8.5 L (8.7-10.3) mg/dL Microbiology - Last 24 Hours (Table) 09/13/22 15:07 Anaerobic Culture - Preliminary Peritoneal Fluid 09/13/22 15:07 Gram Stain - Preliminary Peritoneal Fluid Body Fluid Culture - Preliminary Assessment and Plan Assessment: Assessment: Small bowel obstruction, partial moderate to severe calories protein malnutrition Acute hypernatremia Prominent pancreatic duct with abdominal ascites Nicotine dependence History of seizure disorder History of alcohol use disorder History of glaucoma History of GERD Osteoarthritis Plan: * Consult obtained from gastroenterology, general surgery * Will advance diet as tolerated small bowel follow-through negative on 09/15, we'll start patient on clear liquid diet, NG tube removed A * Status post paracentesis, cytology negative * In regards to history of seizure continue IV Keppra * Optimize electrolytes, potassium was replaced * In regards to hypernatremia continue patient on D5W
[2022-09-16] MEDS: POTASSIUM CHLORIDE 10 MEQ in WATER FOR INJECTION 1 100ML.BAG IVPB SCH ×2 (15:51→17:09)
[2022-09-16] MEDS: DEXTROSE 5%-0.2% NACL 1,000 ML IV SCH (16:06)
[2022-09-16 16:16] LABS: Glucose,Whole Blood 115 mg/dL (70-110)
[2022-09-16 18:51] LABS: African American GFR (CKD) >90 (>60 ml/min/1.73 sqM); Anion Gap 6 mmol/L; Blood Urea Nitrogen 18 mg/dL (9-20); Calcium 8.3 mg/dL (8.4-10.2); Carbon Dioxide 32 mmol/L (22-30); Chloride 104 mmol/L (98-107); Glucose 136 mg/dL (74-99); Non-African American GFR(CKD) >90 (>60 ml/min/1.73 sqM); Potassium 3.3 mmol/L (3.5-5.1); Sodium 142 mmol/L (137-145)
[2022-09-17] MEDS: HYDROmorphone 0.5 MG/0.5 ML SYRINGE IVP PRN ×7 (01:54→20:42)
[2022-09-17] MEDS: POTASSIUM CHLORIDE ER 20 MEQ TAB.ER PO SCH ×3 (05:32→07:25)
[2022-09-17] MEDS: DEXTROSE 5%-0.2% NACL 1,000 ML IV SCH ×2 (07:29→20:40)
[2022-09-17] MEDS: HEPARIN SODIUM,PORCINE 5,000 UNIT/ML 1 ML VIAL SQ SCH ×2 (08:40→20:41)
[2022-09-17] MEDS: PANTOPRAZOLE 40 MG/10 ML VIAL IVP SCH ×2 (08:40→20:42)
[2022-09-17] MEDS: levETIRAcetam IV 500 MG/5 ML VIAL IVP SCH ×2 (08:40→20:41)
[2022-09-17 09:12] LABS: HGB 12.9 d/dL (13.0-17.0); MCH 31.3 pg (27.0-32.0); MCHC 33.1 d/dL (32.0-37.0); MCV 94.7 FL (80.0-97.0); Mean Platelet Volume 10.8 FL (9.5-12.2); NRBC Per 100 WBC 0 X 10*3/uL (0.00-0.01); Platelet Count 255 X 10*3/uL (140-440); RBC 4.12 X 10*6/uL (4.40-5.60); RDW 13.6 % (11.5-14.5); WBC 13.25 X 10*3/uL (4.50-10.00)
[2022-09-17 09:25] LABS: BUN/Creat Ratio 27.17 Ratio (12.00-20.00); Blood Urea Nitrogen 16.3 mg/dL (9.0-27.0); Calcium 8.1 mg/dL (8.7-10.3); Carbon Dioxide 30.7 mmol/L (21.6-31.8); Chloride 104 mmol/L (96-109); Glucose 102 mg/dL (70-110); Potassium 3.1 mmol/L (3.5-5.5); Sodium 142 mmol/L (135-145)
[2022-09-17] MEDS ORDERED: POTASSIUM CHLORIDE ER 20 MEQ TAB.ER PO STA (09:43)
[2022-09-17] MEDS ORDERED: POTASSIUM CHLORIDE 20 MEQ in WATER FOR INJECTION 1 100ML.BAG IVPB ONE (10:30)
[2022-09-17 11:13] LABS: Glucose,Whole Blood 125 mg/dL (70-110)
--- NOTE | 2022-09-17 14:19 | P.PN ---
Subjective Progress Note Date: 09/17/22 77 years old male with multiple medical problems, GERD/Reflux, Osteoarthritis (OA), Seizure Disorder,LAST SEIZURE 2006, GLAUCOMA. Presents because of diarrhea more than one months. at bedside. Patient looks cachectic and it looks like [place] lost some weight Patient says that he eats well but he has frequent bowel movement about 10-15 H day. There are lose and no blood in them. Normally his bowel movement was was twice a day. 2 days ago he noticed that he has swelling in his feet and that's it was purple in color but this resolved now. Also patient complains from stomach distention. He sees Dr. Hernandez from GI as an outpatient for colonoscopy and EGD Patient smokes about 5 cigarettes per day and he was counseled to quit and he agrees but he declines nicotine patch. He used to drink alcohol 40 years quit about 3-4 years ago when he lost appetite.. No illicit drugs. CT of the abdomen and pelvis: Dilated fluid-filled small bowel loops, partial small bowel obstruction is suspected. Ascites with prominent pancreatic duct 09/13/2022 Patient has less abdominal distention, NG tube is in place and draining about 500 mL with Dark Green discharge from his stomach over the last few hours in the morning. No significant abdominal pain and tenderness. No bowel movement. He had mild hypoglycemia this morning and fluent change to D5 normal saline at 75 mL/h. Surgery consult is requested. Continue with home dose of Keppra intravenously, conversion from oral to IV is 1:1 as per pharmacist 09/14/2022 Patient looks the same. NG tube is in place with Tyler discharge today. Abdomen less distended with mild tenderness. His status post ultrasound-guided paracentesis and results are pending including cytology studies Tumor markers sent by GI team and still pending GI and surgery team on the case. Patient still studies also are pending as well. She remains on bowel rest, pain management and IV fluids 09/15 patient seen and everted bedside, abdominal distention has improved, NG tube in place 09/16: Patient doing better today mild discomfort that have bowel movement movement. Seen by general surgery. Plan to advance diet as tolerated and remove NG tube. IV fluid transition to D5W as well. We'll continue to monitor serum sodium levels 09/17: Patient seen and evaluated bedside, diet advanced as tolerated, noted to have low potassium levels which will be replaced, hypernatremia resolved. Encourage use of ensure Objective - Vital Signs Vital signs: Vital Signs Temp 98.3 F 09/17/22 07:20 Pulse 62 09/17/22 08:41 Resp 16 09/17/22 08:41 BP 119/74 09/17/22 07:20 Pulse Ox 95 09/17/22 07:20 FiO2 Intake & Output 09/16/22 09/17/22 09/17/22 18:59 06:59 18:59 Weight 47.174 kg 47.174 kg Other: Voiding Method Urinal # Voids 3 1 # Bowel Movements 1 - Exam PHYSICAL EXAMINATION: GENERAL: The patient is alert and oriented x3, ill appearance, underweight HEENT: Pupils are round and equally reacting to light. EOMI. NG tube removed CARDIOVASCULAR: S1 and S2 present. No murmurs, rubs, or gallops. PULMONARY: Chest is clear to auscultation, no wheezing or crackles. ABDOMEN: Soft, nontender, nondistended, normoactive bowel sounds. No palpable organomegaly. MUSCULOSKELETAL: No joint swelling or deformity. EXTREMITIES: No cyanosis, clubbing, or pedal edema. NEUROLOGICAL: Gross neurological examination did not reveal any focal deficits. - Labs CBC & Chem 7: 09/17/22 06:09 09/17/22 12:38 Labs: Abnormal Lab Results - Last 24 Hours (Table) 09/16/22 09/16/22 09/16/22 Range/Units 16:15 18:24 21:17 WBC (4.50-10.00) X 10*3/uL RBC (4.40-5.60) X 10*6/uL Hgb (13.0-17.0) d/dL Hct (39.6-50.0) % Potassium 3.3 L 2.9 L (3.5-5.1) mmol/L Carbon Dioxide 32 H (22-30) mmol/L BUN/Creatinine Ratio (12.00-20.00) Ratio Glucose 136 H (74-99) mg/dL POC Glucose (mg/dL) 115 H (70-110) mg/dL Calcium 8.3 L (8.4-10.2) mg/dL 09/17/22 09/17/22 09/17/22 Range/Units 06:09 06:09 11:12 WBC 13.25 H (4.50-10.00) X 10*3/uL RBC 4.12 L (4.40-5.60) X 10*6/uL Hgb 12.9 L (13.0-17.0) d/dL Hct 39.0 L (39.6-50.0) % Potassium 3.1 L (3.5-5.1) mmol/L Carbon Dioxide (22-30) mmol/L BUN/Creatinine Ratio 27.17 H (12.00-20.00) Ratio Glucose (74-99) mg/dL POC Glucose (mg/dL) 125 H (70-110) mg/dL Calcium 8.1 L (8.4-10.2) mg/dL Microbiology - Last 24 Hours (Table) 09/12/22 16:49 Stool Culture - Preliminary Stool Assessment and Plan Assessment: Assessment: Small bowel obstruction, partial moderate to severe calories protein malnutrition Acute hypernatremia Prominent pancreatic duct with abdominal ascites Nicotine dependence History of seizure disorder History of alcohol use disorder History of glaucoma History of GERD Osteoarthritis Plan: * Consult obtained from gastroenterology, general surgery * Will advance diet as tolerated small bowel follow-through negative on 09/15, nasogastric tube removed 09/16, diet advanced as tolerated * Status post paracentesis, cytology negative * In regards to history of seizure continue IV Keppra * Optimize electrolytes, potassium was replaced * In regards to hypernatremia continue patient on D5W, follow-up on serum sodium levels * In regards to malnutrition encourage use of protein supplementation
[2022-09-17 16:18] LABS: Glucose,Whole Blood 111 mg/dL (70-110)
--- NOTE | 2022-09-17 16:22 | P.PN ---
Subjective Progress Note Date: 09/17/22 He is having bowel movements. He denies abdominal pain. He is on clear liquid diet and tolerating. He reports flatus. Advancement of diet pending continued clinical improvement. Objective - Vital Signs Vital signs: Vital Signs Temp 97.6 F 09/17/22 14:00 Pulse 71 09/17/22 14:00 Resp 14 09/17/22 14:00 BP 129/82 09/17/22 14:00 Pulse Ox 96 09/17/22 14:00 FiO2 Intake & Output 09/16/22 09/17/22 09/17/22 18:59 06:59 18:59 Weight 47.174 kg 47.174 kg Other: Voiding Method Urinal # Voids 3 1 # Bowel Movements 1 - Labs CBC & Chem 7: 09/17/22 06:09 09/17/22 12:38 Labs: Abnormal Lab Results - Last 24 Hours (Table) 09/16/22 09/16/22 09/17/22 Range/Units 18:24 21:17 06:09 WBC 13.25 H (4.50-10.00) X 10*3/uL RBC 4.12 L (4.40-5.60) X 10*6/uL Hgb 12.9 L (13.0-17.0) d/dL Hct 39.0 L (39.6-50.0) % Potassium 3.3 L 2.9 L (3.5-5.1) mmol/L Carbon Dioxide 32 H (22-30) mmol/L BUN/Creatinine Ratio (12.00-20.00) Ratio Glucose 136 H (74-99) mg/dL POC Glucose (mg/dL) (70-110) mg/dL Calcium 8.3 L (8.4-10.2) mg/dL 09/17/22 09/17/22 09/17/22 Range/Units 06:09 11:12 16:16 WBC (4.50-10.00) X 10*3/uL RBC (4.40-5.60) X 10*6/uL Hgb (13.0-17.0) d/dL Hct (39.6-50.0) % Potassium 3.1 L (3.5-5.1) mmol/L Carbon Dioxide (22-30) mmol/L BUN/Creatinine Ratio 27.17 H (12.00-20.00) Ratio Glucose (74-99) mg/dL POC Glucose (mg/dL) 125 H 111 H (70-110) mg/dL Calcium 8.1 L (8.4-10.2) mg/dL Microbiology - Last 24 Hours (Table) 09/12/22 16:49 Stool Culture - Preliminary Stool
[2022-09-17 21:26] LABS: Glucose,Whole Blood 110 mg/dL (70-110)
[2022-09-18] MEDS: HYDROmorphone 0.5 MG/0.5 ML SYRINGE IVP PRN ×7 (01:01→20:30)
[2022-09-18 05:36] LABS: Glucose,Whole Blood 99 mg/dL (70-110)
[2022-09-18] MEDS: levETIRAcetam IV 500 MG/5 ML VIAL IVP SCH ×2 (07:48→20:30)
[2022-09-18] MEDS: PANTOPRAZOLE 40 MG/10 ML VIAL IVP SCH ×2 (07:48→20:30)
[2022-09-18] MEDS: HEPARIN SODIUM,PORCINE 5,000 UNIT/ML 1 ML VIAL SQ SCH ×2 (07:49→20:23)
[2022-09-18 09:16] LABS: BUN/Creat Ratio 23.17 Ratio (12.00-20.00); Blood Urea Nitrogen 13.9 mg/dL (9.0-27.0); Calcium 7.9 mg/dL (8.7-10.3); Carbon Dioxide 27.4 mmol/L (21.6-31.8); Chloride 102 mmol/L (96-109); Glucose 92 mg/dL (70-110); Magnesium 1.5 mg/dL (1.5-2.4); Phosphorus 2.1 mg/dL (2.4-5.1); Potassium 4.5 mmol/L (3.5-5.5); Sodium 135 mmol/L (135-145)
[2022-09-18] MEDS: MAGNESIUM SULFATE-D5W PMX 1 GM in DEXTROSE/WATER 1 100ML.BAG IVPB SCH ×2 (09:48→10:30)
[2022-09-18] MEDS: DEXTROSE 5%-0.2% NACL 1,000 ML IV SCH (10:29)
[2022-09-18 11:29] LABS: Glucose,Whole Blood 112 mg/dL (70-110)
[2022-09-18] MEDS: SODIUM PHOSPHATE 10 MMOL in SODIUM CHLORIDE 0.9% 250 ML IV SCH ×2 (11:33→14:01)
--- NOTE | 2022-09-18 13:28 | P.PN ---
Subjective Progress Note Date: 09/18/22 77 years old male with multiple medical problems, GERD/Reflux, Osteoarthritis (OA), Seizure Disorder,LAST SEIZURE 2006, GLAUCOMA. Presents because of diarrhea more than one months. at bedside. Patient looks cachectic and it looks like [place] lost some weight Patient says that he eats well but he has frequent bowel movement about 10-15 H day. There are lose and no blood in them. Normally his bowel movement was was twice a day. 2 days ago he noticed that he has swelling in his feet and that's it was purple in color but this resolved now. Also patient complains from stomach distention. He sees Dr. Hernandez from GI as an outpatient for colonoscopy and EGD Patient smokes about 5 cigarettes per day and he was counseled to quit and he agrees but he declines nicotine patch. He used to drink alcohol 40 years quit about 3-4 years ago when he lost appetite.. No illicit drugs. CT of the abdomen and pelvis: Dilated fluid-filled small bowel loops, partial small bowel obstruction is suspected. Ascites with prominent pancreatic duct 09/13/2022 Patient has less abdominal distention, NG tube is in place and draining about 500 mL with Dark Green discharge from his stomach over the last few hours in the morning. No significant abdominal pain and tenderness. No bowel movement. He had mild hypoglycemia this morning and fluent change to D5 normal saline at 75 mL/h. Surgery consult is requested. Continue with home dose of Keppra intravenously, conversion from oral to IV is 1:1 as per pharmacist 09/14/2022 Patient looks the same. NG tube is in place with Tyler discharge today. Abdomen less distended with mild tenderness. His status post ultrasound-guided paracentesis and results are pending including cytology studies Tumor markers sent by GI team and still pending GI and surgery team on the case. Patient still studies also are pending as well. She remains on bowel rest, pain management and IV fluids 09/15 patient seen and everted bedside, abdominal distention has improved, NG tube in place 09/16: Patient doing better today mild discomfort that have bowel movement movement. Seen by general surgery. Plan to advance diet as tolerated and remove NG tube. IV fluid transition to D5W as well. We'll continue to monitor serum sodium levels 09/17: Patient seen and evaluated bedside, diet advanced as tolerated, noted to have low potassium levels which will be replaced, hypernatremia resolved. Encourage use of ensure 09/18: Patient seen and evaluated and bedside. Does have cough with purulent sputum production. Chest x-ray ordered suspected bronchitis started on doxycycline chronic history of smoking as well. Encouraged to increase oral intake secondary to malnutrition. Patient will benefit from rehab Objective - Vital Signs Vital signs: Vital Signs Temp 97.9 F 09/18/22 06:59 Pulse 68 09/18/22 06:59 Resp 16 09/18/22 06:59 BP 113/69 09/18/22 06:59 Pulse Ox 96 09/18/22 06:59 FiO2 Intake & Output 09/17/22 09/18/22 09/18/22 18:59 06:59 18:59 Output Total 500 100 Balance -500 -100 Weight 47.174 kg Output: Urine 500 100 Other: Voiding Method Urinal Urinal # Voids 2 # Bowel Movements 1 - Exam PHYSICAL EXAMINATION: GENERAL: The patient is alert and oriented x3, ill appearance, underweight HEENT: Pupils are round and equally reacting to light. EOMI. NG tube removed CARDIOVASCULAR: S1 and S2 present. No murmurs, rubs, or gallops. PULMONARY: Chest is clear to auscultation, no wheezing or crackles. ABDOMEN: Soft, nontender, nondistended, normoactive bowel sounds. No palpable organomegaly. MUSCULOSKELETAL: No joint swelling or deformity. EXTREMITIES: No cyanosis, clubbing, or pedal edema. NEUROLOGICAL: Gross neurological examination did not reveal any focal deficits. - Labs CBC & Chem 7: 09/17/22 06:09 09/18/22 05:09 Labs: Abnormal Lab Results - Last 24 Hours (Table) 09/17/22 09/18/22 09/18/22 Range/Units 16:16 05:09 11:28 BUN/Creatinine Ratio 23.17 H (12.00-20.00) Ratio POC Glucose (mg/dL) 111 H 112 H (70-110) mg/dL Calcium 7.9 L (8.7-10.3) mg/dL Phosphorus 2.1 L (2.4-5.1) mg/dL Microbiology - Last 24 Hours (Table) 09/12/22 16:49 Stool Culture - Final Stool 09/13/22 15:07 Gram Stain - Final Peritoneal Fluid Body Fluid Culture - Final 09/13/22 15:07 Anaerobic Culture - Final Peritoneal Fluid Assessment and Plan Assessment: Assessment: Small bowel obstruction, partial moderate to severe calories protein malnutrition Acute hypernatremia Prominent pancreatic duct with abdominal ascites Nicotine dependence History of seizure disorder History of alcohol use disorder History of glaucoma History of GERD Osteoarthritis Plan: * Consult obtained from gastroenterology, general surgery * Will advance diet as tolerated >> regular 09/18 >> small bowel follow-through negative on 09/15, nasogastric tube removed 09/16 * Status post paracentesis, cytology negative * In regards to history of seizure continue IV Keppra 1250mg BID, if tolerates oral diet okay we'll discharge transition to oral tablets * Optimize electrolytes, potassium was replaced * In regards to hypernatremia>> patient was on D5W, follow-up on serum sodium levels 135 , fluids discontinued 09/18 * In regards to malnutrition encourage use of protein supplementation
--- NOTE | 2022-09-18 14:15 | XR ---
EXAMINATION TYPE: XR chest 1V DATE OF EXAM: 09/18/2022 COMPARISON: 09/12/2022 INDICATION: Pneumonia TECHNIQUE: Single frontal view of the chest is obtained. FINDINGS: The heart size is normal. The pulmonary vasculature is normal. The lungs are clear. IMPRESSION: 1. No acute pulmonary process.
--- NOTE | 2022-09-18 15:58 | P.PN ---
Subjective Progress Note Date: 09/18/22 Tolerating liquid diet. Denies abdominal pain. Advance to low fiber diet. Objective - Vital Signs Vital signs: Vital Signs Temp 97.6 F 09/18/22 14:06 Pulse 76 09/18/22 14:06 Resp 16 09/18/22 14:06 BP 102/69 09/18/22 14:06 Pulse Ox 99 09/18/22 14:06 FiO2 Intake & Output 09/17/22 09/18/22 09/18/22 18:59 06:59 18:59 Output Total 500 100 Balance -500 -100 Weight 47.174 kg Output: Urine 500 100 Other: Voiding Method Urinal Urinal # Voids 2 # Bowel Movements 1 - Labs CBC & Chem 7: 09/17/22 06:09 09/18/22 05:09 Labs: Abnormal Lab Results - Last 24 Hours (Table) 09/17/22 09/18/22 09/18/22 Range/Units 16:16 05:09 11:28 BUN/Creatinine Ratio 23.17 H (12.00-20.00) Ratio POC Glucose (mg/dL) 111 H 112 H (70-110) mg/dL Calcium 7.9 L (8.7-10.3) mg/dL Phosphorus 2.1 L (2.4-5.1) mg/dL Microbiology - Last 24 Hours (Table) 09/12/22 16:49 Stool Culture - Final Stool 09/13/22 15:07 Gram Stain - Final Peritoneal Fluid Body Fluid Culture - Final 09/13/22 15:07 Anaerobic Culture - Final Peritoneal Fluid
[2022-09-18 16:36] LABS: Glucose,Whole Blood 116 mg/dL (70-110)
[2022-09-18] MEDS: DOXYCYCLINE 100 MG CAP PO SCH (20:24)
[2022-09-18] MEDS: LATANOPROST 0.005% OPHTH DROPS 2.5 ML BTL BOTH EYES SCH (20:24)
[2022-09-18 21:39] LABS: Glucose,Whole Blood 136 mg/dL (70-110)
[2022-09-19] MEDS: HYDROmorphone 0.5 MG/0.5 ML SYRINGE IVP PRN ×6 (00:18→15:41)
[2022-09-19 02:00] LABS: Glucose,Whole Blood 92 mg/dL (70-110)
[2022-09-19 05:44] LABS: Glucose,Whole Blood 89 mg/dL (70-110)
[2022-09-19] MEDS: PANTOPRAZOLE 40 MG/10 ML VIAL IVP SCH ×2 (08:27→20:23)
[2022-09-19 08:43] LABS: BUN/Creat Ratio 14.38 Ratio (12.00-20.00); Blood Urea Nitrogen 11.5 mg/dL (9.0-27.0); C Reactive Protein <0.30 mg/dL (0.00-0.80); Calcium 7.8 mg/dL (8.7-10.3); Carbon Dioxide 27.9 mmol/L (21.6-31.8); Chloride 102 mmol/L (96-109); Glucose 86 mg/dL (70-110); Potassium 4.4 mmol/L (3.5-5.5); Sodium 136 mmol/L (135-145)
[2022-09-19] MEDS: HEPARIN SODIUM,PORCINE 5,000 UNIT/ML 1 ML VIAL SQ SCH ×2 (08:44→20:24)
[2022-09-19] MEDS: DOXYCYCLINE 100 MG CAP PO SCH ×2 (08:44→20:23)
[2022-09-19] MEDS: levETIRAcetam IV 500 MG/5 ML VIAL IVP SCH (09:01)
[2022-09-19 11:28] LABS: Glucose,Whole Blood 118 mg/dL (70-110)
[2022-09-19 12:35] LABS: HCT 41.1 % (39.6-50.0); HGB 13.8 d/dL (13.0-17.0); MCHC 33.6 d/dL (32.0-37.0); MCV 92.4 FL (80.0-97.0); Mean Platelet Volume 10.9 FL (9.5-12.2); NRBC Per 100 WBC 0 X 10*3/uL (0.00-0.01); Platelet Count 247 X 10*3/uL (140-440); RBC 4.45 X 10*6/uL (4.40-5.60); RDW 13.2 % (11.5-14.5); WBC 8.71 X 10*3/uL (4.50-10.00)
--- NOTE | 2022-09-19 15:55 | P.PN ---
Subjective Progress Note Date: 09/19/22 77 years old male with multiple medical problems, GERD/Reflux, Osteoarthritis (OA), Seizure Disorder,LAST SEIZURE 2006, GLAUCOMA. Presents because of diarrhea more than one months. at bedside. Patient looks cachectic and it looks like [place] lost some weight Patient says that he eats well but he has frequent bowel movement about 10-15 H day. There are lose and no blood in them. Normally his bowel movement was was twice a day. 2 days ago he noticed that he has swelling in his feet and that's it was purple in color but this resolved now. Also patient complains from stomach distention. He sees Dr. Hernandez from GI as an outpatient for colonoscopy and EGD Patient smokes about 5 cigarettes per day and he was counseled to quit and he agrees but he declines nicotine patch. He used to drink alcohol 40 years quit about 3-4 years ago when he lost appetite.. No illicit drugs. CT of the abdomen and pelvis: Dilated fluid-filled small bowel loops, partial small bowel obstruction is suspected. Ascites with prominent pancreatic duct 09/13/2022 Patient has less abdominal distention, NG tube is in place and draining about 500 mL with Dark Green discharge from his stomach over the last few hours in the morning. No significant abdominal pain and tenderness. No bowel movement. He had mild hypoglycemia this morning and fluent change to D5 normal saline at 75 mL/h. Surgery consult is requested. Continue with home dose of Keppra intravenously, conversion from oral to IV is 1:1 as per pharmacist 09/14/2022 Patient looks the same. NG tube is in place with Tyler discharge today. Abdomen less distended with mild tenderness. His status post ultrasound-guided paracentesis and results are pending including cytology studies Tumor markers sent by GI team and still pending GI and surgery team on the case. Patient still studies also are pending as well. She remains on bowel rest, pain management and IV fluids 09/15 patient seen and everted bedside, abdominal distention has improved, NG tube in place 09/16: Patient doing better today mild discomfort that have bowel movement movement. Seen by general surgery. Plan to advance diet as tolerated and remove NG tube. IV fluid transition to D5W as well. We'll continue to monitor serum sodium levels 09/17: Patient seen and evaluated bedside, diet advanced as tolerated, noted to have low potassium levels which will be replaced, hypernatremia resolved. Encourage use of ensure 09/18: Patient seen and evaluated and bedside. Does have cough with purulent sputum production. Chest x-ray ordered suspected bronchitis started on doxycycline chronic history of smoking as well. Encouraged to increase oral intake secondary to malnutrition. Patient will benefit from rehab 09/19. Patient seen and examined. Doing better, tolerating diet. REVIEW OF SYSTEMS: CONSTITUTIONAL: No fever, no malaise,. CARDIOVASCULAR: No chest pain, no palpitations, no syncope. PULMONARY: No shortness of breath, no cough, GASTROINTESTINAL: No diarrhea, no nausea, no vomiting, no abdominal pain. NEUROLOGICAL: No headaches, no weakness, PHYSICAL EXAMINATION: GENERAL: The patient is alert and oriented x3, not in any acute distress. Well developed, well nourished. HEENT: Pupils are round and equally reacting to light. EOMI. No scleral icterus. No conjunctival pallor. Normocephalic, atraumatic. No pharyngeal erythema. No thyromegaly. CARDIOVASCULAR: S1 and S2 present. No murmurs, rubs, or gallops. PULMONARY: Chest is clear to auscultation, no wheezing or crackles. ABDOMEN: Soft, nontender, nondistended, normoactive bowel sounds. No palpable organomegaly. MUSCULOSKELETAL: No joint swelling or deformity. EXTREMITIES: No cyanosis, clubbing, or pedal edema. NEUROLOGICAL: Gross neurological examination did not reveal any focal deficits. SKIN: No rashes. Assessment and plan Small bowel obstruction, partial moderate to severe calories protein malnutrition Acute hypernatremia Prominent pancreatic duct with abdominal ascites Nicotine dependence History of seizure disorder History of alcohol use disorder History of glaucoma History of GERD Osteoarthritis Plan: * Consult obtained from gastroenterology, general surgery * >> small bowel follow-through negative on 09/15, nasogastric tube removed 09/16. Currently on regular diet * Status post paracentesis, cytology negative * Switched to Keppra To Oral 1250 twice a day * Optimize electrolytes, potassium was replaced * In regards to hypernatremia>> patient was on D5W, follow-up on serum sodium levels 135 , fluids discontinued 09/18 * In regards to malnutrition encourage use of protein supplementation * Labs and medication were reviewed.. Continue same treatment. Continue with symptomatic treatment. Resume home medication. Monitor labs and vitals. DVT and GI prophylaxis. Further recommendations as per clinical course of the patient Dictation was produced using [employer] dictation software. please excuse any grammatical, word or spelling errors. Objective - Vital Signs Vital signs: Vital Signs Temp 97.8 F 09/19/22 07:14 Pulse 78 09/19/22 07:14 Resp 18 09/19/22 07:14 BP 94/64 09/19/22 07:14 Pulse Ox 96 09/19/22 07:14 FiO2 Intake & Output 09/18/22 09/19/22 09/19/22 18:59 06:59 18:59 Intake Total 1080 Output Total 100 450 Balance 980 -450 Intake: Oral 1080 Output: Urine 100 450 Other: Voiding Method Urinal # Voids 4 # Bowel Movements 6 1 - Labs CBC & Chem 7: 09/19/22 05:44 09/19/22 05:44 Labs: Abnormal Lab Results - Last 24 Hours (Table) 09/18/22 09/18/22 09/19/22 Range/Units 16:34 21:38 05:44 POC Glucose (mg/dL) 116 H 136 H (70-110) mg/dL Calcium 7.8 L (8.7-10.3) mg/dL 09/19/22 Range/Units 11:27 POC Glucose (mg/dL) 118 H (70-110) mg/dL Calcium (8.7-10.3) mg/dL
--- NOTE | 2022-09-19 16:03 | P.PN ---
Subjective Progress Note Date: 09/19/22 CHIEF COMPLAINT: Partial small bowel obstruction HISTORY OF PRESENT ILLNESS: Patient sitting at bedside chair. He reports his pain is improved. He is having bowel movements. Tolerating low fiber diet. Afebrile. PHYSICAL EXAM: VITAL SIGNS: Reviewed. GENERAL: Well-developed in no acute distress. ABDOMEN: Soft. Mildly distended. Nontender NEUROLOGIC: Alert and oriented. Cranial nerves II through XII grossly intact. ASSESSMENT: 1. Partial small bowel obstruction 2. Prominent pancreatic duct 3. Chronic back pain on scheduled morphine 4. History of cholecystectomy 5. Hypokalemia resolved 6. Abdominal ascites status post paracentesis PLAN: -Continue low fiber diet -Encouraged patient to increase activity level -Patient can be discharged from surgical standpoint when medically cleared -DVT prophylaxis subcu heparin Physician Harness Placer note has been reviewed by physician. Signing provider agrees with the documented findings, assessment, and plan of care. Objective - Vital Signs Vital signs: Vital Signs Temp 98.0 F 09/19/22 14:54 Pulse 85 09/19/22 14:54 Resp 17 09/19/22 14:54 BP 103/73 09/19/22 14:54 Pulse Ox 99 09/19/22 14:54 FiO2 Intake & Output 09/18/22 09/19/22 09/19/22 18:59 06:59 18:59 Intake Total 1080 Output Total 100 450 Balance 980 -450 Weight 47.174 kg Intake: Oral 1080 Output: Urine 100 450 Other: Voiding Method Urinal Urinal # Voids 4 # Bowel Movements 6 1 - Labs CBC & Chem 7: 09/19/22 05:44 09/19/22 05:44 Labs: Abnormal Lab Results - Last 24 Hours (Table) 09/18/22 09/18/22 09/19/22 Range/Units 16:34 21:38 05:44 POC Glucose (mg/dL) 116 H 136 H (70-110) mg/dL Calcium 7.8 L (8.7-10.3) mg/dL 09/19/22 Range/Units 11:27 POC Glucose (mg/dL) 118 H (70-110) mg/dL Calcium (8.7-10.3) mg/dL
[2022-09-19] MEDS ORDERED: HYDROmorphone 0.5 MG/0.5 ML SYRINGE IVP PRN (16:16)
[2022-09-19 16:18] LABS: Glucose,Whole Blood 101 mg/dL (70-110)
[2022-09-19] MEDS: HYDROcodone/APAP 5-325MG 1 EACH TAB PO PRN (18:08)
[2022-09-19] MEDS: levETIRAcetam 500 MG TAB PO SCH (20:23)
[2022-09-19] MEDS: LATANOPROST 0.005% OPHTH DROPS 2.5 ML BTL BOTH EYES SCH (20:24)
[2022-09-19] MEDS ORDERED: levETIRAcetam 250 MG TAB PO SCH (21:00)
[2022-09-19 22:09] LABS: Glucose,Whole Blood 82 mg/dL (70-110)
[2022-09-20] MEDS: HYDROcodone/APAP 5-325MG 1 EACH TAB PO PRN ×2 (00:31→10:26)
[2022-09-20 02:27] LABS: Glucose,Whole Blood 106 mg/dL (70-110)
[2022-09-20] MEDS ORDERED: KETOROLAC 15 MG/ML 1 ML VIAL IVP STA (02:56)
[2022-09-20 05:56] LABS: Glucose,Whole Blood 88 mg/dL (70-110)
[2022-09-20 08:30] VITALS: BP 114/75; PULSE 80; RESP 16; TEMP 97.9
[2022-09-20] MEDS: PANTOPRAZOLE 40 MG/10 ML VIAL IVP SCH (10:25)
[2022-09-20] MEDS: levETIRAcetam 500 MG TAB PO SCH (10:26)
[2022-09-20] MEDS: HEPARIN SODIUM,PORCINE 5,000 UNIT/ML 1 ML VIAL SQ SCH (10:26)
[2022-09-20] MEDS: DOXYCYCLINE 100 MG CAP PO SCH (10:26)
[2022-09-20 11:00] LABS: Glucose,Whole Blood 94 mg/dL (70-110)
--- NOTE | 2022-09-20 13:33 | P.DS ---
Providers Date of admission: 09/12/22 12:34 Expected date of discharge: 09/20/22 Attending physician: Samuel Huggins MD Consults: 09/12/22 12:45 Consult Physician Routine Consulting Provider: Quinn Hemphill Consult Reason/Comments: SBO Do you want consulting provider notified?: Yes 09/12/22 13:21 Consult Physician Routine Consulting Provider: Pati Hernandez Consult Reason/Comments: Permanent pancreatic duct with ascites Do you want consulting provider notified?: Yes Primary care physician: Gato Reina Hospital Course: Discharge diagnoses; Small bowel obstruction, partial moderate to severe calories protein malnutrition Acute hypernatremia Prominent pancreatic duct with abdominal ascites Nicotine dependence History of seizure disorder History of alcohol use disorder History of glaucoma History of GERD Osteoarthritis Hospital course; 77 years old male with multiple medical problems, GERD/Reflux, Osteoarthritis (OA), Seizure Disorder,LAST SEIZURE 2006, GLAUCOMA. Presents because of diarrhea more than one months. at bedside. Patient looks cachectic and it looks like [place] lost some weight Patient says that he eats well but he has frequent bowel movement about 10-15 H day. There are lose and no blood in them. Normally his bowel movement was was twice a day. 2 days ago he noticed that he has swelling in his feet and that's it was purple in color but this resolved now. Also patient complains from stomach distention. He sees Dr. Hernandez from GI as an outpatient for colonoscopy and EGD Patient smokes about 5 cigarettes per day and he was counseled to quit and he agrees but he declines nicotine patch. He used to drink alcohol 40 years quit about 3-4 years ago when he lost appetite.. No illicit drugs. CT of the abdomen and pelvis: Dilated fluid-filled small bowel loops, partial small bowel obstruction is suspected. Ascites with prominent pancreatic duct 09/13/2022 Patient has less abdominal distention, NG tube is in place and draining about 500 mL with Dark Green discharge from his stomach over the last few hours in the morning. No significant abdominal pain and tenderness. No bowel movement. He had mild hypoglycemia this morning and fluent change to D5 normal saline at 75 mL/h. Surgery consult is requested. Continue with home dose of Keppra intravenously, conversion from oral to IV is 1:1 as per pharmacist 09/14/2022 Patient looks the same. NG tube is in place with Tyler discharge today. Abdomen less distended with mild tenderness. His status post ultrasound-guided paracentesis and results are pending including cytology studies Tumor markers sent by GI team and still pending GI and surgery team on the case. Patient still studies also are pending as well. She remains on bowel rest, pain management and IV fluids 09/15 patient seen and everted bedside, abdominal distention has improved, NG tube in place 09/16: Patient doing better today mild discomfort that have bowel movement movement. Seen by general surgery. Plan to advance diet as tolerated and remove NG tube. IV fluid transition to D5W as well. We'll continue to monitor serum sodium levels 09/17: Patient seen and evaluated bedside, diet advanced as tolerated, noted to have low potassium levels which will be replaced, hypernatremia resolved. Encourage use of ensure 09/18: Patient seen and evaluated and bedside. Does have cough with purulent sputum production. Chest x-ray ordered suspected bronchitis started on doxycycline chronic history of smoking as well. Encouraged to increase oral intake secondary to malnutrition. Patient will benefit from rehab 09/19. Patient seen and examined. Doing better, tolerating diet. 09/20. Patient seen and examined. Patient had episode of abdominal pain overnight, stated that abdominal pain resolved after having a bowel movement. Surgery evaluated the patient, patient tolerating diet, cleared the patient for discharge PHYSICAL EXAMINATION: GENERAL: The patient is alert and oriented x3, not in any acute distress. Well developed, well nourished. HEENT: Pupils are round and equally reacting to light. EOMI. No scleral icterus. No conjunctival pallor. Normocephalic, atraumatic. No pharyngeal erythema. No thyromegaly. CARDIOVASCULAR: S1 and S2 present. No murmurs, rubs, or gallops. PULMONARY: Chest is clear to auscultation, no wheezing or crackles. ABDOMEN: Soft, nontender, nondistended, normoactive bowel sounds. No palpable organomegaly. MUSCULOSKELETAL: No joint swelling or deformity. EXTREMITIES: No cyanosis, clubbing, or pedal edema. NEUROLOGICAL: Gross neurological examination did not reveal any focal deficits. SKIN: No rashes. Dictation was produced using [employer] software. please excuse any grammatical, word or spelling errors. Patient Condition at Discharge: Stable Plan - Discharge Summary Discharge Rx Participant: Yes New Discharge Prescriptions: New Doxycycline [Vibramycin] 100 mg PO BID #7 cap Continue levETIRAcetam [Keppra] 1,000 mg PO BID levETIRAcetam [Keppra] 250 mg PO BID Ergocalciferol (Vitamin D2) [Drisdol (50,000 Iu)] 1,250 mcg PO WE Morphine Sulfate Ir [MSIR] 30 mg PO QID Bimatoprost [Lumigan 0.01% Ophth Soln] 1 drop BOTH EYES HS Dicyclomine [Bentyl] 10 mg PO TID PRN PRN Reason: IBS/CRAMPS Discharge Medication List levETIRAcetam [Keppra] 1,000 mg PO BID 03/29/16 [History] levETIRAcetam [Keppra] 250 mg PO BID 04/23/19 [History] Bimatoprost [Lumigan 0.01% Ophth Soln] 1 drop BOTH EYES HS 02/10/22 [History] Morphine Sulfate Ir [MSIR] 30 mg PO QID 02/10/22 [History] Ergocalciferol (Vitamin D2) [Drisdol (50,000 Iu)] 1,250 mcg PO WE 03/17/22 [History] Dicyclomine [Bentyl] 10 mg PO TID PRN 09/12/22 [History] Doxycycline [Vibramycin] 100 mg PO BID #7 cap 09/20/22 [Rx] Follow up Appointment(s)/Referral(s): Radha Castellano NPC [REFERRING] - 09/28/22 1:15 pm (at [facility]) Discharge Disposition: HOME SELF-CARE
--- NOTE | 2022-09-20 15:59 | P.PN ---
Subjective Progress Note Date: 09/20/22 CHIEF COMPLAINT: Partial small bowel obstruction HISTORY OF PRESENT ILLNESS: Patient lying in bed comfortably. Apparently last night he had increase in abdominal pain and medicine service did make him not barbara by mouth. Patient reports that pain improved after bowel movement. Afebrile. Patient would like to be discharged home PHYSICAL EXAM: VITAL SIGNS: Reviewed. GENERAL: Well-developed in no acute distress. ABDOMEN: Soft. Mildly distended. Nontender NEUROLOGIC: Alert and oriented. Cranial nerves II through XII grossly intact. ASSESSMENT: 1. Partial small bowel obstruction 2. Prominent pancreatic duct 3. Chronic back pain on scheduled morphine 4. History of cholecystectomy 5. Hypokalemia resolved 6. Abdominal ascites status post paracentesis PLAN: -Start full liquid diet. If patient tolerates he can then be discharged home and advance diet as tolerated -Encouraged patient to increase activity level -DVT prophylaxis subcu heparin Physician Senior Manufacturing Test Engineer note has been reviewed by physician. Signing provider agrees with the documented findings, assessment, and plan of care. Objective - Vital Signs Vital signs: Vital Signs Temp 97.9 F 09/20/22 07:40 Pulse 80 09/20/22 08:00 Resp 16 09/20/22 08:00 BP 114/75 09/20/22 07:40 Pulse Ox 97 09/20/22 07:40 FiO2 Intake & Output 09/19/22 09/20/22 09/20/22 18:59 06:59 18:59 Intake Total 650 Balance 650 Weight 47.174 kg Intake: Oral 650 Other: Voiding Method Urinal Bedside Commode Bedside Commode # Voids 3 2 - Labs CBC & Chem 7: 09/19/22 05:44 09/19/22 05:44
--- NOTE | 2022-09-22 05:49 | CDI ---
Documentation Clarification Form Date: 09/22/22 From: Irma Camp Admit Date: 09/12/2022 12:34:00 PM Patient Name: Satish Pearl Visit Number: [id number] Discharge Date: 09/20/2022 02:24:00 PM ATTENTION: The Clinical Documentation Specialists (CDI) and [facility] Coding Staff appreciate your assistance in clarifying documentation. Please respond to the clarification below the line at the bottom and electronically sign. The CDI & [facility] Coding staff will review the response and follow-up if needed. Please note: Queries are made part of the Legal Health Record. If you have any questions, please contact the author of this message via ITS. Dr. Remy Junior, Conflicting documentation has been found in the medical record. As attending physician, please provide clarification. Per H&P, progress notes and discharge summary states moderate to severe calories protein malnutrition. History/Risk Factors: cachexia, small bowel obstruction, ascites, T2DM w hypoglycemia, epilepsy, colonic diverticulosis, GERD, chronic back pain, smoker. OA Clinical Indicators: Cachexia with weight loss. BMI 14.5. Per Dietary: weight loss of >22% x 3 months, severe orbital and buccal fat pad loss, Malnutrition acute, severe. 09/12: Albumin 2.6 09/12: Total protein 5.0 Treatment: Encourage protein supplementation Please clarify which diagnosis is most appropriate: [ x ] Moderate protein calorie malnutrition [ ] Severe protein calorie malnutrition] [ ] Other (please specify) [ ] Unable to determine MTDD
== END 2022-09-20 14:24 | disposition home or self-care (01) | DRG 389 ==
LOC: EC 09:58 → 5NMEDONC 12:34 → 4SSUR 20:34
PROVIDERS: ADMIT Internal Medicine; ATTEND Internal Medicine
PROC: 0D9670Z Drainage of Stomach with Drainage Device, Via Natural or Artificial Opening (ICD-10-PCS; 2022-09-12)
PROC: 0W9G3ZX Drainage of Peritoneal Cavity, Percutaneous Approach, Diagnostic (ICD-10-PCS; principal; 2022-09-13)
DX: K56.600 Partial intestinal obstruction, unspecified as to cause (principal); E44.0 Moderate protein-calorie malnutrition; R64 Cachexia; E87.0 Hyperosmolality and hypernatremia; Z68.1 Body mass index [BMI] 19.9 or less, adult; R18.8 Other ascites; K76.6 Portal hypertension; E11.649 Type 2 diabetes mellitus with hypoglycemia without coma; G40.909 Epilepsy, unspecified, not intractable, without status epilepticus; Z20.822 Contact with and (suspected) exposure to COVID-19; E87.6 Hypokalemia; K57.30 Diverticulosis of large intestine without perforation or abscess without bleeding; K21.9 Gastro-esophageal reflux disease without esophagitis; H40.9 Unspecified glaucoma; G89.29 Other chronic pain; M54.9 Dorsalgia, unspecified; M25.572 Pain in left ankle and joints of left foot; K29.70 Gastritis, unspecified, without bleeding; K52.9 Noninfective gastroenteritis and colitis, unspecified; K59.00 Constipation, unspecified; F17.210 Nicotine dependence, cigarettes, uncomplicated; M19.90 Unspecified osteoarthritis, unspecified site; F10.91 Alcohol use, unspecified, in remission; Z79.891 Long term (current) use of opiate analgesic; Z79.899 Other long term (current) drug therapy; Z71.6 Tobacco abuse counseling
CPT/HCPCS: 36415; 49083; 71045; 74177; 74250; 76705; 80048; 80053; 80076; 82042; 82248; 83605; 83630; 83690; 83735; 84100; 84132; 84157; 85025; 85027; 85610; 85730; 86140; 86301; 87045; 87046; 87070; 87075; 87205; 87324; 87636; 88108; 88305; 89050; 93005; 96361; 96374; 96375; 99285

== ENCOUNTER → 2022-10-07 | Outpatient (CLI) | payer MEDICARE, OTHER ==
[2022-10-08 01:47] LABS: ALT 22 U/L (10-49); AST 29 U/L (14-35); Albumin 2.8 d/dL (3.8-4.9); Albumin/Globulin Ratio 1.56 Ratio (1.60-3.17); Alkaline Phosphatase 117 U/L (41-126); BUN/Creat Ratio 16.78 Ratio (12.00-20.00); Blood Urea Nitrogen 15.1 mg/dL (9.0-27.0); Calcium 8.6 mg/dL (8.7-10.3); Chloride 102 mmol/L (96-109); Globulin 1.8 d/dL (1.6-3.3); Glucose 85 mg/dL (70-110); Potassium 4.6 mmol/L (3.5-5.5); Sodium 139 mmol/L (135-145); Total Bilirubin 0.5 mg/dL (0.3-1.2); Total Protein 4.6 d/dL (6.2-8.2)
[2022-10-08 01:59] LABS: Basophils # (A) 0.05 X 10*3/uL (0.00-0.10); Basophils % (A) 0.8 %; Eosinophils # (A) 0.03 X 10*3/uL (0.04-0.35); Eosinophils % (A) 0.5 %; HCT 44.7 % (39.6-50.0); HGB 14.6 d/dL (13.0-17.0); Lymphocytes # (A) 2.09 X 10*3/uL (0.90-5.00); Lymphocytes % (A) 34.7 %; MCHC 32.7 d/dL (32.0-37.0); MCV 94.9 FL (80.0-97.0); Mean Platelet Volume 9.9 FL (9.5-12.2); Monocytes # (A) 0.51 X 10*3/uL (0.20-1.00); Monocytes % (A) 8.5 %; NRBC Per 100 WBC 0 X 10*3/uL (0.00-0.01); Neutrophils # (A) 3.31 X 10*3/uL (1.80-7.70); Platelet Count 386 X 10*3/uL (140-440); RBC 4.71 X 10*6/uL (4.40-5.60); RDW 14.3 % (11.5-14.5); WBC 6.02 X 10*3/uL (4.50-10.00)
== END | disposition home or self-care (01) ==
LOC: LABWHC1 13:07
PROVIDERS: ATTEND Internal Medicine Gastroenterology
DX: R18.8 Other ascites (principal)
CPT/HCPCS: 36415; 80053; 82105; 85025

== ENCOUNTER → 2022-10-26 | Outpatient (CLI) | payer MEDICARE, OTHER ==
--- NOTE | 2022-10-26 15:40 | MR ---
EXAMINATION TYPE: MR pancreas / mrcp wo/w con DATE OF EXAM: 10/26/2022 1:27 PM CLINICAL INDICATION:Male, 77 years old with history of K86.9 DISEASE OF PANCREAS, UNSPECIFIED; PHH, P ancreatic duct disorder, disease of the pancreas. COMPARISON: 09/12/2022 TECHNIQUE MRI ABDOMEN WITH CONTRAST: Multiplanar multi-sequence imaging was performed without and wit h IV contrast/gadolinium. The patient was given 5 cc Gadavist gadolinium intravenously and dynamic p ost-VIBE (volumetric interpolated breath-hold gradient recall echo) imaging was performed. IV Contrast: 5 cc Gadavist TECHNIQUE MRCP ABDOMEN WITHOUT CONTRAST: Multi planar, T2-weighted imaging with and without fat satur ation and chemical shift imaging was performed of the abdomen. Then, heavily T2 weighted imaging (tyree f-Fourier acquisition single-shot turbo spin-echo) was utilized in order to study the biliary system. Maximum intensity projection images were reconstructed from the original data of the biliary tree. FINDINGS: MRCP: * The common bile duct at the level of the pancreatic head measures 8 mm in size. No evidence for fi lling defect to suggest choledocholithiasis. * The common hepatic duct measures 12 mm in size. * The pancreatic duct is normal. 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 The gallbladder appears surgically absent. Limited evaluation of the biliary system given the extensive ascites. LOWER CHEST: No gross irregularity. ABDOMEN Liver: No abnormal postcontrast enhancement. Gallbladder and Bile ducts: Unremarkable. Pancreas: Unremarkable. Spleen: Unremarkable. Adrenal glands: Unremarkable. Kidneys: Left simple appearing renal cysts. No abnormal postcontrast enhancement Stomach and Bowel: Small hiatal hernia. Peritoneum: There is a large amount of free fluid within the abdomen. Vasculature: Unremarkable. No aortic aneurysm. Musculoskeletal: The osseous structures appear intact. Lymph Nodes: No gross evidence for lymphadenopathy. Abdominal wall: Unremarkable. IMPRESSION: 1. Extremely limited exam due to large ascites. The patient should have ascites removed before under going MRI scans. 2. Pancreatic divisum morphology is suggested given the limitations exam. 3. Dilation of the extra hepatic and central intrahepatic biliary system. Cannot entirely rule out a mpullary lesion given limitations of exam. Consider ERCP. 4. No evidence for choledocholithiasis. 5. Surgically absent gallbladder.
== END | disposition home or self-care (01) ==
LOC: RADMRIMAIN 11:55
PROVIDERS: ATTEND Internal Medicine Gastroenterology
DX: K86.9 Disease of pancreas, unspecified (principal); Q44.5 Other congenital malformations of bile ducts; R18.8 Other ascites; Z90.49 Acquired absence of other specified parts of digestive tract
CPT/HCPCS: 74183; A9585

== ENCOUNTER → 2023-01-19 | Outpatient (CLI) | payer MEDICARE, OTHER ==
[2023-01-20 02:30] LABS: ALT 28 U/L (10-49); AST 28 U/L (14-35); Albumin 3.9 g/dL (3.8-4.9); Albumin/Globulin Ratio 1.39 Ratio (1.60-3.17); Alkaline Phosphatase 153 U/L (41-126); BUN/Creat Ratio 19.17 Ratio (12.00-20.00); Calcium 9.3 mg/dL (8.7-10.3); Carbon Dioxide 28.5 mmol/L (21.6-31.8); Chloride 95 mmol/L (96-109); Globulin 2.8 g/dL (1.6-3.3); Glucose 107 mg/dL (70-110); Potassium 4.4 mmol/L (3.5-5.5); Sodium 135 mmol/L (135-145); Total Bilirubin 0.6 mg/dL (0.3-1.2); Total Protein 6.7 g/dL (6.2-8.2)
[2023-01-20 02:51] LABS: Basophils # (A) 0.08 X 10*3/uL (0.00-0.10); Eosinophils # (A) 0.03 X 10*3/uL (0.04-0.35); Eosinophils % (A) 0.4 %; HCT 45.9 % (39.6-50.0); HGB 15.2 g/dL (13.0-17.0); Lymphocytes # (A) 2.21 X 10*3/uL (0.90-5.00); Lymphocytes % (A) 26.6 %; MCH 31.6 pg (27.0-32.0); MCHC 33.1 g/dL (32.0-37.0); MCV 95.4 FL (80.0-97.0); Mean Platelet Volume 9.9 FL (9.5-12.2); Monocytes # (A) 0.81 X 10*3/uL (0.20-1.00); Monocytes % (A) 9.7 %; NRBC Per 100 WBC 0 X 10*3/uL (0.00-0.01); Neutrophils # (A) 5.18 X 10*3/uL (1.80-7.70); Neutrophils % (A) 62.2 %; Platelet Count 395 X 10*3/uL (140-440); RBC 4.81 X 10*6/uL (4.40-5.60); RDW 13.8 % (11.5-14.5); WBC 8.32 X 10*3/uL (4.50-10.00)
== END | disposition home or self-care (01) ==
LOC: LABWHC1 13:03
PROVIDERS: ATTEND Nurse Practitioner Family
DX: R18.8 Other ascites (principal)
CPT/HCPCS: 36415; 80053; 85025

== ENCOUNTER → 2023-04-13 | Outpatient (CLI) | payer MEDICARE, OTHER ==
[2023-04-13 16:12] LABS: Basophils # (A) 0.05 X 10*3/uL (0.00-0.10); Basophils % (A) 0.5 %; Eosinophils # (A) 0.07 X 10*3/uL (0.04-0.35); Eosinophils % (A) 0.7 %; HCT 44.9 % (39.6-50.0); HGB 14.4 g/dL (13.0-17.0); Lymphocytes # (A) 2.25 X 10*3/uL (0.90-5.00); Lymphocytes % (A) 22.8 %; MCHC 32.1 g/dL (32.0-37.0); MCV 96.6 FL (80.0-97.0); Mean Platelet Volume 9.6 FL (9.5-12.2); Monocytes % (A) 7.1 %; NRBC Per 100 WBC 0 X 10*3/uL (0.00-0.01); Neutrophils # (A) 6.79 X 10*3/uL (1.80-7.70); Neutrophils % (A) 68.7 %; Platelet Count 473 X 10*3/uL (140-440); RBC 4.65 X 10*6/uL (4.40-5.60); RDW 13.2 % (11.5-14.5); WBC 9.88 X 10*3/uL (4.50-10.00)
[2023-04-13 17:00] LABS: ALT 27 U/L (10-49); AST 24 U/L (14-35); Albumin 3.8 g/dL (3.8-4.9); Albumin/Globulin Ratio 1.52 Ratio (1.60-3.17); Alkaline Phosphatase 165 U/L (41-126); BUN/Creat Ratio 19.33 Ratio (12.00-20.00); Blood Urea Nitrogen 17.4 mg/dL (9.0-27.0); Calcium 9.7 mg/dL (8.7-10.3); Carbon Dioxide 27.6 mmol/L (21.6-31.8); Chloride 102 mmol/L (96-109); Globulin 2.5 g/dL (1.6-3.3); Glucose 135 mg/dL (70-110); Potassium 4.7 mmol/L (3.5-5.5); Sodium 140 mmol/L (135-145); Total Bilirubin 0.5 mg/dL (0.3-1.2); Total Protein 6.3 g/dL (6.2-8.2)
== END | disposition home or self-care (01) ==
LOC: LABWHC1 10:27
PROVIDERS: ATTEND Family Medicine
DX: R18.8 Other ascites (principal)
CPT/HCPCS: 36415; 80053; 82105; 85025

== ENCOUNTER → 2023-05-11 | Outpatient (CLI) | payer MEDICARE, OTHER | LOC: LABWHC1 12:33 | PROVIDERS: ATTEND Psychiatry & Neurology Neurology | DX: G40.109 Localization-related (focal) (partial) symptomatic epilepsy and epileptic syndromes with simple partial seizures, not intractable, without status epilepticus (principal) | CPT/HCPCS: 36415; 80177 ==

== ENCOUNTER → 2023-08-08 | Outpatient (CLI) | payer MEDICARE, OTHER ==
[2023-08-08 15:23] LABS: Basophils # (A) 0.07 X 10*3/uL (0.00-0.10); Basophils % (A) 0.8 %; Eosinophils # (A) 0.12 X 10*3/uL (0.04-0.35); Eosinophils % (A) 1.3 %; HCT 46.8 % (39.6-50.0); HGB 14.4 g/dL (13.0-17.0); Lymphocytes % (A) 24.5 %; MCH 28.5 pg (27.0-32.0); MCHC 30.8 g/dL (32.0-37.0); MCV 92.5 FL (80.0-97.0); Mean Platelet Volume 9.2 FL (9.5-12.2); Monocytes # (A) 0.74 X 10*3/uL (0.20-1.00); Monocytes % (A) 8.2 %; NRBC Per 100 WBC 0 X 10*3/uL (0.00-0.01); Neutrophils # (A) 5.79 X 10*3/uL (1.80-7.70); Neutrophils % (A) 64.5 %; Platelet Count 544 X 10*3/uL (140-440); RBC 5.06 X 10*6/uL (4.40-5.60); RDW 14.8 % (11.5-14.5); WBC 8.98 X 10*3/uL (4.50-10.00)
[2023-08-08 15:39] LABS: ALT 20 U/L (10-49); AST 25 U/L (14-35); Albumin 3.6 g/dL (3.8-4.9); Albumin/Globulin Ratio 1.44 Ratio (1.60-3.17); Alkaline Phosphatase 168 U/L (41-126); BUN/Creat Ratio 14.89 Ratio (12.00-20.00); Blood Urea Nitrogen 13.4 mg/dL (9.0-27.0); Calcium 9.5 mg/dL (8.7-10.3); Carbon Dioxide 30.9 mmol/L (21.6-31.8); Chloride 99 mmol/L (96-109); Globulin 2.5 g/dL (1.6-3.3); Glucose 105 mg/dL (70-110); Potassium 5.1 mmol/L (3.5-5.5); Sodium 140 mmol/L (135-145); Total Bilirubin 0.5 mg/dL (0.3-1.2); Total Protein 6.1 g/dL (6.2-8.2)
== END | disposition home or self-care (01) ==
LOC: LABWHC1 07:44
PROVIDERS: ATTEND Internal Medicine Gastroenterology
DX: R18.8 Other ascites (principal); R74.8 Abnormal levels of other serum enzymes
CPT/HCPCS: 36415; 80053; 82105; 83516; 85025

== ENCOUNTER → 2024-01-22 | Outpatient (CLI) | payer MEDICARE, OTHER ==
[2024-01-22 14:58] LABS: ALT 17 U/L (10-49); AST 20 U/L (14-35); Albumin 3.4 g/dL (3.8-4.9); Albumin/Globulin Ratio 1.55 Ratio (1.60-3.17); Alkaline Phosphatase 186 U/L (41-126); BUN/Creat Ratio 9.33 Ratio (12.00-20.00); Blood Urea Nitrogen 8.4 mg/dL (9.0-27.0); Calcium 9.1 mg/dL (8.7-10.3); Carbon Dioxide 27.6 mmol/L (21.6-31.8); Chloride 102 mmol/L (96-109); Globulin 2.2 g/dL (1.6-3.3); Glucose 92 mg/dL (70-110); Potassium 5.2 mmol/L (3.5-5.5); Sodium 139 mmol/L (135-145); Total Bilirubin 0.6 mg/dL (0.3-1.2); Total Protein 5.6 g/dL (6.2-8.2)
[2024-01-22 15:02] LABS: Basophils # (A) 0.07 X 10*3/uL (0.00-0.10); Basophils % (A) 0.6 %; Eosinophils # (A) 0.08 X 10*3/uL (0.04-0.35); Eosinophils % (A) 0.7 %; HCT 47.1 % (39.6-50.0); HGB 15.2 g/dL (13.0-17.0); Lymphocytes # (A) 2.13 X 10*3/uL (0.90-5.00); Lymphocytes % (A) 19.2 %; MCH 28.5 pg (27.0-32.0); MCHC 32.3 g/dL (32.0-37.0); MCV 88.2 FL (80.0-97.0); Monocytes # (A) 0.78 X 10*3/uL (0.20-1.00); NRBC Per 100 WBC 0 X 10*3/uL (0.00-0.01); Neutrophils # (A) 7.98 X 10*3/uL (1.80-7.70); Neutrophils % (A) 72.1 %; Platelet Count 478 X 10*3/uL (140-440); RBC 5.34 X 10*6/uL (4.40-5.60); RDW 15.7 % (11.5-14.5); WBC 11.08 X 10*3/uL (4.50-10.00)
== END | disposition home or self-care (01) ==
LOC: LABWHC1 09:52
PROVIDERS: ATTEND Nurse Practitioner Family
DX: R18.8 Other ascites (principal)
CPT/HCPCS: 36415; 80053; 85025

== ENCOUNTER 2024-07-19 06:48 | Day surgery (SDC) | payer MEDICARE, OTHER ==
[2024-07-17 12:03] VITALS: BMI 14.9
[2024-07-19] MEDS: IV FLUID CONTINUATION 1,000 ML IV ONE (07:07)
[2024-07-19 07:14] VITALS: RESP 16; TEMP 97
[2024-07-19] MEDS: LACTATED RINGERS 1,000 ML IV SCH (07:23)
[2024-07-19] MEDS ORDERED: LIDOCAINE 1% INJ 10MG/ML (20 ML MDV) ONE (07:59)
[2024-07-19] MEDS ORDERED: PROPOFOL 10 MG/ML 20 ML VIAL IV ONE (07:59)
--- NOTE | 2024-07-19 08:24 | P.PCN ---
Date of Procedure: 07/19/24 Procedure(s) Performed: Brief history: Patient is a pleasant 79-year-old white male scheduled for an elective upper endoscopy as well as colonoscopy as a part of evaluation of progressive weight loss of almost 40 pounds in the last 1 year duration. He does complain of chronic diarrhea with 4-5 loose watery bowel movements daily with occasional normal bowel movements. No bleeding. Procedure performed: Esophagogastroduodenoscopy with biopsy Colonoscopy with biopsy Preoperative diagnosis: Progressive weight loss of 40 pounds Chronic intermittent diarrhea Anesthesia: MAC Procedure: After informed consent was obtained from the patient was brought into the endoscopy unit and IV sedation was administered by anesthesia under continuous monitoring. Initially upper endoscopy was done. The Olympus GF 160 video endoscope was inserted inserted into the mouth and esophagus intubated without any difficulty and was gradually advanced into the stomach and duodenum and carefully examined. The bulb of the duodenum appeared normal. In the second part of the duodenum there was a 7 mm linear polyp identified which was biopsied. The scope was then withdrawn into the stomach adequately insufflated with air and upon careful examination the antrum and body had diffuse gastritis and biopsies were done from this area. Because of the, cardia and fundus appeared normal. The scope was then withdrawn into the esophagus. The GE junction was located at 40 cm to the incisors. It appeared regular with no erythema erosions or ulcerations. No esophageal varices seen. Rest of the esophagus appeared normal. Patient tolerated the procedure well. At this time the patient continued to remain sedation. Initial digital rectal examination was normal. Olympus CF 160 video colonoscope was then inserted into the rectum and gradually advanced to the cecum without any difficulty. Careful examination was performed as the scope was gradually being withdrawn. The prep was excellent. Terminal ileum intubated and 5 cm visualized appeared normal. The cecum, ascending colon, transverse colon, descending colon, sigmoid colon and rectum appeared normal. Biopsies were done in the ascending and descending colon to rule out microscopic/collagenous colitis. Retroflexion was performed in the rectum and no lesions were noted. Patient tolerated the procedure well. Impression: 1. Upper endoscopy revealed diffuse gastritis and 7 mm linear duodenal polyp status post multiple biopsies. 2. Colonoscopy revealed scattered sigmoid diverticulosis but no evidence of colitis or colorectal neoplasia Recommendations: Findings of this examination were discussed with the patient as well as his family. He was advised to follow-up with the biopsy results. Follow-up in the office in 2 weeks.
[2024-07-19 09:00] VITALS: BP 113/71; PULSE 67
== END 2024-07-19 09:43 | disposition home or self-care (01) ==
LOC: ORWHC2ENDO 06:48
PROVIDERS: ATTEND Internal Medicine Gastroenterology
DX: K29.80 Duodenitis without bleeding (principal); D72.820 Lymphocytosis (symptomatic); K29.50 Unspecified chronic gastritis without bleeding; K31.7 Polyp of stomach and duodenum; K57.30 Diverticulosis of large intestine without perforation or abscess without bleeding; K52.9 Noninfective gastroenteritis and colitis, unspecified; G40.909 Epilepsy, unspecified, not intractable, without status epilepticus; K21.9 Gastro-esophageal reflux disease without esophagitis; F17.210 Nicotine dependence, cigarettes, uncomplicated; Z90.49 Acquired absence of other specified parts of digestive tract; Z79.899 Other long term (current) drug therapy
CPT/HCPCS: 88305; 88342; 45380; 43239; J2003; J2704

== ENCOUNTER → 2024-07-26 | Outpatient (CLI) | payer MEDICARE, OTHER ==
--- NOTE | 2024-07-26 10:01 | US ---
EXAMINATION TYPE: US abdomen limited DATE OF EXAM: 07/26/2024 COMPARISON: 2022 CLINICAL INDICATION: Male, 79 years old with history of R18.8 OTHER ASCITES; TECHNIQUE: Grayscale imaging of the abdomen for ascites. FINDINGS: All four quadrants scanned. No ascites noted on today's exam. IMPRESSION: No ascites. [facility] Denise, , 07/26/2024 9:59 AM
== END | disposition home or self-care (01) ==
LOC: RADUSWWP 09:30
PROVIDERS: ATTEND Internal Medicine Gastroenterology
DX: R18.8 Other ascites (principal)
CPT/HCPCS: 76705

== ENCOUNTER → 2024-08-07 | Outpatient (CLI) | payer MEDICARE, OTHER ==
[2024-08-07 18:02] LABS: Gliadin AB IgA, Deaminated Negative (Negative); Gliadin AB IgA, Unit <0.5 U/mL; Gliadin AB IgG, Deaminated Negative (Negative); Gliadin AB IgG, Unit <0.4 U/mL
== END | disposition home or self-care (01) ==
LOC: LABWHC1 07:46
PROVIDERS: ATTEND Internal Medicine Gastroenterology
DX: K52.9 Noninfective gastroenteritis and colitis, unspecified (principal)
CPT/HCPCS: 36415; 83516

== ENCOUNTER 2024-09-03 16:15 | Emergency (ER) | payer MEDICARE, OTHER ==
[2024-09-03 16:21] VITALS: RESP 18
--- NOTE | 2024-09-03 16:44 | ED ---
General Adult HPI - General Chief complaint: Recheck/Abnormal Lab/Rx Stated complaint: high potassium Time Seen by Provider: 09/03/24 16:17 Source: patient, RN notes reviewed Mode of arrival: ambulatory Limitations: no limitations - History of Present Illness Initial comments: Patient is a 79-year-old male presenting to the emergency department with hanna gallegos for abnormal potassium level. Patient went to see Dr. Franco for evaluation and he had blood work done today. Patient got a call this afternoon stating to come to the hospital because potassium was high. Patient otherwise feels fine he has no complaints. No history of similar symptoms previously. - Related Data Home Medications Medication Instructions Recorded Confirmed Morphine Sulfate Ir [MSIR] 30 mg PO TID 02/10/22 07/17/24 Dicyclomine [Bentyl] 20 mg PO QID 09/12/22 07/17/24 Bimatoprost [Lumigan 0.01% Ophth 1 drop LEFT EYE HS 07/17/24 07/17/24 Soln] Allergies Allergy/AdvReac Type Severity Reaction Status Date / Time No Known Allergies Allergy Verified 09/03/24 16:21 Review of Systems ROS Statement: Those systems with pertinent positive or pertinent negative responses have been documented in the HPI. ROS Other: All systems not noted in ROS Statement are negative. Constitutional: Denies: fever Eyes: Denies: eye pain ENT: Denies: ear pain Respiratory: Denies: cough, dyspnea Cardiovascular: Denies: chest pain, palpitations Endocrine: Denies: fatigue Gastrointestinal: Denies: vomiting Past Medical History Past Medical History: Eye Disorder, GERD/Reflux, Osteoarthritis (OA), Seizure Disorder Additional Past Medical History / Comment(s): LAST SEIZURE 2006, GLAUCOMA. History of Any Multi-Drug Resistant Organisms: None Reported Past Surgical History: Cholecystectomy Additional Past Surgical History / Comment(s): CATARACT RIGHT EYE REMOVED, history of EGD and colonoscopy, [facility] study 2022 Past Anesthesia/Blood Transfusion Reactions: No Reported Reaction Past Psychological History: No Psychological Hx Reported Smoking Status: Current every day smoker Past Alcohol Use History: None Reported Past Drug Use History: None Reported - Past Family History Mother Family Medical History: Cancer General Exam Limitations: no limitations General appearance: alert, in no apparent distress Head exam: Present: normocephalic Eye exam: Present: normal appearance Neck exam: Present: normal inspection Respiratory exam: Present: normal lung sounds bilaterally Cardiovascular Exam: Present: regular rate, normal rhythm GI/Abdominal exam: Present: soft. Absent: tenderness Extremities exam: Present: normal inspection Neurological exam: Present: alert Psychiatric exam: Present: normal affect, normal mood Skin exam: Present: normal color Course Vital Signs 09/03/24 16:18 Temperature 98.1 F Pulse Rate 81 Respiratory 18 Rate Blood Pressure 132/77 O2 Sat by Pulse 98 Oximetry EKG Findings - EKG Results: EKG: interpreted by ERMD, sinus rhythm, normal axis, normal QRS, normal ST/T Medical Decision Making - Medical Decision Making Was pt. sent in by a medical professional or institution (, PA, [employer], urgent care, hospital, or intermediate...) When possible be specific @ -Patient was sent in from nephrology office Did you speak to anyone other than the patient for history (EMS, parent, family, police, friend...)? What history was obtained from this source @ -No Did you review nursing and triage notes (agree or disagree)? Why? @ -I reviewed and agree with nursing and triage notes Were old charts reviewed (outside hosp., previous admission, EMS record, old EKG, old radiological studies, urgent care reports/EKG's, intermediate records)? Report findings @ -No old charts were reviewed Differential Diagnosis (chest pain, altered mental status, abdominal pain women, abdominal pain men, vaginal bleeding, weakness, fever, dyspnea, syncope, headache, dizziness, GI bleed, back pain, seizure, CVA, palpatations, mental health, musculoskeletal)? @ -Differential Weakness: Hypoglycemia, shock, sepsis, hyponatremia, anemia, infection, NV, ETOH, adverse medicine reaction, overdose, stroke, this is not meant to be an all-inclusive list. EKG interpreted by me (3pts min.). @ -As above X-rays interpreted by me (1pt min.). @ -None done CT interpreted by me (1pt min.). @ -None done U/S interpreted by me (1pt. min.). @ -None done What testing was considered but not performed or refused? (CT, X-rays, U/S, labs)? Why? @ -None What meds were considered but not given or refused? Why? @ -None Did you discuss the management of the patient with other professionals (professionals i.e. , PA, [employer], lab, RT, psych nurse, home health care social worker, assistant program director, teacher, nuclear security officer, human services case manager)? Give summary @ -No Was smoking cessation discussed for >3mins.? @ -No Was critical care preformed (if so, how long)? @ -No Were there social determinants of health that impacted care today? How? (Homelessness, low income, unemployed, alcoholism, drug addiction, transportation, low edu. Level, literacy, decrease access to med. care, custodial, rehab)? @ -No Was there de-escalation of care discussed even if they declined (Discuss DNR or withdrawal of care, Hospice)? DNR status @ -No What co-morbidities impacted this encounter? (DM, HTN, Smoking, COPD, CAD, Cancer, CVA, ARF, Chemo, Hep., AIDS, mental health diagnosis, sleep apnea, mor bid obesity)? @ -History of reported CKD Was patient admitted / discharged? Hospital course, mention meds given and route, prescriptions, significant lab abnormalities, going to OR and other pertinent info. @ -Patient presents with concerns for elevated potassium level at 6.0. On repeat today potassium is 3.9. No acute abnormality on labs. Patient will be discharged and recommended follow-up. Patient states he has follow-up appointment already set for Monday. Undiagnosed new problem with uncertain prognosis? @ -No Drug Therapy requiring intensive monitoring for toxicity (Heparin, Nitro, Insulin, Cardizem)? @ -No Were any procedures done? @ -No Diagnosis/symptom? @ -Hyperkalemia, not found Acute, or Chronic, or Acute on Chronic? @ -Acute Uncomplicated (without systemic symptoms) or Complicated (systemic symptoms)? @ -Default Side effects of treatment? @ -No Exacerbation, Progression, or Severe Exacerbation? @ -No Poses a threat to life or bodily function? How? (Chest pain, USA, NV, pneumonia, PE, COPD, DKA, ARF, appy, cholecystitis, CVA, Diverticulitis, Homicidal, Suicid al, threat to staff... and all critical care pts) @ -No - Lab Data Result diagrams: 09/03/24 16:40 09/03/24 16:40 Lab Results 09/03/24 09/03/24 Range/Units 16:40 16:40 WBC 7.94 (4.50-10.00) 10*3/uL RBC 4.62 (4.40-5.60) 10*6/uL Hgb 13.8 (13.0-17.0) g/dL Hct 41.5 (39.6-50.0) % MCV 89.8 (80.0-97.0) fL MCH 29.9 (27.0-32.0) pg MCHC 33.3 (32.0-37.0) g/dL Plt Count 442 H (140-440) 10*3/uL MPV 8.8 L (9.5-12.2) fL Immature Gran % (Auto) 0.1 % Neutrophils % 59.8 % Lymphocytes % 27.1 % Monocytes % 10.1 % Eosinophils % 1.9 % Basophils % 1.0 % Immature Gran # 0.01 (0.00-0.04) 10*3/uL Neutrophils # 4.75 (1.80-7.70) 10*3/uL Lymphocytes # 2.15 (0.90-5.00) 10*3/uL Monocytes # 0.80 (0.20-1.00) 10*3/uL Eosinophils # 0.15 (0.04-0.35) 10*3/uL Basophils # 0.08 (0.00-0.10) 10*3/uL Sodium 137 (137-145) mmol/L Potassium 3.9 (3.5-5.1) mmol/L Chloride 100 (98-107) mmol/L Carbon Dioxide 30 (22-30) mmol/L Anion Gap 7 mmol/L BUN 21 H (9-20) mg/dL Creatinine 0.72 (0.66-1.25) mg/dL Est GFR (CKD-EPI)AfAm >90 (>60 ml/min/1.73 sqM) Est GFR (CKD-EPI)NonAf 89 (>60 ml/min/1.73 sqM) Glucose 106 H (74-99) mg/dL Calcium 8.7 (8.4-10.2) mg/dL Magnesium 1.9 (1.6-2.3) mg/dL Total Bilirubin 0.6 (0.2-1.3) mg/dL AST 19 (17-59) U/L ALT 12 (4-49) U/L Alkaline Phosphatase 109 (38-126) U/L Total Protein 5.1 L (6.3-8.2) g/dL Albumin 2.7 L (3.5-5.0) g/dL Disposition Clinical Impression: Feared condition not demonstrated Disposition: HOME SELF-CARE Condition: Stable Instructions (If sedation given, give patient instructions): Hyperkalemia (ED) Additional Instructions: Please do follow-up with your primary care physician and tiller man in the next few days for recheck. Return for weakness, heart racing, worsening symptoms or other concerns. Is patient prescribed a controlled substance at d/c from ED?: No Referrals: Gato Reina [Primary Care Provider] - 1-2 days Kiran Mock DO [STAFF PHYSICIAN] - 1-2 days Time of Disposition: 17:31
[2024-09-03 16:52] LABS: Basophils # (A) 0.08 10*3/uL (0.00-0.10); Basophils % (A) 1.0 %; Eosinophils # (A) 0.15 10*3/uL (0.04-0.35); Eosinophils % (A) 1.9 %; HCT 41.5 % (39.6-50.0); HGB 13.8 g/dL (13.0-17.0); Lymphocytes # (A) 2.15 10*3/uL (0.90-5.00); Lymphocytes % (A) 27.1 %; MCH 29.9 pg (27.0-32.0); MCHC 33.3 g/dL (32.0-37.0); MCV 89.8 fL (80.0-97.0); Monocytes # (A) 0.80 10*3/uL (0.20-1.00); Monocytes % (A) 10.1 %; Neutrophils # (A) 4.75 10*3/uL (1.80-7.70); Neutrophils % (A) 59.8 %; Platelet Count 442 10*3/uL (140-440); RBC 4.62 10*6/uL (4.40-5.60); RDW 13.9 % (11.5-14.5); WBC 7.94 10*3/uL (4.50-10.00)
[2024-09-03 17:05] LABS: ALT 12 U/L (4-49); AST 19 U/L (17-59); African American GFR (CKD) >90 (>60 ml/min/1.73 sqM); Albumin 2.7 g/dL (3.5-5.0); Alkaline Phosphatase 109 U/L (38-126); Anion Gap 7 mmol/L; Blood Urea Nitrogen 21 mg/dL (9-20); Calcium 8.7 mg/dL (8.4-10.2); Carbon Dioxide 30 mmol/L (22-30); Chloride 100 mmol/L (98-107); Glucose 106 mg/dL (74-99); Magnesium 1.9 mg/dL (1.6-2.3); Non-African American GFR(CKD) 89 (>60 ml/min/1.73 sqM); Potassium 3.9 mmol/L (3.5-5.1); Sodium 137 mmol/L (137-145); Total Protein 5.1 g/dL (6.3-8.2)
[2024-09-03 17:59] VITALS: BP 123/72; PULSE 70; TEMP 97.8
== END 2024-09-03 18:17 | disposition home or self-care (01) ==
LOC: EC 16:15
DX: Z71.1 Person with feared health complaint in whom no diagnosis is made (principal); F17.200 Nicotine dependence, unspecified, uncomplicated; N18.9 Chronic kidney disease, unspecified
CPT/HCPCS: 36415; 80053; 83735; 85025; 93005; 99284

== ENCOUNTER → 2024-09-03 | Outpatient (CLI) | payer MEDICARE, OTHER ==
[2024-09-03 15:26] LABS: Bilirubin,Urine Negative (Negative); Blood,Urine Negative (Negative); Color,Urine Dark Yellow (Yellow); Ketones,Urine Trace (Negative); Nitrite,Urine Negative (Negative); PH, Urine 6.0; Specific Gravity,Urine 1.029 (1.001-1.030); Urobilinogen,Urine 2.0 E.U./DL
[2024-09-03 15:38] LABS: ALT 13 U/L (10-49); AST 18 U/L (14-35); Albumin 3.2 g/dL (3.8-4.9); Albumin/Globulin Ratio 1.39 Ratio (1.60-3.17); Alkaline Phosphatase 137 U/L (41-126); Anion Gap 7.30 mmol/L (4.00-12.00); BUN/Creat Ratio 24.50 Ratio (12.00-20.00); Blood Urea Nitrogen 19.6 mg/dL (9.0-27.0); Calcium 9.0 mg/dL (8.7-10.3); Carbon Dioxide 28.7 mmol/L (21.6-31.8); Chloride 102 mmol/L (96-109); Globulin 2.3 g/dL (1.6-3.3); Glucose 93 mg/dL (70-110); Magnesium 1.8 mg/dL (1.5-2.4); Potassium 6.0 mmol/L (3.5-5.5); Sodium 138 mmol/L (135-145); Total Protein 5.5 g/dL (6.2-8.2)
[2024-09-03 15:57] LABS: Basophils # (A) 0.07 X 10*3/uL (0.00-0.10); Basophils % (A) 1.0 %; Eosinophils # (A) 0.14 X 10*3/uL (0.04-0.35); Eosinophils % (A) 2.0 %; HCT 45.4 % (39.6-50.0); HGB 14.3 g/dL (13.0-17.0); Immature Grans, Automated 0.40 %; Lymphocytes # (A) 2.13 X 10*3/uL (0.90-5.00); Lymphocytes % (A) 29.9 %; MCH 28.9 pg (27.0-32.0); MCHC 31.5 g/dL (32.0-37.0); MCV 91.9 FL (80.0-97.0); Monocytes # (A) 0.68 X 10*3/uL (0.20-1.00); Monocytes % (A) 9.6 %; NRBC Per 100 WBC 0 X 10*3/uL (0.00-0.01); Neutrophils # (A) 4.07 X 10*3/uL (1.80-7.70); Neutrophils % (A) 57.1 %; Platelet Count 529 X 10*3/uL (140-440); RBC 4.94 X 10*6/uL (4.40-5.60); RDW 14.2 % (11.5-14.5); WBC 7.12 X 10*3/uL (4.50-10.00)
== END | disposition home or self-care (01) ==
LOC: LABWHC1 10:20
PROVIDERS: ATTEND Internal Medicine
DX: N18.30 Chronic kidney disease, stage 3 unspecified (principal)
CPT/HCPCS: 36415; 80053; 81003; 82043; 82570; 83735; 84100; 85025